=== PATIENT | male | born 1960 | race Caucasian/White ===

== ENCOUNTER 2022-08-24 09:07 | Outpatient (OUT) | payer OTHER, SELFPAY ==
[2022-08-24 11:18] LABS: Free T4 0.68 ng/dL (0.76-1.46)
[2022-08-24 11:20] LABS: Free T3 3.36 pg/mL (2.18-3.98); Thyroid Stimulating Hormone 1.451 uIU/mL (0.358-3.740)
[2022-08-25 08:11] LABS: Triiodothyronine (T3) 158 ng/dL (71-180)
[2022-08-29 19:07] LABS: Reverse T3, Serum 10.2 ng/dL (9.2-24.1)
== END 2022-08-24 09:08 ==
LOC: LAB 09:17
PROVIDERS: PCP Family Medicine; Visit Provider Family Medicine
DX: E07.81 Sick-euthyroid syndrome (principal); R53.82 Chronic fatigue, unspecified; E03.9 Hypothyroidism, unspecified
CPT/HCPCS: 36415; 84439; 84443; 84480; 84481; 84482

== ENCOUNTER 2023-01-25 10:07 | Outpatient (OUT) | payer OTHER, SELFPAY ==
--- NOTE | 2023-01-25 10:22 | CA_ITS ---
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[id number] Requested By: VICKIE SHINE Order Number: [id number] Reading MD: DAMION AGRAWAL Interpretive Statements Predominant rhythm is sinus with average rate of 76 bpm Tachycardia - max rate of 131 bpm Bradycardia (45% total) - min rate of 45 bpm Ventricular ectopy - 10 PVC Patient triggered events: 10 - associated with symptoms of lightheadedness - associated with rates of 118, 102 and the remainder NSR Impression: Predominant rhythm is sinus with average rate of 76 bpm Fastest rate of 131 bpm and slowest rate of 45 bpm No atrial fibrillation No blocks or pauses Electronically Signed On 02-17-2023 11:59:27 EST by DAMION AGRAWAL
[2023-01-25 10:53] LABS: Eosinophils Absolute Auto 0.1 10^3/uL (0.0-0.7); Eosinophils Percent Auto 1.7 % (0.9-7.0); Hematocrit 40.9 % (42.0-54.0); Hemoglobin 13.7 g/dL (14.0-18.0); Immature Granulocytes Abs Auto 0.01 10^3/uL (0.00-0.03); Immature Granulocytes Pct Auto 0.2 % (0.0-0.5); Lymphocytes Absolute Auto 1.4 10^3/uL (1.2-3.8); Lymphocytes Percent Auto 34.2 % (20.5-60.0); Mean Corpuscular HGB Conc 33.5 g/dL (29.9-35.2); Mean Corpuscular Hemoglobin 31.6 pg (25.9-34.0); Mean Corpuscular Volume 94.5 fL (80.0-94.0); Mean Platelet Volume 9.8 fL (9.5-13.5); Monocytes Absolute Auto 0.5 10^3/uL (0.3-0.8); Monocytes Percent Auto 13.5 % (1.7-12.0); Neutrophils Percent Auto 49.4 % (43.0-75.0); Platelet Count 248 10^3/uL (150-450); Red Blood Count 4.33 10^6/uL (4.70-6.10); Red Cell Distribution Width 12.9 % (11.0-15.0)
[2023-01-25 11:54] LABS: Alanine Aminotransferase 22 U/L (16-63); Albumin Globulin Ratio 0.7; Albumin Level 3.4 g/dL (3.4-5.0); Alkaline Phosphatase 34 U/L (46-116); Anion Gap 11.7; Aspartate Amino Transferase 13 U/L (15-37); BUN Creatinine Ratio 21.2; Bilirubin Total 0.6 mg/dL (0.2-1.0); Calcium 8.6 mg/dL (8.5-10.1); Carbon Dioxide 25.7 mmol/L (21.0-32.0); Chloride 104 mmol/L (98-107); Estimated GFR (African America >60 (>=60); Estimated GFR (Non-African Ame >60 (>=60); Free T3 2.97 pg/mL (2.18-3.98); Globulin 5.1 g/dL; Glucose 93 mg/dL (74-106); Potassium 4.4 mmol/L (3.5-5.1); Sodium 137 mmol/L (136-145); Thyroid Stimulating Hormone 0.159 uIU/mL (0.358-3.740); Total Protein 8.5 g/dL (6.4-8.2)
== END 2023-01-25 10:08 | disposition home or self-care (01) ==
LOC: LAB 10:15
PROVIDERS: PCP Family Medicine; Visit Provider Family Medicine
DX: R55 Syncope and collapse (principal); E03.9 Hypothyroidism, unspecified
CPT/HCPCS: 36415; 80053; 84436; 84443; 84481; 85025; 93246

== ENCOUNTER 2023-02-08 11:18 | Outpatient (OUT) | payer OTHER, SELFPAY ==
[2023-02-08 13:03] LABS: Free T4 0.88 ng/dL (0.76-1.46)
[2023-02-08 13:06] LABS: Free T3 2.66 pg/mL (2.18-3.98); Thyroid Stimulating Hormone 0.077 uIU/mL (0.358-3.740)
[2023-02-09 04:07] LABS: Triiodothyronine (T3) 121 ng/dL (71-180)
[2023-02-14 21:07] LABS: Reverse T3, Serum 15.3 ng/dL (9.2-24.1)
== END 2023-02-08 11:19 | disposition home or self-care (01) ==
LOC: LAB 11:19
PROVIDERS: PCP Family Medicine; Visit Provider Family Medicine
DX: E07.81 Sick-euthyroid syndrome (principal); R53.82 Chronic fatigue, unspecified; E03.9 Hypothyroidism, unspecified
CPT/HCPCS: 36415; 84439; 84443; 84480; 84481; 84482

== ENCOUNTER 2023-04-29 10:56 | Outpatient (OUT) | payer OTHER, SELFPAY ==
--- OUTSIDE RECORDS SUMMARY | 2023-04-29 11:04 | XMS_ITS | CCD ---
Author Name Unknown Address [address] [facility] [address] [place] [address] Organization [facility] Care Team Providers Care Plastic Surgery Technician Name Role Phone PHYSICIAN, DEFAULT Unavailable Unavailable PHYSICIAN, DEFAULT Unavailable Unavailable Vickie Eason Primary Care Physician [phone] Dr. Kathy Johns Attending Unavailabl e Yumi, Dr. Vickie Easton Primary Care Unavail able HOY ., DR JOHNSTON Consulting Unavailable HOY ., DR JOHNSTON Primary Care Unavailable HOY ., DR JOHNSTON Attending Unavailable HOY ., DR JOHNSTON Admitting Unavailable HEMEYER ., DR BROOKS Consulting Unavailable HOY ., DR JOHNSTON Primary Care Unavailable HEMEYER ., DR BROOKS Attending Unavailable HEMEYER ., DR BROOKS Admitting Unavailable HOY ., DR JOHNSTON Consulting Unavailable HOY ., DR JOHNSTON Primary Care Unavailable HOY ., DR JOHNSTON Attending Unavailable HOY ., DR JOHNSTON Admitting Unavailable MARLENE SANDHU Consulting Unavailable HOY ., DR JOHNSTON Consulting Unavailable HOY ., DR JOHNSTON Primary Care Unavailable HOY ., DR JOHNSTON Attending Unavailable HOY ., DR JOHNSTON Admitting Unavailable CARMEN, DR BRANDIN Ames Consulting Unavailable HEMEYER ., DR BROOKS Consulting Unavailable HOY ., DR JOHNSTON Primary Care Unavailable HEMEYER ., DR BROOKS Attending Unavailable HEMEYER ., DR BROOKS Admmason Unavailable HOY ., DR JOHNSTON Primary Care Unavailable HEMEYER ., DR BROOKS Attending Unavailable HEMEYER ., DR BROOKS Admmason Unavailable CARMEN, DR BRANDIN Ames Consulting Unavailable HOY ., DR JOHNSTON Primary Care Unavailable TIGRE RAE Attending Unavailable TIGRE RAE Admitting Unavailable TIGRE RAE Consulting Unavailable YULIAY ., DR JOHNSTON Consulting Unavailable HOY ., DR JOHNSTON Primary Care Unavailable HOY ., DR JOHNSTON Attending Unavailable HOY ., DR JOHNSTON Admitting Unavailable YUMI Field, DR JOHNSTON Primary Care Unavailable TIGRE RAE Attending Unavailable TIGRE RAE Admitting Unavailable KELLEY ., DR BROOKS Consulting Unavailable YUMI ., DR JOHNSTON Primary Care Unavailable KELLEY ., DR BROOKS Attending Unavailable KELLEY ., DR BROOKS Admitting Unavailable Tigre Rae Attending Unavailable Tigre Rae Admitting Unavailable CECILIA BENSON Attending Unavailable Allergies Allergy Classification Reported Allergen(s) Allergy Type Date of Onset Reaction(s) Facility (2 sources) Ciprofloxacin; Translations: [ciprofloxacin] Drug Allergy Intolerance, function (observable entity) [facility] (2 sources) Ciprofloxacin Drug Allergy 7 [facility] Medications Current Medications Medication Drug Class(es) Dates Sig (Normalized) Sig (Original) Aspirin (1 source) Platelet Aggregation Inhibitor, Nonsteroidal Anti-inflammatory Drug Start: 04-26-2021 aspirin 81 mg, Daily, Refills(s) 0 Start Date: 04/26/21 Status: Ordered atorvastatin 20 mg oral tablet (1 source) HMG-CoA Reductase Inhibitor Start: 04-26-2020 take 1 tablet by mouth once daily Lipitor 20 mg Tab 20 mg = 1 tab(s), Oral, Daily, # 30 tab(s), Refills(s) 0 Start Date: 04/26/20 Status: Ordered Celebrate Multivitamin (1 source) Start: 04-26-2021 Celebrate Multivitamin Daily, Refill(s) 0 Start Date: 04/26/21 Status: Ordered DHEA 25 mg oral capsule (1 source) Start: 04-26-2020 DHEA 25 mg oral capsule 37.5 mg = 1.5 cap(s), Oral, Daily, # 30 cap(s), Refills(s) 0 Start Date: 04/26/20 Status: Ordered levothyroxine sodium 0.05 mg oral tablet (1 source) l-Thyroxine Start: 04-26-2020 take 1 tablet by mouth twice daily levothyroxine 50 mcg (0.05 mg) Tab 50 mcg = 1 tab(s), Oral, BID, # 30 tab(s), Refills(s) 0 Start Date: 04/26/20 Status: Ordered liothyronine sodium 0.005 mg oral tablet (1 source) l-Triiodothyronine Start: 04-26-2020 take 2 tablets by mouth twice daily liothyronine 5 mcg Tab 10 mcg = 2 tab(s), Oral, BID, # 30 tab(s), Refills(s) 0 Start Date: 04/26/20 Status: Ordered Problems Active Problems Problem Classification Problem Date Documented Date Episodic/Chronic Disorders of lipid metabolism (1 source) Hyperlipidemia 04-26-2020 Chronic Malaise and fatigue (5 sources) Chronic fatigue, unspecified; Translations: [CHRONIC FATIGUE UNSPECIFIED] Onset: 09-11-2021 Chronic Neoplasms of unspecified nature or uncertain behavior (4 sources) Monoclonal gammopathy; Translations: [MONOCLONAL GAMMOPATHY] Onset: 04-09-2022 Chronic Thyroid disorders (2 sources) Hypothyroidism; Translations: [Hypothyroidism, unspecified] Onset: 03-01-2022 04-26-2020 Chronic Unclassified (2 sources) Contact with and (suspected) exposure to COVID-19; Translations: [Contact with and (suspected) exposure to COVID-19] Onset: 10-26-2021 Viral infection (4 sources) COVID-19; Translations: [COVID-19] Onset: 11-02-2021 Past or Other Problems Problem Classification Problem Date Documented Da te Episodic/Chronic Nonspecific chest pain (1 source) Chest pain, unspecified; Translations: [CHEST PAIN UNSPECIFIED] Onset: 11-07-2021 Episodic Other bone disease and musculoskeletal deformities (1 source) Disorder of bone, unspecified; Translations: [DISORDER OF BONE UNSPECIFIED] Onset: 04-14-2022 Episodic Other lower respiratory disease (4 sources) Shortness of breath; Translations: [SHORTNESS OF BREATH] Onset: 11-03-2021 Episodic Other screening for suspected conditions (not mental disorders or infectious disease) (1 source) Encounter for screening for malignant neoplasm of prostate; Translations: [ENC SCREEN MALIG NEOPLASM PROSTATE] Onset: 08-18-2021 Episodic Thyroid disorders (5 sources) Sick-euthyroid syndrome; Translations: [SICK-EUTHYROID SYNDROME] Onset: 09-13-2021 Episodic Results Test Name Value Interpretation Reference Range Facility Physician Orderon 10-26-2022 Physician Order [id number]:127 Normal [facility] INSULINon 07-17-2022 Insulin 9.6 uIU/mL Normal 2.6-24.9 [facility] Comment on above: Performed By: #### L IPID, T7, URIC, TSH, CMP #### [facility] [address] [place] [address] Dr. Jaymie Gilbert CBC AUTO DIFFon 07-16-2022 BASO # 0.0 103/ul Normal 0.0-0.1 [facility] Comment on above: Performed By: #### L IPID, T7, URIC, TSH, CMP #### [facility] [address] [place] [address] Dr. Jaymie Gilbert Basophils/100 WBC (Bld) 1.0 % Normal 0.2-2.0 [facility] Comment on above: Performed By: #### L IPID, T7, URIC, TSH, CMP #### [facility] [address] [place] [address] Dr. Jaymie Gilbert EO # 0.0 103/ul Normal 0.0-0.7 [facility] Comment on above: Performed By: #### L IPID, T7, URIC, TSH, CMP #### [facility] [address] [place] [address] Dr. Jaymie Gilbert Eosinophils/100 WBC (Bld) 1.0 % Normal 0.9-7.0 [facility] Comment on above: Performed By: #### L IPID, T7, URIC, TSH, CMP #### [facility] [address] [place] [address] Dr. Jaymie Gilbert Erythrocyte distribution width (RBC) [Ratio] 13.3 % Normal 11.0-15.0 [facility] Comment on above: Performed By: #### L IPID, T7, URIC, TSH, CMP #### [facility] [address] [place] [address] Dr. Jaymie Gilbert Hematocrit (Bld) [Volume fraction] 44.6 % Normal 42.0-54.0 [facility] Comment on above: Performed By: #### L IPID, T7, URIC, TSH, CMP #### [facility] [address] [place] [address] Dr. Jaymie Gilbert Hemoglobin (Bld) [Mass/Vol] 15.2 g/dL Normal 14.0-18.0 [facility] Comment on above: Performed By: #### L IPID, T7, URIC, TSH, CMP #### [facility] [address] [place] [address] Dr. Jaymie Gilbert IG # 0.01 10e3/ul Normal 0.00-0.03 [facility] Comment on above: Performed By: #### L IPID, T7, URIC, TSH, CMP #### [facility] [address] [place] [address] Dr. Jaymie Gilbert IG % 0.3 % Normal 0.0-0.5 [facility] Comment on above: Performed By: #### L IPID, T7, URIC, TSH, CMP #### [facility] [address] [place] [address] Dr. Jaymie Gilbert LYMPH # 1.5 103/ul Normal 1.2-3.8 [facility] Comment on above: Performed By: #### L IPID, T7, URIC, TSH, CMP #### [facility] [address] [place] [address] Dr. Jaymie Gilbert Lymphocytes/100 WBC (Bld) 38.0 % Normal 20.5-60.0 [facility] Comment on above: Performed By: #### L IPID, T7, URIC, TSH, CMP #### [facility] [address] [place] [address] Dr. Jaymie Gilbert MANUAL DIFF REQ NO Normal [facility] Comment on above: Performed By: #### L IPID, T7, URIC, TSH, CMP #### [facility] [address] [place] [address] Dr. Jaymie Gilbert MCH (RBC) [Entitic mass] 31.5 pg Normal 25.9-34.0 [facility] Comment on above: Performed By: #### L IPID, T7, URIC, TSH, CMP #### [facility] [address] [place] [address] Dr. Jaymie Gilbert MCHC (RBC) [Mass/Vol] 34.1 g/dL Normal 29.9-35.2 [facility] Comment on above: Performed By: #### L IPID, T7, URIC, TSH, CMP #### [facility] [address] [place] [address] Dr. Jaymie Gilbert MCV (RBC) [Entitic vol] 92.5 fL Normal 80.0-94.0 [facility] Comment on above: Performed By: #### L IPID, T7, URIC, TSH, CMP #### [facility] [address] [place] [address] Dr. Jaymie Gilbert MONO # 0.4 103/ul Normal 0.3-0.8 [facility] Comment on above: Performed By: #### L IPID, T7, URIC, TSH, CMP #### [facility] [address] [place] [address] Dr. Jaymie Gilbert Monocytes/100 WBC (Bld) 11.0 % Normal 1.7-12.0 [facility] Comment on above: Performed By: #### L IPID, T7, URIC, TSH, CMP #### [facility] [address] [place] [address] Dr. Jaymie Gilbert NEUT # 2.0 103/ul Normal 1.4-6.5 [facility] Comment on above: Performed By: #### L IPID, T7, URIC, TSH, CMP #### [facility] [address] [place] [address] Dr. Jaymie Gilbert Neutrophils/100 WBC (Bld) 48.7 % Normal 43.0-75.0 [facility] Comment on above: Performed By: #### L IPID, T7, URIC, TSH, CMP #### [facility] [address] [place] [address] Dr. Jaymie Gilbert Platelet mean volume (Bld) [Entitic vol] 9.8 fL Normal 9.5-13.5 [facility] Comment on above: Performed By: #### L IPID, T7, URIC, TSH, CMP #### [facility] [address] [place] [address] Dr. Jaymie Gilbert PLT 261 103/ul Normal 150-450 [facility] Comment on above: Performed By: #### L IPID, T7, URIC, TSH, CMP #### [facility] [address] [address] [address] Jaymie Gilbert RBC 4.82 106/ul Normal 4.70-6.10 [facility] Comment on above: Performed By: #### L IPID, T7, URIC, TSH, CMP #### [facility] [address] [address] [address] Jaymie Gilbert WBC 4.0 103/ul Normal 4.0-11.0 [facility] Comment on above: Performed By: #### L IPID, T7, URIC, TSH, CMP #### [facility] [address] [place] [address] Dr. Jaymie Gilbert FREE THYROXINE INDEX T7on 0 07-16-2022 FTI 1.57 Normal 1.30-4.50 [facility] Comment on above: Performed By: #### L IPID, T7, URIC, TSH, CMP #### [facility] [address] [place] [address] Dr. Jaymie Gilbert T3U 32.0 % Critically low 33.0-40.0 [facility] Comment on above: Performed By: #### L IPID, T7, URIC, TSH, CMP #### [facility] [address] [place] [address] Dr. Jaymie Gilbert T4 [Mass/Vol] 4.90 ug/dL Normal 4.50-12.10 [facility] Comment on above: Performed By: #### L IPID, T7, URIC, TSH, CMP #### [facility] [address] [place] [address] Dr. Jaymie Gilbert GLYCOHEMOGLOBIN A1Con 2022 ADA RECOMMENDATION SEE BELOW Normal [facility] Comment on above: Result Comment: ADA RECOMMENDED LIMIT 4.0 - 6.0 ADA THERAPEUTIC TARGET < 7.0 ACTION SUGGESTED > 7.0 Performed By: #### L IPID, T7, URIC, TSH, CMP #### [facility] [address] [address] [address] Jaymie Gilbert Glucose [Mass/Vol] 114 mg/dL Normal [facility] Comment on above: Performed By: #### L IPID, T7, URIC, TSH, CMP #### [facility] [address] [place] [address] Dr. Jaymie Gilbert HbA1c (Bld) [Mass fraction] 5.6 % Normal 4.5-6.2 [facility] Comment on above: Performed By: #### L IPID, T7, URIC, TSH, CMP #### [facility] [address] [place] [address] Dr. Jaymie Gilbert LIPID PROFILEon 07-16-2022 CHOL-HDL RATIO NORM SEE BELOW Normal [facility] Comment on above: Result Comment: 3.3 - 4.4 LOW RISK 4.4 - 7.1 AVERAGE RISK 7.1 - 11.0 MODERATE RISK >11.0 HIGH RISK Performed By: #### L IPID, T7, URIC, TSH, CMP #### [facility] [address] [place] [address] Dr. Jaymie Gilbert Cholesterol [Mass/Vol] 212 mg/dL Critically high <=200 [facility] Comment on above: Performed By: #### L IPID, T7, URIC, TSH, CMP #### [facility] [address] [place] [address] Dr. Jaymie Gilbert Cholesterol in HDL [Mass/Vol] 67 mg/dL Critically high 40-60 [facility] Comment on above: Performed By: #### L IPID, T7, URIC, TSH, CMP #### [facility] [address] [place] [address] Dr. Jaymie Gilbert Cholesterol in LDL [Mass/Vol] 132.4 mg/dL Normal [facility] Comment on above: Performed By: #### L IPID, T7, URIC, TSH, CMP #### [facility] [address] [place] [address] Dr. Jaymie Gilbert Cholesterol.total/ Cholesterol in HDL [Mass ratio] 3.2 {ratio} Normal [facility] Comment on above: Performed By: #### L IPID, T7, URIC, TSH, CMP #### [facility] [address] [address] [address] Jaymie Gilbert HDL NORMAL > or = 60 mg/dl - LO W CARDIOVASCULAR RISK <40 mg/dl - HIGH CARDIOVASCULAR RISK Normal [facility] Comment on above: Performed By: #### L IPID, T7, URIC, TSH, CMP #### [facility] [address] [address] [address] Jaymie Gilbert LDL CALC NORMAL SEE BELOW Normal [facility] Comment on above: Result Comment: <100 mg/dl OPTIMAL 100 - 129 mg/dl NEAR OR ABOVE OPTIMAL 130 - 159 mg/dl BORDERLINE HIGH 160 - 189 mg/dl HIGH >190 mg/dl VERY HIGH Performed By: #### L IPID, T7, URIC, TSH, CMP #### [facility] [address] [address] [address] Jaymie Gilbert Triglyceride [Mass/Vol] 63 mg/dL Normal <=150 [facility] Comment on above: Performed By: #### L IPID, T7, URIC, TSH, CMP #### [facility] [address] [address] [address] Jaymie Gilbert VLDL CALC 12.6 mg/dL Normal [facility] Comment on above: Performed By: #### L IPID, T7, URIC, TSH, CMP #### [facility] [address] [address] [address] Jaymie Gilbert PROF 14(COMP METB)on 023 Albumin [Mass/Vol] 3.7 g/dL Normal 3.4-5.0 [facility] Comment on above: Performed By: #### L IPID, T7, URIC, TSH, CMP #### [facility] [address] [address] [address] Jaymie Gilbert Albumin/Globulin [Mass ratio] 0.7 {ratio} Normal [facility] Comment on above: Performed By: #### L IPID, T7, URIC, TSH, CMP #### [facility] [address] [address] [address] Jaymie Gilbert ALP [Catalytic activity/Vol] 42 U/L Critically low 46-116 [facility] Comment on above: Performed By: #### L IPID, T7, URIC, TSH, CMP #### [facility] [address] [place] [address] Dr. Jaymie Gilbert ALT [Catalytic activity/Vol] 28 U/L Normal 16-63 [facility] Comment on above: Performed By: #### L IPID, T7, URIC, TSH, CMP #### [facility] [address] [place] [address] Dr. Jaymie Gilbert Anion gap [Moles/Vol] 12.0 mmol/L Normal [facility] Comment on above: Performed By: #### L IPID, T7, URIC, TSH, CMP #### [facility] [address] [place] [address] Dr. Jaymie Gilbert AST [Catalytic activity/Vol] 16 U/L Normal 15-37 [facility] Comment on above: Performed By: #### L IPID, T7, URIC, TSH, CMP #### [facility] [address] [place] [address] Dr. Jaymie Gilbert Bilirubin [Mass/Vol] 0.6 mg/dL Normal 0.2-1.0 [facility] Comment on above: Performed By: #### L IPID, T7, URIC, TSH, CMP #### [facility] [address] [place] [address] Dr. Jaymie Gilbert Calcium [Mass/Vol] 9.1 mg/dL Normal 8.5-10.1 [facility] Comment on above: Performed By: #### L IPID, T7, URIC, TSH, CMP #### [facility] [address] [place] [address] Dr. Jaymie Gilbert Chloride [Moles/Vol] 104 mmol/L Normal 98-107 [facility] Comment on above: Performed By: #### L IPID, T7, URIC, TSH, CMP #### [facility] [address] [place] [address] Dr. Jaymie Gilbert CO2 [Moles/Vol] 27.3 mmol/L Normal 21.0-32.0 [facility] Comment on above: Performed By: #### L IPID, T7, URIC, TSH, CMP #### [facility] [address] [place] [address] Dr. Jaymie Gilbert Creatinine [Mass/Vol] 1.17 mg/dL Normal 0.70-1.30 [facility] Comment on above: Performed By: #### L IPID, T7, URIC, TSH, CMP #### [facility] [address] [place] [address] Dr. Jaymie Gilbert EGFR-AF BURMESE >60 Normal >=60 [facility] Comment on above: Performed By: #### L IPID, T7, URIC, TSH, CMP #### [facility] [address] [place] [address] Dr. Jaymie Gilbert EGFR-NON AF BURMESE >60 Normal >=60 [facility] Comment on above: Performed By: #### L IPID, T7, URIC, TSH, CMP #### [facility] [address] [place] [address] Dr. Jaymie Gilbert Globulin (S) [Mass/Vol] 5.3 g/dL Normal [facility] Comment on above: Performed By: #### L IPID, T7, URIC, TSH, CMP #### [facility] [address] [place] [address] Dr. Jaymie Gilbert Glucose [Mass/Vol] 101 mg/dL Normal 74-106 [facility] Comment on above: Performed By: #### L IPID, T7, URIC, TSH, CMP #### [facility] [address] [place] [address] Dr. Jaymie Gilbert Potassium [Moles/Vol] 4.3 mmol/L Normal 3.5-5.1 [facility] Comment on above: Performed By: #### L IPID, T7, URIC, TSH, CMP #### [facility] [address] [place] [address] Dr. Jaymie Gilbert Protein [Mass/Vol] 9.0 g/dL Critically high 6.4-8.2 T [facility] Comment on above: Performed By: #### L IPID, T7, URIC, TSH, CMP #### [facility] [address] [address] [address] Jaymie Gilbert Sodium [Moles/Vol] 139 mmol/L Normal 136-145 [facility] Comment on above: Performed By: #### L IPID, T7, URIC, TSH, CMP #### [facility] [address] [address] [address] Jaymie Gilbert Urea nitrogen [Mass/Vol] 18.0 mg/dL Normal 7.0-18.0 [facility] Comment on above: Performed By: #### L IPID, T7, URIC, TSH, CMP #### [facility] [address] [address] [address] Jaymie Gilbert Urea nitrogen/Creatinin e [Mass ratio] 15.4 mg/mg Normal [facility] Comment on above: Performed By: #### L IPID, T7, URIC, TSH, CMP #### [facility] [address] [place] [address] Dr. Jaymie Gilbert TSHon 07-16-2022 TSH 2.332 uIU/mL Normal 0.358-3.740 [facility] Comment on above: Performed By: #### L IPID, T7, URIC, TSH, CMP #### [facility] [address] [address] [address] Jaymie Gilbert URIC ACID SERUMon 07-16-2022 Urate [Mass/Vol] 4.6 mg/dL Normal 3.5-7.2 [facility] Comment on above: Performed By: #### L IPID, T7, URIC, TSH, CMP #### [facility] [address] [place] [address] Dr. Jaymie Gilbert Oncology Progress Noteon Oncology Progress Note Patient: [facility]: [id number] Age: 61 years Sex: Male : 1960 Associated Diagnoses: None Author: Tigre Rae DO History of Present Illness 59-year-old male whom I previously followed at [facility] for monoclonal gammopathy of undetermined significance. He has a persistent M spike in the 2-3 range with quantitative igg in the 3198-8079 range.. Previously he had followed with Dr. Bhat and had a bone marrow biopsy in 2013. At the time he had less than 5% plasma cells by flow cytometry. Poor quality sample but overall did not show involvement by multiple myeloma. 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 Skeletal surveys have been done intermittently over the years and have not shown lytic disease. He also has not had evidence of anemia or renal disease or hypercalcemia. 04/26/2020 he maintains on levothyronine levothyroxine and testosterone from Dr. Parra. His PCP is Justino Eason. He feels well, no hospitalizations or major med changes. no sweats. weight stable. 04/26/21 no hospitalizations or med changes. Follows with Dr. Eason. No back pain, weight is stable. labs pending, drawn at [place]. he had skeletal survey with no concerning findings last week at [place]. 04/25/22 no new complaints. recent cbc was normal wbc, hb plts outside labs. IgG 3145, Mspike 2.3. unchanged essentially. Review of Systems Constitutional: Negative. Eye: Negative. Ear/Nose/Mouth/Throat: Negative. Respiratory: Negative. Cardiovascular: Negative. Gastrointestinal: Negative. Genitourinary: Negative. Hematology/Lymphatics: Negative. Endocrine: Negative. Immunologic: Negative. Musculoskeletal: Negative. Integumentary: Negative. Neurologic: Negative. Psychiatric: Negative. All other systems are negative Health Status Allergies: Allergic Reactions (Selected) Severity Not Documented Ciprofloxacin- Intolerance. Current medications: Home Medications (6) Active aspirin 81 mg, Daily Celebrate Multivitamin , Daily DHEA 25 mg oral capsule 37.5 mg = 1.5 cap(s), Oral, Daily levothyroxine 50 mcg (0.05 mg) Tab 50 mcg = 1 tab(s), Oral, BID liothyronine 5 mcg Tab 10 mcg = 2 tab(s), Oral, BID Lipitor 20 mg Tab 20 mg = 1 tab(s), Oral, Daily , No qualifying data available Problem list: All Problems Resolved: Hyperlipidemia / SNOMED CT 54796838 Resolved: Hypothyroidism / SNOMED CT 10453124 Histories Past Medical History: Resolved Hypothyroidism (53065831): Resolved. Hyperlipidemia (69113726): Resolved. Family History: Primary malignant neoplasm of bladder Mother Hypothyroidism Father Sister Autoimmune disease Brother Hypoglycemia Sister Procedure history: Tonsillectomy and adenoidectomy (198946711). Vasectomy (43871869). Arthroscopic repair of meniscus ([id number]). Pneumatic retinopexy (264113670). Social History Social & Psychosocial Habits Tobacco 04/26/2020 Tobacco Use: Never (less than 100 in l Smokeless tobacco use: Never . Physical Examination Vital Signs 04/25/2022 9:08 EST Heart Rate Monitored 70 bpm SpO2 97 % 04/25/2022 9:08 EST Respiratory Rate 16 br/min 04/25/2022 9:08 EST Temperature Axillary In Error DegC (In Error) 04/25/2022 9:07 EST Systolic Blood Pressure 154 mmHg HI Diastolic Blood Pressure 85 mmHg Mean Arterial Pressure, Monitered 108 mmHg 04/25/2022 9:00 EST Temperature Oral 36.4 DegC General: Alert and oriented. Eye: Pupils are equal, round and reactive to light, Extraocular movements are intact, Normal conjunctiva. HENT: Normocephalic, Oral mucosa is moist, No pharyngeal erythema. Neck: Supple, Non-tender. Respiratory: Lungs are clear to auscultation. Cardiovascular: Normal rate, Regular rhythm, No murmur. Gastrointestinal: Soft, Non-tender. Lymphatics: No cervical, supraclavicular, axilla, inguinal adenopathy.. Musculoskeletal Normal range of motion. Integumentary: Warm, Dry, Surfside. Neurologic: Alert, Oriented, Normal sensory. Psychiatric: Cooperative, Appropriate mood & affect. Review / Management Results review: No qualifying data available . Impression and Plan Education and Follow-up: Counseled: Patient, Regarding diagnosis, Regarding treatment. Discharge Planning: Tigre Rae f/u in 18 months. prior to f/u at [place] check cbc, cmp, spep sflc simmunofixation. no imaging. . 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 He is doing well and has no signs of multiple myeloma clinically. His calcium is normal. He does not have any anemia or renal failure. He has not had any significant back pain and does not have any lytic disease on serial skeletal surveys. On previous bm biopsy, he did have a few plasma cells and a 13 q. deletion which tends to be a negative prognostic marker, despite this he has had no clinical signs of disease over 9 years since his initial bone marrow biopsy. His M spike's (more content not included)... Normal [facility] Coding Summary.on 04-26-2022 Coding Summary. [id number] Gh0bWw +PGhlYWQ+MY6NAGBkB16dtWYkt U5TH0iFUL7FHNPIQYETSD9NAG1 qlII0NBrwM0IzicMa VgaypNGyOT25PGl9FUC1xUjcGT suhZ9vlJXnG4h0PxDmLZ52dM11 FElyOIVnJdF6OrTafbqxcSMw V3ccNmKjmKIjQpo+PHRhYmxlIH ebSHOgMTyyTPPpBpScjMneTW6r Uq7yHSLlVYEnlGmzxPTyMeRb y2roOKYyKUjjDM8hzTeeW9UgoI C5IOGdw2u6Pk67bXQ+PHRkIHN0 wMxnXHzmq330QfDhc3jlVKT2 nNLiTOohNTB4S29vb6C8SDYxLV MrYLG3sFU9yI7nuUdghcekP3Sf mSQgTrU0QOA4nPTrkU9hlXwt jyvrpH7zPpl+S21JCJ9PIFAZVM 4CCui0R6GhSromtPU+IW26GLOj CD26uQVvxZUer6tufGz1NeTk UPLfBWV0qFfzPZavk4MeNWDrL5 8uiBOmn7K5LCLkiMehoFBkXvFr uTV8uM3gCYpcgpwlx8lkunws Bxmpr8ljbn45oD61Z18fPNdxXZ MvKRE5EKVxEAYswXxgli6vmH3r Ii8+UTvfw4njy9icqAl8FfKc FLDvkjHoqGlsRKF5f3VwOn71O7 MyaPoip2SnBdt8cs72qLBxi1M1 qFI1QCgcIEAfnF0jJFkwEgS3 CVOsTuTcvF68jDXdNSfvBu6afV cxaRwoSV6uWXUpumosTDTaiI7i ZRKbrILmvQzgGF5yMTGsvfot a499JoBwMHY6DSRnmBJmL1VwfJ 3gCsYqSQCgLJPuX9UnyETeDHfd H300MCwpKyC9PERdamTpM7Lb XQPduKzoFpQ2j3A8Bm0Pt2Ncsu zzITA2GSicLHFwGpKoDzVoMlK0 M9OyRhk0SPTowFqcDJ5cN0Fe VCZymecmlwktkKC4PUXkRWDbqC 08qZQdXFbsUc0wm7Q9k740OIQn WWNcsT77Rm5ppHtpVHHbjIUY yM1ctkcdz7kelkzaRwFlJIDeDT j7XFp3YLDuzFjpVuTxTWH9ZaD1 IIE3oFAriM8znYdzrlxrkB4s Oyc+B30aqN0pXUF7OLW5ceavSF QkxyMtQG87LQ11Y2SyUndvySXh bGU+EBAtnpVbnWepYG8oAtYu s5lko9JaDSybE6AfDQKsWKflLt b7XKTyPNB7xNU1eK8vSZPbTGqs h9B4yNQ1L9YggwBxhu3rv4qb URKlIUgdH66uwCJyc8D0DEJgrK T4LWOtyXtjWsBjxQ83Nkb+PGNv oLrqq0JrIlxrs2ccy1bqoHc9 DbPaBNKntzZxqObzFXK7d6JuKf 45R39xYWxfAPTaJMDgTZKeUHYa tHexht1jkH2pGr3+PGNvbCB3 lSF2fV4cRWIpWdH8LLtbM375Sv MmlQAuDjhnl0mjd2lotEv4JiYo KXCnvdDyyHlvUAB0p4LpNj32 D26zXGevCFEeHNOoUIAnGZAqgU xfbo9ceK0zXy1+SY7pu3efer14 nH65yLN+KDYlFIG2lVucAGda QTEhvX6gHSkkTjA3RDSfGcZhdT 08jFOcEYnqPw9kaXfxzAfvKR5p BOQpsykdz276CbSyk4eyLCVc mYGpHTxqOXL3L34it3A0YGBkME UqWJS1zXD5hK3fyYaxbupbjDDm jBsaepRxqEwzMXygYHyjD878 IHRvcDsnPlBhdGllbnQgTmFtZT a5Q3BiWvi6PNExrOzkKJ2raNJs DCjnIg4jvVgjoGjlYV5tADDv bukzi954VmMrz8wcPZObkBTtFY hkXZL7Q12bk0J6OGTgCWTzCKN4 tQF0tQ3eaVwqgrcnnMNzqMne njHbvLieNCyeFKyhU803RHGddD wvFqWejxLoEYToyZN1KT43SV38 zEQyz5A0sWN6D8PmUDDmjlho ysngjJK9RIFgWFFeuZ40Qn2zgC muNq3sPAZwQFE7KZCxtDPuG8Iw qQ0nDtJqWFEsYMSaG8QayDYm XGjiW791EZhgCsC2TAVagwHiS0 HfCUDvpAzbGcW1g5Y4Nt1PJ3U6 UB21XM60eSTrx6J8sAO5E1Na WAHjqsvzlsjgkVV7WXDuPOZoeX 11El3jyBusCk6vFZSaUTW9FAJo uTMuK0EzfS1rLeXeICJvZYYi Q6UfpYJtCQcpG099WDfgGkR8LI YoboSzF6PgTDNbcKdfXlG2r6T0 Qk5PQZz4RW96UW27vLUsn6R4 xUD7Q7MqNIGfadlixbqgzZO0AQ YpHDNnhR72Sc1owOszIx3mRUWz DTC7SSHimDGvI3KoiW9tPeRy EMEgGKIlR4EtxUDpMXkhX300XB beSdI3YUSzejPvA5InCNZvgWgx KaG6w4B2Sx7PHVOdOK72DMZ8 hHK0QY09DC96D6UgVqstjEEsfU U+PHRhYmxlIHdpZHRoPScxMDAl ZvZiaYdvVA1zFd8hLSEvZCYn wBpghDPmJzTyb9llWSFpJNotRN 9zaIeuY8TecBV9LNXlq6y1Cq22 Q11aU5LdcCT+MJRjqLY6jSZ2 gI0uYtCrSqW7EZxeR095GoXevX XyVcphr4ttq6nieAh6HsI2MPXt xaOzaLegIID3z0IcYp21R29l IHdpZHRoPSIxNSUiIHZhbGlnbj 9oiK9hHa5+QQSblQX3rBG6lW7r PmQmPiG7AGmmW022VlXbwVCz Uupce8rlj8rtuMt4GxCgISOgxd QrjYhwQDG6p3VhXz19R9VjtXdl h2LwBxj8ry84sSYnp8X3oCF9 S4MiSHYqwuxrvCTnhRkcMZ4bTC ZuidkxBNZvyF5jJZNpW7t3GrKc NwE1XQzuN8AlruG3UWDdrFWh AFjjCJX8U36np9I3KKElUAIsJG O2oNB0bH5vgFdoqvalwIQsrRzn lxTewCjlODkiFUckE872BKRa zPjbMJBvcI5lPRPioSZloCynQX 5aMWWejzltUx7IEKMESANYOFYI NJCBGP94OM63lZHko0D4wAA1 A4AyMBJfjkwugfhvwSD2CJVkXV UliL41fTSjEZawUi1ns2U2r215 VRRhKGVckY70Cy1lwCnmSGGy jTECgC1fyuflc7xapxcrTzYeTQ KuRDf7ORm8IZQveXpwBnDxMRP0 DoO8NAS5rGVmxD4jzOvejjpv lA9cRfl+UAJhLOYfSMt5RSxktX Q+ADOlJWZ0eBkkWQkjWXAyzL8z COEkC7h1CyIiNeF3OAxeA6Kc VKKxtzxtWw02vX0dLjYrQbQ2YF oyH4JlhuP8ZMPozPXoUVjhWUK8 X90pl6I1RSBsCODqDTG3dZV2 xI3njHtvitssbDCslTdmgtDwiB dlNArmUSelI279UOJvvFneWeIj PNlvPBKkNL06AA51vPSzc9N6 kTJ9I1VyFGRxmdrnbvaciGF6WN UhAQEogH68mFKfGEntXm4ly6O1 m264WFKoIEZayP64Nl2kzXyj OAVkkTTYjR8natjfw6ideltnAz XdCTCjMBw0OWt0GGTitYkfSsQq GPP5ZmT7ILM0sUWkwT6nlLmh hzpnjV1bTug+TWFsZTwvdGQ+PH EnAAT5gUwdYIudBSQyfT2bBCYf L8p9AtUpFnB8QLcvN4JtWUCj njybVt46zT9gJcWyLwE4BRtcQ0 OqteI6ZSLjzDVpTNjaOIU2F18v z3N2YHUdETXsDQR3fOU6zR1q bGlnbjogbGVmdDsgdmVydGljYW roDRgdY932MYCqqJlqMr14hYYj gFkbizK5W2ZjYxlxnOX+PC90 WVAoZP56gXXgrWGti9cmbXx8Zq LvZXBmNXB2fTemSEtyr3ZaETVj J97pcOLcn4A1CACspMgxgYAd QhYnpWT3uU0eCKkylbbnp0fbtt baJzvag3psux87rL05Q56dHTti MHBvEQHsRASoYMTeySiwqi5d eU4cFy1+REBnsJH1yAY3wZ5oNt ElBhO2HFjzO036OrEndLFaHndk g2gff2gfwRu8PsUoTIZyedIb tJltKYA5z5AuMs79D58lXXxqZJ XiLLOjTCObLLFyeJmlek2qiY4r Ii8+NL8qm8vbdb88eC25sSG+ WZKpJNQ9mLaaEBexMVPdxJ5nOM xqGlG9CTWtNsXwcO62zULmZNoz En3dsLomoVfeAI9tPBCyprmj z072VpAga2hwSUNlrLNbZSaaIN Y5I48gr7V5MGZbKCWvQOW4pJA6 iY8eiCjrbmmxpZAblMukzjNu fZltCTvdHUpjZ909UTQakQcnOm OjpFEjH5dzrvWFVB5iNqjivWY+ IOThZIE3iSllGHtrDIZwcF1m YQQkZ3l8NjNlEdJ2UIzaM7Ytmn P3KCOykDLpFEZyqDCSsR6pkbnd a3sgjdniMcRxVZFrCPe1MKc9 NWYxnOrjUxFjIHV2FtH0EIY0xQ AtpX0nfVhdrjhvzU3cKfz+RklO OjwvdGQ+KAMkITR5gWwpSPod VHTutZ0wLQQsM9v6ZyWiPcM0JT hsU2EffkD7IRPwpIKeGEFvbPCG dH9pxtcvl6uswgiuCnEqFSPp GBr9MEd6HXWlsFfeKiNyVGU1We M7YUQ7aJTysC6igZkznvujvQ6m Oyc+TVJOOjwvdGQ+PHRkIHN0 cYxbBXqdTEKueL3eXCSqC4b7Ex LdFwI5JArrY5FekjK0VPCwzPTr XZCihBWZpO8rvgqhf0yhrifd HjPxUJYhAOb0TMs8BIKudCdhHl PpCGZ4JeA1QMD7rAWjdP9jxMtb zxasqT2nFyl+XEA2OVO5CE92 RJ39W4IsIqnazHDkvOV+PHRhYm xlIHdpZHRoPScxMDAlJyBzdHls GK3iGk1bRDZlHREyqFmjbPSc OiBj (more content not included)... [place] Consent for Treatmenton Consent for Treatment [id number]:127 [place] Oncology Noteon 04-25-2022 Oncology Note Oncology Care Coordi nator Office Visit/Treatment Note Current Patient Status/Reason: Pt in for scheduled clinic visit. Dr Rae and med student Andres saw pt. Treatment Plan: Labs before f/u appt. Wants labs at [facility]. Follow-Up Appointment Info/Referrals: F/U at 18 months. Resources Offered: I instructed pt in labs before visit. Pt wants them at [facility], he will call us when going to get them so we can fax to [facility] since not due for 18 months, and orders only good for 12 months. Pt given my contact information and will call when going to get labs so they can be faxed to [facility]. [place] Comment on above: Result Comment: Elec tronically Signed By: Jayden ACOSTA, Carla\.br\Date and Time Signed: 04/25/22 10:55 EST Outside Radiologyon 04-20-19 Outside Radiology [id number]#[id number]:127 [place] Oncology Noteon 04-18-[address] Rae viewed labs from [facility] done 04/09/2022. No new orders. [place] Comment on above: Result Comment: Elec tronically Signed By: Jayden ACOSTA, Carla\.br\Date and Time Signed: 04/18/22 07:38 EST BETA-2 MICROGLOBINon 023 Beta-2 Microglobulin, Serum 2.4 mg/L Normal 0.6-2.4 [facility] Comment on above: Result Comment: Siem Immulite 2000 Immunochemiluminometric assay (ICMA) . Values obtained with different assay methods or kits cannot be used interchangeably. Results cannot be interpreted as absolute evidence of the presence or absence of malignant disease. Performed By: #### L IPID, T7, URIC, TSH, CMP #### [facility] [address] [place] [address] Dr. Jaymie Gilbert IMMUNOFIXATION(JOLLY),PROTEIN ELEC(PE),CRITICAL ACCESS HOSPITALsydnie 04-11-2022 Albumin [Mass/Vol] 3.5 g/dL Normal 2.9-4.4 [facility] Comment on above: Performed By: #### L IPID, T7, URIC, TSH, CMP #### [facility] [address] [place] [address] Dr. Jaymie Gilbert Albumin/Globulin [Mass ratio] 0.9 {ratio} Normal 0.7-1.7 [facility] Comment on above: Performed By: #### L IPID, T7, URIC, TSH, CMP #### [facility] [address] [place] [address] Dr. Jaymie Gilbert Vrkal-9-Mccxqsrv 0.2 g/dL Normal 0.0-0.4 [facility] Comment on above: Performed By: #### L IPID, T7, URIC, TSH, CMP #### [facility] [address] [place] [address] Dr. Jaymie Gilbert Zwgxs-8-Jhbakfpr 0.7 g/dL Normal 0.4-1.0 [facility] Comment on above: Performed By: #### L IPID, T7, URIC, TSH, CMP #### [facility] [address] [place] [address] Dr. Jaymie Gilbert Beta Globulin 0.9 g/dL Normal 0.7-1.3 [facility] Comment on above: Performed By: #### L IPID, T7, URIC, TSH, CMP #### [facility] [address] [address] [address] Jaymie Gilbert Free [place] Lt Chains,S 8.9 mg/L Normal 3.3-19.4 [facility] Comment on above: Performed By: #### L IPID, T7, URIC, TSH, CMP #### [facility] [address] [address] [address] Jaymie Gilbert Free Lambda Lt Chains,S 18.7 mg/L Normal 5.7-26.3 [facility] Comment on above: Performed By: #### L IPID, T7, URIC, TSH, CMP #### [facility] [address] [place] [address] Dr. Jaymie Gilbert Gamma Globulin 2.5 g/dL Critically high 0.4-1.8 [facility] Comment on above: Performed By: #### L IPID, T7, URIC, TSH, CMP #### [facility] [address] [address] [address] Jaymie Gilbert Globulin (S) [Mass/Vol] 4.2 g/dL Critically high 2.2-3.9 [facility] Comment on above: Performed By: #### L IPID, T7, URIC, TSH, CMP #### [facility] [address] [address] [address] Jaymie Gilbert Immunofixation Result, Serum Comment Abnormal [facility] Comment on above: Result Comment: Immu nofixation shows IgG monoclonal protein with lambda light chain specificity. Performed By: #### L IPID, T7, URIC, TSH, CMP #### [facility] [address] [place] [address] Dr. Jaymie Gilbert Immunoglobulin A, Qn, Serum 20 mg/dL Critically low 61-437 [facility] Comment on above: Result Comment: Resu lt confirmed on concentration. Performed By: #### L IPID, T7, URIC, TSH, CMP #### [facility] [address] [address] [address] Jaymie Gilbert Immunoglobulin G, Qn, Serum 3145 mg/dL Critically high 603-1613 [facility] Comment on above: Performed By: #### L IPID, T7, URIC, TSH, CMP #### [facility] [address] [place] [address] Dr. Jaymie Gilbert Immunoglobulin M, Qn, Serum 40 mg/dL Normal 20-172 [facility] Comment on above: Performed By: #### L IPID, T7, URIC, TSH, CMP #### [facility] [address] [place] [address] Dr. Jaymie Gilbert [place]/Lambda Ratio, S 0.48 Normal 0.26-1.65 [facility] Comment on above: Performed By: #### L IPID, T7, URIC, TSH, CMP #### [facility] [address] [place] [address] Dr. Jaymie Gilbert M-Markus 2.3 g/dL Critically high Not Observed [facility] Comment on above: Performed By: #### L IPID, T7, URIC, TSH, CMP #### [facility] [address] [place] [address] Dr. Jaymie Gilbert PDF . Normal [facility] Comment on above: Performed By: #### L IPID, T7, URIC, TSH, CMP #### [facility] [address] [place] [address] Dr. Jaymie Gilbert Please note: Comment Normal [facility] Comment on above: Result Comment: Prot ein electrophoresis scan will follow via computer, mail, or production machine shop supervisor delivery. Performed By: #### L IPID, T7, URIC, TSH, CMP #### [facility] [address] [place] [address] Dr. Jaymie Gilbert Protein [Mass/Vol] 7.7 g/dL Normal 6.0-8.5 [facility] Comment on above: Performed By: #### L IPID, T7, URIC, TSH, CMP #### [facility] [address] [place] [address] Dr. Jaymie Gilbert Outside [facility] 04-11-2022 Outside Labs [id number]:127 Normal [facility] XR BONE SURVEYon 04-10-2022 XR BONE SURVEY EXAMINATION: XR BONE SURVEY HISTORY: Disorder of bone COMPARISON: 04/17/2021 TECHNIQUE: Two lateral projections of the skull. A lateral projection of the C-spine, T-spine and L-spine. Single view of the chest and pelvis. Single view of each humerus, forearm, femur, and tibia-fibula. FINDINGS: SKULL: No lytic lesion, periosteal reaction/thickening, fracture, or dislocation. C-SPINE: No lytic lesion, periosteal reaction/thickening, fracture, or dislocation. Mild degenerative spondylosis T-SPINE: No lytic lesion, periosteal reaction/thickening, fracture, or dislocation. Mild degenerative change L-SPINE: No lytic lesion, periosteal reaction/thickening, fracture, or dislocation. Mild degenerative change CHEST: No expansile lesion, lytic lesion, or fracture. PELVIS: No lytic lesion, periosteal reaction/thickening, fracture, or dislocation. R HUMERUS: No lytic lesion, periosteal reaction/thickening, fracture, or dislocation. R FOREARM: No lytic lesion, periosteal reaction/thickening, fracture, or dislocation. L HUMERUS: No lytic lesion, periosteal reaction/thickening, fracture, or dislocation. L FOREARM: No lytic lesion, periosteal reaction/thickening, fracture, or dislocation. R FEMUR: No lytic lesion, periosteal reaction/thickening, fracture, or dislocation. R TIB/FIB: No lytic lesion, periosteal reaction/thickening, fracture, or dislocation. L FEMUR: No lytic lesion, periosteal reaction/thickening, fracture, or dislocation. L TIB/FIB: No lytic lesion, periosteal reaction/thickening, fracture, or dislocation. SOFT TISSUES: No swelling, nodules, visible mass, or radiopaque foreign body. IMPRESSION: No focal lytic lesions to suggest monoclonal gammopathy Electronically authenticated by: BRANDIN MORALES Date: 2022-04-10 07:33 Normal [facility] CBC AUTO DIFFon 04-09-2022 BASO # 0.1 103/ul Normal 0.0-0.1 [facility] Comment on above: Performed By: #### L IPID, T7, URIC, TSH, CMP #### [facility] [address] [address] [address] Jaymie Gilbert Basophils/100 WBC (Bld) 1.1 % Normal 0.2-2.0 [facility] Comment on above: Performed By: #### L IPID, T7, URIC, TSH, CMP #### [facility] [address] [place] [address] Dr. Jaymie Gilbert EO # 0.1 103/ul Normal 0.0-0.7 [facility] Comment on above: Performed By: #### L IPID, T7, URIC, TSH, CMP #### [facility] [address] [place] [address] Dr. Jaymie Gilbert Eosinophils/100 WBC (Bld) 2.2 % Normal 0.9-7.0 [facility] Comment on above: Performed By: #### L IPID, T7, URIC, TSH, CMP #### [facility] [address] [place] [address] Dr. Jaymie Gilbert Erythrocyte distribution width (RBC) [Ratio] 13.0 % Normal 11.0-15.0 [facility] Comment on above: Performed By: #### L IPID, T7, URIC, TSH, CMP #### [facility] [address] [place] [address] Dr. Jaymie Gilbert Hematocrit (Bld) [Volume fraction] 43.2 % Normal 42.0-54.0 [facility] Comment on above: Performed By: #### L IPID, T7, URIC, TSH, CMP #### [facility] [address] [place] [address] Dr. Jaymie Gilbert Hemoglobin (Bld) [Mass/Vol] 14.8 g/dL Normal 14.0-18.0 [facility] Comment on above: Performed By: #### L IPID, T7, URIC, TSH, CMP #### [facility] [address] [place] [address] Dr. Jaymie Gilbert IG # 0.01 10e3/ul Normal 0.00-0.03 [facility] Comment on above: Performed By: #### L IPID, T7, URIC, TSH, CMP #### [facility] [address] [place] [address] Dr. Jaymie Gilbert IG % 0.2 % Normal 0.0-0.5 [facility] Comment on above: Performed By: #### L IPID, T7, URIC, TSH, CMP #### [facility] [address] [place] [address] Dr. Jaymie Gilbert LYMPH # 1.5 103/ul Normal 1.2-3.8 [facility] Comment on above: Performed By: #### L IPID, T7, URIC, TSH, CMP #### [facility] [address] [place] [address] Dr. Jaymie Gilbert Lymphocytes/100 WBC (Bld) 33.6 % Normal 20.5-60.0 [facility] Comment on above: Performed By: #### L IPID, T7, URIC, TSH, CMP #### [facility] [address] [place] [address] Dr. Jaymie Gilbert MANUAL DIFF REQ NO Normal [facility] Comment on above: Performed By: #### L IPID, T7, URIC, TSH, CMP #### [facility] [address] [place] [address] Dr. Jaymie Gilbert MCH (RBC) [Entitic mass] 30.7 pg Normal 25.9-34.0 [facility] Comment on above: Performed By: #### L IPID, T7, URIC, TSH, CMP #### [facility] [address] [place] [address] Dr. Jaymie Gilbert MCHC (RBC) [Mass/Vol] 34.3 g/dL Normal 29.9-35.2 [facility] Comment on above: Performed By: #### L IPID, T7, URIC, TSH, CMP #### [facility] [address] [place] [address] Dr. Jaymie Gilbert MCV (RBC) [Entitic vol] 89.6 fL Normal 80.0-94.0 [facility] Comment on above: Performed By: #### L IPID, T7, URIC, TSH, CMP #### [facility] [address] [place] [address] Dr. Jaymie Gilbert MONO # 0.5 103/ul Normal 0.3-0.8 [facility] Comment on above: Performed By: #### L IPID, T7, URIC, TSH, CMP #### [facility] [address] [address] [address] Jaymie Gilbert Monocytes/100 WBC (Bld) 11.9 % Normal 1.7-12.0 [facility] Comment on above: Performed By: #### L IPID, T7, URIC, TSH, CMP #### [facility] [address] [place] [address] Dr. Jaymie Gilbert NEUT # 2.3 103/ul Normal 1.4-6.5 [facility] Comment on above: Performed By: #### L IPID, T7, URIC, TSH, CMP #### [facility] [address] [place] [address] Dr. Jaymie Gilbert Neutrophils/100 WBC (Bld) 51.0 % Normal 43.0-75.0 [facility] Comment on above: Performed By: #### L IPID, T7, URIC, TSH, CMP #### [facility] [address] [place] [address] Dr. Jaymie Gilbert Platelet mean volume (Bld) [Entitic vol] 9.4 fL Critically low 9.5-13.5 [facility] Comment on above: Performed By: #### L IPID, T7, URIC, TSH, CMP #### [facility] [address] [place] [address] Dr. Jaymie Gilbert PLT 287 103/ul Normal 150-450 [facility] Comment on above: Performed By: #### L IPID, T7, URIC, TSH, CMP #### [facility] [address] [place] [address] Dr. Jaymie Gilbert RBC 4.82 106/ul Normal 4.70-6.10 [facility] Comment on above: Performed By: #### L IPID, T7, URIC, TSH, CMP #### [facility] [address] [place] [address] Dr. Jaymie Gilbert WBC 4.5 103/ul Normal 4.0-11.0 [facility] Comment on above: Performed By: #### L IPID, T7, URIC, TSH, CMP #### [facility] [address] [place] [address] Dr. Jaymie Gilbert Outside [facility] 04-09-2022 Outside Labs [id number]:127 Normal [facility] PROF 14(COMP METB)on 023 Albumin [Mass/Vol] 3.3 g/dL Critically low 3.4-5.0 [facility] Comment on above: Performed By: #### L IPID, T7, URIC, TSH, CMP #### [facility] [address] [place] [address] Dr. Jaymie Gilbert Albumin/Globulin [Mass ratio] 0.7 {ratio} Normal [facility] Comment on above: Performed By: #### L IPID, T7, URIC, TSH, CMP #### [facility] [address] [place] [address] Dr. Jaymie Gilbert ALP [Catalytic activity/Vol] 50 U/L Normal 46-116 [facility] Comment on above: Performed By: #### L IPID, T7, URIC, TSH, CMP #### [facility] [address] [place] [address] Dr. Jaymie Gilbert ALT [Catalytic activity/Vol] 20 U/L Normal 16-63 [facility] Comment on above: Performed By: #### L IPID, T7, URIC, TSH, CMP #### [facility] [address] [place] [address] Dr. Jaymie Gilbert Anion gap [Moles/Vol] 11.2 mmol/L Normal [facility] Comment on above: Performed By: #### L IPID, T7, URIC, TSH, CMP #### [facility] [address] [place] [address] Dr. Jaymie Gilbert AST [Catalytic activity/Vol] 14 U/L Critically low 15-37 [facility] Comment on above: Performed By: #### L IPID, T7, URIC, TSH, CMP #### [facility] [address] [place] [address] Dr. Jaymie Gilbert Bilirubin [Mass/Vol] 0.5 mg/dL Normal 0.2-1.0 [facility] Comment on above: Performed By: #### L IPID, T7, URIC, TSH, CMP #### [facility] [address] [place] [address] Dr. Jaymie Gilbert Calcium [Mass/Vol] 9.3 mg/dL Normal 8.5-10.1 [facility] Comment on above: Performed By: #### L IPID, T7, URIC, TSH, CMP #### [facility] [address] [place] [address] Dr. Jaymie Gilbert Chloride [Moles/Vol] 103 mmol/L Normal 98-107 [facility] Comment on above: Performed By: #### L IPID, T7, URIC, TSH, CMP #### [facility] [address] [place] [address] Dr. Jaymie Gilbert CO2 [Moles/Vol] 27.1 mmol/L Normal 21.0-32.0 [facility] Comment on above: Performed By: #### L IPID, T7, URIC, TSH, CMP #### [facility] [address] [place] [address] Dr. Jaymie Gilbert Creatinine [Mass/Vol] 0.97 mg/dL Normal 0.70-1.30 [facility] Comment on above: Performed By: #### L IPID, T7, URIC, TSH, CMP #### [facility] [address] [place] [address] Dr. Jaymie Gilbert EGFR-AF BURMESE >60 Normal >=60 [facility] Comment on above: Performed By: #### L IPID, T7, URIC, TSH, CMP #### [facility] [address] [place] [address] Dr. Jaymie Gilbert EGFR-NON AF BURMESE >60 Normal >=60 [facility] Comment on above: Performed By: #### L IPID, T7, URIC, TSH, CMP #### [facility] [address] [place] [address] Dr. Jaymie Gilbert Globulin (S) [Mass/Vol] 5.0 g/dL Normal [facility] Comment on above: Performed By: #### L IPID, T7, URIC, TSH, CMP #### [facility] [address] [address] [address] Jaymie Gilbert Glucose [Mass/Vol] 106 mg/dL Normal 74-106 [facility] Comment on above: Performed By: #### L IPID, T7, URIC, TSH, CMP #### [facility] [address] [address] [address] Jaymie Gilbert Potassium [Moles/Vol] 4.3 mmol/L Normal 3.5-5.1 [facility] Comment on above: Performed By: #### L IPID, T7, URIC, TSH, CMP #### [facility] [address] [place] [address] Dr. Jaymie Gilbert Protein [Mass/Vol] 8.3 g/dL Critically high 6.4-8.2 [facility] Comment on above: Performed By: #### L IPID, T7, URIC, TSH, CMP #### [facility] [address] [place] [address] Dr. Jaymie Gilbert Sodium [Moles/Vol] 137 mmol/L Normal 136-145 [facility] Comment on above: Performed By: #### L IPID, T7, URIC, TSH, CMP #### [facility] [address] [place] [address] Dr. Jaymie Gilbert Urea nitrogen [Mass/Vol] 18.0 mg/dL Normal 7.0-18.0 [facility] Comment on above: Performed By: #### L IPID, T7, URIC, TSH, CMP #### [facility] [address] [place] [address] Dr. Jaymie Gilbert Urea nitrogen/Creatinin e [Mass ratio] 18.6 mg/mg Normal [facility] Comment on above: Performed By: #### L IPID, T7, URIC, TSH, CMP #### [facility] [address] [place] [address] Dr. Jaymie Gilbert REVERSE T3on 02-27-2022 Reverse T3, Serum 14.0 ng/dL Normal 9.2-24.1 [facility] Comment on above: Result Comment: This test was developed and its performance characteristics determined by [facility]. It has not been cleared or approved by the Food and Drug Administration. Performed By: #### R [id number] #### [facility] [address] [place] [address] Dr. Jaymie Gilbert T3, TOTAL (TRIIODOTHYRONINE) on 02-24-2022 T3, TOTAL 164 ng/dL Normal 71-180 [facility] Comment on above: Performed By: #### L IPID, T7, URIC, TSH, CMP #### [facility] [address] [place] [address] Dr. Jaymie Gilbert FREE T3on 02-23-2022 FREE T3 3.66 pg/mlL Normal 2.18-3.98 [facility] Comment on above: Performed By: #### L IPID, T7, URIC, TSH, CMP #### [facility] [address] [place] [address] Dr. Jaymie Gilbert FREE T4on 02-23-2022 Free T4 [Mass/Vol] 1.00 ng/dL Normal 0.76-1.46 [facility] Comment on above: Performed By: #### L IPID, T7, URIC, TSH, CMP #### [facility] [address] [place] [address] Dr. Jaymie Gilbert TSHon 02-23-2022 TSH 0.017 uIU/mL Critically low 0.358-3.740 [facility] Comment on above: Performed By: #### L IPID, T7, URIC, TSH, CMP #### [facility] [address] [place] [address] Dr. Jaymie Gilbert REVERSE T3on 12-01-2021 Reverse T3, Serum 17.2 ng/dL Normal 9.2-24.1 [facility] Comment on above: Result Comment: This test was developed and its performance characteristics determined by [facility]. It has not been cleared or approved by the Food and Drug Administration. Performed By: #### R EVRT3 #### [facility] [address] [place] [address] Dr. Jaymie Gilbert T3, TOTAL (TRIIODOTHYRONINE) on 11-29-2021 T3, TOTAL 170 ng/dL Normal 71-180 [facility] Comment on above: Performed By: #### T 3TOTAL #### [facility] [address] [place] [address] Dr. Jaymie Gilbert FREE T3on 11-28-2021 FREE T3 4.30 pg/mlL Critically high 2.18-3.98 [facility] Comment on above: Performed By: #### L IPID, T7, URIC, TSH, CMP #### [facility] [address] [place] [address] Dr. Jaymie Gilbert FREE T4on 11-28-2021 Free T4 [Mass/Vol] 1.20 ng/dL Normal 0.76-1.46 [facility] Comment on above: Performed By: #### L IPID, T7, URIC, TSH, CMP #### [facility] [address] [place] [address] Dr. Jaymie Gilbert TSHon 11-28-2021 TSH Qn m[IU]/L Critically low 0.358-3.740 [facility] Comment on above: Performed By: #### L IPID, T7, URIC, TSH, CMP #### [facility] [address] [place] [address] Dr. Jaymie Gilbert CREATININEon 11-03-2021 Creatinine [Mass/Vol] 1.02 mg/dL Normal 0.70-1.30 [facility] Comment on above: Performed By: #### L IPID, T7, URIC, TSH, CMP #### [facility] [address] [place] [address] Dr. Jaymie Gilbert EGFR-AF BURMESE >60 Normal >=60 [facility] Comment on above: Performed By: #### L IPID, T7, URIC, TSH, CMP #### [facility] [address] [place] [address] Dr. Jaymie Gilbert EGFR-NON AF BURMESE >60 Normal >=60 [facility] Comment on above: Performed By: #### L IPID, T7, URIC, TSH, CMP #### [facility] [address] [place], [place] [address] Dr. Jaymie Gilbert CTA CHEST WO W CONon 022 CTA CHEST WO W CON EXAMINATION: CTA SUZIE ST WO W CON HISTORY: Dyspnea COMPARISON: No relevant comparison available. TECHNIQUE: Axial, Coronal, and Sagittal images were created without and with IV contrast. Dose reduction techniques were achieved by using automated exposure control and/or adjustment of mA and/or kV according to patient size and/or use of iterative reconstruction technique. FINDINGS: LUNGS: No significant pulmonary nodule or mass. Few scattered punctate nonspecific nodules the largest measuring 3 mm left lower lobe axial image 76 PLEURA: No mass, effusion, or pneumothorax. VASCULATURE: No filling defect in the central pulmonary arterial tree. SALMA: No pathologic lymphadenopathy. MEDIASTINUM: No mass or adenopathy. CARDIAC: No enlargement, pericardial thickening, or significant calcification. AORTA: No aneurysm or dissection. CHEST WALL: No mass or axillary adenopathy. BONES: No bone lesion or fracture. LIMITED ABDOMEN: No suspicious findings. Limited images of the upper abdomen. OTHER: Negative. IMPRESSION: No central pulmonary thromboembolic disease Clear lungs Electronically authenticated by: BRANDIN MORALES Date: 2021-11-03 13:08 Normal [facility] XR CHEST 2 Von 11-02-2021 SARS-CoV-2 (COVID-19) RNA RAMO+probe Ql (Unsp spec) EXAM: CHEST 2 VIEWS HISTORY: COVID-19 TECHNIQUE: PA and lateral views chest. COMPARISON: None. FINDINGS: The lungs are clear. There is no focal lung consolidation, pleural effusion or pneumothorax. Pulmonary vasculature is within normal limits. The cardiomediastinal silhouette is normal. IMPRESSION: 1. Clear lungs without acute cardiopulmonary disease. Electronically authenticated by: MARLENE SANDHU Date: 2021-11-02 10:55 Normal [facility] CORONAVIRUS 2019 BY PCRon SARS-CoV-2 (COVID-19) RNA ARMO+probe Ql (Unsp spec) Detected Abnormal Not Detected [facility] Comment on above: Result Comment: . This assay is designed to detect SARS-CoV-2 based on replication of specific regions of the RNA from the SARS-CoV-2 virus. A Not Detected result does not preclude 2019-nCoV infection since the adequacy of sample collection and/or low viral burden may result in presence of viral nucleic acids below the clinical sensitivity of this test method. Fact sheet for providers: https://www.fda.gov/media/046833/download Fact sheet for patients: https://www.fda.gov/media/479075/download This test has received FDA Emergency Use Authorization [EUA] and has been verified by [facility] ([facility]). This test is only authorized for the duration of time that circumstances exist to justify the authorization of the emergency use of in vitro diagnostic tests for the detection of SARS-CoV-2 virus and/or diagnosis of COVID-19 infection under section 564(b)(1) of the Act, 21 U.S.C. 360bbb-3(b)(1), unless the authorization is terminated or revoked sooner. [facility] is certified under CLIA-88 as qualified to perform high complexity testing. Testing is performed in the [facility] laboratories located at [address] [place] [address]. Performed By: #### C OV19 #### [address] [place] [address] Covid 19 Resultson 2 SARS-CoV-2 (COVID-19) RNA RAMO+probe Ql (Unsp spec) POSITIVE COVID-19 Test Coronaviruses are common world-wide and are the cause of many common colds. SARS-COV2 is a new coronavirus that began circulating worldwide in 2019 so we are calling it COVID-19. It has been estimated that four out of five patients with COVID-19 will recover at home without the need for medical attention. Symptoms of COVID-19 may include cough, fever, shortness of breath, loss of taste or smell and other flu-like symptoms including chills, sore muscles, sore throat, and headache. Severe illness is more common in older people and people with other health problems such as high blood pressure, obesity, and immune system problems. If the test is positive, you have COVID-19. You will be contacted by the ordering physicians office and instructed to remain on home isolation, in accordance with CDC guidelines. You may also be contacted by the [facility] to see if any of your close contacts may have been exposed to the virus and need to quarantine. If the test is negative, you likely do not have COVID-19 at this time, but you still may have a different illness that can spread to other people (like Influenza, or the Flu) and could still be at risk for getting COVID-19. We recommend that you stay away from other people to limit the spread of illness until your symptoms are improving and you are fever-free for 24 hours without the use of fever lowering medications such as acetaminophen or ibuprofen. No test is 100% accurate so if you are still concerned you may have COVID-19, talk to your doctor about the need to continue to stay away from others. Medicines Unless your provider told you not to use the following: Acetaminophen (Tylenol and others) is generally safe. Anti-inflammatory medications, such as Ibuprofen (Advil or Motrin) or Naproxen (Aleve) can also be used. Xcii-yvb-rucmssr cough and cold medicines can be used according to the instructions on the package. Some xnkb-bvm-dxabusr medicines also contain acetaminophen. Make sure you are not taking more than your recommended dose. For those not hospitalized, there is no specific treatment available for this illness. Antibiotics do not treat Coronaviruses. Follow-Up Follow up with your doctor by scheduling a virtual visit or consider follow-up at one of our urgent care fever clinics. If you are having difficulty breathing, or are very weak and having difficulty standing, this is a medical emergency. Call 911 or have someone take you to the nearest emergency room immediately. If possible, wear a facemask. Additional guidance from the CDC for patients who tested POSITIVE for COVID-19 How to isolate: Isolate yourself in a specific room at home and limit your contact with others. Use a separate bathroom from other members of the household, when possible. Leave home only to get essential medical care. Do not go to work, school or public areas. Avoid using public transportation, ride-sharing, or taxis. Restrict contact with pets and other animals. If you must care for your pet or be around animals while you are sick, wash your hands before and after your interaction and wear a facemask. Make sure that shared spaces in the home have good airflow, such as by an air conditioner or an opened window, weather permitting. Personal Hygiene Procedures: Wear a face mask when in the same room as other people or pets. If a face mask interferes with your breathing, others should wear a mask when sharing space with you. Frequent hand-washing: wash your hands with soap and water for at least 20 seconds. If soap and water are not available, use alcohol-based hand electric transfer operator. Avoid touching your eyes, nose, and mouth with unwashed hands. Household Hygiene Procedures: Avoid sharing personal household items such as dishes, glassware, cups, eating utensils, towels or bedding with other people or pets in your home. After use, these items should be washed with soap and hot water. Disinfect all high-touch surfaces every day with antibacterial cleaning solutions such as Lysol wipes, bleach, cleansers, etc. High-touch surfaces include tabletops, doorknobs, bathroom fixtures, toilets, phones, keyboards, tablets and bedside tables. Immediately clean any surfaces that may have blood, poop or body fluids on them, using antibacterial cleaning solutions such as Lysol wipes, bleach, cleansers, etc. If clothing or bedding come into contact with blood, poop or body fluids, they should be washed immediately. Follow the directions on the laundry detergent and clothing labels but hot water is recommended when possible. Stopping home isolation precautions: If possible, consult your doctor before stopping home isolation precautions. According to the CDC, you can discontinue home isolation precautions when you have met both of these criteria: Your fever and respiratory symptoms have been gone for 24 carolyn (more content not included)... Normal [facility] CORONAVIRUS 2019 BY PCRon Lab Specimen Source Nasal, Nasopharyngeal Normal [facility] [place] Comment on above: Performed By: #### C OV19 #### [facility] [id number] [place] [address] Office Visit (Urgent Care)on 10-26-2021 Follow-up visit Diagnoses/Problems Assessed Suspected COVID-19 virus infection (V01.79) (Z20.822) Orders Suspected COVID-19 virus infection Coronavirus 2019 RNA by PCR, Symptomatic; Status:In Progress - Specimen/Data Collected; Done: 26Oct2021 Perform:Lab Services - Lab To Draw (Non-Blood Test); Due:24Jan2022;Ordered; For:Suspected COVID-19 virus infection; Ordered By:Kathy Johns; Patient Discussion/Summary COVID testing in progress. Expected results in 24-72 hours; practice social distancing, self quarantine and wear a mask. We will contact you with any positive results. Chief Complaint URI Adult Risk Screening There are no spiritual/cultural practices/values/needs that are important to know Initial Fall Risk Screening: GILLIAN has not fallen in the last 6 months. Pain Scale: On a scale of 0 to 10, the patient rates the pain at 0. Tobacco Screening: GILLIAN does not use tobacco. Domestic Violence Screen: Does not feel threatened or abused physically, emotionally or sexually. Do you feel UNSAFE? The patient feels safe in the home. Depression/Suicide Screening: During the past 2 weeks, the patient has not felt down, depressed or hopeless. During the past 2 weeks, the patient has not felt little interest or pleasure in doing things. He does not have a risk of suicide. He has not had thoughts of harming others. Patient Education: The patient denies that they or the person with them has problems with hearing, speaking, seeing, moving around or learning The patient is comfortable filling out medical forms. History of Present Illness Is a 61-year-old male who presents for COVID-19 testing. He works for [employer]. He presents with a 4-day history of fevers, chills, headache and sore throat. He is currently taking a Z-Yehuda that was prescribed by his doctor. He denies cough and shortness of breath. Constitutional: chills and fevers. Eyes: no purulent discharge from the eyes and no eye pain. ENT: no nasal congestion, + sore throat and no earache. Neck: no mass(es) and no swelling. Cardiovascular: no chest pain and no palpitations. Respiratory: no cough, no shortness of breath, no orthopnea and no wheezing. Gastrointestinal: no abdominal pain, no vomiting, no diarrhea, no decrease in appetite and no nausea. Musculoskeletal: arthralgias and myalgias. Neurological: + headache. Review of Systems Constitutional: as noted in HPI. Allergies Medication Cipro Recorded By: Lora Pedersen; 10/26/2021 2:51:31 PM Vitals Vital Signs Recorded: [id number] 02:51PM Sedaygyiiyq96.2 F, Temporal Heart Rate97 Flsiwvucicw24 Respiration QualityNormal Ylyhhxam332, Sitting Ioybjkngg17, Sitting Blood Pressure Cuff SizeAdult Height5 ft 10 in Nmvdbg022 lb BMI Fcuqygvwjy72.11 kg/m2 BSA Calculated1.97 Tobacco Useb) No PHQ-2 #1. Over the last 2 weeks have you felt down, depressed or hopeless? (If yes, answer PHQ-9 below)No PHQ-2 #2. Over the last 2 weeks have you felt little interest or pleasure in doing things? (If yes, answer PHQ-9 below)No Falls Screening (Age 18+)a) No falls within the last year O2 Xnmlvgfwux21, RA Pain Scale0 PHQ-9 #1. Little interest or pleasure in doing things0-Not at all PHQ-9 #2. Feeling down, depressed, or hopelesS0-Not at all Physical Exam Constitutional: Well developed, well nourished. vital signs reviewed. patient alert patient without distress Head and Face: Head and face: Normal. Palpation of the face and sinuses: Normal. Eyes: Normal external exam - pupils were equal in size, round, reactive to light (PERRL) with normal accommodation and extraocular movements intact (EOMI). Pupils and irises: Normal. Ophthalmoscopic examination: Normal. Ears, Nose, Mouth, and Throat: External inspection of ears: Normal. Hearing: Normal. External inspection of nose: Normal. Nasal mucosa, septum, and turbinates: Normal. Lips, teeth, and gums: Normal. Oropharynx: Normal. Otoscopic examination: Normal. Neck: No neck mass was observed. Supple. normal range of motion. normal muscle tone. Cardiovascular: Heart rate normal, normal S1 and S2, no gallops, no murmurs and no pericardial rub. Rhythm: Normal. Pulmonary: No respiratory distress. Clear bilateral breath sounds. Lymphatic: No cervical lymphadenopathy. Signatures Electronically signed by : Kathy Johns MD; Oct 26 2021 3:30PM EST (Author) Normal [facility] REVERSE T3on 09-15-2021 Reverse T3, Serum 9.1 ng/dL Critically low 9.2-24.1 [facility] Comment on above: Result Comment: This test was developed and its performance characteristics determined by [facility]. It has not been cleared or approved by the Food and Drug Administration. Performed By: #### L IPID, T7, URIC, TSH, CMP #### [facility] [address] [place] [address] Dr. Jaymie Gilbert T3, TOTAL (TRIIODOTHYRONINE) on 09-12-2021 T3, TOTAL 120 ng/dL Normal 71-180 [facility] Comment on above: Performed By: #### L IPID, T7, URIC, TSH, CMP #### [facility] [address] [place] [address] Dr. Jaymie Gilbert FREE T3on 09-11-2021 FREE T3 2.90 pg/mlL Normal 2.18-3.98 [facility] Comment on above: Performed By: #### F T3 #### [facility] [address] [place] [address] Dr. Jaymie Gilbert T4 LABCORPon 08-18-2021 T4 [Mass/Vol] 5.3 ug/dL Normal 4.5-12.0 [facility] Comment on above: Performed By: #### T 4LC #### [facility] [address] [place] [address] Dr. Jaymie Gilbert INSULINon 08-17-2021 Insulin 6.9 uIU/mL Normal 2.6-24.9 [facility] Comment on above: Performed By: #### L IPID, T7, URIC, TSH, CMP #### [facility] [address] [place] [address] Dr. Jaymie Gilbert CBC AUTO DIFFon 08-16-2021 BASO # 0.0 103/ul Normal 0.0-0.1 [facility] Comment on above: Performed By: #### L IPID, T7, URIC, TSH, CMP #### [facility] [address] [place] [address] Dr. Jaymie Gilbert Basophils/100 WBC (Bld) 1.1 % Normal 0.2-2.0 [facility] Comment on above: Performed By: #### L IPID, T7, URIC, TSH, CMP #### [facility] [address] [place] [address] Dr. Jaymie Gilbert EO # 0.1 103/ul Normal 0.0-0.7 [facility] Comment on above: Performed By: #### L IPID, T7, URIC, TSH, CMP #### [facility] [address] [place] [address] Dr. Jaymie Gilbert Eosinophils/100 WBC (Bld) 2.4 % Normal 0.9-7.0 [facility] Comment on above: Performed By: #### L IPID, T7, URIC, TSH, CMP #### [facility] [address] [place] [address] Dr. Jaymie Gilbert Erythrocyte distribution width (RBC) [Ratio] 12.4 % Normal 11.0-15.0 [facility] Comment on above: Performed By: #### L IPID, T7, URIC, TSH, CMP #### [facility] [address] [place] [address] Dr. Jaymie Gilbert Hematocrit (Bld) [Volume fraction] 43.0 % Normal 42.0-54.0 [facility] Comment on above: Performed By: #### L IPID, T7, URIC, TSH, CMP #### [facility] [address] [place] [address] Dr. Jaymie Gilbert Hemoglobin (Bld) [Mass/Vol] 14.2 g/dL Normal 14.0-18.0 [facility] Comment on above: Performed By: #### L IPID, T7, URIC, TSH, CMP #### [facility] [address] [place] [address] Dr. Jaymie Gilbert IG # 0.01 10e3/ul Normal 0.00-0.03 [facility] Comment on above: Performed By: #### L IPID, T7, URIC, TSH, CMP #### [facility] [address] [place] [address] Dr. Jaymie Gilbert IG % 0.3 % Normal 0.0-0.5 [facility] Comment on above: Performed By: #### L IPID, T7, URIC, TSH, CMP #### [facility] [address] [place] [address] Dr. Jaymie Gilbert LYMPH # 1.2 103/ul Normal 1.2-3.8 [facility] Comment on above: Performed By: #### L IPID, T7, URIC, TSH, CMP #### [facility] [address] [place] [address] Dr. Jaymie Gilbert Lymphocytes/100 WBC (Bld) 32.1 % Normal 20.5-60.0 [facility] Comment on above: Performed By: #### L IPID, T7, URIC, TSH, CMP #### [facility] [address] [place] [address] Dr. Jaymie Gilbert MANUAL DIFF REQ NO Normal [facility] Comment on above: Performed By: #### L IPID, T7, URIC, TSH, CMP #### [facility] [address] [place] [address] Dr. Jaymie Gilbert MCH (RBC) [Entitic mass] 30.8 pg Normal 25.9-34.0 [facility] Comment on above: Performed By: #### L IPID, T7, URIC, TSH, CMP #### [facility] [address] [place] [address] Dr. Jaymie Gilbert MCHC (RBC) [Mass/Vol] 33.0 g/dL Normal 29.9-35.2 [facility] Comment on above: Performed By: #### L IPID, T7, URIC, TSH, CMP #### [facility] [address] [place] [address] Dr. Jaymie Gilbert MCV (RBC) [Entitic vol] 93.3 fL Normal 80.0-94.0 [facility] Comment on above: Performed By: #### L IPID, T7, URIC, TSH, CMP #### [facility] [address] [place] [address] Dr. Jaymie Gilbert MONO # 0.5 103/ul Normal 0.3-0.8 [facility] Comment on above: Performed By: #### L IPID, T7, URIC, TSH, CMP #### [facility] [address] [place] [address] Dr. Jaymie Gilbert Monocytes/100 WBC (Bld) 12.8 % Critically high 1.7-12.0 [facility] Comment on above: Performed By: #### L IPID, T7, URIC, TSH, CMP #### [facility] [address] [address] [address] Jaymie Gilbert NEUT # 1.9 103/ul Normal 1.4-6.5 [facility] Comment on above: Performed By: #### L IPID, T7, URIC, TSH, CMP #### [facility] [address] [place] [address] Dr. Jaymie Gilbert Neutrophils/100 WBC (Bld) 51.3 % Normal 43.0-75.0 [facility] Comment on above: Performed By: #### L IPID, T7, URIC, TSH, CMP #### [facility] [address] [place] [address] Dr. Jaymie Gilbert Platelet mean volume (Bld) [Entitic vol] 10.2 fL Normal 9.5-13.5 [facility] Comment on above: Performed By: #### L IPID, T7, URIC, TSH, CMP #### [facility] [address] [place] [address] Dr. Jaymie Gilbert PLT 236 103/ul Normal 150-450 [facility] Comment on above: Performed By: #### L IPID, T7, URIC, TSH, CMP #### [facility] [address] [place] [address] Dr. Jaymie Gilbert RBC 4.61 106/ul Critically low 4.70-6.10 [facility] Comment on above: Performed By: #### L IPID, T7, URIC, TSH, CMP #### [facility] [address] [place] [address] Dr. Jaymie Gilbert WBC 3.7 103/ul Critically low 4.0-11.0 [facility] Comment on above: Performed By: #### L IPID, T7, URIC, TSH, CMP #### [facility] [address] [place] [address] Dr. Jaymie Gilbert FREE T3on 08-16-2021 FREE T3 4.74 pg/mlL Critically high 2.18-3.98 [facility] Comment on above: Performed By: #### L IPID, T7, URIC, TSH, CMP #### [facility] [address] [place] [address] Dr. Jaymie Gilbert FREE T4on 08-16-2021 Free T4 [Mass/Vol] 0.78 ng/dL Normal 0.76-1.46 [facility] Comment on above: Performed By: #### L IPID, T7, URIC, TSH, CMP #### [facility] [address] [address] [address] Jaymie Gilbert FREE THYROXINE INDEX T7on FTI 1.80 Normal 1.30-4.50 [facility] Comment on above: Performed By: #### L IPID, T7, URIC, TSH, CMP #### [facility] [address] [address] [address] Jaymie Gilbert T3U 34.0 % Normal 33.0-40.0 [facility] Comment on above: Performed By: #### L IPID, T7, URIC, TSH, CMP #### [facility] [address] [address] [address] Jaymie Gilbert T4 [Mass/Vol] 5.30 ug/dL Normal 4.50-12.10 [facility] Comment on above: Performed By: #### L IPID, T7, URIC, TSH, CMP #### [facility] [address] [address] [address] Jaymie Gilbert GLYCOHEMOGLOBIN A1Con 2021 ADA RECOMMENDATION SEE BELOW Normal [facility] Comment on above: Result Comment: ADA RECOMMENDED LIMIT 4.0 - 6.0 ADA THERAPEUTIC TARGET < 7.0 ACTION SUGGESTED > 7.0 Performed By: #### L IPID, T7, URIC, TSH, CMP #### [facility] [address] [address] [address] Jaymie Gilbert Glucose [Mass/Vol] 111 mg/dL Normal [facility] Comment on above: Performed By: #### L IPID, T7, URIC, TSH, CMP #### [facility] [address] [address] [address] Jaymie Gilbert HbA1c (Bld) [Mass fraction] 5.5 % Normal 4.5-6.2 [facility] Comment on above: Performed By: #### L IPID, T7, URIC, TSH, CMP #### [facility] [address] [address] [address] Jaymie Gilbert LIPID PROFILEon 08-16-2021 CHOL-HDL RATIO NORM SEE BELOW Normal [facility] Comment on above: Result Comment: 3.3 - 4.4 LOW RISK 4.4 - 7.1 AVERAGE RISK 7.1 - 11.0 MODERATE RISK >11.0 HIGH RISK Performed By: #### L IPID, T7, URIC, TSH, CMP #### [facility] [address] [address] [address] Jaymie Gilbert Cholesterol [Mass/Vol] 151 mg/dL Normal <=200 [facility] Comment on above: Performed By: #### L IPID, T7, URIC, TSH, CMP #### [facility] [address] [address] [address] Jaymie Gilbert Cholesterol in HDL [Mass/Vol] 57 mg/dL Normal 40-60 [facility] Comment on above: Performed By: #### L IPID, T7, URIC, TSH, CMP #### [facility] [address] [address] [address] Jaymie Gilbert Cholesterol in LDL [Mass/Vol] 81.6 mg/dL Normal [facility] Comment on above: Performed By: #### L IPID, T7, URIC, TSH, CMP #### [facility] [address] [address] [address] Jaymie Gilbert Cholesterol.total/ Cholesterol in HDL [Mass ratio] 2.6 {ratio} Normal [facility] Comment on above: Performed By: #### L IPID, T7, URIC, TSH, CMP #### [facility] [address] [address] [address] Jaymie Gilbert HDL NORMAL > or = 60 mg/dl - LO W CARDIOVASCULAR RISK <40 mg/dl - HIGH CARDIOVASCULAR RISK Normal [facility] Comment on above: Performed By: #### L IPID, T7, URIC, TSH, CMP #### [facility] [address] [address] [address] Jaymie Gilbert LDL CALC NORMAL SEE BELOW Normal [facility] Comment on above: Result Comment: <100 mg/dl OPTIMAL 100 - 129 mg/dl NEAR OR ABOVE OPTIMAL 130 - 159 mg/dl BORDERLINE HIGH 160 - 189 mg/dl HIGH >190 mg/dl VERY HIGH Performed By: #### L IPID, T7, URIC, TSH, CMP #### [facility] [address] [place] [address] Dr. Jaymie Gilbert Triglyceride [Mass/Vol] 62 mg/dL Normal <=150 [facility] Comment on above: Performed By: #### L IPID, T7, URIC, TSH, CMP #### [facility] [address] [address] [address] Jaymie Gilbert VLDL CALC 12.4 mg/dL Normal [facility] Comment on above: Performed By: #### L IPID, T7, URIC, TSH, CMP #### [facility] [address] [place] [address] Dr. Jaymie Gilbert PROF 14(COMP METB)on 022 Albumin [Mass/Vol] 3.4 g/dL Normal 3.4-5.0 [facility] Comment on above: Performed By: #### L IPID, T7, URIC, TSH, CMP #### [facility] [address] [place] [address] Dr. Jaymie Gilbert Albumin/Globulin [Mass ratio] 0.7 {ratio} Normal [facility] Comment on above: Performed By: #### L IPID, T7, URIC, TSH, CMP #### [facility] [address] [place] [address] Dr. Jaymie Gilbert ALP [Catalytic activity/Vol] 40 U/L Critically low 46-116 [facility] Comment on above: Performed By: #### L IPID, T7, URIC, TSH, CMP #### [facility] [address] [place] [address] Dr. Jaymie Gilbert ALT [Catalytic activity/Vol] 29 U/L Normal 16-63 [facility] Comment on above: Performed By: #### L IPID, T7, URIC, TSH, CMP #### [facility] [address] [place] [address] Dr. Jaymie Gilbert Anion gap [Moles/Vol] 11.0 mmol/L Normal [facility] Comment on above: Performed By: #### L IPID, T7, URIC, TSH, CMP #### [facility] [address] [address] [address] Jaymie Gilbert AST [Catalytic activity/Vol] 17 U/L Normal 15-37 [facility] Comment on above: Performed By: #### L IPID, T7, URIC, TSH, CMP #### [facility] [address] [address] [address] Jaymie Gilbert Bilirubin [Mass/Vol] 0.9 mg/dL Normal 0.2-1.0 [facility] Comment on above: Performed By: #### L IPID, T7, URIC, TSH, CMP #### [facility] [address] [place] [address] Dr. Jaymie Gilbert Calcium [Mass/Vol] 8.7 mg/dL Normal 8.5-10.1 [facility] Comment on above: Performed By: #### L IPID, T7, URIC, TSH, CMP #### [facility] [address] [address] [address] Jaymie Gilbert Chloride [Moles/Vol] 104 mmol/L Normal 98-107 [facility] Comment on above: Performed By: #### L IPID, T7, URIC, TSH, CMP #### [facility] [address] [address] [address] Jamyie Gilbert CO2 [Moles/Vol] 26.4 mmol/L Normal 21.0-32.0 [facility] Comment on above: Performed By: #### L IPID, T7, URIC, TSH, CMP #### [facility] [address] [address] [address] Jaymie Gilbert Creatinine [Mass/Vol] 0.99 mg/dL Normal 0.70-1.30 [facility] Comment on above: Performed By: #### L IPID, T7, URIC, TSH, CMP #### [facility] [address] [address] [address] Jaymie Gilbert EGFR-AF BURMESE >60 Normal >=60 [facility] Comment on above: Performed By: #### L IPID, T7, URIC, TSH, CMP #### [facility] [address] [place] [address] Dr. Jaymie Gilbert EGFR-NON AF BURMESE >60 Normal >=60 [facility] Comment on above: Performed By: #### L IPID, T7, URIC, TSH, CMP #### [facility] [address] [place] [address] Dr. Jaymie Gilbert Globulin (S) [Mass/Vol] 4.9 g/dL Normal [facility] Comment on above: Performed By: #### L IPID, T7, URIC, TSH, CMP #### [facility] [address] [place] [address] Dr. Jaymie Gilbert Glucose [Mass/Vol] 98 mg/dL Normal 74-106 [facility] Comment on above: Performed By: #### L IPID, T7, URIC, TSH, CMP #### [facility] [address] [place] [address] Dr. Jaymie Gilbert Potassium [Moles/Vol] 4.4 mmol/L Normal 3.5-5.1 [facility] Comment on above: Performed By: #### L IPID, T7, URIC, TSH, CMP #### [facility] [address] [place] [address] Dr. Jaymie Gilbert Protein [Mass/Vol] 8.3 g/dL Critically high 6.4-8.2 [facility] Comment on above: Performed By: #### L IPID, T7, URIC, TSH, CMP #### [facility] [address] [place] [address] Dr. Jaymie Gilbert Sodium [Moles/Vol] 137 mmol/L Normal 136-145 [facility] Comment on above: Performed By: #### L IPID, T7, URIC, TSH, CMP #### [facility] [address] [place] [address] Dr. Jaymie Gilbert Urea nitrogen [Mass/Vol] 19.0 mg/dL Critically high 7.0-18.0 [facility] Comment on above: Performed By: #### L IPID, T7, URIC, TSH, CMP #### [facility] [address] [address] [address] Jaymie Gilbert Urea nitrogen/Creatinin e [Mass ratio] 19.2 mg/mg Normal [facility] Comment on above: Performed By: #### L IPID, T7, URIC, TSH, CMP #### [facility] [address] [place] [address] Dr. Jaymie Gilbert TSHon 08-16-2021 TSH 0.157 uIU/mL Critically low 0.358-3.740 [facility] Comment on above: Performed By: #### L IPID, T7, URIC, TSH, CMP #### [facility] [address] [place] [address] Dr. Jaymie Gilbert TSH RANGE SEE BELOW Normal [facility] Comment on above: Result Comment: <0.3 4 UIU/ml HYPERTHYROID 0.34-5.60 UIU/ml EUTHYROID >5.60 UIU/ml HYPOTHYROID Performed By: #### L IPID, T7, URIC, TSH, CMP #### [facility] [address] [place] [address] Dr. Jaymie Gilbert URIC ACID SERUMon 08-16-2021 Urate [Mass/Vol] 5.2 mg/dL Normal 3.5-7.2 [facility] Comment on above: Performed By: #### L IPID, T7, URIC, TSH, CMP #### [facility] [address] [place] [address] Dr. Jaymie Gilbert VITAMIN D 25 OHon 08-16-2021 VIT D 25-OH 26.3 ng/mL Normal [facility] Comment on above: Performed By: #### L IPID, T7, URIC, TSH, CMP #### [facility] [address] [place] [address] Dr. Jaymie Gilbert VIT D RANGES SEE BELOW Normal [facility] Comment on above: Result Comment: <20 ng/mL Vit D deficient 20 - <30 ng/mL Vit D insufficient 30 - 100 ng/mL Vit D sufficient >100 ng/mL Potential Toxicity Performed By: #### L IPID, T7, URIC, TSH, CMP #### [facility] [address] [address] [address] Jaymie Gilbert CNOVSPon 06-03-2019 CNOVSP Visit (SP) Office ([facility]) -- BRANDIN FARR ([id number]) 1960 M Date Time Provider Department 06/03/19 3:30 PM KEVIN MCKEON During your visit today, we recorded the following information about you: Temperature Pulse Respiration Blood pressure 97.7 degrees 76/minute 16/minute 115/65 Weight Height 83.5 kg 1.706 m Kevin Mckeon MD 06/13/2019 9:47 AM Signed Some elements in this clinic note that are critical to medical decision making have been carefully reviewed and included from a prior clinic note dated: May 14, 2018. Additional Clinicians involved in Brandin Farr's care: Vickie Eason MD, Dr. Parra, Dr. Morales CC: MGUS follow up for surveillance testing on 05/28/2019 ASSESSMENT: MGUS IgG lambda No crab symptoms : no anemia, no renal failure, no lytic lesions in bones, no hypercalcemia. 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 PLAN: 1. Labs in 23 weeks 2. Return in 24 weeks to review. Treatment to Date: 1. Serial surveillance HPI: Updated Visit, June 03, 2019: Date is 50 years old and returns today to review laboratories completed on May 28, 2019. CBC remains stable as does his M spike (IgG lambda) at 2.04 which is less than it was a year ago 2.23. He has no appreciable symptoms on full review of systems by organ system. We again reviewed the risk of conversion to a more aggressive disease but currently there is no sign of this. Laboratories detailed below. Updated visit, May 14, 2018: He continues on asa alone. His xarelto continued through apr 2017. Medically uneventful year. Sinus complaints mostly. He is finishing up round of abx for this. No back or leg or arm pain. Left lower extremity DVT and pulmonary embolus in August 2016 Provoked, Continued anticoagulation with oral anticoagulant through April 2017. Patient was on clomid for increasing testosterone, which is a selective estrogen receptor modulator. This raises risk for thrombosis likely. He is now placed on DHEA which does not raise thrombosis risk appreciably. No hypercoag workup performed. Continue asa 81 Prior historical reference reviewed June 03, 2019: This is a 54 year old male presented initially in late 2013 was primary care provider with dizziness and sinus complaints. Lab work revealed an IgG level above 3000 with an M spike of 2.3 and elevated lambda light chains. Also found to be hypothyroid. He was referred to Dr. Mena and a bone marrow aspirate and biopsy in December 2013 showed less than 5% plasma cells. Skeletal survey was negative. Endocrine workup revealed low testosterone and thyroid, replacement may patient feel much better. He continued to have persistently elevated M spike In 2015 he was being treated with clomiphene to increase tesosterone. in August 2016 had RLE swelling followed by cough, chest pain, SOB. Diagnosed with RLE DVT and PE. Placed on xarelto. This was a few months after a L inguinal hernia repair by Dr. Whatley. No bleeding on xarelto. No bruising. No neck or back pain. Radiographic Data: Reviewed on n/a 1. n/a Pathologic Profile/ Molecular Data: Reviewed on June 03, 2019 1. 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 ECOG PERFORMANCE STATUS: 0 REVIEW OF SYSTEMS Per HPI and otherwise as noted below. CONSTITUTIONAL: No fevers, chills, nightsweats, unintended weight loss HEENT: Denies frequent or severe heaches, nasal congestion/sinus symptoms, problematic allergy problems. EYES: No diplopia or blurry vision. CARDIOVASCULAR: No chest pain, dyspnea, palpitations, orthopnea, PND, ankle edema. PULM: No dyspnea, unexplained cough. GI: No dysphagia/odynophagia, problematic reflux, constipation, diarrhea, changes in stool habits, hematochezia, melena. : No new urinary complaints, including dysuria, gross hematuria or pyuria. NEURO: No new balance problems, peripheral weakness/paresthesias or numbness of concern. MUSC-SKEL: No new joint pain, swelling, or erythema. PSY: No concerns regarding depression, anxiety or panic. INTEGUMENTARY: No new skin changes (rash, new or changing mole, new growth) MEDICATIONS: Prasterone, DHEA, (DHEA) 25 mg tab Take 25 mg by mouth once daily. Levocetirizine 5 mg tablet Take 5 mg by mouth. levothyroxine (SYNTHROID) 75 mcg tablet TAKE 1 AND 1/2 TABLET ON SAT., AND SAT, THEN 1 TAB ON OTHER 5 DAYS rivaroxaban (XARELTO) 20 mg tablet Take 20 mg by mouth daily with dinner. liothyronine (CYTOMEL) 5 mcg tablet Take 5 mcg by mouth once daily. atorvastatin (LIPITOR) 40 mg tablet Take 40 mg by mouth once daily. aspirin, enteric coated (ASPIRIN, ENTERIC COATED) 81 mg EC tablet Take 81 mg by mouth once daily. FOLIC ACID/MULTIVITS-MIN/LUT (CENTRUM SILVER ORAL) Take by mouth once daily. ALLERGIES: ALLERGIES Allergen Reactions - Ciprofloxacin Intolerance PHYSICAL EXAMINATION: Vitals: BP 115/65 Pulse 76 Temp (Src) 97.7 (Oral) Resp 16 Ht 5' 7.165 (1.71m) Wt 184 lb (83.5kg) SpO2 99% BMI 28.68 kg/(m2). Body surface area is 1.99 meters squared. General Appearance: Well appearing, alert, in no acute distress, well-hydrated, well nourished.. Skin: Skin color, texture, turgor normal, no suspicious rashes or lesions. Head: Normocephalic, no masses, lesions, tenderness or abnormalities. Eyes: Anicteric sclera. Pupils are equally round and reactive to light. Extraocular movements are intact. . Neck: Supple, no adenopathy; thyroid symmetric, normal size, no bruits. Lungs: lungs clear to auscultation. No wheezing, rhonchi, rales. Heart: RRR without murmur, gallop, or rubs. No ectopy. Abdomen: Normal abdominal exam, Abdomen soft, non-tender. Bowel sounds normal. No masses, organomegaly. Extremities: No deformities, edema, skin discoloration, clubbing or cyanosis. Good capillary refill. . Musculoskeletal: No joint swelling, deformity, or tenderness. Peripheral Pulses: Normal. Neurologic: Gait normal. Reflexes normal and symmetric. Sensation grossly intact.. Lymph Nodes: No cervical lymphadenopathy, No supraclavicular lymphadenopathy and No axillary lymphadenopathy. LABORATORY VALUES: DIAGNOSIS: (D47.2) Monoclonal gammopathy (primary encounter diagnosis) Plan: B2 MICROGLOBULIN B, CBC + DIFF, COMP METABOLIC PANEL, LD LACTATE DEHYDRO, PHOSPHORUS INORGANIC, PROTEIN ELECTROPHORESIS W/INTERP, MONOCLONAL PROTEIN, SERUM (BLOOD), URIC ACID BLOOD, CALCIUM IONIZED B Kevin Mckeon MD, CPE [place], [place] CC: Vickie Eason MD [address] [facility] [address] Kevin Mckeon MD 06/03/2019 3:28 PM Addendum Reading list 1. Grain Brain 2. Keto Fast 3. The Plant Paradox* Referring Provider: DAYANA BHAT [[id number]] Allergies As of Date: 06/03/2019 Noted Allergy Reaction CIPROFLOXACIN 03/30/2014 5 - Intolerance Date Reviewed: 06/03/2019 Reviewed by: Kevin Mckeon - Fully Assessed Reason for Visit: Monoclonal gammopathy [Other] Cmt: follow up Primary Visit Diagnosis:Monoclonal gammopathy [D47.2] Order(s):B2 MICROGLOBULIN B [SQB2M] Order #: [id number] FUTURE CBC + DIFF [SQCBCDIF] Order #: [id number] FUTURE COMP METABOLIC PANEL [SQCMP] Order #: [id number] FUTURE LD LACTATE DEHYDRO [SQLD6] Order #: [id number] FUTURE PHOSPHORUS INORGANIC [SQPHOS] Order #: [id number] FUTURE PROTEIN ELECTROPHORESIS W/INTERP [SQSEPG] Order #: [id number] FUTURE MONOCLONAL PROTEIN, SERUM (BLOOD) [SQSERMPA] Order #: [id number] FUTURE URIC ACID BLOOD [SQURIC] Order #: [id number] FUTURE CALCIUM IONIZED B [SQICA] Order #: [id number] FUTURE Disposition: Return in about 24 weeks (around 11/18/2019). Follow-up and Disposition History Recorded Prescriptions as of 06/03/2019 Sig: PRASTERONE (DHEA) 25 MG TABLET Take 25 mg by mouth once estevan* LEVOCETIRIZINE 5 MG TABLET Take 5 mg by mouth. LEVOTHYROXINE 75 MCG TABLET TAKE 1 AND 1/2 TABLET ON MON.* Patient taking differently: once daily. Take 1 and 1/2 ta* RIVAROXABAN 20 MG TABLET Take 20 mg by mouth daily wit* LIOTHYRONINE 5 MCG TABLET Take 5 mcg by mouth once estevan* ATORVASTATIN 40 MG TABLET Take 40 mg by mouth once estevan* ASPIRIN 81 MG TABLET,DELAYED * Take 81 mg by mouth once estevan* CENTRUM SILVER ORAL Take by mouth once daily. 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 Grain Brain 2. Keto Fast 3. The Plant Paradox* Encounter Status:Closed by KEVIN MCKEON MD on 06/13/19 Normal [facility] PROGRESSon 06-03-2019 PROGRESS HNO ID: [id number] Author: Kevin Mckeon Service: ? Author Type: Physician Type: Progress Notes Filed: 06/13/2019 9:47 AM Note Text: Some elements in this clinic note that are critical to medical decision making have been carefully reviewed and included from a prior clinic note dated: May 14, 2018. Additional Clinicians involved in Brandin Farr's care: Vickie Eason MD, Dr. Parra, Dr. Morales CC: MGUS follow up for surveillance testing on 05/28/2019 ASSESSMENT: MGUS IgG lambda No crab symptoms : no anemia, no renal failure, no lytic lesions in bones, no hypercalcemia. 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 PLAN: 1. Labs in 23 weeks 2. Return in 24 weeks to review. Treatment to Date: 1. Serial surveillance HPI: Updated Visit, June 03, 2019: Date is 50 years old and returns today to review laboratories completed on May 28, 2019. CBC remains stable as does his M spike (IgG lambda) at 2.04 which is less than it was a year ago 2.23. He has no appreciable symptoms on full review of systems by organ system. We again reviewed the risk of conversion to a more aggressive disease but currently there is no sign of this. Laboratories detailed below. Updated visit, May 14, 2018: He continues on asa alone. His xarelto continued through apr 2017. Medically uneventful year. Sinus complaints mostly. He is finishing up round of abx for this. No back or leg or arm pain. Left lower extremity DVT and pulmonary embolus in August 2016 Provoked, Continued anticoagulation with oral anticoagulant through April 2017. Patient was on clomid for increasing testosterone, which is a selective estrogen receptor modulator. This raises risk for thrombosis likely. He is now placed on DHEA which does not raise thrombosis risk appreciably. No hypercoag workup performed. Continue asa 81 Prior historical reference reviewed June 03, 2019: This is a 54 year old male presented initially in late 2013 was primary care provider with dizziness and sinus complaints. Lab work revealed an IgG level above 3000 with an M spike of 2.3 and elevated lambda light chains. Also found to be hypothyroid. He was referred to Dr. Mena and a bone marrow aspirate and biopsy in December 2013 showed less than 5% plasma cells. Skeletal survey was negative. Endocrine workup revealed low testosterone and thyroid, replacement may patient feel much better. He continued to have persistently elevated M spike In 2016 he was being treated with clomiphene to increase tesosterone. in August 2016 had RLE swelling followed by cough, chest pain, SOB. Diagnosed with RLE DVT and PE. Placed on xarelto. This was a few months after a L inguinal hernia repair by Dr. Whatley. No bleeding on xarelto. No bruising. No neck or back pain. Radiographic Data: Reviewed on n/a 1. n/a Pathologic Profile/ Molecular Data: Reviewed on June 03, 2019 1. 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 ECOG PERFORMANCE STATUS: 0 REVIEW OF SYSTEMS Per HPI and otherwise as noted below. CONSTITUTIONAL: No fevers, chills, nightsweats, unintended weight loss HEENT: Denies frequent or severe heaches, nasal congestion/sinus symptoms, problematic allergy problems. EYES: No diplopia or blurry vision. CARDIOVASCULAR: No chest pain, dyspnea, palpitations, orthopnea, PND, ankle edema. PULM: No dyspnea, unexplained cough. GI: No dysphagia/odynophagia, problematic reflux, constipation, diarrhea, changes in stool habits, hematochezia, melena. : No new urinary complaints, including dysuria, gross hematuria or pyuria. NEURO: No new balance problems, peripheral weakness/paresthesias or numbness of concern. MUSC-SKEL: No new joint pain, swelling, or erythema. PSY: No concerns regarding depression, anxiety or panic. INTEGUMENTARY: No new skin changes (rash, new or changing mole, new growth) MEDICATIONS: Prasterone, DHEA, (DHEA) 25 mg tab Take 25 mg by mouth once daily. Levocetirizine 5 mg tablet Take 5 mg by mouth. levothyroxine (SYNTHROID) 75 mcg tablet TAKE 1 AND 1/2 TABLET ON MON., AND SAT, THEN 1 TAB ON OTHER 5 DAYS rivaroxaban (XARELTO) 20 mg tablet Take 20 mg by mouth daily with dinner. liothyronine (CYTOMEL) 5 mcg tablet Take 5 mcg by mouth once daily. atorvastatin (LIPITOR) 40 mg tablet Take 40 mg by mouth once daily. aspirin, enteric coated (ASPIRIN, ENTERIC COATED) 81 mg EC tablet Take 81 mg by mouth once daily. FOLIC ACID/MULTIVITS-MIN/LUT (CENTRUM SILVER ORAL) Take by mouth once daily. ALLERGIES: ALLERGIES Allergen Reactions - Ciprofloxacin Intolerance PHYSICAL EXAMINATION: Vitals: BP 115/65 Pulse 76 Temp (Src) 97.7 (Oral) Resp 16 Ht 5' 7.165 (1.71m) Wt 184 lb (83.5kg) SpO2 99% BMI 28.68 kg/(m2). Body surface area is 1.99 meters squared. General Appearance: Well appearing, alert, in no acute distress, well-hydrated, well nourished.. Skin: Skin color, texture, turgor normal, no suspicious rashes or lesions. Head: Normocephalic, no masses, lesions, tenderness or abnormalities. Eyes: Anicteric sclera. Pupils are equally round and reactive to light. Extraocular movements are intact. . Neck: Supple, no adenopathy; thyroid symmetric, normal size, no bruits. Lungs: lungs clear to auscultation. No wheezing, rhonchi, rales. Heart: RRR without murmur, gallop, or rubs. No ectopy. Abdomen: Normal abdominal exam, Abdomen soft, non-tender. Bowel sounds normal. No masses, organomegaly. Extremities: No deformities, edema, skin discoloration, clubbing or cyanosis. Good capillary refill. . Musculoskeletal: No joint swelling, deformity, or tenderness. Peripheral Pulses: Normal. Neurologic: Gait normal. Reflexes normal and symmetric. Sensation grossly intact.. Lymph Nodes: No cervical lymphadenopathy, No supraclavicular lymphadenopathy and No axillary lymphadenopathy. LABORATORY VALUES: DIAGNOSIS: (D47.2) Monoclonal gammopathy (primary encounter diagnosis) Plan: B2 MICROGLOBULIN B, CBC + DIFF, COMP METABOLIC PANEL, LD LACTATE DEHYDRO, PHOSPHORUS INORGANIC, PROTEIN ELECTROPHORESIS W/INTERP, MONOCLONAL PROTEIN, SERUM (BLOOD), URIC ACID BLOOD, CALCIUM IONIZED B Kevin Mckeon MD, CPE [place], [place] CC: Vickie Eason MD [address] [facility] [address] Normal [facility] 06-01-2019 CNPN Telephone ([facility]) -- BRANDIN FARR ([id number]) 1960 M Date Time Provider Department 06/01/19 KEVIN MCKEON During your visit today, we recorded the following information about you: Melvina Sena, RN, RN 06/01/2019 9:29 AM Signed ----- Message from Kevinwaqas Cartagenademetrice sent at 05/31/2019 6:37 PM EDT ----- Labs are stable including M-spike. Melvina Sena RN, RN 06/01/2019 9:30 AM Signed Informed pt's of Dr Garibay's message. Cindy verbalized understanding and denies further needs at this time. Melvina Sena RN Allergies As of Date: 06/01/2019 Noted Allergy Reaction CIPROFLOXACIN 03/30/2014 5 - Intolerance Date Reviewed: 05/14/2018 Reviewed by: Reena Najera - Fully Assessed Reason for Visit: Results [95] Prescriptions as of 06/01/2019 Sig: PRASTERONE (DHEA) 25 MG TABLET Take 25 mg by mouth once estevan* LEVOCETIRIZINE 5 MG TABLET Take 5 mg by mouth. LEVOTHYROXINE 75 MCG TABLET TAKE 1 AND 1/2 TABLET ON MON.* RIVAROXABAN 20 MG TABLET Take 20 mg by mouth daily wit* LIOTHYRONINE 5 MCG TABLET Take 5 mcg by mouth once estevan* ATORVASTATIN 40 MG TABLET Take 40 mg by mouth once estevan* ASPIRIN 81 MG TABLET,DELAYED * Take 81 mg by mouth once estevan* CENTRUM SILVER ORAL Take by mouth once daily. 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 [*06/30/2015 Encounter Status:Closed by MELVINA SENA RN on 06/01/19 Normal [facility] B2 Microglobulinon 0 Globulin (S) [Mass/Vol] 2.1 mg/L Normal 0.8-2.4 [facility] Comment on above: Performed By: #### B 2M, CMP, URIC, KLFRS, SERIMM, SEPG, IFESC #### [facility] [address] [place] [address] CBC and Differentialon 05-27 Abs Baso 0.04 k/uL Normal <0.11 [facility] Comment on above: Performed By: #### C BCDIF #### [place] [address] [place] [phone] Abs Vermilion 0.50 k/uL Normal <0.87 [facility] Comment on above: Performed By: #### C BCDIF #### [place] [phone] Abs Neut 1.85 k/uL Normal 1.45-7.50 [facility] Comment on above: Performed By: #### C BCDIF #### [place] [address] Absolute nRBC <0.01 Normal <0.01 [facility] Comment on above: Performed By: #### C BCDIF #### [place] [phone] Basophils/100 WBC (Bld) 1.1 % Normal [facility] Comment on above: Performed By: #### C BCDIF #### [place] [phone] DTYPE Auto Diff Normal [facility] Comment on above: Performed By: #### C BCDIF #### [place] [address] [place] [phone] Eosinophils (Bld) [#/Vol] 0.04 10*3/uL Normal <0.46 [facility] Comment on above: Performed By: #### C BCDIF #### [place] [phone] Eosinophils/100 WBC (Bld) 1.1 % Normal [facility] Comment on above: Performed By: #### C BCDIF #### [place] [address] [place], [place] [address] Erythrocyte distribution width (RBC) [Ratio] 13.3 % Normal 11.5-15.0 [facility] Comment on above: Performed By: #### C BCDIF #### [address] [address] Hematocrit (Bld) [Volume fraction] 46.4 % Normal 39.0-51.0 [facility] Comment on above: Performed By: #### C BCDIF #### [address] [address] Hemoglobin (Bld) [Mass/Vol] 14.4 g/dL Normal 13.0-17.0 [facility] Comment on above: Performed By: #### C BCDIF #### [place] [address] Lymphocytes (Bld) [#/Vol] 1.21 10*3/uL Normal 1.00-4.00 [facility] Comment on above: Performed By: #### C BCDIF #### [address] [address] Lymphocytes/100 WBC (Bld) 33.2 % Normal [facility] Comment on above: Performed By: #### C BCDIF #### [address] [address] MCH (RBC) [Entitic mass] 30.6 pG Normal 26.0-34.0 [facility] Comment on above: Performed By: #### C BCDIF #### [place] [address] [place], [place] [address] MCHC (RBC) [Mass/Vol] 31.0 g/dL Normal 30.5-36.0 [facility] Comment on above: Performed By: #### C BCDIF #### [facility] [address] [place], [place] [address] MCV (RBC) [Entitic vol] 98.7 fL Normal 80.0-100.0 [facility] Comment on above: Performed By: #### C BCDIF #### [facility] [address] [place], [place] [address] Monocytes/100 WBC (Bld) 13.7 % Normal [facility] Comment on above: Performed By: #### C BCDIF #### [facility] [address] [place], [place] [address] Neutrophils/100 WBC (Bld) 50.9 % Normal [facility] Comment on above: Performed By: #### C BCDIF #### [facility] [address] [place], [place] [address] NRBCs 0.0 /100 WBC Normal 0 [facility] Comment on above: Performed By: #### C BCDIF #### [facility] [address] [place], [place] [address] Platelet mean volume (Bld) [Entitic vol] 10.7 fL Normal 9.0-12.7 [facility] Comment on above: Performed By: #### C BCDIF #### [facility] [address] [place], [place] [address] Platelets (Bld) [#/Vol] 263 10*3/uL Normal 150-400 [facility] Comment on above: Performed By: #### C BCDIF #### [facility] [address] [place], [place] [address] RBC (Bld) [#/Vol] 4.70 10*6/uL Normal 4.20-6.00 [facility] Comment on above: Performed By: #### C BCDIF #### [facility] [address] [place], [place] [address] WBC (Bld) [#/Vol] 3.65 10*3/uL Low 3.70-11.00 [facility] Comment on above: Performed By: #### C BCDIF #### [place] [address] [place], [place] [address] Comp Metabolic Panelon 05-27 Albumin [Mass/Vol] 4.0 g/dL Normal 3.9-4.9 [facility] Comment on above: Performed By: #### B 2M, CMP, URIC, KLFRS, SERIMM, SEPG, IFESC #### [place] [address] [place], [place] [address] ALP [Catalytic activity/Vol] 33 U/L Low 38-113 [facility] Comment on above: Performed By: #### B 2M, CMP, URIC, KLFRS, SERIMM, SEPG, IFESC #### [place] [address] ALT [Catalytic activity/Vol] 18 U/L Normal 10-54 [facility] Comment on above: Performed By: #### B 2M, CMP, URIC, KLFRS, SERIMM, SEPG, IFESC #### [place] [address] [place], [place] [address] Anion gap [Moles/Vol] 10 mmol/L Normal 9-18 [facility] Comment on above: Performed By: #### B 2M, CMP, URIC, KLFRS, SERIMM, SEPG, IFESC #### [place] [address] [place], [place] [address] AST [Catalytic activity/Vol] 21 U/L Normal 14-40 [facility] Comment on above: Performed By: #### B 2M, CMP, URIC, KLFRS, SERIMM, SEPG, IFESC #### [place] [address] [place], [place] [address] Bilirubin [Mass/Vol] 0.7 mg/dL Normal 0.2-1.3 [facility] Comment on above: Performed By: #### B 2M, CMP, URIC, KLFRS, SERIMM, SEPG, IFESC #### [place] [address] [place] [address] Calcium [Mass/Vol] 9.4 mg/dL Normal 8.5-10.2 [facility] Comment on above: Performed By: #### B 2M, CMP, URIC, KLFRS, SERIMM, SEPG, IFESC #### [place] [address] [place] [address] Chloride [Moles/Vol] 103 mmol/L Normal 97-105 [facility] Comment on above: Performed By: #### B 2M, CMP, URIC, KLFRS, SERIMM, SEPG, IFESC #### [place] [address] CO2 [Moles/Vol] 24 mmol/L Normal 22-30 [facility] Comment on above: Performed By: #### B 2M, CMP, URIC, KLFRS, SERIMM, SEPG, IFESC #### [place] [address] Creatinine [Mass/Vol] 0.85 mg/dL Normal 0.73-1.22 [facility] Comment on above: Performed By: #### B 2M, CMP, URIC, KLFRS, SERIMM, SEPG, IFESC #### [place] [address] [place] [address] eGFR- Amer. >60 Normal [facility] Comment on above: Performed By: #### B 2M, CMP, URIC, KLFRS, SERIMM, SEPG, IFESC #### [place] [address] [place] [phone] GFR/1.73 sq M predicted among non-blacks MDRD (S/P/Bld) [Vol rate/Area] mL/min/{1.73_m2} Normal [facility] Comment on above: Result Comment: eGFR (Estimated GFR) Units of measure: mL/min/1.73 meters squared eGFR is derived from the reexpressed MDRD Study equation using the following parameters: serum creatinine, age, gender and race. The creatinine assay has been calibrated to be traceable to IDMS. An eGFR <60 mL/min/1.73m2 for >3 months is consistent with chronic kidney disease. Refer to KDOQI guidelines for clinical interpretation. In patients with unstable renal function, e.g. those with acute kidney injury, the eGFR may not accurately reflect actual GFR. Performed By: #### B 2M, CMP, URIC, KLFRS, SERIMM, SEPG, IFESC #### [facility] [address] [place], [place] [address] Glucose [Mass/Vol] 104 mg/dL High 74-99 [facility] Comment on above: Result Comment: The [place] Diabetes Association (ADA) provides guidance for cutoff values for fasting glucose and random glucose. The ADA defines fasting as no caloric intake for at least 8 hours. Fasting plasma glucose results between 100 to 125 mg/dL indicate increased risk for diabetes (prediabetes). Fasting plasma glucose results greater than or equal to 126 mg/dL meet the criteria for diagnosis of diabetes. In the absence of unequivocal hyperglycemia, results should be confirmed by repeat testing. In a patient with classic symptoms of hyperglycemia or hyperglycemic crisis, random plasma glucose results greater than or equal to 200 mg/dL meet the criteria for diagnosis of diabetes. Reference: Standards of Medical Care in Diabetes 2016, [place] [employer]. Diabetes Care. 2016.39(Suppl 1). Performed By: #### B 2M, CMP, URIC, KLFRS, SERIMM, SEPG, IFESC #### [facility] [address] [place], [place] [address] Potassium [Moles/Vol] 4.4 mmol/L Normal 3.7-5.1 [facility] Comment on above: Performed By: #### B 2M, CMP, URIC, KLFRS, SERIMM, SEPG, IFESC #### [facility] [address] [place] [phone] Protein [Mass/Vol] 8.0 g/dL Normal 6.3-8.0 [facility] Comment on above: Performed By: #### B 2M, CMP, URIC, KLFRS, SERIMM, SEPG, IFESC #### [place] [address] [place], [place] [address] Sodium [Moles/Vol] 137 mmol/L Normal 136-144 [facility] Comment on above: Performed By: #### B 2M, CMP, URIC, KLFRS, SERIMM, SEPG, IFESC #### [place] [address] [place] [address] Urea nitrogen [Mass/Vol] 16 mg/dL Normal 9-24 [facility] Comment on above: Performed By: #### B 2M, CMP, URIC, KLFRS, SERIMM, SEPG, IFESC #### [place] [address] [place] [address] JOLLY Screen, Serumon 05-28-19 20 MPA Interpretation SEE COMMENT Normal [facility] Comment on above: Result Comment: Atyp ical restricted bands are present in the IgG and lambda regions. Consistent with IgG lambda monoclonal gammopathy. Performed By: #### B 2M, CMP, URIC, KLFRS, SERIMM, SEPG, IFESC #### [place] [address] [place], [place] [address] Protein [Mass/Vol] M protein is present. Critica lly abnormal No M protein is identified. [facility] Comment on above: Performed By: #### B 2M, CMP, URIC, KLFRS, SERIMM, SEPG, IFESC #### [facility] [address] [place], [place] [address] Staff Review Reviewed by Adria Salomon M.D., PhD ([id number]) Normal [facility] Comment on above: Performed By: #### B 2M, CMP, URIC, KLFRS, SERIMM, SEPG, IFESC #### [place] [address] [place] [address] Immunoglobulins GAMon 2019 IgA [Mass/Vol] 18 mg/dL Low 78-391 [facility] Comment on above: Performed By: #### B 2M, CMP, URIC, KLFRS, SERIMM, SEPG, IFESC #### [place] [address] [place] [address] IgG [Mass/Vol] 2980 mg/dL High 717-1411 [facility] Comment on above: Performed By: #### B 2M, CMP, URIC, KLFRS, SERIMM, SEPG, IFESC #### [place] [address] [place] [address] IgM [Mass/Vol] 26 mg/dL Low 53-334 [facility] Comment on above: Performed By: #### B 2M, CMP, URIC, KLFRS, SERIMM, SEPG, IFESC #### [place] [address] [place] [address] [place]/Sims,Free,Seron 2019 K/L Ratio, Serum 0.29 Normal 0.26-1.65 [facility] Comment on above: Performed By: #### B 2M, CMP, URIC, KLFRS, SERIMM, SEPG, IFESC #### [place] [address] [place] [address] [place], Free, Serum 7.4 mg/L Normal 3.30-19.40 [facility] Comment on above: Result Comment: Test performed by an immunoturbidimetric assay on [employer] instrument from [facility]. Immunoglobulin free light chain assay results should be interpreted in conjunction with other tests and in correlation with clinical picture. Performed By: #### B 2M, CMP, URIC, KLFRS, SERIMM, SEPG, IFESC #### [place] [address] [place] [address] Lambda, Free, Serum 25.1 mg/L Normal 5.7-26.3 [facility] Comment on above: Result Comment: Test performed by an immunoturbidimetric assay on [employer] instrument from [facility]. Immunoglobulin free light chain assay results should be interpreted in conjunction with other tests and in correlation with clinical picture. Performed By: #### B 2M, CMP, URIC, KLFRS, SERIMM, SEPG, IFESC #### [place] [address] [address] [place] [phone] Protein Electrophor.on 05-27 Albumin [Mass/Vol] 3.80 g/dL Normal 3.37-4.23 [facility] Comment on above: Performed By: #### B 2M, CMP, URIC, KLFRS, SERIMM, SEPG, IFESC #### [place] [phone] Alpha 1 Globulin 0.17 gm/dL Low 0.18-0.31 [facility] Comment on above: Performed By: #### B 2M, CMP, URIC, KLFRS, SERIMM, SEPG, IFESC #### [place] [phone] Alpha 2 Globulin 0.51 gm/dL Low 0.52-0.97 [facility] Comment on above: Performed By: #### B 2M, CMP, URIC, KLFRS, SERIMM, SEPG, IFESC #### [place] [address] [place] [address] Beta Globulin 0.81 gm/dL Low 0.84-1.36 [facility] Comment on above: Performed By: #### B 2M, CMP, URIC, KLFRS, SERIMM, SEPG, IFESC #### [place] [address] [place] [phone] Gamma Globulin 2.61 gm/dL High 0.70-1.44 [facility] Comment on above: Performed By: #### B 2M, CMP, URIC, KLFRS, SERIMM, SEPG, IFESC #### [facility] [address] [address] Interpretation SEE COMMENT Normal [facility] Comment on above: Result Comment: An M protein is identified on protein electrophoresis. See separate immunofixation report for characterization of the M protein. Performed By: #### B 2M, CMP, URIC, KLFRS, SERIMM, SEPG, IFESC #### [facility] [address] [address] M Markus Concentratn 2.04 gm/dL High 0.00 [facility] Comment on above: Performed By: #### B 2M, CMP, URIC, KLFRS, SERIMM, SEPG, IFESC #### [place] [address] [place] [address] Protein [Mass/Vol] Gamma fraction Normal Cl [facility] Comment on above: Performed By: #### B 2M, CMP, URIC, KLFRS, SERIMM, SEPG, IFESC #### [place] [address] [place] [address] Protein [Mass/Vol] 7.9 g/dL Normal 6.0-8.4 [facility] Comment on above: Performed By: #### B 2M, CMP, URIC, KLFRS, SERIMM, SEPG, IFESC #### [place] [address] [place] [address] SPE Staff Review Reviewed by Adria Salomon M.D., PhD ([id number]) Normal [facility] Comment on above: Performed By: #### B 2M, CMP, URIC, KLFRS, SERIMM, SEPG, IFESC #### [facility] [address] [place], [place] [address] Remote CBCDIF (for [facility] use o nly)on 05-28-2019 Abs Baso Test reordered by [facility]. Normal <0.11 [facility] Comment on above: Result Comment: MAYANK 0 [id number] Account Credited Performed By: #### R CBCDF #### [facility] [address] [place] [address] Abs Vermilion Test reordered by [facility]. Normal <0.87 [facility] Comment on above: Result Comment: MAYANK 0 [id number] Account Credited Performed By: #### R CBCDF #### [facility] [address] [place] [address] Abs Neut Test reordered by [facility]. Normal 1.45-7.50 [facility] Comment on above: Result Comment: MAYANK 0 [id number] Account Credited Performed By: #### R CBCDF #### [facility] [address] [place] [address] Basophils/100 WBC (Bld) Test reordered by [facility]. Normal [facility] Comment on above: Result Comment: MAYANK 0 [id number] Account Credited Performed By: #### R CBCDF #### [facility] [address] [place] [address] Comment Test reordered by [facility]. Normal [facility] Comment on above: Result Comment: MAYANK 0 [id number] Account Credited Performed By: #### R CBCDF #### [facility] [phone] Eosinophils (Bld) [#/Vol] Test reordered by [facility]. Normal <0.46 [facility] Comment on above: Result Comment: MAYANK 0 [id number] Account Credited Performed By: #### R CBCDF #### [facility] [address] [place] [address] Eosinophils/100 WBC (Bld) Test reordered by [facility]. Normal [facility] Comment on above: Result Comment: MAYANK 0 [id number] Account Credited Performed By: #### R CBCDF #### [facility] [address] [place], [place] [address] Erythrocyte distribution width (RBC) [Ratio] Test reordered by [facility]. Normal 11.5-15.0 [facility] Comment on above: Result Comment: MAYANK 0 [id number] Account Credited Performed By: #### R CBCDF #### [facility] [address] [place], [place] [address] Hematocrit (Bld) [Volume fraction] Test reordered by [facility]. Normal 39.0-51.0 [facility] Comment on above: Result Comment: MAYANK 0 [id number] Account Credited Performed By: #### R CBCDF #### [facility] [address] [place], [place] [address] Hemoglobin (Bld) [Mass/Vol] Test reordered by [facility]. Normal 13.0-17.0 [facility] Comment on above: Result Comment: MAYANK 0 [id number] Account Credited Performed By: #### R CBCDF #### [facility] [address] [place], [place] [address] Lymphocytes (Bld) [#/Vol] Test reordered by [facility]. Normal 1.00-4.00 [facility] Comment on above: Result Comment: MAYANK 0 [id number] Account Credited Performed By: #### R CBCDF #### [facility] [address] [place], [place] [address] Lymphocytes/100 WBC (Bld) Test reordered by [facility]. Normal [facility] Comment on above: Result Comment: MAYANK 0 [id number] Account Credited Performed By: #### R CBCDF #### [facility] [address] [place], [place] [address] MCH (RBC) [Entitic mass] Test reordered by [facility]. Normal 26.0-34.0 [facility] Comment on above: Result Comment: MAYANK 0 [id number] Account Credited Performed By: #### R CBCDF #### [facility] [address] [place], [place] [address] MCHC (RBC) [Mass/Vol] Test reordered by [facility]. Normal 30.5-36.0 [facility] Comment on above: Result Comment: MAYANK 0 [id number] Account Credited Performed By: #### R CBCDF #### [facility] [address] [place], [place] [address] MCV (RBC) [Entitic vol] Test reordered by [facility]. Normal 80.0-100.0 [facility] Comment on above: Result Comment: MAYANK 0 [id number] Account Credited Performed By: #### R CBCDF #### [facility] [address] [place], [place] [address] Monocytes/100 WBC (Bld) Test reordered by [facility]. Normal [facility] Comment on above: Result Comment: MAYANK 0 [id number] Account Credited Performed By: #### R CBCDF #### [facility] [address] [place], [place] [address] Neutrophils/100 WBC (Bld) Test reordered by [facility]. Normal [facility] Comment on above: Result Comment: MAYANK 0 [id number] Account Credited Performed By: #### R CBCDF #### [facility] [address] [place], [place] [address] Platelet mean volume (Bld) [Entitic vol] Test reordered by [facility]. Normal 9.0-12.7 [facility] Comment on above: Result Comment: MAYANK 0 [id number] Account Credited Performed By: #### R CBCDF #### [facility] [address] [place], [place] [address] Platelets (Bld) [#/Vol] Test reordered by [facility]. Normal 150-400 [facility] Comment on above: Result Comment: MAYANK 0 [id number] Account Credited Performed By: #### R CBCDF #### [facility] [address] [place], [place] [address] RBC (Bld) [#/Vol] Test reordered by [facility]. Normal 4.20-6.00 [facility] Comment on above: Result Comment: MAYANK 0 [id number] Account Credited Performed By: #### R CBCDF #### [facility] [address] [place] [address] Recheck Test reordered by [facility]. Normal [facility] Comment on above: Result Comment: MAYANK 0 [id number] Account Credited Performed By: #### R CBCDF #### [facility] [address] [place] [address] Review Test reordered by [facility]. Normal [facility] Comment on above: Result Comment: MAYANK 0 [id number] Account Credited Performed By: #### R CBCDF #### [place] [address] [place] [address] WBC (Bld) [#/Vol] Test reordered by [facility]. Normal 3.70-11.00 [facility] Comment on above: Result Comment: MAYANK 0 [id number] Account Credited Performed By: #### R CBCDF #### [place] [address] [place] [address] Uric Acidon 05-28-2019 Urate [Mass/Vol] 4.0 mg/dL Normal 4.0-8.1 [facility] Comment on above: Performed By: #### B 2M, CMP, URIC, KLFRS, SERIMM, SEPG, IFESC #### [facility] [address] [place] [id number] Vital Signs Date Time Vital Sign Value Performing Clinician Faci litleigha 04-25-2022 09:08-0500 Heart rate 70 /min Tigre Rae [facility] [place] [facility] 04-25-2022 09:08-0500 SaO2% (BldA) [Mass fraction] 97 % Tigre Rae [facility] [place] [facility] 04-25-2022 09:08-0500 Respiratory rate 16 /min Tigre Rae [facility] 04-25-2022 09:07-0500 Diastolic blood pressure 85 mm[Hg] [facility] 04-25-2022 09:07-0500 Mean blood pressure 108 mm[Hg] Tigre Rae [facility] 04-25-2022 09:07-0500 Systolic blood pressure 154 mm[Hg] [facility] 04-25-2022 09:00-0500 Body temperature 97.52 [degF] [facility] Encounters Encounter Date Encounter Type Care Provider Facility Start: 03-04-2023 End: 03-04-2023 ambulatory CECILIA BENSON Not Available Start: 07-16-2022 End: 07-17-[address] VICKIE EASON . Facility: Start: 04-25-2022 End: 04-26-2022 ambulatory Tigre Clivecolinrachel Facility:[facility] Start: 04-25-2022 End: 04-25-2022 Patient encounter procedure [facility] Start: 04-09-2022 End: 04-10-[address] BRANDIN MORALES Facility:[facility] Start: 02-23-2022 End: 02-24-[address] CECILIA BENSON . Facility:[facility] Start: 11-28-2021 End: 11-29-[address] CECILIA BENSON . Facility:[facility] Start: 11-03-2021 End: 11-04-[address] VICKIE EASON . Facility:[facility] Start: 11-02-2021 End: 11-03-[address] VICKIE EASON . Facility:[facility] Start: 10-26-[address] Kathy Johns Fa cility:[id number] Start: 09-11-2021 End: 09-12-[address] CECILIA BENSON . Facility:[facility] Start: 08-18-2021 Encounter for genera l adult medical examination without abnormal findings DR VICKIE EASON . [facility] Start: 08-17-2021 End: 08-18-[address] VICKIE EASON . Facility:[facility] Start: 08-16-2021 End: 08-17-[address] VICKIE EASON . Facility:[facility] Start: 08-16-2021 End: 08-17-2021 Encounter for general adult medical examination without abnormal findings DR VICKIE EASON . Facility: Start: 10-10-2016 End: 10-11-2016 Ambulatory DEFAULT PHYSICIAN Facility:[facility] Procedures Date Procedure Procedure Detail Performing Clinician Start: 07-16-[address] GENNA EASON . Comment on above: Performed By: #### L IPID, T7, URIC, TSH, CMP #### [facility] [address] [place], [place] [address] Dr. Jaymie Gilbert Start: 08-16-[address] GENNA EASON . Comment on above: Performed By: #### L IPID, T7, URIC, TSH, CMP #### [facility] [address] [place], [place] [address] Dr. Jaymie Gilbert Arthroscopy of knee with meniscus repair Tigre Rae Pneumatic retinopexy Tigre Rae Tonsillectomy and adenoidectomy Tigre Rae Vasectomy Tigre Matias cz Payers Date Payer Category Payer Unknown [id number] 2.16.8 [id number] 1960 Unknown [id number] 2.16.84 [id number] 1960 Unknown [id number] 2.16.84 [id number] 1960 Unknown [id number] 2.16.84 [id number] 1960 Unknown [id number] 2.16.84 [id number] 1960 Unknown [id number] 2.16.84 [id number] 1960 Unknown [id number] 2.16.84 0.1.252081.3.579.2.593 1960 Unknown [id number] 2.16.84 [id number] 1960 Unknown [id number] 2.16.84 0.1.565294.3.579.2.593 1960 Unknown [id number] 2.16.84 0.1.470750.3.579.2.593 1960 Unknown [id number] 2.16.84 [id number] 1960 Unknown [id number] 2.16.8 [id number] 1960 Unknown [id number] 2.16.840 .[id number] 1959 Unknown [id number] Unknown Social History Date Type Detail Facility Start: 04-26-2020 Tobacco smoking status Never s moked tobacco (finding) [facility] [place] [facility] Sex Assigned At Male [facility] Discharge instructions 04-26-2021 Note Date & Type Note Facility 04-26-2021 Hospital Discharg e instructions Follow Up Care 04/26/2021 09:33:13 With:Tigre Rae Address: [facility] [address] [place] [phone] Fax Business (1) When: Unknown Comments:f/u in 18 months. prior to f/u at [place] check cbc, cmp, spep sflc simmunofixation. no imaging. [facility] Evaluation + Plan note LaboratoryRadiology Note Date & Type Note Facility Evaluation + Plan note Future Appointments Appointment Date:10/23/2023 01:00:00 PM Scheduled Provider:Tigre Rae DO Location:[facility].ONCOLOGY Appointment Type:ONC Office Visit 15 (FT) Future Scheduled TestsBeta 2 Microglobulin 04/17/22Beta 2 Microglobulin 04/27/21IFE and PE, Serum 04/17/22Immunofixation Serum 04/27/21Free K+L Lt Chains,Qn,S 04/17/22Free K+L Lt Chains,Qn,S 04/27/21CBC w/ Auto Diff 04/17/22CBC w/ Auto Diff 04/27/21Comprehensive Metabolic Panel 04/17/22Comprehensive Metabolic Panel 04/27/21Protein Electrophoresis 04/27/21XR Bone Survey Complete 04/17/22 [facility] Hospital course Narrative Note Date & Type Note Facility Hospital course Narrative No data available for this section [facility] Progress note Note Date & Type Note Facility Progress note No data available for this section [facility] Summary Purpose Family History No Family History Records FoundNo Family History Records FoundNo Family History Records FoundNo Family History Records FoundNo Family History Records FoundNo Family History Records FoundNo Family History Records FoundNo Family History Records Found Advance Directives No Advanced Directives Records FoundNo Advanced Directives Records FoundNo Advanced Directives Records FoundNo Advanced Directives Records FoundNo Advanced Directives Records FoundNo Advanced Directives Records FoundNo Advanced Directives Records FoundNo Advanced Directives Records Found Additional Source Comments (unrecognized sect ion and content) No Status Records FoundNo Status Records FoundNo Status Records FoundNo Status Records FoundNo Status Records FoundNo Status Records FoundNo Status Records FoundNo Status Records Found INFORMATION SOURCE (unrecogn ized section and content) DATE CREATED AUTHOR 09/18/2017 [facility] DATE CREATED AUTHOR AUTHOR'S ORGANIZ ATION 06/13/2019 [facility] DATE CREATED AUTHOR AUTHOR'S ORGANIZ ATION 10/27/2021 [employer] DATE CREATED AUTHOR AUTHOR'S ORGANIZ ATION 10/28/2021 [facility] DATE CREATED AUTHOR AUTHOR'S ORGANIZ ATION 05/25/2022 [facility] DATE CREATED AUTHOR AUTHOR'S ORGANIZ ATION 07/18/2022 [facility] DATE CREATED AUTHOR AUTHOR'S ORGANIZ ATION 10/27/[address] [facility] DATE CREATED AUTHOR AUTHOR'S ORGANIZ ATION 03/05/2023 [facility] EPIC Patient Care team informatio n (unrecognized section and content) Personnel Name: Vickie Eason MD Address: Address: [address] [place] [address] FOR RECORDS PERTAINING TO PATIENTS WHO ARE OR HAVE BEEN ENROLLED IN A CHEMICAL DEPENDENCY/SUBSTANCEABUSE PROGRAM, SOME INFORMATION MAY BE OMITTED. This clinical summary was aggregated from multiple sources. Caution should be exercised in using it in the provision of clinical care. This summary normalizes information from multiple sources, and as a consequence, information in this document may materially change the coding, format and clinical context of patient data. In addition, data may be omitted in some cases. CLINICAL DECISIONS SHOULD BE BASED ON THE PRIMARY CLINICAL RECORDS. [facility] provides no warranty or guarantee of the accuracy or completeness of information in this document.
[2023-04-29 12:04] LABS: Free T4 0.82 ng/dL (0.76-1.46)
[2023-04-29 12:09] LABS: Free T3 3.99 pg/mL (2.18-3.98)
[2023-04-30 04:09] LABS: Triiodothyronine (T3) 165 ng/dL (71-180)
[2023-05-02 22:07] LABS: Reverse T3, Serum 13.3 ng/dL (9.2-24.1)
== END 2023-04-29 10:57 | disposition home or self-care (01) ==
LOC: LAB 10:59
PROVIDERS: PCP Family Medicine; Visit Provider Family Medicine
DX: E03.9 Hypothyroidism, unspecified (principal); R53.82 Chronic fatigue, unspecified; E07.81 Sick-euthyroid syndrome
CPT/HCPCS: 36415; 84439; 84443; 84480; 84481; 84482

== ENCOUNTER 2023-09-03 09:05 | Outpatient (OUT) | payer OTHER, SELFPAY ==
[2023-09-03 09:27] LABS: Basophils Percent Auto 1.1 % (0.2-2.0); Eosinophils Absolute Auto 0.1 10^3/uL (0.0-0.7); Eosinophils Percent Auto 2.8 % (0.9-7.0); Hematocrit 40.1 % (42.0-54.0); Hemoglobin 13.3 g/dL (14.0-18.0); Lymphocytes Absolute Auto 1.4 10^3/uL (1.2-3.8); Lymphocytes Percent Auto 39.1 % (20.5-60.0); Mean Corpuscular HGB Conc 33.2 g/dL (29.9-35.2); Mean Corpuscular Volume 93.5 fL (80.0-94.0); Mean Platelet Volume 9.7 fL (9.5-13.5); Monocytes Absolute Auto 0.5 10^3/uL (0.3-0.8); Monocytes Percent Auto 13.3 % (1.7-12.0); Neutrophils Absolute Auto 1.6 10^3/uL (1.4-6.5); Neutrophils Percent Auto 43.7 % (43.0-75.0); Platelet Count 260 10^3/uL (150-450); Red Blood Count 4.29 10^6/uL (4.70-6.10); Red Cell Distribution Width 12.7 % (11.0-15.0); White Blood Count 3.6 10^3/uL (4.0-11.0)
--- OUTSIDE RECORDS SUMMARY | 2023-09-03 09:28 | XMS_ITS | CCD ---
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 Kathy Johns Attending Unavailabl e Neriy, Dr. Vickie Easton Primary Care Unavail able [...] JOHNSTON Attending Unavailable HOY ., DR JOHNSTON Admmason Unavailable CARMEN, DR BRANDIN Ames Consulting Unavailable HEMEYER ., DR BROOKS Consulting Unavailable HOY ., DR JOHNSTON Primary Care Unavailable HEMEYER ., DR BROOKS Attending Unavailable HEMEYER ., DR BROOKS Admitting Unavailable HOY ., DR JOHNSTON Primary Care Unavailable HEMEYER ., DR BROOKS Attending Unavailable HEMEYER ., DR BROOKS Admmason Unavailable CARMEN, DR BRANDIN Ames Consulting Unavailable HOY ., DR JOHNSTON Primary Care Unavailable TIGRE RAE Attending Unavailable TIGRE RAE Admitting Unavailable TIGRE RAE Consulting Unavailable HOY ., DR JOHNSTON Consulting Unavailable HOY ., DR JOHNSTON Primary Care Unavailable HOY ., DR JOHNSTON Attending Unavailable HOY ., DR JOHNSTON Admitting Unavailable HOY ., DR JOHNSTON Primary Care Unavailable TIGRE RAE Attending Unavailable TIGRE RAE Admitting Unavailable KELLEY ., DR BROOKS Consulting Unavailable RL ., DR JOHNSTON Primary Care Unavailable KELLEY ., DR BROOKS Attending Unavailable KELLEY ., DR BROOKS Admitting Unavailable Tigre Rae Attending Unavailable Tigre Rae Admitting Unavailable CECILIA BENSON Attending Unavailable Allergies Allergy Classification Reported Allergen(s) Allergy Type Date of Onset Reaction(s) Facility (2 sources) Ciprofloxacin; Translations: [ciprofloxacin] Drug Allergy Intolerance, function (observable entity) [facility] (2 sources) Ciprofloxacin Drug Allergy 7 [facility] Repository Medications Current Medications Medication Drug Class(es) [...] Range Facility Physician Orderon 10-26-2022 Physician Order [id number] Normal [facility] INSULINon 04-25-2023 Insulin 9.6 uIU/mL Normal 2.6-24.9 [facility] Comment on above: Performed By: #### L IPID, T7, URIC, TSH, CMP #### [facility] [address] [place] [address] Dr. Jaymie Gilbert CBC AUTO DIFFon 07-16-2022 BASO # 0.0 103/ul Normal 0.0-0.1 [facility] Comment on above: Performed By: #### L IPID, T7, URIC, TSH, CMP #### [facility] [address] [place] [address] Dr. Jaymie Gilbert Basophils/100 WBC (Bld) 1.0 % Normal 0.2-2.0 [facility] Comment on above: Performed By: #### L IPID, T7, URIC, TSH, CMP #### [facility] [address] [place] [address] Dr. Jaymie Gilbert EO # 0.0 103/ul Normal 0.0-0.7 [facility] Comment on above: Performed By: #### L IPID, T7, URIC, TSH, CMP #### [facility] [address] [place] [address] Dr. Jaymie Gilbert Eosinophils/100 WBC (Bld) 1.0 % Normal 0.9-7.0 [facility] Comment on above: Performed By: #### L IPID, T7, URIC, TSH, CMP #### [facility] [address] [place] [address] Dr. Jaymei Gilbert Erythrocyte distribution width (RBC) [Ratio] 13.3 % Normal 11.0-15.0 [facility] Comment on above: Performed By: #### L IPID, T7, URIC, TSH, CMP #### [facility] [address] [place] [address] Dr. Jaymie Gilbert Hematocrit (Bld) [Volume fraction] 44.6 % Normal 42.0-54.0 [facility] Comment on above: Performed By: #### L IPID, T7, URIC, TSH, CMP #### [facility] [address] [place] [address] Dr. Jaymie Gilbert Hemoglobin (Bld) [Mass/Vol] 15.2 g/dL Normal 14.0-18.0 [facility] Comment on above: Performed By: #### L IPID, T7, URIC, TSH, CMP #### [facility] [address] [place] [address] Dr. Jaymie Gilbert IG # 0.01 10e3/ul Normal 0.00-0.03 [facility] Comment on above: Performed By: #### L IPID, T7, URIC, TSH, CMP #### [facility] [address] [place] [address] Dr. Jaymie Gilbert IG % 0.3 % Normal 0.0-0.5 [facility] Comment on above: Performed By: #### L IPID, T7, URIC, TSH, CMP #### [facility] [address] [place] [address] Dr. Jaymie Gilbert LYMPH # 1.5 103/ul Normal 1.2-3.8 [facility] Comment on above: Performed By: #### L IPID, T7, URIC, TSH, CMP #### [facility] [address] [place] [address] Dr. Jaymie Gilbert Lymphocytes/100 WBC (Bld) 38.0 % Normal 20.5-60.0 [facility] Comment on above: Performed By: #### L IPID, T7, URIC, TSH, CMP #### [facility] [address] [place] [address] Dr. Jaymie Gilbert MANUAL DIFF REQ NO Normal [facility] Comment on above: Performed By: #### L IPID, T7, URIC, TSH, CMP #### [facility] [address] [place] [address] Dr. Jaymie Gilbert MCH (RBC) [Entitic mass] 31.5 pg Normal 25.9-34.0 [facility] Comment on above: Performed By: #### L IPID, T7, URIC, TSH, CMP #### [facility] [address] [place] [address] Dr. Jaymie Gilbert MCHC (RBC) [Mass/Vol] 34.1 g/dL Normal 29.9-35.2 [facility] Comment on above: Performed By: #### L IPID, T7, URIC, TSH, CMP #### [facility] [address] [place] [address] Dr. Jaymie Gilbert MCV (RBC) [Entitic vol] 92.5 fL Normal 80.0-94.0 [facility] Comment on above: Performed By: #### L IPID, T7, URIC, TSH, CMP #### [facility] [address] [place] [address] Dr. Jaymie Gilbert MONO # 0.4 103/ul Normal 0.3-0.8 [facility] Comment on above: Performed By: #### L IPID, T7, URIC, TSH, CMP #### [facility] [address] [place] [address] Dr. Jaymie Gilbert Monocytes/100 WBC (Bld) 11.0 % Normal 1.7-12.0 [facility] Comment on above: Performed By: #### L IPID, T7, URIC, TSH, CMP #### [facility] [address] [place] [address] Dr. Jaymie Gilbert NEUT # 2.0 103/ul Normal 1.4-6.5 [facility] Comment on above: Performed By: #### L IPID, T7, URIC, TSH, CMP #### [facility] [address] [place] [address] Dr. Jaymie Gilbert Neutrophils/100 WBC (Bld) 48.7 % Normal 43.0-75.0 [facility] Comment on above: Performed By: #### L IPID, T7, URIC, TSH, CMP #### [facility] [address] [place] [address] Dr. Jaymie Gilbert Platelet mean volume (Bld) [Entitic vol] 9.8 fL Normal 9.5-13.5 [facility] Comment on above: Performed By: #### L IPID, T7, URIC, TSH, CMP #### [facility] [address] [place] [address] Dr. Jaymie Gilbert PLT 261 103/ul Normal 150-450 [facility] Comment on above: Performed By: #### L IPID, T7, URIC, TSH, CMP #### [facility] [address] [address] [address] Jaymie Gilbert RBC 4.82 106/ul Normal 4.70-6.10 [facility] Comment on above: Performed By: #### L IPID, T7, URIC, TSH, CMP #### [facility] [address] [place] [address] Dr. Jaymie Gilbert WBC 4.0 103/ul Normal 4.0-11.0 [facility] Comment on above: Performed By: #### L IPID, T7, URIC, TSH, CMP #### [facility] [address] [place] [address] Dr. Jaymie Gilbert FREE THYROXINE INDEX T7on FTI 1.57 Normal 1.30-4.50 [facility] Comment on above: Performed By: #### L IPID, T7, URIC, TSH, CMP #### [facility] [address] [place] [address] Dr. Jaymie Gilbert T3U 32.0 % Critically low 33.0-40.0 [facility] Comment on above: Performed By: #### L IPID, T7, URIC, TSH, CMP #### [facility] [address] [place] [address] Dr. Jaymie Gilbert T4 [Mass/Vol] 4.90 ug/dL Normal 4.50-12.10 [facility] Comment on above: Performed By: #### L IPID, T7, URIC, TSH, CMP #### [facility] [address] [place] [address] Dr. Jaymie Gilbert GLYCOHEMOGLOBIN A1Con 2022 ADA RECOMMENDATION SEE BELOW Normal [facility] Comment on above: Result Comment: ADA RECOMMENDED LIMIT 4.0 - 6.0 ADA THERAPEUTIC TARGET < 7.0 ACTION SUGGESTED > 7.0 Performed By: #### L IPID, T7, URIC, TSH, CMP #### [facility] [address] [place] [address] Dr. Jaymie Gilbert Glucose [Mass/Vol] 114 mg/dL Normal [facility] Comment on above: Performed By: #### L IPID, T7, URIC, TSH, CMP #### [facility] [address] [place] [address] Dr. Jaymie Gilbert HbA1c (Bld) [Mass fraction] 5.6 % Normal 4.5-6.2 [facility] Comment on above: Performed By: #### L IPID, T7, URIC, TSH, CMP #### [facility] [address] [place] [address] Dr. Jaymie Gilbert LIPID PROFILEon 07-16-2022 CHOL-HDL RATIO NORM SEE BELOW Normal [facility] Comment on above: Result Comment: 3.3 - 4.4 LOW RISK 4.4 - 7.1 AVERAGE RISK 7.1 - 11.0 MODERATE RISK >11.0 HIGH RISK Performed By: #### L IPID, T7, URIC, TSH, CMP #### [facility] [address] [place] [address] Dr. Jaymie Gilbert Cholesterol [Mass/Vol] 212 mg/dL Critically high <=200 [facility] Comment on above: Performed By: #### L IPID, T7, URIC, TSH, CMP #### [facility] [address] [place] [address] Dr. Jaymie Gilbert Cholesterol in HDL [Mass/Vol] 67 mg/dL Critically high 40-60 [facility] Comment on above: Performed By: #### L IPID, T7, URIC, TSH, CMP #### [facility] [address] [address] [address] Jaymie Gilbert Cholesterol in LDL [Mass/Vol] 132.4 mg/dL Normal [facility] Comment on above: Performed By: #### L IPID, T7, URIC, TSH, CMP #### [facility] [address] [place] [address] Dr. Jaymie Gilbert Cholesterol.total/ Cholesterol in HDL [Mass ratio] 3.2 {ratio} Normal [facility] Comment on above: Performed By: #### L IPID, T7, URIC, TSH, CMP #### [facility] [address] [address] [address] Jaymie Gilbert HDL NORMAL > or = 60 mg/dl - LO W CARDIOVASCULAR RISK <40 mg/dl - HIGH CARDIOVASCULAR RISK Normal [facility] Comment on above: Performed By: #### L IPID, T7, URIC, TSH, CMP #### [facility] [address] [address] [address] Jaymie Gilbert LDL CALC NORMAL SEE BELOW Normal [facility] Comment on above: Result Comment: <100 mg/dl OPTIMAL 100 - 129 mg/dl NEAR OR ABOVE OPTIMAL 130 - 159 mg/dl BORDERLINE HIGH 160 - 189 mg/dl HIGH >190 mg/dl VERY HIGH Performed By: #### L IPID, T7, URIC, TSH, CMP #### [facility] [address] [address] [address] Jaymie Gilbert Triglyceride [Mass/Vol] 63 mg/dL Normal <=150 [facility] Comment on above: Performed By: #### L IPID, T7, URIC, TSH, CMP #### [facility] [address] [address] [address] Jaymie Gilbert VLDL CALC 12.6 mg/dL Normal [facility] Comment on above: Performed By: #### L IPID, T7, URIC, TSH, CMP #### [facility] [address] [address] [address] Jaymie Gilbert PROF 14(COMP METB)on 023 Albumin [Mass/Vol] 3.7 g/dL Normal 3.4-5.[address] [facility] Comment on above: Performed By: #### L IPID, T7, URIC, TSH, CMP #### [facility] [address] [address] [address] Jaymie Gilbert Albumin/Globulin [Mass ratio] 0.7 {ratio} Normal [facility] Comment on above: Performed By: #### L IPID, T7, URIC, TSH, CMP #### [facility] [address] [address] [address] Jaymie Gilbert ALP [Catalytic activity/Vol] 42 U/L Critically low 46-116 [facility] Comment on above: Performed By: #### L IPID, T7, URIC, TSH, CMP #### [facility] [address] [place] [address] Dr. Jaymie Gilbert ALT [Catalytic activity/Vol] 28 U/L Normal 16-63 [facility] Comment on above: Performed By: #### L IPID, T7, URIC, TSH, CMP #### [facility] [address] [place] [address] Dr. Jaymie Gilbert Anion gap [Moles/Vol] 12.0 mmol/L Normal [facility] Comment on above: Performed By: #### L IPID, T7, URIC, TSH, CMP #### [facility] [address] [place] [address] Dr. Jaymie Gilbert AST [Catalytic activity/Vol] 16 U/L Normal 15-37 [facility] Comment on above: Performed By: #### L IPID, T7, URIC, TSH, CMP #### [facility] [address] [place] [address] Dr. Jaymie Gilbert Bilirubin [Mass/Vol] 0.6 mg/dL Normal 0.2-1.0 [facility] Comment on above: Performed By: #### L IPID, T7, URIC, TSH, CMP #### [facility] [address] [place] [address] Dr. Jaymie Gilbert Calcium [Mass/Vol] 9.1 mg/dL Normal 8.5-10.[address] [facility] Comment on above: Performed By: #### L IPID, T7, URIC, TSH, CMP #### [facility] [address] [place] [address] Dr. Jaymie Gilbert Chloride [Moles/Vol] 104 mmol/L Normal 98-107 [facility] Comment on above: Performed By: #### L IPID, T7, URIC, TSH, CMP #### [facility] [address] [place] [address] Dr. Jaymie Gilbert CO2 [Moles/Vol] 27.3 mmol/L Normal 21.0-32.0 [facility] Comment on above: Performed By: #### L IPID, T7, URIC, TSH, CMP #### [facility] [address] [place] [address] Dr. Jaymie Gilbert Creatinine [Mass/Vol] 1.17 mg/dL Normal 0.70-1.30 [facility] Comment on above: Performed By: #### L IPID, T7, URIC, TSH, CMP #### [facility] [address] [address] [address] Jaymie Gilbert EGFR-AF GEORGIAN >60 Normal >=60 [facility] Comment on above: Performed By: #### L IPID, T7, URIC, TSH, CMP #### [facility] [address] [place] [address] Dr. Jaymie Gilbert EGFR-NON AF GEORGIAN >60 Normal >=60 [facility] Comment on above: Performed By: #### L IPID, T7, URIC, TSH, CMP #### [facility] [address] [place] [address] Dr. Jaymie Gilbert Globulin (S) [Mass/Vol] 5.3 g/dL Normal [facility] Comment on above: Performed By: #### L IPID, T7, URIC, TSH, CMP #### [facility] [address] [place] [address] Dr. Jaymie Gilbert Glucose [Mass/Vol] 101 mg/dL Normal 74-[address] [facility] Comment on above: Performed By: #### L IPID, T7, URIC, TSH, CMP #### [facility] [address] [place] [address] Dr. Jaymie Gilbert Potassium [Moles/Vol] 4.3 mmol/L Normal 3.5-5.1 [facility] Comment on above: Performed By: #### L IPID, T7, URIC, TSH, CMP #### [facility] [address] [place] [address] Dr. Jaymie Gilbert Protein [Mass/Vol] 9.0 g/dL Critically high 6.4-8.2 [facility] Comment on above: Performed By: #### L IPID, T7, URIC, TSH, CMP #### [facility] [address] [place] [address] Dr. Jaymie Gilbert Sodium [Moles/Vol] 139 mmol/L Normal 136-[address] [facility] Comment on above: Performed By: #### L IPID, T7, URIC, TSH, CMP #### [facility] [address] [address] [address] Jaymie Gilbert Urea nitrogen [Mass/Vol] 18.0 mg/dL Normal 7.0-18.0 [facility] Comment on above: Performed By: #### L IPID, T7, URIC, TSH, CMP #### [facility] [address] [place] [address] Dr. Jaymie Gilbert Urea nitrogen/Creatinin e [Mass ratio] 15.4 mg/mg Normal [facility] Comment on above: Performed By: #### L IPID, T7, URIC, TSH, CMP #### [facility] [address] [place] [address] Dr. Jaymie Gilbert TSHon 07-16-2022 TSH 2.332 uIU/mL Normal 0.358-3.740 [facility] Comment on above: Performed By: #### L IPID, T7, URIC, TSH, CMP #### [facility] [address] [place] [address] Dr. Jaymie Gilbert URIC ACID SERUMon 07-16-2022 Urate [Mass/Vol] 4.6 mg/dL Normal 3.5-7.2 [facility] Comment on above: Performed By: #### L IPID, T7, URIC, TSH, CMP #### [facility] [address] [place] [address] Dr. Jaymie Gilbert Oncology Progress Noteon Oncology Progress Note Patient: BRANDIN FARR Age: 61 years Sex: Male : 1960 Associated Diagnoses: None Author: Tigre Rae DO History of Present Illness 59-year-old male whom I previously followed at [facility] [place] for monoclonal gammopathy of undetermined significance. He has a persistent M spike in the 2-3 range with quantitative igg in the 0738-6175 range.. Previously he had followed with Dr. [...] weight is stable. labs pending, drawn at [facility]. he had skeletal survey with no concerning findings last week at [facility]. 04/25/22 no new complaints. recent cbc was [...] All Problems Resolved: Hyperlipidemia / SNOMED CT 23988084 Resolved: Hypothyroidism / SNOMED CT 53300961 Histories Past Medical History: Resolved Hypothyroidism (77458358): Resolved. Hyperlipidemia (87816381): Resolved. Family History: Primary malignant neoplasm of bladder Mother Hypothyroidism Father Sister Autoimmune disease Brother Hypoglycemia Sister Procedure history: Tonsillectomy and adenoidectomy (432554078). Vasectomy (20610841). Arthroscopic repair of meniscus (8087415776). Pneumatic retinopexy (512045996). Social History Social & Psychosocial Habits Tobacco [...] Normal range of motion. Integumentary: Warm, Dry, [place]. Neurologic: Alert, Oriented, Normal sensory. Psychiatric: Cooperative, Appropriate mood & affect. Review / Management Results review: No qualifying data available . Impression and Plan Education and Follow-up: Counseled: Patient, Regarding diagnosis, Regarding treatment. Discharge Planning: Tigre Rae f/u in 18 months. prior to f/u at [facility] check cbc, cmp, spep sflc simmunofixation. no [...] M spike's (more content not included)... Normal [facility] Coding Summary.on 04-26-2022 Coding Summary. CD:[id number]:[id number] Gh0bWw +PGhlYWQ+RN2QWVZnF09aiIXqw B4XU0mDIA9YWBNISUKUMS4FRP0 tuWK6SIwcG2CvuxTe GnskdQIgDI25CRu8ACH2lQfnIH piiL1tcIRcO0f0HwXeIY93cC22 KUftJUJmVoQ8SeNpitavlXRb B9fhSsHlgYRrBda+PHRhYmxlIH bsOZGiHZksNEHyHdIorJltQE7u Gh0yVYLbAKRaqDrusDRpSdXb m0xvVFYzVBquJZ2bdNdoS7CjvS L1ALAuv1e0Xb49mIG+PHRkIHN0 dEscBOfij455OmVfx9xaOBB6 fRGbKQwhEBB3B07av3H7GIXzZD MtTEA6zHN7dT4pxDkiayygE7Qt uWLgGdH3WJT6yZJspE8wsMtj nslsmR7zNlh+N92JZL4WAFNHSG 4MAsb0E3YlYoimnNF+JS26KVSm SJ69zOXksONiu4atkDf0SzHy QSXlYKA7xAezLDezg6EoVNWhZ1 2xmQMtq0Z5BSIkiLrrgLUsJrHc rKF2dB2iQCxqivwux5bxepmg Vedpy5fmcg61tS62F91jELppKM AmSZY0EPUuNWDxtJrwlh4qcL9o Ii8+SIxcp9qms6fgkGw4MrTa HKEoxfOtcDfeLTY5y5SwIq69P2 WekGuhi9WxHsh1ck67dBYes0P9 fRR0QCgdUUWkmL6tREclUyD1 PZNvAlVdqU36mHLyJNtvTn3qvG wunMznAL1hXTUtbsvqZRPmaQ4b CPCxdDLjdJfyDC9hDDXmdahb w471GpJpYEU1GBQyfSSuB4MyeV 3eBjKoEKDpZNLxU5DjdZTcKJtr Y267IRaiJgD4ZZYawvGxO2Xm GMMulEbcAzV6o9D4Pm5Tf2Wsjb hlVNK3BCufRCKvIaVwCiTaLwL5 L1PmTbk9IDIisSbcFY9wP6Be OECfxvxkuclewXC6GNYfPXRanU 57oTYqZZweUc7gd0L2i962LXSy XHXxwW84Nr9iwJjxTRPupOXU kU8cdpkpi2dgpsqmQcUeVUYvNQ r1FWu9LCDicZyxOiCsXXJ4SfK1 SXI8mCMqjW7vlMdntvqkhS6r Oyc+G59jfI1tDEV2LRK1lfuwJX LgpeVsDG73HK99L1RlWjgexOYb bGU+QBLjcjRjgKkoGA8qOlRq v7srn2RbOKkyF8QiFYDkVVrfDo u5PNDkPJO9uAQ3uZ3cREAjSDcl k4G3zUO7Q0GtpyIrwv0tb7qz DLTaZMtaO48hzUKbi4P8MGBclG U6MULknUncXlBhwW67Iyf+PGNv kSuvm0TwEznat1jjv8kcmQe7 SeKnYLQrneZrwNjdAQN4r6IdVr 02P96dZEsjEDTdXIHrYABkATCn tCcgqe4uaO8dVi8+PGNvbCB3 xKS9zY5zCOLdMxK3SGzxN651Zk TpfCSdGcngx2hej7qmxMv8JwKc BCCbutTygAydTNY2j6TwYn40 T27rMBvyENBoBHJmEJZvPOPooW rhdg5soO0fVr9+EW6xf3qgkt24 sH44nQM+RJEiEXV9qVjfDIav RPYhoD8rRAvqDbZ0XIAuYgBauH 84uCBcFXewWv5gvMfogWxiXQ5e TUNnsskex956YaFsw9kgCFYi qUSyOCeuPEP8U98bg0H0RLMlZM SnGZN8tSE6fQ3vpRdeafjugBUx dMmcvcWygXcnOIucOWqvZ346 IHRvcDsnPlBhdGllbnQgTmFtZT p7K6LmYer3RMKnxQdcCY2juNQf YIaxDv3afDoijErnIC6xWYLj nxjew868JlZus8rgPAVesKIbHN jdJCS1V20hr4Y1BPTvHUReOAU5 vNL5xM4diYwpypdrdRDdtNdr jqPkySbeCPvmULkgQ616PTAmgO bcMuXbwcOpSJImuYV3ZO23RZ59 gSQzg6V2aGC6J2SbKQMgovwp jibniLM7VIZxNPWejN66Ue1huA lnWo7dKLHjPTP0FZVlhUMlF7Ki kL9mFnFlCFPtYFAcN8RcaEXf DCtyB134NGwkDyX2FHAaivBrY4 JfUNTkpCllGvN0u0T8Nx3UR7H8 ZK17WU28gELni3W5eHD3H6Ko IVHvpxvnijlmbHB4QCGoJURkxM 07Gr3zkBxeAf4tDWQyKQV2YKNf kBGtQ5RkmP6dPdPoRAVvMKKq F2ZwtKKbJJslQ268PSscQdM1MM IojzUkR5LxCFPezXehJxV4u4N9 Rx6KMHk1RT30UA27xRYhj1X2 wSP4Y4NsGTJsrjvcwtvmhGG2MV HtKUNtvR42Ye4faWddDs9jFHKm WBF0VIEegGByF2IabJ9lEdXx SEUvZZMuY9IciZAwAXzbU886LA cjMvK2UFLbatOmY4TfICTdqYgk TdH8a1V2Bz3SVTYxNH71JPC1 aAJ4QJ49TE44E5NhKrtgyJZvyZ U+PHRhYmxlIHdpZHRoPScxMDAl OiOyxGmkTZ6oPh3wXBMcIZDh zUiviWUvOuLqb3khRRGoAQswQX 9dmBhhG4GofRY2XMVvm6c7Dx44 D14wF5GkfRF+DHTveHQ9rGI0 jN3tXcEtUwU8NHpyD591UeMpnT AsVieoo2pll6xeiQm8WmY2FCNa vrYnoEmgHBB8k2LsIn60N96k IHdpZHRoPSIxNSUiIHZhbGlnbj 3rjP0uJn0+FXJctGE4vLE1sS3o CxEiXjA0QIqsZ839LeFvfEQa Hiiri3nih0kmgZa0ErKcJDWsov JknKkgQRN4m3AlNa11T5VtnHmd i7AxQuq3cf17bOLyr3Y2mVE1 T4QcLABadfyvcSXqcKahOL1nJS NjepxlBTHzmW2iRKHuE4o8VvCy AyV1TVzqP3QkgwZ6LWEkhSJy GLtaVYD2Z13zh6H3ZYKbSRMqEA M4sNM5fV2cdGtfdpqejITflDuk alIvqDzhVIkeQHukG249FJLn gOcrICIrpY0eUXBdrCKnbMjzCS 7fSJJlwqlyXw4TIJEWQUGCTXJU MUWZWT60AK17qRIbd4X2fOD2 F3VkPJLyrwjwkyqadEW1QCOlVJ TevE04oIAfAJumSd1hp7D2i663 GVYvRBLsuT75Re3gkOxmAJVc wTXBhV3snjjvf9gtbadhShXyKV HkTSc4KJs0AIBmxDxvFiPeBFX1 IdO7WFO2sMLkgL0mlCnterkj tJ5cSqa+MADtECYzINe5GZelxQ Q+BIKjYMH0vJfeCRlbFWWhcG1b UGOmY5a3ZcXaMqU2XHdfH8Ce ZPZdpsvxKa39zJ3lMtXfChE8QR qmK9XabwG9UFFujVUvNMblWSY9 H89vc1G9MCXfMILkNGQ8jQD2 uF3uqWmtfiknkMKcsJqaubAtzO nfBOcyRNasQ841XJLtdAfjHnAg FKyuBDImXW32VZ15pIXzp0B2 jLA7L5KhCKAmswtrktuiaVF5KD CxCCPzkL59eFRoZWkdIx5sn1O1 k521ADGaCIYouM19Yq2wjSkc SICfhIXDbI6mwkuzw9dyqcwnVj LhDCJoHJe9EBq8VDWbfTcaLdNz AFT6CcI9EKB7wQApaX8feLxf hzktpH6hTiu+TWFsZTwvdGQ+PH ZkGKG6mKnwOEdhTUVzyM7kKCEi F5s9YeTiMmW0KPsyC2PqRKUs joswSd91dJ8xQlBuDrX3DXahX3 TsntL0HHZtiARjLCakYFV3F02a z2P1BMTbSQLsXVT8zWQ9aN2o bGlnbjogbGVmdDsgdmVydGljYW pgFYaaZ413VJBowZbsLf36cERc cYdmnfB0W2NeNslccKQ+PC90 UNTmJT50tJGnjOHmu7txyAw9Mk BvDPEnGGH0kWxzUHthc2ZiDEPw P90ymZVnw6G1TMAvgGbrmGZe EmTdrPM2tW3qMEvxgwahu4ltlb lhFhcja9ofzt84nR88T50tSPtw GHIoMTNmTGTbKAUvdKrute2q pM3lZj9+PYDafXS3jLS5fU3wNw UwOrI9AEzzJ295PxGoxNMnJfyn y9ted2mbqVt8TcDyGDQtyyFi tLcmLHF9k1XtFv05Q25oKQejCB DhRXTfFUHkURDqzSardr9vxU4o Ii8+WT3hj9hfji66lL89fHE+ FVJbWTV0cUnjFQoaXUSctM9mNG wwMiR9PTNpIzSzhY49iXYhYNkn Dr5vsOxqaGqsUE4vGYYuyjts h615QeMva1jhYGDxuNPsZVksFM D7Q72oo9W4UJXsSEQdODU5lZY9 gO4scNsiucbuuLIhqJjkexLt cGkyZYghCHjiR462ZHTnlMiuQe IwdXZaP2yxirBUSU5hVeeibYA+ SXMkFPH2mAfkGVtdSEJzhD6u XYQkV3w5JdNpTzK0VOleL9Ycbd Z0AIYsbSLxDGYasMNRwP2txzkg g3bkhnicEpDiZBPpIBz9PNy5 KNMqjQweZjVlQJA7ZiB9GGN4qP MqxV6oxBnzpipqbA3yPku+RklO OjwvdGQ+ZREsERC9iBixMLch NYXkwQ7dGZAcV6f1BwQrOcS1IM juI2RcrjP9FYTqcVJuLRHfsSAQ kI6eymqxf3ecyebsQrLgIZOc KBb2OOb2USImcQcyFpJwJEW6Rj A3MQP5pXGxjE4ttNkqwzslrG1a Oyc+TVJOOjwvdGQ+PHRkIHN0 gBvwKKxtWIJouH7bEMUwY8w7Lr KzMkW2MOieQ6UxerR1DHFwdMOd QMVwtPJRsA1tcmflj0eceiul MfNgPGPmVFa6RVj3VBXmoWodTd BcJXO7QbQ3KWK7pZVfzC4mlGvl gxkexJ4rIsr+EEK0ELL2RT98 PC45V6GtPcbduWZmmRG+PHRhYm xlIHdpZHRoPScxMDAlJyBzdHls CC1jLa2nVGCqTQVetFjquDAp OiBj (more content not included)... [facility] Consent for Treatmenton Consent for Treatment [id number] [facility] Oncology Noteon 04-25-2022 Oncology Note Oncology Care Coordi nator Office Visit/Treatment Note Current Patient Status/Reason: Pt in for scheduled clinic visit. Dr Rae and med student Andres saw pt. Treatment Plan: Labs before f/u appt. Wants labs at [place]. Follow-Up Appointment Info/Referrals: F/U at 18 months. Resources Offered: I instructed pt in labs before visit. Pt wants them at [place], he will call us when going to get them so we can fax to [place] since not due for 18 months, and orders only good for 12 months. Pt given my contact information and will call when going to get labs so they can be faxed to [place]. [facility] Comment on above: Result Comment: Elec tronically Signed By: Carla Carpenter RN\.br\Date and Time Signed: 04/25/22 10:55 EST Outside Radiologyon 04-20-19 23 Outside Radiology [id number]:127 [facility] Oncology Noteon 04-18-[address] Rae viewed labs from [facility] done 04/09/2022. No new orders. [facility] Comment on above: Result Comment: Elec tronically Signed By: Carla Carpenter RN\.br\Date and Time Signed: 04/18/22 07:38 EST BETA-2 MICROGLOBINon 023 Beta-2 Microglobulin, Serum 2.4 mg/L Normal 0.6-2.4 [facility] Comment on above: Result Comment: Mookie prince Immulite 2000 Immunochemiluminometric assay (ICMA) . Values obtained with different assay methods or kits cannot be used interchangeably. Results cannot be interpreted as absolute evidence of the presence or absence of malignant disease. Performed By: #### L IPID, T7, URIC, TSH, CMP #### [facility] [address] [place] [address] Dr. Jaymie Gilbert IMMUNOFIXATION(JOLLY),PROTEIN ELEC(PE),[facility] Albumin [Mass/Vol] 3.5 g/dL Normal 2.9-4.4 [facility] Comment on above: Performed By: #### L IPID, T7, URIC, TSH, CMP #### [facility] [address] [place] [address] Dr. Jaymie Gilbert Albumin/Globulin [Mass ratio] 0.9 {ratio} Normal 0.7-1.7 [facility] Comment on above: Performed By: #### L IPID, T7, URIC, TSH, CMP #### [facility] [address] [place] [address] Dr. Jaymie Gilbert Cjinc-9-Huqtchfx 0.2 g/dL Normal 0.0-0.4 The [facility] Comment on above: Performed By: #### L IPID, T7, URIC, TSH, CMP #### [facility] [address] [place] [address] Dr. Jaymie Gilbert Quahg-8-Greungpl 0.7 g/dL Normal 0.4-1.0 [facility] Comment on above: Performed By: #### L IPID, T7, URIC, TSH, CMP #### [facility] [address] [place] [address] Dr. Jaymie Gilbert Beta Globulin 0.9 g/dL Normal 0.7-1.3 The [facility] Comment on above: Performed By: #### L IPID, T7, URIC, TSH, CMP #### [facility] [address] [address] [address] Jaymie Gilbert Free [place] Lt Chains,S 8.9 mg/L Normal 3.3-19.4 [facility] Comment on above: Performed By: #### L IPID, T7, URIC, TSH, CMP #### [facility] [address] [address] [address] Jaymie Gilbert Free Lambda Lt Chains,S 18.7 mg/L Normal 5.7-26.3 [facility] Comment on above: Performed By: #### L IPID, T7, URIC, TSH, CMP #### [facility] [address] [address] [address] Jaymie Gilbert Gamma Globulin 2.5 g/dL Critically high 0.4-1.8 [facility] Comment on above: Performed By: #### L IPID, T7, URIC, TSH, CMP #### [facility] [address] [place] [address] Dr. Jaymie Gilbert Globulin (S) [Mass/Vol] 4.2 g/dL Critically high 2.2-3.9 [facility] Comment on above: Performed By: #### L IPID, T7, URIC, TSH, CMP #### [facility] [address] [address] [address] Jaymie Gilbert Immunofixation Result, Serum Comment Abnormal [facility] Comment on above: Result Comment: Immu nofixation shows IgG monoclonal protein with lambda light chain specificity. Performed By: #### L IPID, T7, URIC, TSH, CMP #### [facility] [address] [place] [address] Dr. Jaymie Gilbert Immunoglobulin A, Qn, Serum 20 mg/dL Critically low 61-437 [facility] Comment on above: Result Comment: Resu lt confirmed on concentration. Performed By: #### L IPID, T7, URIC, TSH, CMP #### [facility] [address] [address] [address] Jaymie Gilbert Immunoglobulin G, Qn, Serum 3145 mg/dL Critically high 603-1613 [facility] Comment on above: Performed By: #### L IPID, T7, URIC, TSH, CMP #### [facility] [address] [address] [address] Jaymie Gilbert Immunoglobulin M, Qn, Serum 40 mg/dL Normal 20-172 [facility] Comment on above: Performed By: #### L IPID, T7, URIC, TSH, CMP #### [facility] [address] [place] [address] Dr. Jaymie Gilbert [place]/Lambda Ratio, S 0.48 Normal 0.26-1.65 [facility] Comment on above: Performed By: #### L IPID, T7, URIC, TSH, CMP #### [facility] [address] [place] [address] Dr. Jaymie Gilbert M-Markus 2.3 g/dL Critically high Not Observed [facility] Comment on above: Performed By: #### L IPID, T7, URIC, TSH, CMP #### [facility] [address] [place] [address] Dr. Jaymie Gilbert PDF . Normal [facility] Comment on above: Performed By: #### L IPID, T7, URIC, TSH, CMP #### [facility] [address] [place] [address] Dr. Jaymie Gilbert Please note: Comment [facility] Comment on above: Result Comment: Prot ein electrophoresis scan will follow via computer, mail, or trailer technician delivery. Performed By: #### L IPID, T7, URIC, TSH, CMP #### [facility] [address] [place] [address] Dr. Jaymie Gilbert Protein [Mass/Vol] 7.7 g/dL Normal 6.0-8.5 [facility] Comment on above: Performed By: #### L IPID, T7, URIC, TSH, CMP #### [facility] [address] [place] [address] Dr. Jaymie Gilbert Outside Labson 04-11-2022 Outside Labs [id number]:127 Normal [facility] XR BONE SURVEYon 04-10-2022 XR BONE SURVEY [...] BRANDIN MORALES Date: 2022-04-10 07:33 Normal [facility] CBC AUTO DIFFon 04-09-2022 BASO # 0.1 103/ul Normal 0.0-0.1 [facility] Comment on above: Performed By: #### L IPID, T7, URIC, TSH, CMP #### [facility] [address] [address] [address] Jaymie Gilbert Basophils/100 WBC (Bld) 1.1 % Normal 0.2-2.0 [facility] Comment on above: Performed By: #### L IPID, T7, URIC, TSH, CMP #### [facility] [address] [place] [address] Dr. Jaymie Gilbert EO # 0.1 103/ul Normal 0.0-0.7 [facility] Comment on above: Performed By: #### L IPID, T7, URIC, TSH, CMP #### [facility] [address] [place] [address] Dr. Jaymie Gilbert Eosinophils/100 WBC (Bld) 2.2 % Normal 0.9-7.0 [facility] Comment on above: Performed By: #### L IPID, T7, URIC, TSH, CMP #### [facility] [address] [place] [address] Dr. Jaymie Gilbert Erythrocyte distribution width (RBC) [Ratio] 13.0 % Normal 11.0-15.0 [facility] Comment on above: Performed By: #### L IPID, T7, URIC, TSH, CMP #### [facility] [address] [place] [address] Dr. Jaymie Gilbert Hematocrit (Bld) [Volume fraction] 43.2 % Normal 42.0-54.0 [facility] Comment on above: Performed By: #### L IPID, T7, URIC, TSH, CMP #### [facility] [address] [place] [address] Dr. Jaymie Gilbert Hemoglobin (Bld) [Mass/Vol] 14.8 g/dL Normal 14.0-18.0 [facility] Comment on above: Performed By: #### L IPID, T7, URIC, TSH, CMP #### [facility] [address] [place] [address] Dr. Jaymie Gilbert IG # 0.01 10e3/ul Normal 0.00-0.03 [facility] Comment on above: Performed By: #### L IPID, T7, URIC, TSH, CMP #### [facility] [address] [place] [address] Dr. Jaymie Gilbert IG % 0.2 % Normal 0.0-0.5 [facility] Comment on above: Performed By: #### L IPID, T7, URIC, TSH, CMP #### [facility] [address] [place] [address] Dr. Jaymie Gilbert LYMPH # 1.5 103/ul Normal 1.2-3.8 [facility] Comment on above: Performed By: #### L IPID, T7, URIC, TSH, CMP #### [facility] [address] [place] [address] Dr. Jaymie Gilbert Lymphocytes/100 WBC (Bld) 33.6 % Normal 20.5-60.0 [facility] Comment on above: Performed By: #### L IPID, T7, URIC, TSH, CMP #### [facility] [address] [place] [address] Dr. Jaymie Gilbert MANUAL DIFF REQ NO Normal [facility] Comment on above: Performed By: #### L IPID, T7, URIC, TSH, CMP #### [facility] [address] [place] [address] Dr. Jaymie Gilbert MCH (RBC) [Entitic mass] 30.7 pg Normal 25.9-34.0 [facility] Comment on above: Performed By: #### L IPID, T7, URIC, TSH, CMP #### [facility] [address] [place] [address] Dr. Jaymie Gilbert MCHC (RBC) [Mass/Vol] 34.3 g/dL Normal 29.9-35.2 [facility] Comment on above: Performed By: #### L IPID, T7, URIC, TSH, CMP #### [facility] [address] [place] [address] Dr. Jaymie Gilbert MCV (RBC) [Entitic vol] 89.6 fL Normal 80.0-94.0 [facility] Comment on above: Performed By: #### L IPID, T7, URIC, TSH, CMP #### [facility] [address] [place] [address] Dr. Jaymie Gilbert MONO # 0.5 103/ul Normal 0.3-0.8 [facility] Comment on above: Performed By: #### L IPID, T7, URIC, TSH, CMP #### [facility] [address] [place] [address] Dr. Jaymie Gilbert Monocytes/100 WBC (Bld) 11.9 % Normal 1.7-12.0 [facility] Comment on above: Performed By: #### L IPID, T7, URIC, TSH, CMP #### [facility] [address] [place] [address] Dr. Jaymie Gilbert NEUT # 2.3 103/ul Normal 1.4-6.5 [facility] Comment on above: Performed By: #### L IPID, T7, URIC, TSH, CMP #### [facility] [address] [place] [address] Dr. Jaymie Gilbert Neutrophils/100 WBC (Bld) 51.0 % Normal 43.0-75.0 [facility] Comment on above: Performed By: #### L IPID, T7, URIC, TSH, CMP #### [facility] [address] [place] [address] Dr. Jaymie Gilbert Platelet mean volume (Bld) [Entitic vol] 9.4 fL Critically low 9.5-13.5 [facility] Comment on above: Performed By: #### L IPID, T7, URIC, TSH, CMP #### [facility] [address] [place] [address] Dr. Jaymie Gilbert PLT 287 103/ul Normal 150-450 [facility] Comment on above: Performed By: #### L IPID, T7, URIC, TSH, CMP #### [facility] [address] [place] [address] Dr. Jaymie Gilbert RBC 4.82 106/ul Normal 4.70-6.10 [facility] Comment on above: Performed By: #### L IPID, T7, URIC, TSH, CMP #### [facility] [address] [place] [address] Dr. Jaymie Gilbert WBC 4.5 103/ul Normal 4.0-11.0 [facility] Comment on above: Performed By: #### L IPID, T7, URIC, TSH, CMP #### [facility] [address] [place] [address] Dr. Jaymie Gilbert Outside Labson 04-09-2022 Outside Labs [id number]:127 Normal [facility] PROF 14(COMP METB)on 023 Albumin [Mass/Vol] 3.3 g/dL Critically low 3.4-5.0 Th e [facility] Comment on above: Performed By: #### L IPID, T7, URIC, TSH, CMP #### [facility] [address] [place] [address] Dr. Jaymie Gilbert Albumin/Globulin [Mass ratio] 0.7 {ratio} Normal [facility] Comment on above: Performed By: #### L IPID, T7, URIC, TSH, CMP #### [facility] [address] [place] [address] Dr. Jaymie Gilbert ALP [Catalytic activity/Vol] 50 U/L Normal 46-116 [facility] Comment on above: Performed By: #### L IPID, T7, URIC, TSH, CMP #### [facility] [address] [place] [address] Dr. Jaymie Gilbert ALT [Catalytic activity/Vol] 20 U/L Normal 16-63 [facility] Comment on above: Performed By: #### L IPID, T7, URIC, TSH, CMP #### [facility] [address] [place] [address] Dr. Jaymie Gilbert Anion gap [Moles/Vol] 11.2 mmol/L Normal [facility] Comment on above: Performed By: #### L IPID, T7, URIC, TSH, CMP #### [facility] [address] [place] [address] Dr. Jaymie Gilbert AST [Catalytic activity/Vol] 14 U/L Critically low 15-37 [facility] Comment on above: Performed By: #### L IPID, T7, URIC, TSH, CMP #### [facility] [address] [place] [address] Dr. Jaymie Gilbert Bilirubin [Mass/Vol] 0.5 mg/dL Normal 0.2-1.0 [facility] Comment on above: Performed By: #### L IPID, T7, URIC, TSH, CMP #### [facility] [address] [place] [address] Dr. Jaymie Gilbert Calcium [Mass/Vol] 9.3 mg/dL Normal 8.5-10.[address] [facility] Comment on above: Performed By: #### L IPID, T7, URIC, TSH, CMP #### [facility] [address] [place] [address] Dr. Jaymie Gilbert Chloride [Moles/Vol] 103 mmol/L Normal 98-107 [facility] Comment on above: Performed By: #### L IPID, T7, URIC, TSH, CMP #### [facility] [address] [place] [address] Dr. Jaymie Gilbert CO2 [Moles/Vol] 27.1 mmol/L Normal 21.0-32.0 [facility] Comment on above: Performed By: #### L IPID, T7, URIC, TSH, CMP #### [facility] [address] [place] [address] Dr. Jaymie Gilbert Creatinine [Mass/Vol] 0.97 mg/dL Normal 0.70-1.30 [facility] Comment on above: Performed By: #### L IPID, T7, URIC, TSH, CMP #### [facility] [address] [place] [address] Dr. Jaymie Gilbert EGFR-AF GEORGIAN >60 Normal >=60 [facility] Comment on above: Performed By: #### L IPID, T7, URIC, TSH, CMP #### [facility] [address] [place] [address] Dr. Jaymie Gilbert EGFR-NON AF GEORGIAN >60 Normal >=60 [facility] Comment on above: Performed By: #### L IPID, T7, URIC, TSH, CMP #### [facility] [address] [place] [address] Dr. Jaymie Gilbert Globulin (S) [Mass/Vol] 5.0 g/dL Normal [facility] Comment on above: Performed By: #### L IPID, T7, URIC, TSH, CMP #### [facility] [address] [address] [address] Jaymie Gilbret Glucose [Mass/Vol] 106 mg/dL Normal 74-[address] [facility] Comment on above: Performed By: #### L IPID, T7, URIC, TSH, CMP #### [facility] [address] [place] [address] Dr. Jaymie Gilbert Potassium [Moles/Vol] 4.3 mmol/L Normal 3.5-5.1 [facility] Comment on above: Performed By: #### L IPID, T7, URIC, TSH, CMP #### [facility] [address] [address] [address] Jaymie Gilbert Protein [Mass/Vol] 8.3 g/dL Critically high 6.4-8.2 [facility] Comment on above: Performed By: #### L IPID, T7, URIC, TSH, CMP #### [facility] [address] [place] [address] Dr. Jaymie Gilbert Sodium [Moles/Vol] 137 mmol/L Normal 136-[address] [facility] Comment on above: Performed By: #### L IPID, T7, URIC, TSH, CMP #### [facility] [address] [place] [address] Dr. Jaymie Gilbert Urea nitrogen [Mass/Vol] 18.0 mg/dL Normal 7.0-18.0 [facility] Comment on above: Performed By: #### L IPID, T7, URIC, TSH, CMP #### [facility] [address] [place] [address] Dr. Jaymie Gilbert Urea nitrogen/Creatinin e [Mass ratio] 18.6 mg/mg Normal [facility] Comment on above: Performed By: #### L IPID, T7, URIC, TSH, CMP #### [facility] [address] [place] [address] Dr. Jaymie Gilbert REVERSE T3on 02-27-2022 Reverse T3, Serum 14.0 ng/dL Normal 9.2-24.1 [facility] Comment on above: Result Comment: This test was developed and its performance characteristics determined by [facility]. It has not been cleared or approved by the Food and Drug Administration. Performed By: #### R EVRT3 #### [facility] [address] [place] [address] Dr. Jaymie Gilbert T3, TOTAL (TRIIODOTHYRONINE) on 02-24-2022 T3, TOTAL 164 ng/dL Normal 71-180 [facility] Comment on above: Performed By: #### L IPID, T7, URIC, TSH, CMP #### [facility] [address] [place] [address] Dr. Jaymie Gilbert FREE T3on 02-23-2022 FREE T3 3.66 pg/mlL Normal 2.18-3.98 [facility] Comment on above: Performed By: #### L IPID, T7, URIC, TSH, CMP #### [facility] [address] [place] [address] Dr. Jaymie Gilbert FREE T4on 02-23-2022 Free T4 [Mass/Vol] 1.00 ng/dL Normal 0.76-1.[address] [facility] Comment on above: Performed By: #### L IPID, T7, URIC, TSH, CMP #### [facility] [address] [place] [address] Dr. Jaymie Gilbert TSHon 02-23-2022 TSH 0.017 uIU/mL Critically low 0.358-3.740 [facility] Comment on above: Performed By: #### L IPID, T7, URIC, TSH, CMP #### [facility] [address] [place] [address] Dr. Jaymie Gilbert REVERSE T3on 12-01-2021 Reverse T3, Serum 17.2 ng/dL Normal 9.2-24.1 [facility] Comment on above: Result Comment: This test was developed and its performance characteristics determined by [facility]. It has not been cleared or approved by the Food and Drug Administration. Performed By: #### R EVRT3 #### [facility] [address] [place] [address] Dr. Jaymie Gilbert T3, TOTAL (TRIIODOTHYRONINE) on 11-29-2021 T3, TOTAL 170 ng/dL Normal 71-180 [facility] Comment on above: Performed By: #### T 3TOTAL #### [facility] [address] [place] [address] Dr. Jaymie Gilbert FREE T3on 11-28-2021 FREE T3 4.30 pg/mlL Critically high 2.18-3.98 [facility] Comment on above: Performed By: #### L IPID, T7, URIC, TSH, CMP #### [facility] [address] [place] [address] Dr. Jaymie Gilbert FREE T4on 11-28-2021 Free T4 [Mass/Vol] 1.20 ng/dL Normal 0.76-1.[address] [facility] Comment on above: Performed By: #### L IPID, T7, URIC, TSH, CMP #### [facility] [address] [place] [address] Dr. Jaymie Gilbert TSHon 11-28-2021 TSH Qn m[IU]/L Critically low 0.358-3.740 [facility] Comment on above: Performed By: #### L IPID, T7, URIC, TSH, CMP #### [facility] [address] [place] [address] Dr. Jaymie Gilbert CREATININEon 11-03-2021 Creatinine [Mass/Vol] 1.02 mg/dL Normal 0.70-1.30 [facility] Comment on above: Performed By: #### L IPID, T7, URIC, TSH, CMP #### [facility] [address] [place] [address] Dr. Jaymie Gilbert EGFR-AF GEORGIAN >60 Normal >=60 [facility] Comment on above: Performed By: #### L IPID, T7, URIC, TSH, CMP #### [facility] [address] [place] [address] Dr. Jaymie Gilbert EGFR-NON AF GEORGIAN >60 Normal >=60 [facility] Comment on above: Performed By: #### L IPID, T7, URIC, TSH, CMP #### [facility] [address] [place] [address] Dr. Jaymie Gilbert CTA CHEST WO W [...] by: BRANDIN MORALES Date: 2021-11-03 13:08 Normal [facility] XR CHEST 2 Von 11-02-2021 SARS-CoV-2 [...] by: MARLENE SANDHU Date: 2021-11-02 10:55 Normal [facility] CORONAVIRUS 2019 BY PCRon SARS-CoV-2 (COVID-19) RNA RAMO+probe Ql (Unsp spec) Detected Abnormal Not Detected [facility] Comment on above: Result Comment: . This [...] this test method. Fact sheet for providers: https://www.fda.gov/media/311342/download Fact sheet for patients: https://www.fda.gov/media/282611/download This test has received FDA Emergency Use Authorization [EUA] and has been verified by [facility] ([facility]). This test is only authorized for the duration of time that circumstances exist to justify the authorization of the emergency use of in vitro diagnostic tests for the detection of SARS-CoV-2 virus and/or diagnosis of COVID-19 infection under section 564(b)(1) of the Act, 21 U.S.C. 360bbb-3(b)(1), unless the authorization is terminated or revoked sooner. [facility] is certified under CLIA-88 as qualified to perform high complexity testing. Testing is performed in the [facility] laboratories located at [address] [place] [address]. Performed By: #### C OV19 #### [address] [place] [address] Covid 19 Resultson 2 SARS-CoV-2 (COVID-19) RNA [...] You may also be contacted by the [facility] to see if any of your [...] or Naproxen (Aleve) can also be used. Hiwg-kki-kzhzwnm cough and cold medicines can be used according to the instructions on the package. Some xytz-aza-nsnsiep medicines also contain acetaminophen. Make sure you [...] water are not available, use alcohol-based hand construction representative. Avoid touching your eyes, nose, and mouth [...] 24 carolyn (more content not included)... Normal [facility] CORONAVIRUS 2019 BY PCRon Lab Specimen Source Nasal, Nasopharyngeal Normal [facility] Comment on above: Performed By: #### C OV19 #### [facility] [id number] [place] [address] Office Visit (Urgent Care)on 10-26-2021 Follow-up visit [...] presents for COVID-19 testing. He works for [employer]. He presents with a 4-day history of [...] 10/26/2021 2:51:31 PM Vitals Vital Signs Recorded: [id number] 02:51PM Bpoaoxbndln30.2 F, Temporal Heart Rate97 Vzsqnlessqr72 Respiration QualityNormal Xenbspmq945, Sitting Wtkpfbjwg10, Sitting Blood Pressure Cuff SizeAdult Height5 ft 10 in Bajywa785 lb BMI Eupkwenbsp17.11 kg/m2 BSA Calculated1.97 Tobacco Useb) No PHQ-2 #1. Over the last 2 weeks have you felt down, depressed or hopeless? (If yes, answer PHQ-9 below)No PHQ-2 #2. Over the last 2 weeks have you felt little interest or pleasure in doing things? (If yes, answer PHQ-9 below)No Falls Screening (Age 18+)a) No falls within the last year O2 Rwvxaujqse37, RA Pain Scale0 PHQ-9 #1. Little interest [...] Serum 9.1 ng/dL Critically low 9.2-24.1 [facility] Comment on above: Result Comment: This test was developed and its performance characteristics determined by [facility]. It has not been cleared or approved by the Food and Drug Administration. Performed By: #### L IPID, T7, URIC, TSH, CMP #### [facility] [address] [address] [address] Jaymie Gilbert T3, TOTAL (TRIIODOTHYRONINE) on 09-12-2021 T3, TOTAL 120 ng/dL Normal 71-180 [facility] Comment on above: Performed By: #### L IPID, T7, URIC, TSH, CMP #### [facility] [address] [place] [address] Dr. Jaymie Gilbert FREE T3on 09-11-2021 FREE T3 2.90 pg/mlL Normal 2.18-3.98 [facility] Comment on above: Performed By: #### F T3 #### [facility] [address] [place] [address] Dr. Jaymie Gilbert T4 LABCORPon 08-18-2021 T4 [Mass/Vol] 5.3 ug/dL Normal 4.5-12.0 [facility] Comment on above: Performed By: #### T 4LC #### [facility] [address] [place] [address] Dr. Jaymie Gilbert INSULINon 08-17-2021 Insulin 6.9 uIU/mL Normal 2.6-24.9 [facility] Comment on above: Performed By: #### L IPID, T7, URIC, TSH, CMP #### [facility] [address] [place] [address] Dr. Jaymie Gilbert CBC AUTO DIFFon 08-16-2021 BASO # 0.0 103/ul Normal 0.0-0.1 [facility] Comment on above: Performed By: #### L IPID, T7, URIC, TSH, CMP #### [facility] [address] [place] [address] Dr. Jaymie Gilbert Basophils/100 WBC (Bld) 1.1 % Normal 0.2-2.0 [facility] Comment on above: Performed By: #### L IPID, T7, URIC, TSH, CMP #### [facility] [address] [place] [address] Dr. Jaymie Gilbert EO # 0.1 103/ul Normal 0.0-0.7 [facility] Comment on above: Performed By: #### L IPID, T7, URIC, TSH, CMP #### [facility] [address] [place] [address] Dr. Jaymie Gilbert Eosinophils/100 WBC (Bld) 2.4 % Normal 0.9-7.0 [facility] Comment on above: Performed By: #### L IPID, T7, URIC, TSH, CMP #### [facility] [address] [place] [address] Dr. Jaymie Gilbert Erythrocyte distribution width (RBC) [Ratio] 12.4 % Normal 11.0-15.0 [facility] Comment on above: Performed By: #### L IPID, T7, URIC, TSH, CMP #### [facility] [address] [place] [address] Dr. Jaymie Gilbert Hematocrit (Bld) [Volume fraction] 43.0 % Normal 42.0-54.0 [facility] Comment on above: Performed By: #### L IPID, T7, URIC, TSH, CMP #### [facility] [address] [place] [address] Dr. Jaymie Gilbert Hemoglobin (Bld) [Mass/Vol] 14.2 g/dL Normal 14.0-18.0 [facility] Comment on above: Performed By: #### L IPID, T7, URIC, TSH, CMP #### [facility] [address] [place] [address] Dr. Jaymie Gilbert IG # 0.01 10e3/ul Normal 0.00-0.03 [facility] Comment on above: Performed By: #### L IPID, T7, URIC, TSH, CMP #### [facility] [address] [place] [address] Dr. Jaymie Gilbert IG % 0.3 % Normal 0.0-0.5 [facility] Comment on above: Performed By: #### L IPID, T7, URIC, TSH, CMP #### [facility] [address] [place] [address] Dr. Jaymie Gilbert LYMPH # 1.2 103/ul Normal 1.2-3.8 [facility] Comment on above: Performed By: #### L IPID, T7, URIC, TSH, CMP #### [facility] [address] [place] [address] Dr. Jaymie Gilbert Lymphocytes/100 WBC (Bld) 32.1 % Normal 20.5-60.0 [facility] Comment on above: Performed By: #### L IPID, T7, URIC, TSH, CMP #### [facility] [address] [place] [address] Dr. Jaymie Gilbert MANUAL DIFF REQ NO Normal [facility] Comment on above: Performed By: #### L IPID, T7, URIC, TSH, CMP #### [facility] [address] [place] [address] Dr. Jaymie Gilbert MCH (RBC) [Entitic mass] 30.8 pg Normal 25.9-34.0 [facility] Comment on above: Performed By: #### L IPID, T7, URIC, TSH, CMP #### [facility] [address] [place] [address] Dr. Jaymie Gilbert MCHC (RBC) [Mass/Vol] 33.0 g/dL Normal 29.9-35.2 [facility] Comment on above: Performed By: #### L IPID, T7, URIC, TSH, CMP #### [facility] [address] [place] [address] Dr. Jaymie Gilbert MCV (RBC) [Entitic vol] 93.3 fL Normal 80.0-94.0 [facility] Comment on above: Performed By: #### L IPID, T7, URIC, TSH, CMP #### [facility] [address] [place] [address] Dr. Jaymie Gilbert MONO # 0.5 103/ul Normal 0.3-0.8 [facility] Comment on above: Performed By: #### L IPID, T7, URIC, TSH, CMP #### [facility] [address] [place] [address] Dr. Jaymie Gilbert Monocytes/100 WBC (Bld) 12.8 % Critically high 1.7-12.0 [facility] Comment on above: Performed By: #### L IPID, T7, URIC, TSH, CMP #### [facility] [address] [place] [address] Dr. Jaymie Gilbert NEUT # 1.9 103/ul Normal 1.4-6.5 [facility] Comment on above: Performed By: #### L IPID, T7, URIC, TSH, CMP #### [facility] [address] [address] [address] Jaymie Gilbert Neutrophils/100 WBC (Bld) 51.3 % Normal 43.0-75.0 [facility] Comment on above: Performed By: #### L IPID, T7, URIC, TSH, CMP #### [facility] [address] [place] [address] Dr. Jaymie Gilbert Platelet mean volume (Bld) [Entitic vol] 10.2 fL Normal 9.5-13.5 [facility] Comment on above: Performed By: #### L IPID, T7, URIC, TSH, CMP #### [facility] [address] [place] [address] Dr. Jaymie Gilbert PLT 236 103/ul Normal 150-450 [facility] Comment on above: Performed By: #### L IPID, T7, URIC, TSH, CMP #### [facility] [address] [place] [address] Dr. Jaymie Gilbert RBC 4.61 106/ul Critically low 4.70-6.10 [facility] Comment on above: Performed By: #### L IPID, T7, URIC, TSH, CMP #### [facility] [address] [place] [address] Dr. Jaymie Gilbert WBC 3.7 103/ul Critically low 4.0-11.0 [facility] Comment on above: Performed By: #### L IPID, T7, URIC, TSH, CMP #### [facility] [address] [place] [address] Dr. Jaymie Gilbert FREE T3on 08-16-2021 FREE T3 4.74 pg/mlL Critically high 2.18-3.98 [facility] Comment on above: Performed By: #### L IPID, T7, URIC, TSH, CMP #### [facility] [address] [place] [address] Dr. Jaymie Gilbert FREE T4on 08-16-2021 Free T4 [Mass/Vol] 0.78 ng/dL Normal 0.76-1.46 [facility] Comment on above: Performed By: #### L IPID, T7, URIC, TSH, CMP #### [facility] [address] [place] [address] Dr. Jaymie Gilbert FREE THYROXINE INDEX T7on FTI 1.80 Normal 1.30-4.50 [facility] Comment on above: Performed By: #### L IPID, T7, URIC, TSH, CMP #### [facility] [address] [address] [address] Jaymie Gilbert T3U 34.0 % Normal 33.0-40.0 [facility] Comment on above: Performed By: #### L IPID, T7, URIC, TSH, CMP #### [facility] [address] [place] [address] Dr. Jaymie Gilbert T4 [Mass/Vol] 5.30 ug/dL Normal 4.50-12.10 [facility] Comment on above: Performed By: #### L IPID, T7, URIC, TSH, CMP #### [facility] [address] [place] [address] Dr. Jaymie Gilbert GLYCOHEMOGLOBIN A1Con 2021 ADA RECOMMENDATION SEE BELOW Normal [facility] Comment on above: Result Comment: ADA RECOMMENDED LIMIT 4.0 - 6.0 ADA THERAPEUTIC TARGET < 7.0 ACTION SUGGESTED > 7.0 Performed By: #### L IPID, T7, URIC, TSH, CMP #### [facility] [address] [place] [address] Dr. Jaymie Gilbert Glucose [Mass/Vol] 111 mg/dL Normal [facility] Comment on above: Performed By: #### L IPID, T7, URIC, TSH, CMP #### [facility] [address] [place] [address] Dr. Jaymie Gilbert HbA1c (Bld) [Mass fraction] 5.5 % Normal 4.5-6.2 [facility] Comment on above: Performed By: #### L IPID, T7, URIC, TSH, CMP #### [facility] [address] [address] [address] Jaymie Gilbert LIPID PROFILEon 08-16-2021 CHOL-HDL RATIO NORM SEE BELOW Normal [facility] Comment on above: Result Comment: 3.3 - 4.4 LOW RISK 4.4 - 7.1 AVERAGE RISK 7.1 - 11.0 MODERATE RISK >11.0 HIGH RISK Performed By: #### L IPID, T7, URIC, TSH, CMP #### [facility] [address] [address] [address] Jaymie Gilbert Cholesterol [Mass/Vol] 151 mg/dL Normal <=200 [facility] Comment on above: Performed By: #### L IPID, T7, URIC, TSH, CMP #### [facility] [address] [address] [address] Jaymie Gilbert Cholesterol in HDL [Mass/Vol] 57 mg/dL Normal 40-60 [facility] Comment on above: Performed By: #### L IPID, T7, URIC, TSH, CMP #### [facility] [address] [address] [address] Jaymie Gilbert Cholesterol in LDL [Mass/Vol] 81.6 mg/dL Normal [facility] Comment on above: Performed By: #### L IPID, T7, URIC, TSH, CMP #### [facility] [address] [address] [address] Jaymie Gilbert Cholesterol.total/ Cholesterol in HDL [Mass ratio] 2.6 {ratio} Normal [facility] Comment on above: Performed By: #### L IPID, T7, URIC, TSH, CMP #### [facility] [address] [address] [address] Jaymie Gilbert HDL NORMAL > or = 60 mg/dl - LO W CARDIOVASCULAR RISK <40 mg/dl - HIGH CARDIOVASCULAR RISK Normal [facility] Comment on above: Performed By: #### L IPID, T7, URIC, TSH, CMP #### [facility] [address] [address] [address] Jaymie Gilbert LDL CALC NORMAL SEE BELOW Normal [facility] Comment on above: Result Comment: <100 mg/dl OPTIMAL 100 - 129 mg/dl NEAR OR ABOVE OPTIMAL 130 - 159 mg/dl BORDERLINE HIGH 160 - 189 mg/dl HIGH >190 mg/dl VERY HIGH Performed By: #### L IPID, T7, URIC, TSH, CMP #### [facility] [address] [address] [address] Jaymie Gilbert Triglyceride [Mass/Vol] 62 mg/dL Normal <=150 [facility] Comment on above: Performed By: #### L IPID, T7, URIC, TSH, CMP #### [facility] [address] [address] [address] Jaymie Gilbert VLDL CALC 12.4 mg/dL Normal [facility] Comment on above: Performed By: #### L IPID, T7, URIC, TSH, CMP #### [facility] [address] [place] [address] Dr. Jaymie Gilbert PROF 14(COMP METB)on 022 Albumin [Mass/Vol] 3.4 g/dL Normal 3.4-5.[address] [facility] Comment on above: Performed By: #### L IPID, T7, URIC, TSH, CMP #### [facility] [address] [address] [address] Jaymie Gilbert Albumin/Globulin [Mass ratio] 0.7 {ratio} Normal [facility] Comment on above: Performed By: #### L IPID, T7, URIC, TSH, CMP #### [facility] [address] [address] [address] Jaymie Gilbert ALP [Catalytic activity/Vol] 40 U/L Critically low 46-116 [facility] Comment on above: Performed By: #### L IPID, T7, URIC, TSH, CMP #### [facility] [address] [address] [address] Jaymie Gilbert ALT [Catalytic activity/Vol] 29 U/L Normal 16-63 [facility] Comment on above: Performed By: #### L IPID, T7, URIC, TSH, CMP #### [facility] [address] [address] [address] Jaymie Gilbert Anion gap [Moles/Vol] 11.0 mmol/L Normal [facility] Comment on above: Performed By: #### L IPID, T7, URIC, TSH, CMP #### [facility] [address] [place] [address] Dr. Jaymie Gilbert AST [Catalytic activity/Vol] 17 U/L Normal 15-37 [facility] Comment on above: Performed By: #### L IPID, T7, URIC, TSH, CMP #### [facility] [address] [place] [address] Dr. Jaymie Gilbert Bilirubin [Mass/Vol] 0.9 mg/dL Normal 0.2-1.0 [facility] Comment on above: Performed By: #### L IPID, T7, URIC, TSH, CMP #### [facility] [address] [place] [address] Dr. Jaymie Gilbert Calcium [Mass/Vol] 8.7 mg/dL Normal 8.5-10.[address] [facility] Comment on above: Performed By: #### L IPID, T7, URIC, TSH, CMP #### [facility] [address] [place] [address] Dr. Jaymie Gilbert Chloride [Moles/Vol] 104 mmol/L Normal 98-107 [facility] Comment on above: Performed By: #### L IPID, T7, URIC, TSH, CMP #### [facility] [address] [place] [address] Dr. Jaymie Gilbert CO2 [Moles/Vol] 26.4 mmol/L Normal 21.0-32.0 [facility] Comment on above: Performed By: #### L IPID, T7, URIC, TSH, CMP #### [facility] [address] [place] [address] Dr. Jaymie Gilbert Creatinine [Mass/Vol] 0.99 mg/dL Normal 0.70-1.30 [facility] Comment on above: Performed By: #### L IPID, T7, URIC, TSH, CMP #### [facility] [address] [place] [address] Dr. Jaymie Gilbert EGFR-AF GEORGIAN >60 Normal >=60 [facility] Comment on above: Performed By: #### L IPID, T7, URIC, TSH, CMP #### [facility] [address] [place] [address] Dr. Jaymie Gilbert EGFR-NON AF GEORGIAN >60 Normal >=60 [facility] Comment on above: Performed By: #### L IPID, T7, URIC, TSH, CMP #### [facility] [address] [place] [address] Dr. Jaymie Gilbert Globulin (S) [Mass/Vol] 4.9 g/dL Normal [facility] Comment on above: Performed By: #### L IPID, T7, URIC, TSH, CMP #### [facility] [address] [place] [address] Dr. Jaymie Gilbert Glucose [Mass/Vol] 98 mg/dL Normal 74-[address] [facility] Comment on above: Performed By: #### L IPID, T7, URIC, TSH, CMP #### [facility] [address] [place] [address] Dr. Jaymie Gilbert Potassium [Moles/Vol] 4.4 mmol/L Normal 3.5-5.1 [facility] Comment on above: Performed By: #### L IPID, T7, URIC, TSH, CMP #### [facility] [address] [place] [address] Dr. Jaymie Gilbert Protein [Mass/Vol] 8.3 g/dL Critically high 6.4-8.2 [facility] Comment on above: Performed By: #### L IPID, T7, URIC, TSH, CMP #### [facility] [address] [place] [address] Dr. Jaymie Gilbert Sodium [Moles/Vol] 137 mmol/L Normal 136-145 [facility] Comment on above: Performed By: #### L IPID, T7, URIC, TSH, CMP #### [facility] [address] [place] [address] Dr. Jaymie Gilbert Urea nitrogen [Mass/Vol] 19.0 mg/dL Critically high 7.0-18.0 [facility] Comment on above: Performed By: #### L IPID, T7, URIC, TSH, CMP #### [facility] [address] [place] [address] Dr. Jaymie Gilbert Urea nitrogen/Creatinin e [Mass ratio] 19.2 mg/mg Normal [facility] Comment on above: Performed By: #### L IPID, T7, URIC, TSH, CMP #### [facility] [address] [place] [address] Dr. Jaymie Gilbert TSHon 08-16-2021 TSH 0.157 uIU/mL Critically low 0.358-3.740 [facility] Comment on above: Performed By: #### L IPID, T7, URIC, TSH, CMP #### [facility] [address] [place] [address] Dr. Jaymie Gilbert TSH RANGE SEE BELOW Normal [facility] Comment on above: Result Comment: <0.3 4 UIU/ml HYPERTHYROID 0.34-5.60 UIU/ml EUTHYROID >5.60 UIU/ml HYPOTHYROID Performed By: #### L IPID, T7, URIC, TSH, CMP #### [facility] [address] [place] [address] Dr. Jaymie Gilbert URIC ACID SERUMon 08-16-2021 Urate [Mass/Vol] 5.2 mg/dL Normal 3.5-7.2 [facility] Comment on above: Performed By: #### L IPID, T7, URIC, TSH, CMP #### [facility] [address] [place] [address] Dr. Jaymie Gilbert VITAMIN D 25 OHon 08-16-2021 VIT D 25-OH 26.3 ng/mL Normal [facility] Comment on above: Performed By: #### L IPID, T7, URIC, TSH, CMP #### [facility] [address] [place] [address] Dr. Jaymie Gilbert VIT D RANGES SEE BELOW Normal [facility] Comment on above: Result Comment: <20 ng/mL Vit D deficient 20 - <30 ng/mL Vit D insufficient 30 - 100 ng/mL Vit D sufficient >100 ng/mL Potential Toxicity Performed By: #### L IPID, T7, URIC, TSH, CMP #### [facility] [address] [address] [address] Jaymie Gilbert CNOVSPon 06-03-2019 CNOVSP Visit (SP) Office ([facility]) -- BRANDIN FARR ([id number]) 1960 M Date Time Provider Department 06/03/19 [...] 14, 2018. Additional Clinicians involved in Brandin Raymond Yordan's care: Vickie Eason MD, Dr. Carmen Aviles CC: MGUS follow up for surveillance testing [...] CALCIUM IONIZED B Kevin Mckeon MD, CPE [address] [place], [place] CC: Vickie Eason MD [address] [facility] [address] Kevin Mckeon MD 06/03/2019 3:28 PM Addendum Reading list 1. Grain Brain 2. Keto Fast 3. The Plant Paradox* Referring Provider: DAYANA BHAT [[id number]] Allergies As of Date: 06/03/2019 Noted Allergy Reaction CIPROFLOXACIN 03/30/2014 5 - Intolerance Date Reviewed: 06/03/2019 Reviewed by: Kevin Mckeon - Fully Assessed Reason for Visit: Monoclonal gammopathy [Other] Cmt: follow up Primary Visit Diagnosis:Monoclonal gammopathy [D47.2] Order(s):B2 MICROGLOBULIN B [SQB2M] Order #: [id number] FUTURE CBC + DIFF [SQCBCDIF] Order #: [id number] FUTURE COMP METABOLIC PANEL [SQCMP] Order #: [id number] FUTURE LD LACTATE DEHYDRO [SQLD6] Order #: [id number] FUTURE PHOSPHORUS INORGANIC [SQPHOS] Order #: [id number] FUTURE PROTEIN ELECTROPHORESIS W/INTERP [SQSEPG] Order #: [id number] FUTURE MONOCLONAL PROTEIN, SERUM (BLOOD) [SQSERMPA] Order #: [id number] FUTURE URIC ACID BLOOD [SQURIC] Order #: [id number] FUTURE CALCIUM IONIZED B [SQICA] Order #: [id number] FUTURE Disposition: Return in about 24 weeks [...] by KEVIN MCKEON MD on 06/13/19 Normal [facility] [place] [facility] PROGRESSon 06-03-2019 PROGRESS HNO ID: [id number] Author: Kevin Mckeon Service: ? Author Type: [...] CALCIUM IONIZED B Kevin Mckeon MD, CPE [address] [place], [place] CC: Vickie Esaon MD [address] [facility] [address] Normal [facility] 06-01-2019 CNPN Telephone ([facility]ET[facility]) -- BRANDIN FARR ([id number]) 1960 M Date Time Provider Department 06/01/19 KEVIN MCKEON During your visit today, we recorded the following information about you: Melvina Sena RN, RN 06/01/2019 9:29 AM Signed ----- Message from Kevin Mckeon sent at 05/31/2019 6:37 PM EDT ----- [...] TABLET TAKE 1 AND 1/2 TABLET ON SAT.* RIVAROXABAN 20 MG TABLET Take 20 mg [...] by MELVINA SENA RN on 06/01/19 Normal [facility] [place] [facility] B2 Microglobulinon 0 Globulin (S) [Mass/Vol] 2.1 mg/L Normal 0.8-2.4 [facility] [place] [facility] Comment on above: Performed By: #### B 2M, CMP, URIC, KLFRS, SERIMM, SEPG, IFESC #### [facility] [address] [place], [place] [address] CBC and Differentialon 05-27 Abs Baso 0.04 k/uL Normal <0.11 [facility] [place] [facility] Comment on above: Performed By: #### C BCDIF #### [facility] [address] [place], [place] [address] Abs [place] 0.50 k/uL Normal <0.87 [facility] [place] [facility] Comment on above: Performed By: #### C BCDIF #### [address] [place], [place] [address] Abs Neut 1.85 k/uL Normal 1.45-7.50 [facility] [place] [facility] Comment on above: Performed By: #### C BCDIF #### [address] [place], [place] [address] Absolute nRBC <0.01 Normal <0.01 [facility] [place] [facility] Comment on above: Performed By: #### C BCDIF #### [address] [place] [address] Basophils/100 WBC (Bld) 1.1 % Normal [facility] [place] [facility] Comment on above: Performed By: #### C BCDIF #### [id number] [place] [id number] DTYPE Auto Diff Normal [facility] [place] [facility] Comment on above: Performed By: #### C BCDIF #### [facility] [address] [place], [place] [address] Eosinophils (Bld) [#/Vol] 0.04 10*3/uL Normal <0.46 [facility] [place] [facility] Comment on above: Performed By: #### C BCDIF #### [address] [place], [place] [address] Eosinophils/100 WBC (Bld) 1.1 % Normal [facility] [place] [facility] Comment on above: Performed By: #### C BCDIF #### [address] [place] [address] Erythrocyte distribution width (RBC) [Ratio] 13.3 % Normal 11.5-15.0 [facility] [place] [facility] Comment on above: Performed By: #### C BCDIF #### [address] [place] [address] Hematocrit (Bld) [Volume fraction] 46.4 % Normal 39.0-51.0 [facility] [place] [facility] Comment on above: Performed By: #### C BCDIF #### [address] [place] [address] Hemoglobin (Bld) [Mass/Vol] 14.4 g/dL Normal 13.0-17.0 [facility] [place] [facility] Comment on above: Performed By: #### C BCDIF #### [address] [place] [address] Lymphocytes (Bld) [#/Vol] 1.21 10*3/uL Normal 1.00-4.00 [facility] [place] [facility] Comment on above: Performed By: #### C BCDIF #### [place] [address] Lymphocytes/100 WBC (Bld) 33.2 % Normal [facility] [place] [facility] Comment on above: Performed By: #### C BCDIF #### [address] [place] [address] MCH (RBC) [Entitic mass] 30.6 pG Normal 26.0-34.0 [facility] [place] [facility] Comment on above: Performed By: #### C BCDIF #### [address] [place] [address] MCHC (RBC) [Mass/Vol] 31.0 g/dL Normal 30.5-36.0 [facility] [place] [facility] Comment on above: Performed By: #### C BCDIF #### [address] [place], [place] [address] MCV (RBC) [Entitic vol] 98.7 fL Normal 80.0-100.0 [facility] [place] [facility] Comment on above: Performed By: #### C BCDIF #### [facility] [address] [place], [place] [address] Monocytes/100 WBC (Bld) 13.7 % Normal [facility] [place] [facility] Comment on above: Performed By: #### C BCDIF #### [facility] [address] [place], [place] [address] Neutrophils/100 WBC (Bld) 50.9 % Normal [facility] [place] [facility] Comment on above: Performed By: #### C BCDIF #### [facility] [address] [place], [place] [address] NRBCs 0.0 /100 WBC Normal 0 [facility] [place] [facility] Comment on above: Performed By: #### C BCDIF #### [address] [place], [place] [address] Platelet mean volume (Bld) [Entitic vol] 10.7 fL Normal 9.0-12.7 [facility] [place] [facility] Comment on above: Performed By: #### C BCDIF #### [facility] [address] [place], [place] [address] Platelets (Bld) [#/Vol] 263 10*3/uL Normal 150-400 [facility] [place] [facility] Comment on above: Performed By: #### C BCDIF #### [facility] [address] [place], [place] [address] RBC (Bld) [#/Vol] 4.70 10*6/uL Normal 4.20-6.00 [facility] Comment on above: Performed By: #### C BCDIF #### [facility] [address] [place], [place] [address] WBC (Bld) [#/Vol] 3.65 10*3/uL Low 3.70-11.00 [facility] Comment on above: Performed By: #### C BCDIF #### [address] [address] Comp Metabolic Panelon 05-27 Albumin [Mass/Vol] 4.0 g/dL Normal 3.9-4.9 [facility] Comment on above: Performed By: #### B 2M, CMP, URIC, KLFRS, SERIMM, SEPG, IFESC #### [address] [address] ALP [Catalytic activity/Vol] 33 U/L Low 38-113 [facility] [place] [facility] Comment on above: Performed By: #### B 2M, CMP, URIC, KLFRS, SERIMM, SEPG, IFESC #### [address] [address] ALT [Catalytic activity/Vol] 18 U/L Normal 10-54 [facility] [place] [facility] Comment on above: Performed By: #### B 2M, CMP, URIC, KLFRS, SERIMM, SEPG, IFESC #### [address] [address] Anion gap [Moles/Vol] 10 mmol/L Normal 9-18 [facility] [place] [facility] Comment on above: Performed By: #### B 2M, CMP, URIC, KLFRS, SERIMM, SEPG, IFESC #### [address] [place], [place] [address] AST [Catalytic activity/Vol] 21 U/L Normal 14-40 [facility] [place] [facility] Comment on above: Performed By: #### B 2M, CMP, URIC, KLFRS, SERIMM, SEPG, IFESC #### [address] [place], [place] [address] Bilirubin [Mass/Vol] 0.7 mg/dL Normal 0.2-1.3 [facility] [place] [facility] Comment on above: Performed By: #### B 2M, CMP, URIC, KLFRS, SERIMM, SEPG, IFESC #### [address] [place] [address] Calcium [Mass/Vol] 9.4 mg/dL Normal 8.5-10.2 [facility] Comment on above: Performed By: #### B 2M, CMP, URIC, KLFRS, SERIMM, SEPG, IFESC #### [address] [place] [address] Chloride [Moles/Vol] 103 mmol/L Normal 97-105 [facility] [place] [facility] Comment on above: Performed By: #### B 2M, CMP, URIC, KLFRS, SERIMM, SEPG, IFESC #### [place] [address] CO2 [Moles/Vol] 24 mmol/L Normal 22-30 [facility] [place] [facility] Comment on above: Performed By: #### B 2M, CMP, URIC, KLFRS, SERIMM, SEPG, IFESC #### [place] [address] Creatinine [Mass/Vol] 0.85 mg/dL Normal 0.73-1.22 [facility] [place] [facility] Comment on above: Performed By: #### B 2M, CMP, URIC, KLFRS, SERIMM, SEPG, IFESC #### [place] [id number] [place] [address] eGFR- Amer. >60 Normal [facility] Comment on above: Performed By: #### B 2M, CMP, URIC, KLFRS, SERIMM, SEPG, IFESC #### [place] [id number] [place] [address] GFR/1.73 sq M predicted among non-blacks MDRD (S/P/Bld) [Vol rate/Area] mL/min/{1.73_m2} Normal [facility] [place] [facility] Comment on above: Result Comment: eGFR [...] CMP, URIC, KLFRS, SERIMM, SEPG, IFESC #### [facility] [address] [place], [place] [address] Glucose [Mass/Vol] 104 mg/dL High 74-99 [facility] Comment on above: Result Comment: The [place] Diabetes [employer] (ADA) provides guidance for cutoff [...] Standards of Medical Care in Diabetes 2016, [place] [employer]. Diabetes Care. 2016.39(Suppl 1). Performed By: #### B 2M, CMP, URIC, KLFRS, SERIMM, SEPG, IFESC #### [facility] [address] [place], [place] [address] Potassium [Moles/Vol] 4.4 mmol/L Normal 3.7-5.1 [facility] [place] [facility] Comment on above: Performed By: #### B 2M, CMP, URIC, KLFRS, SERIMM, SEPG, IFESC #### [facility] [address] [place], [place] [address] Protein [Mass/Vol] 8.0 g/dL Normal 6.3-8.0 [facility] Comment on above: Performed By: #### B 2M, CMP, URIC, KLFRS, SERIMM, SEPG, IFESC #### [facility] [address] [place], [place] [id number] Sodium [Moles/Vol] 137 mmol/L Normal 136-144 [facility] Comment on above: Performed By: #### B 2M, CMP, URIC, KLFRS, SERIMM, SEPG, IFESC #### [place] [id number] [place], [place] [address] Urea nitrogen [Mass/Vol] 16 mg/dL Normal 9-24 [facility] [place] [facility] Comment on above: Performed By: #### B 2M, CMP, URIC, KLFRS, SERIMM, SEPG, IFESC #### [place] [id number] [place] [address] JOLLY Screen, Serumon 05-28-19 20 MPA Interpretation SEE COMMENT Normal [facility] Comment on above: Result Comment: Atyp ical restricted bands are present in the IgG and lambda regions. Consistent with IgG lambda monoclonal gammopathy. Performed By: #### B 2M, CMP, URIC, KLFRS, SERIMM, SEPG, IFESC #### [place] [id number] [place], [place] [address] Protein [Mass/Vol] M protein is present. Critica lly abnormal No M protein is identified. [facility] [place] [facility] Comment on above: Performed By: #### B 2M, CMP, URIC, KLFRS, SERIMM, SEPG, IFESC #### [facility] [address] [place], [place] [address] Staff Review Reviewed by Adria Salomon M.D., PhD ([id number]) [facility] Comment on above: Performed By: #### B 2M, CMP, URIC, KLFRS, SERIMM, SEPG, IFESC #### [place] [id number] [place], [place] [address] Immunoglobulins GAMon 2019 IgA [Mass/Vol] 18 mg/dL Low 78-391 [facility] [place] [facility] Comment on above: Performed By: #### B 2M, CMP, URIC, KLFRS, SERIMM, SEPG, IFESC #### [place] [id number] [place] [address] IgG [Mass/Vol] 2980 mg/dL High 717-1411 [facility] [place] [facility] Comment on above: Performed By: #### B 2M, CMP, URIC, KLFRS, SERIMM, SEPG, IFESC #### [place] [id number] [place] [address] IgM [Mass/Vol] 26 mg/dL Low 53-334 [facility] [place] [facility] Comment on above: Performed By: #### B 2M, CMP, URIC, KLFRS, SERIMM, SEPG, IFESC #### [place] [id number] [place] [address] [place]/Sims,Free,Seron 2019 K/L Ratio, Serum 0.29 Normal 0.26-1.65 [facility] Comment on above: Performed By: #### B 2M, CMP, URIC, KLFRS, SERIMM, SEPG, IFESC #### [place] [id number] [place] [address] [place], Free, Serum 7.4 mg/L Normal 3.30-19.40 [facility] Comment on above: Result Comment: Test performed by an immunoturbidimetric assay on [email or web address] instrument from [facility]. Immunoglobulin free light chain assay results should be interpreted in conjunction with other tests and in correlation with clinical picture. Performed By: #### B 2M, CMP, URIC, KLFRS, SERIMM, SEPG, IFESC #### [place] [id number] [place] [phone] Lambda, Free, Serum 25.1 mg/L Normal 5.7-26.3 [facility] [place] [facility] Comment on above: Result Comment: Test performed by an immunoturbidimetric assay on [employer] instrument from [facility]. Immunoglobulin free light chain assay results should be interpreted in conjunction with other tests and in correlation with clinical picture. Performed By: #### B 2M, CMP, URIC, KLFRS, SERIMM, SEPG, IFESC #### [place] [id number] [place] [phone] Protein Electrophor.on 05-27 Albumin [Mass/Vol] 3.80 g/dL Normal 3.37-4.23 [facility] Comment on above: Performed By: #### B 2M, CMP, URIC, KLFRS, SERIMM, SEPG, IFESC #### [place] [phone] Alpha 1 Globulin 0.17 gm/dL Low 0.18-0.31 [facility] Comment on above: Performed By: #### B 2M, CMP, URIC, KLFRS, SERIMM, SEPG, IFESC #### [place] [address] Alpha 2 Globulin 0.51 gm/dL Low 0.52-0.97 [facility] Comment on above: Performed By: #### B 2M, CMP, URIC, KLFRS, SERIMM, SEPG, IFESC #### [place] [id number] [place] [phone] Beta Globulin 0.81 gm/dL Low 0.84-1.36 [facility] [place] [facility] Comment on above: Performed By: #### B 2M, CMP, URIC, KLFRS, SERIMM, SEPG, IFESC #### [place] [id number] [place] [phone] Gamma Globulin 2.61 gm/dL High 0.70-1.44 [facility] [place] [facility] Comment on above: Performed By: #### B 2M, CMP, URIC, KLFRS, SERIMM, SEPG, IFESC #### [place] [id number] [place] [address] Interpretation SEE COMMENT Normal [facility] [place] [facility] Comment on above: Result Comment: An M protein is identified on protein electrophoresis. See separate immunofixation report for characterization of the M protein. Performed By: #### B 2M, CMP, URIC, KLFRS, SERIMM, SEPG, IFESC #### [place] [id number] [place] [address] M Markus Concentratn 2.04 gm/dL High 0.00 [facility] [place] [facility] Comment on above: Performed By: #### B 2M, CMP, URIC, KLFRS, SERIMM, SEPG, IFESC #### [place] [id number] [place] [address] Protein [Mass/Vol] Gamma fraction Normal [facility] Comment on above: Performed By: #### B 2M, CMP, URIC, KLFRS, SERIMM, SEPG, IFESC #### [place] [address] [place], [place] [address] Protein [Mass/Vol] 7.9 g/dL Normal 6.0-8.4 [facility] Comment on above: Performed By: #### B 2M, CMP, URIC, KLFRS, SERIMM, SEPG, IFESC #### [place] [id number] [place] [address] SPE Staff Review Reviewed by Adria Salomon M.D., PhD ([id number]) Normal [facility] [place] [facility] Comment on above: Performed By: #### B 2M, CMP, URIC, KLFRS, SERIMM, SEPG, IFESC #### [place] [id number] [place] [phone] Remote CBCDIF (for [facility] use o nly)on 05-28-2019 Abs Baso Test reordered by [facility]. Normal <0.11 [facility] [place] [facility] Comment on above: Result Comment: MAYANK 0 [id number] Account Credited Performed By: #### R CBCDF #### [facility] [address] [place], [place] [address] Abs [place] Test reordered by [facility]. Normal <0.87 [facility] [place] [facility] Comment on above: Result Comment: MAYANK 0 [id number] Account Credited Performed By: #### R CBCDF #### [facility] [address] [place] [address] Abs Neut Test reordered by [facility]. Normal 1.45-7.50 [facility] [place] [facility] Comment on above: Result Comment: MAYANK 0 [id number] Account Credited Performed By: #### R CBCDF #### [facility] [address] [place] [address] Basophils/100 WBC (Bld) Test reordered by [facility]. Normal [facility] [place] [facility] Comment on above: Result Comment: MAYANK 0 [id number] Account Credited Performed By: #### R CBCDF #### [facility] [address] [place] [address] Comment Test reordered by [facility]. Normal [facility] [place] [facility] Comment on above: Result Comment: MAYANK 0 [id number] Account Credited Performed By: #### R CBCDF #### [facility] [address] [place] [address] Eosinophils (Bld) [#/Vol] Test reordered by [facility]. Normal <0.46 [facility] [place] [facility] Comment on above: Result Comment: MAYANK 0 [id number] Account Credited Performed By: #### R CBCDF #### [facility] [address] [place] [address] Eosinophils/100 WBC (Bld) Test reordered by [facility]. Normal [facility] [place] [facility] Comment on above: Result Comment: MAYANK 0 [id number] Account Credited Performed By: #### R CBCDF #### [facility] [address] [place] [address] Erythrocyte distribution width (RBC) [Ratio] Test reordered by [facility]. Normal 11.5-15.0 [facility] [place] [facility] Comment on above: Result Comment: MAYANK 0 [id number] Account Credited Performed By: #### R CBCDF #### [facility] [address] [place], [place] [address] Hematocrit (Bld) [Volume fraction] Test reordered by [facility]. Normal 39.0-51.0 [facility] [place] [facility] Comment on above: Result Comment: MAYANK 0 [id number] Account Credited Performed By: #### R CBCDF #### [facility] [address] [place], [place] [address] Hemoglobin (Bld) [Mass/Vol] Test reordered by [facility]. Normal 13.0-17.0 [facility] [place] [facility] Comment on above: Result Comment: MAYANK 0 [id number] Account Credited Performed By: #### R CBCDF #### [facility] [address] [place], [place] [address] Lymphocytes (Bld) [#/Vol] Test reordered by [facility]. Normal 1.00-4.00 [facility] [place] [facility] Comment on above: Result Comment: MAYANK 0 [id number] Account Credited Performed By: #### R CBCDF #### [facility] [address] [place], [place] [address] Lymphocytes/100 WBC (Bld) Test reordered by [facility]. Normal [facility] [place] [facility] Comment on above: Result Comment: MAYANK 0 [id number] Account Credited Performed By: #### R CBCDF #### [facility] [address] [place], [place] [address] MCH (RBC) [Entitic mass] Test reordered by [facility]. Normal 26.0-34.0 [facility] [place] [facility] Comment on above: Result Comment: MAYANK 0 [id number] Account Credited Performed By: #### R CBCDF #### [facility] [address] [place], [place] [address] MCHC (RBC) [Mass/Vol] Test reordered by [facility]. Normal 30.5-36.0 [facility] [place] [facility] Comment on above: Result Comment: MAYANK 0 [id number] Account Credited Performed By: #### R CBCDF #### [facility] [address] [place], [place] [address] MCV (RBC) [Entitic vol] Test reordered by [facility]. Normal 80.0-100.0 [facility] [place] [facility] Comment on above: Result Comment: MAYANK 0 [id number] Account Credited Performed By: #### R CBCDF #### [facility] [address] [place], [place] [address] Monocytes/100 WBC (Bld) Test reordered by [facility]. Normal [facility] [place] [facility] Comment on above: Result Comment: MAYANK 0 [id number] Account Credited Performed By: #### R CBCDF #### [facility] [address] [place], [place] [address] Neutrophils/100 WBC (Bld) Test reordered by [facility]. Normal [facility] [place] [facility] Comment on above: Result Comment: MAYANK 0 [id number] Account Credited Performed By: #### R CBCDF #### [facility] [address] [place], [place] [address] Platelet mean volume (Bld) [Entitic vol] Test reordered by [facility]. Normal 9.0-12.7 [facility] [place] [facility] Comment on above: Result Comment: MAYANK 0 [id number] Account Credited Performed By: #### R CBCDF #### [facility] [address] [place], [place] [address] Platelets (Bld) [#/Vol] Test reordered by [facility]. Normal 150-400 [facility] [place] [facility] Comment on above: Result Comment: MAYANK 0 [id number] Account Credited Performed By: #### R CBCDF #### [facility] [address] [place], [place] [address] RBC (Bld) [#/Vol] Test reordered by [facility]. Normal 4.20-6.00 [facility] [place] [facility] Comment on above: Result Comment: MAYANK 0 [id number] Account Credited Performed By: #### R CBCDF #### [facility] [address] [place] [address] Recheck Test reordered by [facility]. Normal [facility] [place] [facility] Comment on above: Result Comment: MAYANK 0 [id number] Account Credited Performed By: #### R CBCDF #### [facility] [address] [place] [address] Review Test reordered by [facility]. Normal [facility] [place] [facility] Comment on above: Result Comment: MAYANK 0 [id number] Account Credited Performed By: #### R CBCDF #### [place] [id number] [place] [phone] WBC (Bld) [#/Vol] Test reordered by [facility]. Normal 3.70-11.00 [facility] [place] [facility] Comment on above: Result Comment: MAYANK 0 [id number] Account Credited Performed By: #### R CBCDF #### [place] [id number] [place] [address] Uric Acidon 05-28-2019 Urate [Mass/Vol] 4.0 mg/dL Normal 4.0-8.1 [facility] Comment on above: Performed By: #### B 2M, CMP, URIC, KLFRS, SERIMM, SEPG, IFESC #### [place] [id number] [place] [phone] Vital Signs Date Time Vital Sign Value Performing Clinician Faci litleigha 04-25-2022 09:08-0500 Heart rate 70 /min Tigre Rae [facility] 04-25-2022 09:08-0500 SaO2% (BldA) [Mass fraction] 97 % [facility] 04-25-2022 09:08-0500 Respiratory rate 16 /min Tigre Rae [facility] 04-25-2022 09:07-0500 Diastolic blood pressure 85 mm[Hg] Tigre Rae [facility] 04-25-2022 09:07-0500 Mean blood pressure 108 mm[Hg] Tigre Rae [facility] 04-25-2022 09:07-0500 Systolic blood pressure 154 mm[Hg] Tigre Rae [facility] 04-25-2022 09:00-0500 Body temperature 97.52 [degF] Tigre Rae [facility] Encounters Encounter Date Encounter Type Care Provider Facility Start: 03-04-2023 End: 03-04-2023 ambulatory CECILIA BENSON Not Available Start: 07-16-2022 End: 07-17-[address] VICKIE EASON . Facility: Start: 04-25-2022 End: 04-26-2022 ambulatory Tigremichael Rae Facility:[facility] Start: 04-25-2022 End: 04-25-2022 Patient encounter procedure [facility] Start: 04-09-2022 End: 04-10-[address] [...] abnormal findings DR VICKIE EASON . [facility] Start: 08-17-2021 End: 08-18-[address] VICKIE EASON . Facility:[facility] Start: 08-16-2021 End: 08-17-[address] VICKIE EASON . Facility:[facility] Start: 08-16-2021 End: 08-17-2021 Encounter for general adult medical examination without abnormal findings DR VICKIE EASON . Facility: Start: 10-10-2016 End: 10-11-2016 Ambulatory DEFAULT PHYSICIAN Facility:[facility] Procedures Date Procedure Procedure Detail Performing Clinician Start: 07-16-[address] GENNA EASON . Comment on above: Performed By: #### L IPID, T7, URIC, TSH, CMP #### [facility] [address] [place], [place] [address] Dr. Jaymie Gilbert Start: 08-16-[address] GENNA EASON . Comment on above: Performed By: #### L IPID, T7, URIC, TSH, CMP #### [facility] [address] [place], [place] [address] Dr. Jaymie Gilbert Arthroscopy of knee with meniscus repair Tigre Rae Pneumatic retinopexy Tigre Rae Tonsillectomy and adenoidectomy Tigre Rae Vasectomy Tigre Matias cz Payers Date Payer Category Payer Unknown [id number] 2.16.8 [id number] 1960 Unknown [id number] 2.16.84 [id number] 1960 Unknown [id number] 2.16.84 [id number] 1960 Unknown [id number] 2.16.84 0.1.184381.3.579.2.593 1960 Unknown [id number] 2.16.84 0.1.416300.3.579.2.593 1960 Unknown [id number] 2.16.84 0.1.227989.3.579.2.593 1960 Unknown [id number] 2.16.84 0.1.995742.3.579.2.593 1960 Unknown [id number] 2.16.84 0.1.595133.3.579.2.593 1960 Unknown [id number] 2.16.84 0.1.400164.3.579.2.593 1960 Unknown [id number] 2.16.84 0.1.511326.3.579.2.593 1960 Unknown [id number] 2.16.84 0.1.518719.3.579.2.593 1960 Unknown [id number] 2.16.8 [id number] 1960 Unknown [id number] 2.16.840 .[id number] 1959 Unknown [id number] Unknown Social History Date Type Detail Facility Start: 04-26-2020 Tobacco smoking status Never s moked tobacco (finding) [facility] Tobacco smoking status Never [facility] Sex Assigned At Male [facility] Hospital Discharge instructions 04-26-2021 Note Date & Type Note Facility 04-26-2021 Hospital Discharg e instructions Follow Up Care 04/26/2021 09:33:13 With:Tigre Rae Address: [facility] [address] [place] [phone] Fax Business (1) When: Unknown Comments:f/u in 18 months. prior to f/u at [facility] check cbc, cmp, spep sflc simmunofixation. no imaging. [facility] Evaluation + Plan note LaboratoryRadiology Note Date [...] 04/27/21Protein Electrophoresis 04/27/21XR Bone Survey Complete 04/17/22 [facility] Hospital course Narrative Note Date & Type Note Facility Hospital course Narrative No data available for this section [facility] Progress note Note Date & Type Note Facility Progress note No data available for this section [facility] Summary Purpose Family History No Family History [...] section and content) DATE CREATED AUTHOR 09/18/[address] [facility] DATE CREATED AUTHOR AUTHOR'S ORGANIZ ATION 06/13/2019 [facility] [place] [facility] DATE CREATED AUTHOR AUTHOR'S ORGANIZ ATION 10/27/2021 [employer] DATE CREATED AUTHOR AUTHOR'S ORGANIZ ATION 10/28/2021 [facility] DATE CREATED AUTHOR AUTHOR'S ORGANIZ ATION 05/25/2022 [facility] DATE CREATED AUTHOR AUTHOR'S ORGANIZ ATION 07/18/2022 [facility] DATE CREATED AUTHOR AUTHOR'S ORGANIZ ATION 10/27/2022 [facility] DATE CREATED AUTHOR AUTHOR'S ORGANIZ ATION 03/05/2023 [facility] EPIC Patient Care team informatio n (unrecognized section and content) Personnel Name: Vickie Eason MD Address: Address: [address] [place] [address] FOR RECORDS PERTAINING TO PATIENTS WHO ARE [...] BE BASED ON THE PRIMARY CLINICAL RECORDS. [facility] [employer] [facility]. provides no warranty or guarantee of the accuracy or completeness of information in this document.
[2023-09-03 09:58] LABS: Alanine Aminotransferase 22 U/L (16-63); Albumin Globulin Ratio 0.6; Albumin Level 3.1 g/dL (3.4-5.0); Alkaline Phosphatase 37 U/L (46-116); Anion Gap 10.5; Aspartate Amino Transferase 18 U/L (15-37); BUN Creatinine Ratio 13.3; Bilirubin Total 0.7 mg/dL (0.2-1.0); Calcium 8.4 mg/dL (8.5-10.1); Carbon Dioxide 26.4 mmol/L (21.0-32.0); Chloride 104 mmol/L (98-107); Chol HDL Ratio 2.9; Cholesterol 177 mg/dL (<=200); Estimated GFR (African America >60 (>=60); Estimated GFR (Non-African Ame >60 (>=60); Free T3 3.46 pg/mL (2.18-3.98); Globulin 5.3 g/dL; Glucose 97 mg/dL (74-106); HDL Cholesterol 62 mg/dL (40-60); Potassium 3.9 mmol/L (3.5-5.1); Sodium 137 mmol/L (136-145); Thyroid Stimulating Hormone 0.454 uIU/mL (0.358-3.740); Total Protein 8.4 g/dL (6.4-8.2); Triglycerides 38 mg/dL (<=150); Uric Acid 5.6 mg/dL (3.5-7.2); VLDL CHOLESTEROL 7.6 mg/dL
[2023-09-03 10:18] LABS: Prostate Specific Antigen Dx 1.07 ng/mL (<=4.00)
[2023-09-03 11:38] LABS: Estimated Average Glucose 117 mg/dL; Glycohemoglobin A1C 5.7 % (4.5-6.2)
== END 2023-09-03 09:06 | disposition home or self-care (01) ==
LOC: LAB 09:07
PROVIDERS: PCP Family Medicine; Visit Provider Family Medicine
DX: Z00.00 Encounter for general adult medical examination without abnormal findings (principal)
CPT/HCPCS: 36415; 80053; 80061; 83036; 84153; 84436; 84443; 84481; 84550; 85025

== ENCOUNTER 2023-09-09 08:50 | Outpatient (OUT) | payer OTHER, SELFPAY ==
--- OUTSIDE RECORDS SUMMARY | 2023-09-09 08:55 | XMS_ITS | CCD ---
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 Kathy Johns Attending Unavailabl e Neriy, [...] [ciprofloxacin] Drug Allergy Intolerance, function (observable entity) [facility] (2 sources) Ciprofloxacin Drug Allergy 7 [facility] Medications Current Medications Medication Drug [...] Range Facility Physician Orderon 10-26-2022 Physician Order [id number] Normal [facility] INSULINon 04-25-2023 Insulin 9.6 uIU/mL Normal 2.6-24.9 [facility] Comment on above: Performed By: #### L IPID, T7, URIC, TSH, CMP #### [facility] [address] [place] [address] Dr. Jaymie Gilbert CBC AUTO DIFFon 07-16-2022 BASO # 0.0 103/ul Normal 0.0-0.1 [facility] Comment on above: Performed By: #### L IPID, T7, URIC, TSH, CMP #### [facility] [address] [place] [address] Dr. Jaymie Gilbert Basophils/100 WBC (Bld) 1.0 % Normal 0.2-2.0 [facility] Comment on above: Performed By: #### L IPID, T7, URIC, TSH, CMP #### [facility] [address] [place] [address] Dr. Jaymie Gilbert EO # 0.0 103/ul Normal 0.0-0.7 [facility] Comment on above: Performed By: #### L IPID, T7, URIC, TSH, CMP #### [facility] [address] [place] [address] Dr. Jaymie Gilbert Eosinophils/100 WBC (Bld) 1.0 % Normal 0.9-7.0 [facility] Comment on above: Performed By: #### L IPID, T7, URIC, TSH, CMP #### [facility] [address] [place] [address] Dr. Jaymie Gilbert Erythrocyte distribution width (RBC) [Ratio] 13.3 % Normal 11.0-15.0 [facility] Comment on above: Performed By: #### L IPID, T7, URIC, TSH, CMP #### [facility] [address] [place] [address] Dr. Jaymie Gilbert Hematocrit (Bld) [Volume fraction] 44.6 % Normal 42.0-54.0 [facility] Comment on above: Performed By: #### L IPID, T7, URIC, TSH, CMP #### [facility] [address] [place] [address] Dr. Jaymie Gilbert Hemoglobin (Bld) [Mass/Vol] 15.2 g/dL Normal 14.0-18.0 [facility] Comment on above: Performed By: #### L IPID, T7, URIC, TSH, CMP #### [facility] [address] [place] [address] Dr. Jaymie Gilbert IG # 0.01 10e3/ul Normal 0.00-0.03 [facility] Comment on above: Performed By: #### L IPID, T7, URIC, TSH, CMP #### [facility] [address] [place] [address] Dr. Jaymie Gilbert IG % 0.3 % Normal 0.0-0.5 [facility] Comment on above: Performed By: #### L IPID, T7, URIC, TSH, CMP #### [facility] [address] [place] [address] Dr. Jaymie Gilbert LYMPH # 1.5 103/ul Normal 1.2-3.8 [facility] Comment on above: Performed By: #### L IPID, T7, URIC, TSH, CMP #### [facility] [address] [place] [address] Dr. Jaymie Gilbert Lymphocytes/100 WBC (Bld) 38.0 % Normal 20.5-60.0 [facility] Comment on above: Performed By: #### L IPID, T7, URIC, TSH, CMP #### [facility] [address] [place] [address] Dr. Jaymie Gilbert MANUAL DIFF REQ NO Normal [facility] Comment on above: Performed By: #### L IPID, T7, URIC, TSH, CMP #### [facility] [address] [place] [address] Dr. Jaymie Gilbert MCH (RBC) [Entitic mass] 31.5 pg Normal 25.9-34.0 [facility] Comment on above: Performed By: #### L IPID, T7, URIC, TSH, CMP #### [facility] [address] [place] [address] Dr. Jaymie Gilbert MCHC (RBC) [Mass/Vol] 34.1 g/dL Normal 29.9-35.2 [facility] Comment on above: Performed By: #### L IPID, T7, URIC, TSH, CMP #### [facility] [address] [place] [address] Dr. Jaymie Gilbert MCV (RBC) [Entitic vol] 92.5 fL Normal 80.0-94.0 [facility] Comment on above: Performed By: #### L IPID, T7, URIC, TSH, CMP #### [facility] [address] [place] [address] Dr. Jaymie Gilbert MONO # 0.4 103/ul Normal 0.3-0.8 [facility] Comment on above: Performed By: #### L IPID, T7, URIC, TSH, CMP #### [facility] [address] [place] [address] Dr. Jaymie Gilbert Monocytes/100 WBC (Bld) 11.0 % Normal 1.7-12.0 [facility] Comment on above: Performed By: #### L IPID, T7, URIC, TSH, CMP #### [facility] [address] [place] [address] Dr. Jaymie Gilbert NEUT # 2.0 103/ul Normal 1.4-6.5 [facility] Comment on above: Performed By: #### L IPID, T7, URIC, TSH, CMP #### [facility] [address] [place] [address] Dr. Jaymie Gilbert Neutrophils/100 WBC (Bld) 48.7 % Normal 43.0-75.0 [facility] Comment on above: Performed By: #### L IPID, T7, URIC, TSH, CMP #### [facility] [address] [place] [address] Dr. Jaymie Gilbert Platelet mean volume (Bld) [Entitic vol] 9.8 fL Normal 9.5-13.5 [facility] Comment on above: Performed By: #### L IPID, T7, URIC, TSH, CMP #### [facility] [address] [place] [address] Dr. Jaymie Gilbert PLT 261 103/ul Normal 150-450 [facility] Comment on above: Performed By: #### L IPID, T7, URIC, TSH, CMP #### [facility] [address] [address] [address] Jaymie Gilbert RBC 4.82 106/ul Normal 4.70-6.10 [facility] Comment on above: Performed By: #### L IPID, T7, URIC, TSH, CMP #### [facility] [address] [place] [address] Dr. Jaymie Gilbert WBC 4.0 103/ul Normal 4.0-11.0 [facility] Comment on above: Performed By: #### L IPID, T7, URIC, TSH, CMP #### [facility] [address] [place] [address] Dr. Jaymie Gilbert FREE THYROXINE INDEX T7on FTI 1.57 Normal 1.30-4.50 [facility] Comment on above: Performed By: #### L IPID, T7, URIC, TSH, CMP #### [facility] [address] [place] [address] Dr. Jaymie Gilbert T3U 32.0 % Critically low 33.0-40.0 [facility] Comment on above: Performed By: #### L IPID, T7, URIC, TSH, CMP #### [facility] [address] [place] [address] Dr. Jaymie Gilbert T4 [Mass/Vol] 4.90 ug/dL Normal 4.50-12.10 [facility] Comment on above: Performed By: #### L IPID, T7, URIC, TSH, CMP #### [facility] [address] [place] [address] Dr. Jaymie Gilbert GLYCOHEMOGLOBIN A1Con 2022 ADA RECOMMENDATION SEE BELOW Normal [facility] Comment on above: Result Comment: ADA RECOMMENDED LIMIT 4.0 - 6.0 ADA THERAPEUTIC TARGET < 7.0 ACTION SUGGESTED > 7.0 Performed By: #### L IPID, T7, URIC, TSH, CMP #### [facility] [address] [place] [address] Dr. Jaymie Gilbert Glucose [Mass/Vol] 114 mg/dL Normal [facility] Comment on above: Performed By: #### L IPID, T7, URIC, TSH, CMP #### [facility] [address] [place] [address] Dr. Jaymie Gilbert HbA1c (Bld) [Mass fraction] 5.6 % Normal 4.5-6.2 [facility] Comment on above: Performed By: #### L IPID, T7, URIC, TSH, CMP #### [facility] [address] [place] [address] Dr. Jaymie Gilbert LIPID PROFILEon 07-16-2022 CHOL-HDL RATIO NORM SEE BELOW Normal [facility] Comment on above: Result Comment: 3.3 - 4.4 LOW RISK 4.4 - 7.1 AVERAGE RISK 7.1 - 11.0 MODERATE RISK >11.0 HIGH RISK Performed By: #### L IPID, T7, URIC, TSH, CMP #### [facility] [address] [place] [address] Dr. Jaymie Gilbert Cholesterol [Mass/Vol] 212 mg/dL Critically high <=200 [facility] Comment on above: Performed By: #### L IPID, T7, URIC, TSH, CMP #### [facility] [address] [place] [address] Dr. Jaymie Gilbert Cholesterol in HDL [Mass/Vol] 67 mg/dL Critically high 40-60 [facility] Comment on above: Performed By: #### L IPID, T7, URIC, TSH, CMP #### [facility] [address] [address] [address] Jaymie Gilbert Cholesterol in LDL [Mass/Vol] 132.4 mg/dL Normal [facility] Comment on above: Performed By: #### L IPID, T7, URIC, TSH, CMP #### [facility] [address] [place] [address] Dr. Jaymie Gilbert Cholesterol.total/ Cholesterol in HDL [Mass ratio] 3.2 {ratio} Normal [facility] Comment on above: Performed By: #### L IPID, T7, URIC, TSH, CMP #### [facility] [address] [address] [address] Jaymie Gilbert HDL NORMAL > or = 60 mg/dl - LO W CARDIOVASCULAR RISK <40 mg/dl - HIGH CARDIOVASCULAR RISK Normal [facility] Comment on above: Performed By: #### L IPID, T7, URIC, TSH, CMP #### [facility] [address] [address] [address] Jaymie Gilbert LDL CALC NORMAL SEE BELOW Normal [facility] Comment on above: Result Comment: <100 mg/dl OPTIMAL 100 - 129 mg/dl NEAR OR ABOVE OPTIMAL 130 - 159 mg/dl BORDERLINE HIGH 160 - 189 mg/dl HIGH >190 mg/dl VERY HIGH Performed By: #### L IPID, T7, URIC, TSH, CMP #### [facility] [address] [address] [address] Jaymie Gilbert Triglyceride [Mass/Vol] 63 mg/dL Normal <=150 [facility] Comment on above: Performed By: #### L IPID, T7, URIC, TSH, CMP #### [facility] [address] [address] [address] Jaymie Gilbert VLDL CALC 12.6 mg/dL Normal [facility] Comment on above: Performed By: #### L IPID, T7, URIC, TSH, CMP #### [facility] [address] [address] [address] Jaymie Gilbert PROF 14(COMP METB)on 023 Albumin [Mass/Vol] 3.7 g/dL Normal 3.4-5.[address] [facility] Comment on above: Performed By: #### L IPID, T7, URIC, TSH, CMP #### [facility] [address] [address] [address] Jaymie Gilbert Albumin/Globulin [Mass ratio] 0.7 {ratio} Normal [facility] Comment on above: Performed By: #### L IPID, T7, URIC, TSH, CMP #### [facility] [address] [address] [address] Jaymie Gilbert ALP [Catalytic activity/Vol] 42 U/L Critically low 46-116 [facility] Comment on above: Performed By: #### L IPID, T7, URIC, TSH, CMP #### [facility] [address] [place] [address] Dr. Jaymie Gilbert ALT [Catalytic activity/Vol] 28 U/L Normal 16-63 [facility] Comment on above: Performed By: #### L IPID, T7, URIC, TSH, CMP #### [facility] [address] [place] [address] Dr. Jaymie Gilbert Anion gap [Moles/Vol] 12.0 mmol/L Normal [facility] Comment on above: Performed By: #### L IPID, T7, URIC, TSH, CMP #### [facility] [address] [place] [address] Dr. Jaymie Gilbert AST [Catalytic activity/Vol] 16 U/L Normal 15-37 [facility] Comment on above: Performed By: #### L IPID, T7, URIC, TSH, CMP #### [facility] [address] [place] [address] Dr. Jaymie Gilbert Bilirubin [Mass/Vol] 0.6 mg/dL Normal 0.2-1.0 [facility] Comment on above: Performed By: #### L IPID, T7, URIC, TSH, CMP #### [facility] [address] [place] [address] Dr. Jaymie Gilbert Calcium [Mass/Vol] 9.1 mg/dL Normal 8.5-10.[address] [facility] Comment on above: Performed By: #### L IPID, T7, URIC, TSH, CMP #### [facility] [address] [place] [address] Dr. Jaymie Gilbert Chloride [Moles/Vol] 104 mmol/L Normal 98-107 [facility] Comment on above: Performed By: #### L IPID, T7, URIC, TSH, CMP #### [facility] [address] [place] [address] Dr. Jaymie Gilbert CO2 [Moles/Vol] 27.3 mmol/L Normal 21.0-32.0 [facility] Comment on above: Performed By: #### L IPID, T7, URIC, TSH, CMP #### [facility] [address] [place] [address] Dr. Jaymie Gilbert Creatinine [Mass/Vol] 1.17 mg/dL Normal 0.70-1.30 [facility] Comment on above: Performed By: #### L IPID, T7, URIC, TSH, CMP #### [facility] [address] [address] [address] Jaymie Gilbert EGFR-AF OMANI >60 Normal >=60 [facility] Comment on above: Performed By: #### L IPID, T7, URIC, TSH, CMP #### [facility] [address] [place] [address] Dr. Jaymie Gilbert EGFR-NON AF OMANI >60 Normal >=60 [facility] Comment on above: Performed By: #### L IPID, T7, URIC, TSH, CMP #### [facility] [address] [place] [address] Dr. Jaymie Gilbert Globulin (S) [Mass/Vol] 5.3 g/dL Normal [facility] Comment on above: Performed By: #### L IPID, T7, URIC, TSH, CMP #### [facility] [address] [place] [address] Dr. Jaymie Gilbert Glucose [Mass/Vol] 101 mg/dL Normal 74-[address] [facility] Comment on above: Performed By: #### L IPID, T7, URIC, TSH, CMP #### [facility] [address] [place] [address] Dr. Jaymie Gilbert Potassium [Moles/Vol] 4.3 mmol/L Normal 3.5-5.1 [facility] Comment on above: Performed By: #### L IPID, T7, URIC, TSH, CMP #### [facility] [address] [place] [address] Dr. Jaymie Gilbert Protein [Mass/Vol] 9.0 g/dL Critically high 6.4-8.2 [facility] Comment on above: Performed By: #### L IPID, T7, URIC, TSH, CMP #### [facility] [address] [place] [address] Dr. Jaymie Gilbert Sodium [Moles/Vol] 139 mmol/L Normal 136-[address] [facility] Comment on above: Performed By: #### L IPID, T7, URIC, TSH, CMP #### [facility] [address] [address] [address] Jaymie Gilbert Urea nitrogen [Mass/Vol] 18.0 mg/dL Normal 7.0-18.0 [facility] Comment on above: Performed By: #### L IPID, T7, URIC, TSH, CMP #### [facility] [address] [place] [address] Dr. Jaymie Gilbert Urea nitrogen/Creatinin e [Mass ratio] 15.4 mg/mg Normal [facility] Comment on above: Performed By: #### L IPID, T7, URIC, TSH, CMP #### [facility] [address] [place] [address] Dr. Jaymie Gilbert TSHon 07-16-2022 TSH 2.332 uIU/mL Normal 0.358-3.[address] [facility] Comment on above: Performed By: #### L IPID, T7, URIC, TSH, CMP #### [facility] [address] [place] [address] Dr. Jaymie iGlbert URIC ACID SERUMon 07-16-2022 Urate [Mass/Vol] 4.6 mg/dL Normal 3.5-7.2 [facility] Comment on above: Performed By: #### L IPID, T7, URIC, TSH, CMP #### [facility] [address] [place] [address] Dr. Jaymie Gilbert Oncology Progress Noteon Oncology Progress Note Patient: BRANDIN FARR Age: 61 years Sex: Male : 1960 Associated Diagnoses: None Author: Tigre Rae DO History of Present Illness 59-year-old male whom I previously followed at [facility] for monoclonal gammopathy of undetermined significance. He has a persistent M spike in the 2-3 range with quantitative igg in the 8141-5963 range.. Previously he had followed with Dr. [...] weight is stable. labs pending, drawn at [facility]. he had skeletal survey with no concerning findings last week at [facility]. 04/25/22 no new complaints. recent cbc was [...] All Problems Resolved: Hyperlipidemia / SNOMED CT 51470409 Resolved: Hypothyroidism / SNOMED CT 22390568 Histories Past Medical History: Resolved Hypothyroidism (17248293): Resolved. Hyperlipidemia (41364136): Resolved. Family History: Primary malignant neoplasm of bladder Mother Hypothyroidism Father Sister Autoimmune disease Brother Hypoglycemia Sister Procedure history: Tonsillectomy and adenoidectomy (656096329). Vasectomy (20641816). Arthroscopic repair of meniscus (2926074646). Pneumatic retinopexy (550116334). Social History Social & Psychosocial Habits Tobacco [...] Normal range of motion. Integumentary: Warm, Dry, [place]. Neurologic: Alert, Oriented, Normal sensory. Psychiatric: Cooperative, Appropriate mood & affect. Review / Management Results review: No qualifying data available . Impression and Plan Education and Follow-up: Counseled: Patient, Regarding diagnosis, Regarding treatment. Discharge Planning: Tigre Rae f/u in 18 months. prior to f/u at [facility] check cbc, cmp, spep sflc simmunofixation. no [...] M spike's (more content not included)... Normal [facility] Coding Summary.on 04-26-2022 Coding Summary. CD:[id number] Gh0bWw +PGhlYWQ+GR2PFRZlB98bhOTmt Q4ON8gVCN3SWRMBOOXSMM7BPZ9 ieZZ1DCseQ7PxuyYd QljhsFKgKT29EBt3PGU1lAroFW eywP4qbZKhK3j0KaQaGO65gM05 OEioYGCdAiL3YdVvonfmgHNs B9cgWnEpiRZnJul+PHRhYmxlIH imHZOrEUfsMOCcDtHpcTfyJB7n Kf5oCVSrITGohYuanVTaPkZf k6hrKCRsKYjaUT2cyQujY0YxbF L5KXDxu5k0Tj79sZO+PHRkIHN0 wIhbXOrhp542JfYpw1doCNV3 nOBuIKujHTE6D65yn0S5JHKjHM TeOBE6hXI9yE9wlQivsfwwL1Qj kEVqQhC6ACE7pGFgnW2wrWjt izdrcN0yCbs+R50JLD4MRWARGP 0DYbe9U2MaIfxuiME+YM99VWBb EQ55uLCkaUQer8jjnYj3BhAo JKZtOKH8yXclRRkex8ZyGDSqO1 5shJUuj7F1YYUduBebuPKzTrYy vTJ4mA7tJLhujprmd6iudbuh Lyzvi5osgo86fL08Q39bZRekTB ZeQVU3INJcMKRubDzauy0tuC3o Ii8+WElic8xks8skxYx5YwHc KXOvwcOcgEhrTIQ1e5UhIb30W9 MvjGbjx9OyDyp1wq80gPJbu2B9 rQP0UCxhJIMdwJ8gAJudEtT1 JADxGiFtrL92rOOkKTqbLp0imC glhTugMS3eLHXlzaynFEIzyB8a UESiqPIitQyfRL0iXMBlmspm s129AgXtBDY7TLMobJVlN8AleI 7eGmNaCGYqAAXwP5IgvLBoZGmt D021ZDdkLgP2EZJpecApZ2Jr NLWytGehPtF7r4Z1Pn4Os8Tifr lhJMD3SLmiPUQtPdEfBjNtGdY5 U5SvDwt0DEZmjJxqRV3xG8So ODUkyirxmxbusSY0PDCmJRGroE 45eQPuBEhiDo2mg0X1p506DJQb YESdaV50Ka7njOfzGSTlqBUF lN8jwcixm7zzpvhqXuJlPMMcOA f9DJo2LDKrxLjfCdJcFOD6IwB1 YZS8yEEzuD3jgCnkyfwmdI2s Oyc+R34neW8zBFO5MOM6cqgtYO UipyDtPA16CE51U0JuFliinZJl bGU+VFIqwdNxlZeeIH1oRyQj d2htp2TwCFwxL8ThKHLuADhyYg w8UQXdQOS5oHW5lY1kVLNaUTdn u1M8oNK3S4SpzwNrny6yl4lz WXOyWIkzX31zkMYlp1P3UEDnwK B9HHKikFqtRyNfcJ99Crx+PGNv sJtnv7KdAltzb8glz3ymjYv0 VgQiKGNrlhRihRjeREP8a8AwXb 49Q61nTVrhFXDhYJEkFSDlPMVt iEntng8hyA4bOh1+PGNvbCB3 lRG6iI9pQUCtZjL0IXixB942No VxdNCtMxjfv9crd5etdYr3MpPh IYUodxKxuGouVRX2w0QvDy71 Q81mUYpcEKXtVQGhJMBgEUDxuV jjkv2tkP1bYx4+OV7xt4dwcf03 yV99mDM+UQDzNBM3iSpfEJha QCXarJ0hXBpbKdY9YZGjIxJmyT 56dBNnYDsvIn7fbXswwQagAE6c IBHinkdeu724EzZxo5qiSRVh iTXuUFndEUW9C67zv4J2OPUpXZ JpAGV8fEA1sB1ttIrfajzojWZs lHofcfKblFvxLVbxYUscI539 IHRvcDsnPlBhdGllbnQgTmFtZT h0O9LkUsf6HSSpfIfqVV0sqWAl GKfuGd8fiMswcXpiAZ2eRJIw hnugy621JmKca4idFAEfmBRlVE xaYQZ5Q10om3U7MQXnXDQxWKT2 uNR8tS3zsHqhgyfziLZkqBqa byWflHexJQlhQTniF918RXVddO rxKtNvvnSqJQXbwPL4XA01DW70 iBUpl5G6jAM5Z6VwXCSwiofx zakwaMA6JIRgFOQkjZ95Kr0haC xxNa1eNKGeXGT6VWJjaNYbK6Ko sR9aWlUqASJmGQJwI8VbqYTh UMcjX959WOblUtL6WOAdnnPvE5 EvKEBquKkfUpD3v6S2Iv3PK4O6 LP19JQ55dQGqh5E7dVI6U0Qg FSBvpeidcrfjsTQ8UVKkNANrmF 95Vy8jmLrgKk8uWTOcHMQ6XWLv sOKvQ5SttW1eGvYhJAOvOFBe B5XehGUsCBdzS193JIdzFmX6CI KnerYjN4OpHSHgvPrlZgD4c4Y4 Je2QSGo6NM14KZ73pXCtn7R3 vSA4M9DoJFGlyhugdigzgSZ5VT NbZLIykP72Ub4erBsgUj0hSHNe GYN1IUVkeFAzV6TdyQ5fLkOp DJXdUFHvO2NlbBYzNNzyE561DM qnMuA3WJVuetEyK4AxHJYkxMwp UpT4b3Z9Eh9XEXEnGK23ZIX9 jVK5LM05VQ09H5CpAxukwCVvgR U+PHRhYmxlIHdpZHRoPScxMDAl XxSxcBtfMR0vQv3dIXHoZARx sOydpEWgAsAvz4iiPOEuONwtLT 3bnGqxD0AryDC3KIBhp0n7Pp18 F54zJ3RivUU+HHMzlFZ1gOI3 cD3gIiSbUpF4RTquA032JfWuzB PwTavoh4qie0ceaUk0XwA2OVEz ktFwvMxrOMX1v2MoPw44C79o IHdpZHRoPSIxNSUiIHZhbGlnbj 5nlP8bAc3+DYNyvMO3qTX9xH3v EhDlNuN6XIhnV742QsEsyRCi Jfugc4chf7iycVk6ZoMyVSQedp LduUadNWY2x4TbAi12Q1ZrfTqt g5XmVyn8ry94zXGvt6G1fDZ5 Y9QbRZOrhhopmBKvdUpiFV6gUV IvyecuVYLnwN1lUTVkG6w2MyPu SxI8MPxrP1KaqaH3ZAQtpSKd AWvoKDK5Z59qz0G3HAAuVBDzYZ Y6vPH3fF8iwBlyexgzeLWiwRce rgPhbWruCEtrETtdL528GVOc zNgjPNVhvO3wEUJclHXdcDchTA 1gJGRodyjtGf5SYCUBUGQKNDVY LXUMYV95DZ54fJLsf0N0mFD9 G3KiVKCpbsgnfgxrkMJ0TXElNZ UseA90nGBrBHumJb2yl1Y4w018 MSOfQMXocN20Lf2yzRvbHTCo dLOIrN8hoslva2rlqwpjHsGlFH ZrRGx3TYc0LXGxmWceSjMtEDD4 XbS7JUY4iMUcwP7hcAycfjre mS1rKka+VNUrIURkDEv7BCwdyP Q+PZAyGES7qCtpKHyqJPHdgL2n GROzQ3s9MyMsOuG5WDflY4Hf HIOeaooaXq15cL4fYsZpNaV2SW klQ7IylbZ0UBSkiTEoLTimVGI7 O95pq5Q1AENsYBRfKYI3uDM5 hV2wzDigexsofNLypMrvnmHhuY eeRBraRSxpP400NXYaqIiyWsHw DMajIWQdAK52VJ80uRIlc8G1 eGK2F3QcMKFriaeaatoheYO3YF RyTZNmlC47xMLyXXhoAd3fd7K7 i857ZAJvKDUyqL81Jd0nfIqd SIBjsTGZqO4qpiwyd6rpvmgfVs UkTHGpQGb1ZVv6BYPgwJdtQfXk HDT0VdA5YGR0fKIvfW8jtWcu ninwjO2uRvh+TWFsZTwvdGQ+PH CnLKH5rBbbOIedNVBsgX5mKTLz F7v6UnYxBlX0KTdpN6QsSOBc omcvCp35dR8jUdAoWlP2NCysS0 FnkyK3SIHnwLJbAOouEHV6N11r x7B6HLUwDAFdGDT7iRK8tQ9h bGlnbjogbGVmdDsgdmVydGljYW ixWVirB691DNDrdYidUd40xATh rYiicbE7Y3MrPwxszNG+PC90 IOBzGS64uUGtgSGes8kwgTf7Hj QiNCNnLKM5mJewABwka3ZgJYPs R30avLNtc6W6OUXneMqkiRXl XtTmvUS6rD0iIKasxyogo4ndtw yyZgefy0ravd00tT78Z50bOMdq VPGdYHInLQZpNXSkvIwxns1z kN0lVw0+GWHeeGC7nFQ5tS8jMn WaSvK2MEhuO120GcOvwMYxEzst s5qbr1bydIj3GxNkAAZckbCf sJetYWG1d0HwLw02O56xMSsgIC BeTTRyPFWfHHFttFkcer4lcN4z Ii8+CR8ub6upbh32kN82jND+ IJQtEDB2gYgtHWrzWEMjgH4rGB ffPoU6QODfLjPxfK18gZPpZNcu Ov5reNgrbIaoWG7yEJZhvrdg k697KlJnn8uuYIPnzQLhEZevWH L7M85wo9Y7ROFlXCYjVIJ9vSQ9 tR4klBcdikmiwOAkpGmszqKa hInlCDzaHAheO345JIKjkZicYg NtyBQgR5iorpXEQK9iDrqtpQB+ TNOyUTR1iAadRDozFVTxyJ8w IDIhG1z0XvShMwY1XYywJ6Vdpi H1ECHxzBAeKLWqvKCSxP5nuliq k4pulkkeDgHyBLWrPEv4GGl5 DRWrwXuoJvCiMRD3XzG8LXL7hR NdcH8htTytzuuxhG3aDwx+RklO OjwvdGQ+CRBwZFT2oWdzIYnf JQLekX8rTZJbC0a1TpVjKtW0AK fxK1LelzF2JEZcsUOhSFGuxZPR nH2mshogi0lifyybZxWyHIZs CIo3SXd3GCKnlOliWtTyJUI4Qt J3PWG4uQLvwQ5xlQtoulcdlG5i Oyc+TVJOOjwvdGQ+PHRkIHN0 mGriHHaiZEIdcN4iXRGvP2v8Rr GsMzN5VNxaY6AjefF4QWIppTGr ZFTawWVKvA4xjwdcn9zfsswm JfUvPCYmCOg3HPj3XYDkpXopTg PsYRS3KpC3BPR9vMCpkU0wbWpo wjxzeU8jRfn+SBE5GSS3MQ91 FT42B3QrRliyvKDhcFL+PHRhYm xlIHdpZHRoPScxMDAlJyBzdHls EL5wFw2dCUSuDXKzdMszyKNr OiBj (more content not included)... [facility] Consent for Treatmenton Consent for Treatment [id number]:127 [facility] Oncology Noteon 04-25-2022 Oncology Note Oncology Care Coordi nator Office Visit/Treatment Note Current Patient Status/Reason: Pt in for scheduled clinic visit. Dr Rae and med student Andres saw pt. Treatment Plan: Labs before f/u appt. Wants labs at [place]. Follow-Up Appointment Info/Referrals: F/U at 18 months. Resources Offered: I instructed pt in labs before visit. Pt wants them at [facility], he will call us when going to get them so we can fax to [facility] since not due for 18 months, and orders only good for 12 months. Pt given my contact information and will call when going to get labs so they can be faxed to [facility]. [facility] Comment on above: Result Comment: Elec tronically Signed By: Carla Carpenter RN\.br\Date and Time Signed: 04/25/22 10:55 EST Outside Radiologyon 04-20-19 23 Outside Radiology [id number]:127 [facility] Oncology Noteon 04-18-[address] Rae viewed labs from [facility] done 04/09/2022. No new orders. [facility] Comment on above: Result Comment: Elec tronically Signed By: Carla Carpenter RN\.br\Date and Time Signed: 04/18/22 07:38 EST BETA-2 MICROGLOBINon 023 Beta-2 Microglobulin, Serum 2.4 mg/L Normal 0.6-2.4 [facility] Comment on above: Result Comment: Mookie prince Immulite 2000 Immunochemiluminometric assay (ICMA) . Values obtained with different assay methods or kits cannot be used interchangeably. Results cannot be interpreted as absolute evidence of the presence or absence of malignant disease. Performed By: #### L IPID, T7, URIC, TSH, CMP #### [facility] [address] [place] [address] Dr. Jaymie Gilbert IMMUNOFIXATION(JOLLY),PROTEIN ELEC(PE),[facility] Albumin [Mass/Vol] 3.5 g/dL Normal 2.9-4.4 [facility] Comment on above: Performed By: #### L IPID, T7, URIC, TSH, CMP #### [facility] [address] [place] [address] Dr. Jaymie Gilbert Albumin/Globulin [Mass ratio] 0.9 {ratio} Normal 0.7-1.7 [facility] Comment on above: Performed By: #### L IPID, T7, URIC, TSH, CMP #### [facility] [address] [place] [address] Dr. Jaymie Gilbert Mlbds-9-Jxxkkcbp 0.2 g/dL Normal 0.0-0.4 [facility] Comment on above: Performed By: #### L IPID, T7, URIC, TSH, CMP #### [facility] [address] [place] [address] Dr. Jaymie Gilbert Ruidi-2-Skyvthqf 0.7 g/dL Normal 0.4-1.0 [facility] Comment on above: Performed By: #### L IPID, T7, URIC, TSH, CMP #### [facility] [address] [place] [address] Dr. Jaymie Gilbert Beta Globulin 0.9 g/dL Normal 0.7-1.3 [facility] Comment on above: Performed By: #### L IPID, T7, URIC, TSH, CMP #### [facility] [address] [address] [address] Jaymie Gilbert Free [place] Lt Chains,S 8.9 mg/L Normal 3.3-19.4 [facility] Comment on above: Performed By: #### L IPID, T7, URIC, TSH, CMP #### [facility] [address] [address] [address] Jaymie Gilbert Free Lambda Lt Chains,S 18.7 mg/L Normal 5.7-26.3 [facility] Comment on above: Performed By: #### L IPID, T7, URIC, TSH, CMP #### [facility] [address] [address] [address] Jaymie Gilbert Gamma Globulin 2.5 g/dL Critically high 0.4-1.8 [facility] Comment on above: Performed By: #### L IPID, T7, URIC, TSH, CMP #### [facility] [address] [place] [address] Dr. Jaymie Gilbert Globulin (S) [Mass/Vol] 4.2 g/dL Critically high 2.2-3.9 [facility] Comment on above: Performed By: #### L IPID, T7, URIC, TSH, CMP #### [facility] [address] [address] [address] Jaymie Gilbert Immunofixation Result, Serum Comment Abnormal [facility] Comment on above: Result Comment: Immu nofixation shows IgG monoclonal protein with lambda light chain specificity. Performed By: #### L IPID, T7, URIC, TSH, CMP #### [facility] [address] [place] [address] Dr. Jaymie Gilbert Immunoglobulin A, Qn, Serum 20 mg/dL Critically low 61-437 [facility] Comment on above: Result Comment: Resu lt confirmed on concentration. Performed By: #### L IPID, T7, URIC, TSH, CMP #### [facility] [address] [address] [address] Jaymie Gilbert Immunoglobulin G, Qn, Serum 3145 mg/dL Critically high 603-1613 [facility] Comment on above: Performed By: #### L IPID, T7, URIC, TSH, CMP #### [facility] [address] [address] [address] Jaymie Gilbert Immunoglobulin M, Qn, Serum 40 mg/dL Normal 20-172 [facility] Comment on above: Performed By: #### L IPID, T7, URIC, TSH, CMP #### [facility] [address] [place] [address] Dr. Jaymie Gilbert [place]/Lambda Ratio, S 0.48 Normal 0.26-1.65 [facility] Comment on above: Performed By: #### L IPID, T7, URIC, TSH, CMP #### [facility] [address] [place] [address] Dr. Jaymie Gilbert M-Markus 2.3 g/dL Critically high Not Observed [facility] Comment on above: Performed By: #### L IPID, T7, URIC, TSH, CMP #### [facility] [address] [place] [address] Dr. Jaymie Gilbert PDF . Normal [facility] Comment on above: Performed By: #### L IPID, T7, URIC, TSH, CMP #### [facility] [address] [place] [address] Dr. Jaymie Gilbert Please note: Comment [facility] Comment on above: Result Comment: Prot ein electrophoresis scan will follow via computer, mail, or yarn dry room worker delivery. Performed By: #### L IPID, T7, URIC, TSH, CMP #### [facility] [address] [place] [address] Dr. Jaymie Gilbert Protein [Mass/Vol] 7.7 g/dL Normal 6.0-8.5 [facility] Comment on above: Performed By: #### L IPID, T7, URIC, TSH, CMP #### [facility] [address] [place] [address] Dr. Jaymie Gilbert Outside Labson 04-11-2022 Outside Labs [id number]:127 Normal [facility] XR BONE SURVEYon 04-10-2022 XR BONE [...] BRANDIN MORALES Date: 2022-04-10 07:33 Normal [facility] CBC AUTO DIFFon 04-09-2022 BASO # 0.1 103/ul Normal 0.0-0.1 [facility] Comment on above: Performed By: #### L IPID, T7, URIC, TSH, CMP #### [facility] [address] [address] [address] Jaymie Gilbert Basophils/100 WBC (Bld) 1.1 % Normal 0.2-2.0 [facility] Comment on above: Performed By: #### L IPID, T7, URIC, TSH, CMP #### [facility] [address] [place] [address] Dr. Jaymie Gilbert EO # 0.1 103/ul Normal 0.0-0.7 [facility] Comment on above: Performed By: #### L IPID, T7, URIC, TSH, CMP #### [facility] [address] [place] [address] Dr. Jaymie Gilbert Eosinophils/100 WBC (Bld) 2.2 % Normal 0.9-7.0 [facility] Comment on above: Performed By: #### L IPID, T7, URIC, TSH, CMP #### [facility] [address] [place] [address] Dr. Jaymie Gilbert Erythrocyte distribution width (RBC) [Ratio] 13.0 % Normal 11.0-15.0 [facility] Comment on above: Performed By: #### L IPID, T7, URIC, TSH, CMP #### [facility] [address] [place] [address] Dr. Jaymie Gilbert Hematocrit (Bld) [Volume fraction] 43.2 % Normal 42.0-54.0 [facility] Comment on above: Performed By: #### L IPID, T7, URIC, TSH, CMP #### [facility] [address] [place] [address] Dr. Jaymie Gilbert Hemoglobin (Bld) [Mass/Vol] 14.8 g/dL Normal 14.0-18.0 [facility] Comment on above: Performed By: #### L IPID, T7, URIC, TSH, CMP #### [facility] [address] [place] [address] Dr. Jaymie Gilbert IG # 0.01 10e3/ul Normal 0.00-0.03 [facility] Comment on above: Performed By: #### L IPID, T7, URIC, TSH, CMP #### [facility] [address] [place] [address] Dr. Jaymie Gilbert IG % 0.2 % Normal 0.0-0.5 [facility] Comment on above: Performed By: #### L IPID, T7, URIC, TSH, CMP #### [facility] [address] [place] [address] Dr. Jaymie Gilbert LYMPH # 1.5 103/ul Normal 1.2-3.8 [facility] Comment on above: Performed By: #### L IPID, T7, URIC, TSH, CMP #### [facility] [address] [place] [address] Dr. Jaymie Gilbert Lymphocytes/100 WBC (Bld) 33.6 % Normal 20.5-60.0 [facility] Comment on above: Performed By: #### L IPID, T7, URIC, TSH, CMP #### [facility] [address] [place] [address] Dr. Jaymie Gilbert MANUAL DIFF REQ NO Normal [facility] Comment on above: Performed By: #### L IPID, T7, URIC, TSH, CMP #### [facility] [address] [place] [address] Dr. Jaymie Gilbert MCH (RBC) [Entitic mass] 30.7 pg Normal 25.9-34.0 [facility] Comment on above: Performed By: #### L IPID, T7, URIC, TSH, CMP #### [facility] [address] [place] [address] Dr. Jaymie Gilbert MCHC (RBC) [Mass/Vol] 34.3 g/dL Normal 29.9-35.2 [facility] Comment on above: Performed By: #### L IPID, T7, URIC, TSH, CMP #### [facility] [address] [place] [address] Dr. Jaymie Gilbert MCV (RBC) [Entitic vol] 89.6 fL Normal 80.0-94.0 [facility] Comment on above: Performed By: #### L IPID, T7, URIC, TSH, CMP #### [facility] [address] [place] [address] Dr. Jaymie Gilbert MONO # 0.5 103/ul Normal 0.3-0.8 [facility] Comment on above: Performed By: #### L IPID, T7, URIC, TSH, CMP #### [facility] [address] [place] [address] Dr. Jaymie Gilbert Monocytes/100 WBC (Bld) 11.9 % Normal 1.7-12.0 [facility] Comment on above: Performed By: #### L IPID, T7, URIC, TSH, CMP #### [facility] [address] [place] [address] Dr. Jaymie Gilbert NEUT # 2.3 103/ul Normal 1.4-6.5 [facility] Comment on above: Performed By: #### L IPID, T7, URIC, TSH, CMP #### [facility] [address] [place] [address] Dr. Jaymie Gilbert Neutrophils/100 WBC (Bld) 51.0 % Normal 43.0-75.0 [facility] Comment on above: Performed By: #### L IPID, T7, URIC, TSH, CMP #### [facility] [address] [place] [address] Dr. Jaymie Gilbert Platelet mean volume (Bld) [Entitic vol] 9.4 fL Critically low 9.5-13.5 [facility] Comment on above: Performed By: #### L IPID, T7, URIC, TSH, CMP #### [facility] [address] [place] [address] Dr. Jaymie Gilbert PLT 287 103/ul Normal 150-450 [facility] Comment on above: Performed By: #### L IPID, T7, URIC, TSH, CMP #### [facility] [address] [place] [address] Dr. Jaymie Gilbert RBC 4.82 106/ul Normal 4.70-6.10 [facility] Comment on above: Performed By: #### L IPID, T7, URIC, TSH, CMP #### [facility] [address] [place] [address] Dr. Jaymie Gilbert WBC 4.5 103/ul Normal 4.0-11.0 [facility] Comment on above: Performed By: #### L IPID, T7, URIC, TSH, CMP #### [facility] [address] [place] [address] Dr. Jaymie Gilbert Outside Labson 04-09-2022 Outside Labs [id number]:127 Normal [facility] PROF 14(COMP METB)on 023 Albumin [Mass/Vol] 3.3 g/dL Critically low 3.4-5.0 [facility] Comment on above: Performed By: #### L IPID, T7, URIC, TSH, CMP #### [facility] [address] [place] [address] Dr. Jaymie Gilbert Albumin/Globulin [Mass ratio] 0.7 {ratio} Normal [facility] Comment on above: Performed By: #### L IPID, T7, URIC, TSH, CMP #### [facility] [address] [place] [address] Dr. Jaymie Gilbert ALP [Catalytic activity/Vol] 50 U/L Normal 46-116 [facility] Comment on above: Performed By: #### L IPID, T7, URIC, TSH, CMP #### [facility] [address] [place] [address] Dr. Jaymie Gilbert ALT [Catalytic activity/Vol] 20 U/L Normal 16-63 [facility] Comment on above: Performed By: #### L IPID, T7, URIC, TSH, CMP #### [facility] [address] [place] [address] Dr. Jaymie Gilbert Anion gap [Moles/Vol] 11.2 mmol/L Normal [facility] Comment on above: Performed By: #### L IPID, T7, URIC, TSH, CMP #### [facility] [address] [place] [address] Dr. Jaymie Gilbert AST [Catalytic activity/Vol] 14 U/L Critically low 15-37 [facility] Comment on above: Performed By: #### L IPID, T7, URIC, TSH, CMP #### [facility] [address] [place] [address] Dr. Jaymie Gilbert Bilirubin [Mass/Vol] 0.5 mg/dL Normal 0.2-1.0 [facility] Comment on above: Performed By: #### L IPID, T7, URIC, TSH, CMP #### [facility] [address] [place] [address] Dr. Jaymie Gilbert Calcium [Mass/Vol] 9.3 mg/dL Normal 8.5-10.[address] [facility] Comment on above: Performed By: #### L IPID, T7, URIC, TSH, CMP #### [facility] [address] [place] [address] Dr. Jaymie Gilbert Chloride [Moles/Vol] 103 mmol/L Normal 98-107 [facility] Comment on above: Performed By: #### L IPID, T7, URIC, TSH, CMP #### [facility] [address] [place] [address] Dr. Jaymie Gilbert CO2 [Moles/Vol] 27.1 mmol/L Normal 21.0-32.0 [facility] Comment on above: Performed By: #### L IPID, T7, URIC, TSH, CMP #### [facility] [address] [place] [address] Dr. Jaymie Gilbert Creatinine [Mass/Vol] 0.97 mg/dL Normal 0.70-1.30 [facility] Comment on above: Performed By: #### L IPID, T7, URIC, TSH, CMP #### [facility] [address] [place] [address] Dr. Jaymie Gilbert EGFR-AF OMANI >60 Normal >=60 [facility] Comment on above: Performed By: #### L IPID, T7, URIC, TSH, CMP #### [facility] [address] [place] [address] Dr. Jaymie Gilbert EGFR-NON AF OMANI >60 Normal >=60 [facility] Comment on above: Performed By: #### L IPID, T7, URIC, TSH, CMP #### [facility] [address] [place] [address] Dr. Jaymie Gilbert Globulin (S) [Mass/Vol] 5.0 g/dL Normal [facility] Comment on above: Performed By: #### L IPID, T7, URIC, TSH, CMP #### [facility] [address] [address] [address] Jaymie Gilbert Glucose [Mass/Vol] 106 mg/dL Normal 74-[address] [facility] Comment on above: Performed By: #### L IPID, T7, URIC, TSH, CMP #### [facility] [address] [place] [address] Dr. Jaymie Gilbert Potassium [Moles/Vol] 4.3 mmol/L Normal 3.5-5.1 [facility] Comment on above: Performed By: #### L IPID, T7, URIC, TSH, CMP #### [facility] [address] [address] [address] Jaymie Gilbert Protein [Mass/Vol] 8.3 g/dL Critically high 6.4-8.2 [facility] Comment on above: Performed By: #### L IPID, T7, URIC, TSH, CMP #### [facility] [address] [place] [address] Dr. Jaymie Gilbert Sodium [Moles/Vol] 137 mmol/L Normal 136-[address] [facility] Comment on above: Performed By: #### L IPID, T7, URIC, TSH, CMP #### [facility] [address] [place] [address] Dr. Jaymie Gilbert Urea nitrogen [Mass/Vol] 18.0 mg/dL Normal 7.0-18.0 [facility] Comment on above: Performed By: #### L IPID, T7, URIC, TSH, CMP #### [facility] [address] [place] [address] Dr. Jaymie Gilbert Urea nitrogen/Creatinin e [Mass ratio] 18.6 mg/mg Normal [facility] Comment on above: Performed By: #### L IPID, T7, URIC, TSH, CMP #### [facility] [address] [place] [address] Dr. Jaymie Gilbert REVERSE T3on 02-27-2022 Reverse T3, Serum 14.0 ng/dL Normal 9.2-24.1 [facility] Comment on above: Result Comment: This test was developed and its performance characteristics determined by [facility]. It has not been cleared or approved by the Food and Drug Administration. Performed By: #### R EVRT3 #### [facility] [address] [place] [address] Dr. Jaymie Gilbert T3, TOTAL (TRIIODOTHYRONINE) on 02-24-2022 T3, TOTAL 164 ng/dL Normal 71-180 [facility] Comment on above: Performed By: #### L IPID, T7, URIC, TSH, CMP #### [facility] [address] [place] [address] Dr. Jaymie Gilbert FREE T3on 02-23-2022 FREE T3 3.66 pg/mlL Normal 2.18-3.98 [facility] Comment on above: Performed By: #### L IPID, T7, URIC, TSH, CMP #### [facility] [address] [place] [address] Dr. Jaymie Gilbert FREE T4on 02-23-2022 Free T4 [Mass/Vol] 1.00 ng/dL Normal 0.76-1.[address] [facility] Comment on above: Performed By: #### L IPID, T7, URIC, TSH, CMP #### [facility] [address] [place] [address] Dr. Jaymie Gilbert TSHon 02-23-2022 TSH 0.017 uIU/mL Critically low 0.358-3.740 [facility] Comment on above: Performed By: #### L IPID, T7, URIC, TSH, CMP #### [facility] [address] [place] [address] Dr. Jaymie Gilbert REVERSE T3on 12-01-2021 Reverse T3, Serum 17.2 ng/dL Normal 9.2-24.1 [facility] Comment on above: Result Comment: This test was developed and its performance characteristics determined by [facility]. It has not been cleared or approved by the Food and Drug Administration. Performed By: #### R EVRT3 #### [facility] [address] [place] [address] Dr. Jaymie Gilbert T3, TOTAL (TRIIODOTHYRONINE) on 11-29-2021 T3, TOTAL 170 ng/dL Normal 71-180 [facility] Comment on above: Performed By: #### T 3TOTAL #### [facility] [address] [place] [address] Dr. Jaymie Gilbert FREE T3on 11-28-2021 FREE T3 4.30 pg/mlL Critically high 2.18-3.98 [facility] Comment on above: Performed By: #### L IPID, T7, URIC, TSH, CMP #### [facility] [address] [place] [address] Dr. Jaymie Gilbert FREE T4on 11-28-2021 Free T4 [Mass/Vol] 1.20 ng/dL Normal 0.76-1.[address] [facility] Comment on above: Performed By: #### L IPID, T7, URIC, TSH, CMP #### [facility] [address] [place] [address] Dr. Jaymie Gilbert TSHon 11-28-2021 TSH Qn m[IU]/L Critically low 0.358-3.740 [facility] Comment on above: Performed By: #### L IPID, T7, URIC, TSH, CMP #### [facility] [address] [place] [address] Dr. Jaymie Gilbert CREATININEon 11-03-2021 Creatinine [Mass/Vol] 1.02 mg/dL Normal 0.70-1.30 [facility] Comment on above: Performed By: #### L IPID, T7, URIC, TSH, CMP #### [facility] [address] [place] [address] Dr. Jaymie Gilbert EGFR-AF OMANI >60 Normal >=60 [facility] Comment on above: Performed By: #### L IPID, T7, URIC, TSH, CMP #### [facility] [address] [place] [address] Dr. Jaymie Gilbert EGFR-NON AF OMANI >60 Normal >=60 [facility] Comment on above: Performed By: #### L IPID, T7, URIC, TSH, CMP #### [facility] [address] [place] [address] Dr. Jaymie Gilbert CTA CHEST WO W [...] by: BRANDIN MORALES Date: 2021-11-03 13:08 Normal [facility] XR CHEST 2 Von 11-02-2021 SARS-CoV-2 (COVID-19) [...] by: MARLENE SANDHU Date: 2021-11-02 10:55 Normal [facility] CORONAVIRUS 2019 BY PCRon SARS-CoV-2 (COVID-19) RNA RAMO+probe Ql (Unsp spec) Detected Abnormal Not Detected [facility] Comment on above: Result Comment: . [...] this test method. Fact sheet for providers: https://www.fda.gov/media/430174/download Fact sheet for patients: https://www.fda.gov/media/708597/download This test has received FDA Emergency Use Authorization [EUA] and has been verified by [facility] ([facility]). This test is only authorized for the duration of time that circumstances exist to justify the authorization of the emergency use of in vitro diagnostic tests for the detection of SARS-CoV-2 virus and/or diagnosis of COVID-19 infection under section 564(b)(1) of the Act, 21 U.S.C. 360bbb-3(b)(1), unless the authorization is terminated or revoked sooner. [facility] is certified under CLIA-88 as qualified to perform high complexity testing. Testing is performed in the [facility] laboratories located at [address] [place] [address]. Performed By: #### C OV19 #### [address] [place] [address] Covid 19 Resultson 2 SARS-CoV-2 (COVID-19) RNA [...] You may also be contacted by the [facility] to see if any of your close [...] or Naproxen (Aleve) can also be used. Izdx-elc-cvvjrdt cough and cold medicines can be used according to the instructions on the package. Some azon-rib-fackold medicines also contain acetaminophen. Make sure you [...] water are not available, use alcohol-based hand animation producer. Avoid touching your eyes, nose, and mouth [...] 24 carolyn (more content not included)... Normal [facility] CORONAVIRUS 2019 BY PCRon Lab Specimen Source Nasal, Nasopharyngeal Normal [facility] Comment on above: Performed By: #### C OV19 #### [facility] [id number] [place] [address] Office Visit (Urgent Care)on 10-26-2021 Follow-up visit [...] presents for COVID-19 testing. He works for [employer]. He presents with a 4-day history of [...] 10/26/2021 2:51:31 PM Vitals Vital Signs Recorded: [id number] 02:51PM Ezuhuthlqri20.2 F, Temporal Heart Rate97 Nfseqospozs85 Respiration QualityNormal Ppqwvkxg118, Sitting Yvdklkfnd32, Sitting Blood Pressure Cuff SizeAdult Height5 ft 10 in Nbkaiw248 lb BMI Taetjfctrw69.11 kg/m2 BSA Calculated1.97 Tobacco Useb) No PHQ-2 #1. Over the last 2 weeks have you felt down, depressed or hopeless? (If yes, answer PHQ-9 below)No PHQ-2 #2. Over the last 2 weeks have you felt little interest or pleasure in doing things? (If yes, answer PHQ-9 below)No Falls Screening (Age 18+)a) No falls within the last year O2 Kzxczfzecf76, RA Pain Scale0 PHQ-9 #1. Little interest [...] Serum 9.1 ng/dL Critically low 9.2-24.1 [facility] Comment on above: Result Comment: This test was developed and its performance characteristics determined by [facility]. It has not been cleared or approved by the Food and Drug Administration. Performed By: #### L IPID, T7, URIC, TSH, CMP #### [facility] [address] [address] [address] Jaymie Gilbert T3, TOTAL (TRIIODOTHYRONINE) on 09-12-2021 T3, TOTAL 120 ng/dL Normal 71-180 [facility] Comment on above: Performed By: #### L IPID, T7, URIC, TSH, CMP #### [facility] [address] [place] [address] Dr. Jaymie Gilbert FREE T3on 09-11-2021 FREE T3 2.90 pg/mlL Normal 2.18-3.98 [facility] Comment on above: Performed By: #### F T3 #### [facility] [address] [place] [address] Dr. Jaymie Gilbert T4 LABCORPon 08-18-2021 T4 [Mass/Vol] 5.3 ug/dL Normal 4.5-12.[address] [facility] Comment on above: Performed By: #### T 4LC #### [facility] [address] [place] [address] Dr. Jaymie Gilbert INSULINon 08-17-2021 Insulin 6.9 uIU/mL Normal 2.6-24.9 [facility] Comment on above: Performed By: #### L IPID, T7, URIC, TSH, CMP #### [facility] [address] [place] [address] Dr. Jaymie Gilbert CBC AUTO DIFFon 08-16-2021 BASO # 0.0 103/ul Normal 0.0-0.1 [facility] Comment on above: Performed By: #### L IPID, T7, URIC, TSH, CMP #### [facility] [address] [place] [address] Dr. Jaymie Gilbert Basophils/100 WBC (Bld) 1.1 % Normal 0.2-2.0 [facility] Comment on above: Performed By: #### L IPID, T7, URIC, TSH, CMP #### [facility] [address] [place] [address] Dr. Jaymie Gilbert EO # 0.1 103/ul Normal 0.0-0.7 [facility] Comment on above: Performed By: #### L IPID, T7, URIC, TSH, CMP #### [facility] [address] [place] [address] Dr. Jaymie Gilbert Eosinophils/100 WBC (Bld) 2.4 % Normal 0.9-7.0 [facility] Comment on above: Performed By: #### L IPID, T7, URIC, TSH, CMP #### [facility] [address] [place] [address] Dr. Jaymie Gilbert Erythrocyte distribution width (RBC) [Ratio] 12.4 % Normal 11.0-15.0 [facility] Comment on above: Performed By: #### L IPID, T7, URIC, TSH, CMP #### [facility] [address] [place] [address] Dr. Jyamie Gilbert Hematocrit (Bld) [Volume fraction] 43.0 % Normal 42.0-54.0 [facility] Comment on above: Performed By: #### L IPID, T7, URIC, TSH, CMP #### [facility] [address] [place] [address] Dr. Jaymie Gilbert Hemoglobin (Bld) [Mass/Vol] 14.2 g/dL Normal 14.0-18.0 [facility] Comment on above: Performed By: #### L IPID, T7, URIC, TSH, CMP #### [facility] [address] [place] [address] Dr. Jaymie Gilbert IG # 0.01 10e3/ul Normal 0.00-0.03 [facility] Comment on above: Performed By: #### L IPID, T7, URIC, TSH, CMP #### [facility] [address] [place] [address] Dr. Jaymie Gilbert IG % 0.3 % Normal 0.0-0.5 [facility] Comment on above: Performed By: #### L IPID, T7, URIC, TSH, CMP #### [facility] [address] [place] [address] Dr. Jaymie Gilbert LYMPH # 1.2 103/ul Normal 1.2-3.8 [facility] Comment on above: Performed By: #### L IPID, T7, URIC, TSH, CMP #### [facility] [address] [place] [address] Dr. Jaymie Gilbert Lymphocytes/100 WBC (Bld) 32.1 % Normal 20.5-60.0 [facility] Comment on above: Performed By: #### L IPID, T7, URIC, TSH, CMP #### [facility] [address] [place] [address] Dr. Jaymie Gilbert MANUAL DIFF REQ NO Normal [facility] Comment on above: Performed By: #### L IPID, T7, URIC, TSH, CMP #### [facility] [address] [place] [address] Dr. Jaymie Gilbert MCH (RBC) [Entitic mass] 30.8 pg Normal 25.9-34.0 [facility] Comment on above: Performed By: #### L IPID, T7, URIC, TSH, CMP #### [facility] [address] [place] [address] Dr. Jaymie Gilbert MCHC (RBC) [Mass/Vol] 33.0 g/dL Normal 29.9-35.2 [facility] Comment on above: Performed By: #### L IPID, T7, URIC, TSH, CMP #### [facility] [address] [place] [address] Dr. Jaymie Gilbert MCV (RBC) [Entitic vol] 93.3 fL Normal 80.0-94.0 [facility] Comment on above: Performed By: #### L IPID, T7, URIC, TSH, CMP #### [facility] [address] [place] [address] Dr. Jaymie Gilbert MONO # 0.5 103/ul Normal 0.3-0.8 [facility] Comment on above: Performed By: #### L IPID, T7, URIC, TSH, CMP #### [facility] [address] [place] [address] Dr. Jaymie Gilbert Monocytes/100 WBC (Bld) 12.8 % Critically high 1.7-12.0 [facility] Comment on above: Performed By: #### L IPID, T7, URIC, TSH, CMP #### [facility] [address] [place] [address] Dr. Jaymie Gilbert NEUT # 1.9 103/ul Normal 1.4-6.5 [facility] Comment on above: Performed By: #### L IPID, T7, URIC, TSH, CMP #### [facility] [address] [address] [address] Jaymie Gilbert Neutrophils/100 WBC (Bld) 51.3 % Normal 43.0-75.0 [facility] Comment on above: Performed By: #### L IPID, T7, URIC, TSH, CMP #### [facility] [address] [place] [address] Dr. Jaymie Gilbert Platelet mean volume (Bld) [Entitic vol] 10.2 fL Normal 9.5-13.5 [facility] Comment on above: Performed By: #### L IPID, T7, URIC, TSH, CMP #### [facility] [address] [place] [address] Dr. Jaymie Gilbert PLT 236 103/ul Normal 150-450 [facility] Comment on above: Performed By: #### L IPID, T7, URIC, TSH, CMP #### [facility] [address] [place] [address] Dr. Jaymie Gilbert RBC 4.61 106/ul Critically low 4.70-6.[address] [facility] Comment on above: Performed By: #### L IPID, T7, URIC, TSH, CMP #### [facility] [address] [place] [address] Dr. Jaymie Gilbert WBC 3.7 103/ul Critically low 4.0-11.0 [facility] Comment on above: Performed By: #### L IPID, T7, URIC, TSH, CMP #### [facility] [address] [place] [address] Dr. Jaymie Gilbert FREE T3on 08-16-2021 FREE T3 4.74 pg/mlL Critically high 2.18-3.98 [facility] Comment on above: Performed By: #### L IPID, T7, URIC, TSH, CMP #### [facility] [address] [place] [address] Dr. Jaymie Gilbert FREE T4on 08-16-2021 Free T4 [Mass/Vol] 0.78 ng/dL Normal 0.76-1.46 [facility] Comment on above: Performed By: #### L IPID, T7, URIC, TSH, CMP #### [facility] [address] [place] [address] Dr. Jaymie Gilbert FREE THYROXINE INDEX T7on FTI 1.80 Normal 1.30-4.50 [facility] Comment on above: Performed By: #### L IPID, T7, URIC, TSH, CMP #### [facility] [address] [address] [address] Jaymie Gilbert T3U 34.0 % Normal 33.0-40.0 [facility] Comment on above: Performed By: #### L IPID, T7, URIC, TSH, CMP #### [facility] [address] [place] [address] Dr. Jaymie Gilbert T4 [Mass/Vol] 5.30 ug/dL Normal 4.50-12.10 [facility] Comment on above: Performed By: #### L IPID, T7, URIC, TSH, CMP #### [facility] [address] [place] [address] Dr. Jaymie Gilbert GLYCOHEMOGLOBIN A1Con 2021 ADA RECOMMENDATION SEE BELOW Normal [facility] Comment on above: Result Comment: ADA RECOMMENDED LIMIT 4.0 - 6.0 ADA THERAPEUTIC TARGET < 7.0 ACTION SUGGESTED > 7.0 Performed By: #### L IPID, T7, URIC, TSH, CMP #### [facility] [address] [place] [address] Dr. Jaymie Gilbert Glucose [Mass/Vol] 111 mg/dL Normal [facility] Comment on above: Performed By: #### L IPID, T7, URIC, TSH, CMP #### [facility] [address] [place] [address] Dr. Jaymie Gilbert HbA1c (Bld) [Mass fraction] 5.5 % Normal 4.5-6.2 [facility] Comment on above: Performed By: #### L IPID, T7, URIC, TSH, CMP #### [facility] [address] [address] [address] Jaymie Gilbert LIPID PROFILEon 08-16-2021 CHOL-HDL RATIO NORM SEE BELOW Normal [facility] Comment on above: Result Comment: 3.3 - 4.4 LOW RISK 4.4 - 7.1 AVERAGE RISK 7.1 - 11.0 MODERATE RISK >11.0 HIGH RISK Performed By: #### L IPID, T7, URIC, TSH, CMP #### [facility] [address] [address] [address] Jaymie Gilbert Cholesterol [Mass/Vol] 151 mg/dL Normal <=200 [facility] Comment on above: Performed By: #### L IPID, T7, URIC, TSH, CMP #### [facility] [address] [address] [address] Jaymie Gilbert Cholesterol in HDL [Mass/Vol] 57 mg/dL Normal 40-60 [facility] Comment on above: Performed By: #### L IPID, T7, URIC, TSH, CMP #### [facility] [address] [address] [address] Jaymie Gilbert Cholesterol in LDL [Mass/Vol] 81.6 mg/dL Normal [facility] Comment on above: Performed By: #### L IPID, T7, URIC, TSH, CMP #### [facility] [address] [address] [address] Jaymie Gilbert Cholesterol.total/ Cholesterol in HDL [Mass ratio] 2.6 {ratio} Normal [facility] Comment on above: Performed By: #### L IPID, T7, URIC, TSH, CMP #### [facility] [address] [address] [address] Jaymie Gilbert HDL NORMAL > or = 60 mg/dl - LO W CARDIOVASCULAR RISK <40 mg/dl - HIGH CARDIOVASCULAR RISK Normal [facility] Comment on above: Performed By: #### L IPID, T7, URIC, TSH, CMP #### [facility] [address] [address] [address] Jaymie Gilbert LDL CALC NORMAL SEE BELOW Normal [facility] Comment on above: Result Comment: <100 mg/dl OPTIMAL 100 - 129 mg/dl NEAR OR ABOVE OPTIMAL 130 - 159 mg/dl BORDERLINE HIGH 160 - 189 mg/dl HIGH >190 mg/dl VERY HIGH Performed By: #### L IPID, T7, URIC, TSH, CMP #### [facility] [address] [address] [address] Jaymie Gilbert Triglyceride [Mass/Vol] 62 mg/dL Normal <=150 [facility] Comment on above: Performed By: #### L IPID, T7, URIC, TSH, CMP #### [facility] [address] [address] [address] Jaymie Gilbert VLDL CALC 12.4 mg/dL Normal [facility] Comment on above: Performed By: #### L IPID, T7, URIC, TSH, CMP #### [facility] [address] [place] [address] Dr. Jaymie Gilbert PROF 14(COMP METB)on 022 Albumin [Mass/Vol] 3.4 g/dL Normal 3.4-5.[address] [facility] Comment on above: Performed By: #### L IPID, T7, URIC, TSH, CMP #### [facility] [address] [address] [address] Jaymie Gilbert Albumin/Globulin [Mass ratio] 0.7 {ratio} Normal [facility] Comment on above: Performed By: #### L IPID, T7, URIC, TSH, CMP #### [facility] [address] [address] [address] Jaymie Gilbert ALP [Catalytic activity/Vol] 40 U/L Critically low 46-116 [facility] Comment on above: Performed By: #### L IPID, T7, URIC, TSH, CMP #### [facility] [address] [address] [address] Jaymie Gilbert ALT [Catalytic activity/Vol] 29 U/L Normal 16-63 [facility] Comment on above: Performed By: #### L IPID, T7, URIC, TSH, CMP #### [facility] [address] [address] [address] Jaymie Gilbert Anion gap [Moles/Vol] 11.0 mmol/L Normal [facility] Comment on above: Performed By: #### L IPID, T7, URIC, TSH, CMP #### [facility] [address] [place] [address] Dr. Jaymie Gilbert AST [Catalytic activity/Vol] 17 U/L Normal 15-37 [facility] Comment on above: Performed By: #### L IPID, T7, URIC, TSH, CMP #### [facility] [address] [place] [address] Dr. Jaymie Gilbert Bilirubin [Mass/Vol] 0.9 mg/dL Normal 0.2-1.0 [facility] Comment on above: Performed By: #### L IPID, T7, URIC, TSH, CMP #### [facility] [address] [place] [address] Dr. Jaymie Gilbert Calcium [Mass/Vol] 8.7 mg/dL Normal 8.5-10.[address] [facility] Comment on above: Performed By: #### L IPID, T7, URIC, TSH, CMP #### [facility] [address] [place] [address] Dr. Jaymie Gilbert Chloride [Moles/Vol] 104 mmol/L Normal 98-107 [facility] Comment on above: Performed By: #### L IPID, T7, URIC, TSH, CMP #### [facility] [address] [place] [address] Dr. Jaymie Gilbert CO2 [Moles/Vol] 26.4 mmol/L Normal 21.0-32.0 [facility] Comment on above: Performed By: #### L IPID, T7, URIC, TSH, CMP #### [facility] [address] [place] [address] Dr. Jaymie Gilbert Creatinine [Mass/Vol] 0.99 mg/dL Normal 0.70-1.30 [facility] Comment on above: Performed By: #### L IPID, T7, URIC, TSH, CMP #### [facility] [address] [place] [address] Dr. Jaymie Gilbert EGFR-AF OMANI >60 Normal >=60 [facility] Comment on above: Performed By: #### L IPID, T7, URIC, TSH, CMP #### [facility] [address] [place] [address] Dr. Jaymie Gilbert EGFR-NON AF OMANI >60 Normal >=60 [facility] Comment on above: Performed By: #### L IPID, T7, URIC, TSH, CMP #### [facility] [address] [place] [address] Dr. Jaymie Gilbert Globulin (S) [Mass/Vol] 4.9 g/dL Normal [facility] Comment on above: Performed By: #### L IPID, T7, URIC, TSH, CMP #### [facility] [address] [place] [address] Dr. Jaymie Gilbert Glucose [Mass/Vol] 98 mg/dL Normal 74-[address] [facility] Comment on above: Performed By: #### L IPID, T7, URIC, TSH, CMP #### [facility] [address] [place] [address] Dr. Jaymie Gilbert Potassium [Moles/Vol] 4.4 mmol/L Normal 3.5-5.1 [facility] Comment on above: Performed By: #### L IPID, T7, URIC, TSH, CMP #### [facility] [address] [place] [address] Dr. Jaymie Gilbert Protein [Mass/Vol] 8.3 g/dL Critically high 6.4-8.2 [facility] Comment on above: Performed By: #### L IPID, T7, URIC, TSH, CMP #### [facility] [address] [place] [address] Dr. Jaymie Gilbert Sodium [Moles/Vol] 137 mmol/L Normal 136-145 [facility] Comment on above: Performed By: #### L IPID, T7, URIC, TSH, CMP #### [facility] [address] [place] [address] Dr. Jaymie Gilbert Urea nitrogen [Mass/Vol] 19.0 mg/dL Critically high 7.0-18.0 [facility] Comment on above: Performed By: #### L IPID, T7, URIC, TSH, CMP #### [facility] [address] [place] [address] Dr. Jaymie Gilbert Urea nitrogen/Creatinin e [Mass ratio] 19.2 mg/mg Normal [facility] Comment on above: Performed By: #### L IPID, T7, URIC, TSH, CMP #### [facility] [address] [place] [address] Dr. Jaymie Gilbert TSHon 08-16-2021 TSH 0.157 uIU/mL Critically low 0.358-3.740 [facility] Comment on above: Performed By: #### L IPID, T7, URIC, TSH, CMP #### [facility] [address] [place] [address] Dr. Jaymie Gilbert TSH RANGE SEE BELOW Normal [facility] Comment on above: Result Comment: <0.3 4 UIU/ml HYPERTHYROID 0.34-5.60 UIU/ml EUTHYROID >5.60 UIU/ml HYPOTHYROID Performed By: #### L IPID, T7, URIC, TSH, CMP #### [facility] [address] [place] [address] Dr. Jaymie Gilbert URIC ACID SERUMon 08-16-2021 Urate [Mass/Vol] 5.2 mg/dL Normal 3.5-7.2 [facility] Comment on above: Performed By: #### L IPID, T7, URIC, TSH, CMP #### [facility] [address] [place] [address] Dr. Jaymie Gilbert VITAMIN D 25 OHon 08-16-2021 VIT D 25-OH 26.3 ng/mL Normal [facility] Comment on above: Performed By: #### L IPID, T7, URIC, TSH, CMP #### [facility] [address] [place] [address] Dr. Jaymie Gilbert VIT D RANGES SEE BELOW Normal [facility] Comment on above: Result Comment: <20 ng/mL Vit D deficient 20 - <30 ng/mL Vit D insufficient 30 - 100 ng/mL Vit D sufficient >100 ng/mL Potential Toxicity Performed By: #### L IPID, T7, URIC, TSH, CMP #### [facility] [address] [address] [address] Jaymie Gilbert CNOVSPon 06-03-2019 CNOVSP Visit (SP) Office ([facility]) -- BRANDIN FARR ([id number]) 1960 M Date Time Provider Department 06/03/19 [...] CALCIUM IONIZED B Kevin Mckeon MD, CPE [place], [place] CC: Vickie Eason MD [address] [facility] [address] Kevin Mckeon MD 06/03/2019 3:28 PM Addendum Reading list 1. Grain Brain 2. Keto Fast 3. The Plant Paradox* Referring Provider: DAYANA BHAT [[id number]] Allergies As of Date: 06/03/2019 Noted Allergy Reaction CIPROFLOXACIN 03/30/2014 5 - Intolerance Date Reviewed: 06/03/2019 Reviewed by: Kevin Mckeon - Fully Assessed Reason for Visit: Monoclonal gammopathy [Other] Cmt: follow up Primary Visit Diagnosis:Monoclonal gammopathy [D47.2] Order(s):B2 MICROGLOBULIN B [SQB2M] Order #: [id number] FUTURE CBC + DIFF [SQCBCDIF] Order #: [id number] FUTURE COMP METABOLIC PANEL [SQCMP] Order #: [id number] FUTURE LD LACTATE DEHYDRO [SQLD6] Order #: [id number] FUTURE PHOSPHORUS INORGANIC [SQPHOS] Order #: [id number] FUTURE PROTEIN ELECTROPHORESIS W/INTERP [SQSEPG] Order #: [id number] FUTURE MONOCLONAL PROTEIN, SERUM (BLOOD) [SQSERMPA] Order #: [id number] FUTURE URIC ACID BLOOD [SQURIC] Order #: [id number] FUTURE CALCIUM IONIZED B [SQICA] Order #: [id number] FUTURE Disposition: Return in about 24 weeks [...] by KEVIN MCKEON MD on 06/13/19 Normal [facility] PROGRESSon 06-03-2019 PROGRESS HNO ID: [id number] Author: Kevin Mckeon Service: ? Author Type: [...] CALCIUM IONIZED B Kevin Mckeon MD, CPE [place], [place] CC: Vickie Eason MD [address] [facility] [address] Normal [facility] 06-01-2019 CNPN Telephone ([facility]) -- BRANDIN FARR ([id number]) 1960 M Date Time Provider Department 06/01/19 [...] by MELVINA SENA RN on 06/01/19 Normal [facility] B2 Microglobulinon 0 Globulin (S) [Mass/Vol] 2.1 mg/L Normal 0.8-2.4 [facility] Comment on above: Performed By: #### B 2M, CMP, URIC, KLFRS, SERIMM, SEPG, IFESC #### [facility] [address] [place], [place] [address] CBC and Differentialon 05-27 Abs Baso 0.04 k/uL Normal <0.11 [facility] Comment on above: Performed By: #### C BCDIF #### [facility] [address] [place], [place] [address] Abs [place] 0.50 k/uL Normal <0.87 [facility] Comment on above: Performed By: #### C BCDIF #### [address] [place], [place] [address] Abs Neut 1.85 k/uL Normal 1.45-7.50 [facility] Comment on above: Performed By: #### C BCDIF #### [address] [place], [place] [address] Absolute nRBC <0.01 Normal <0.01 [facility] Comment on above: Performed By: #### C BCDIF #### [address] [place] [address] Basophils/100 WBC (Bld) 1.1 % Normal [facility] Comment on above: Performed By: #### C BCDIF #### [address] [place] [id number] DTYPE Auto Diff Normal [facility] Comment on above: Performed By: #### C BCDIF #### [facility] [address] [place], [place] [address] Eosinophils (Bld) [#/Vol] 0.04 10*3/uL Normal <0.46 [facility] Comment on above: Performed By: #### C BCDIF #### [address] [place], [place] [address] Eosinophils/100 WBC (Bld) 1.1 % Normal [facility] Comment on above: Performed By: #### C BCDIF #### [address] [place] [address] Erythrocyte distribution width (RBC) [Ratio] 13.3 % Normal 11.5-15.0 [facility] Comment on above: Performed By: #### C BCDIF #### [address] [place] [address] Hematocrit (Bld) [Volume fraction] 46.4 % Normal 39.0-51.0 [facility] Comment on above: Performed By: #### C BCDIF #### [place] [address] Hemoglobin (Bld) [Mass/Vol] 14.4 g/dL Normal 13.0-17.0 [facility] Comment on above: Performed By: #### C BCDIF #### [place] [address] Lymphocytes (Bld) [#/Vol] 1.21 10*3/uL Normal 1.00-4.00 [facility] Comment on above: Performed By: #### C BCDIF #### [place] [address] Lymphocytes/100 WBC (Bld) 33.2 % Normal [facility] Comment on above: Performed By: #### C BCDIF #### [place] [address] MCH (RBC) [Entitic mass] 30.6 pG Normal 26.0-34.0 [facility] Comment on above: Performed By: #### C BCDIF #### [place] [address] MCHC (RBC) [Mass/Vol] 31.0 g/dL Normal 30.5-36.0 [facility] Comment on above: Performed By: #### C BCDIF #### [address] [place], [place] [address] MCV (RBC) [Entitic vol] 98.7 fL Normal 80.0-100.0 [facility] Comment on above: Performed By: #### C BCDIF #### [facility] [address] [place], [place] [address] Monocytes/100 WBC (Bld) 13.7 % Normal [facility] Comment on above: Performed By: #### C BCDIF #### [facility] [address] [place], [place] [address] Neutrophils/100 WBC (Bld) 50.9 % Normal [facility] Comment on above: Performed By: #### C BCDIF #### [facility] [address] [place], [place] [address] NRBCs 0.0 /100 WBC Normal 0 [facility] Comment on above: Performed By: #### C BCDIF #### [address] [place], [place] [address] Platelet mean volume (Bld) [Entitic vol] 10.7 fL Normal 9.0-12.7 [facility] Comment on above: Performed By: #### C BCDIF #### [facility] [address] [place], [place] [address] Platelets (Bld) [#/Vol] 263 10*3/uL Normal 150-400 [facility] Comment on above: Performed By: #### C BCDIF #### [facility] [address] [place], [place] [address] RBC (Bld) [#/Vol] 4.70 10*6/uL Normal 4.20-6.00 [facility] Comment on above: Performed By: #### C BCDIF #### [facility] [address] [place], [place] [address] WBC (Bld) [#/Vol] 3.65 10*3/uL Low 3.70-11.00 [facility] Comment on above: Performed By: #### C BCDIF #### [address] [address] Comp Metabolic Panelon 05-27 Albumin [Mass/Vol] 4.0 g/dL Normal 3.9-4.9 [facility] Comment on above: Performed By: #### B 2M, CMP, URIC, KLFRS, SERIMM, SEPG, IFESC #### [address] [address] ALP [Catalytic activity/Vol] 33 U/L Low 38-113 [facility] Comment on above: Performed By: #### B 2M, CMP, URIC, KLFRS, SERIMM, SEPG, IFESC #### [address] [address] ALT [Catalytic activity/Vol] 18 U/L Normal 10-54 [facility] Comment on above: Performed By: #### B 2M, CMP, URIC, KLFRS, SERIMM, SEPG, IFESC #### [address] [address] Anion gap [Moles/Vol] 10 mmol/L Normal 9-18 [facility] Comment on above: Performed By: #### B 2M, CMP, URIC, KLFRS, SERIMM, SEPG, IFESC #### [address] [place], [place] [address] AST [Catalytic activity/Vol] 21 U/L Normal 14-40 [facility] Comment on above: Performed By: #### B 2M, CMP, URIC, KLFRS, SERIMM, SEPG, IFESC #### [address] [place], [place] [address] Bilirubin [Mass/Vol] 0.7 mg/dL Normal 0.2-1.3 [facility] Comment on above: Performed By: #### B 2M, CMP, URIC, KLFRS, SERIMM, SEPG, IFESC #### [address] [place] [address] Calcium [Mass/Vol] 9.4 mg/dL Normal 8.5-10.2 [facility] Comment on above: Performed By: #### B 2M, CMP, URIC, KLFRS, SERIMM, SEPG, IFESC #### [address] [place] [address] Chloride [Moles/Vol] 103 mmol/L Normal 97-105 [facility] Comment on above: Performed By: #### B 2M, CMP, URIC, KLFRS, SERIMM, SEPG, IFESC #### [place] [address] CO2 [Moles/Vol] 24 mmol/L Normal 22-30 [facility] Comment on above: Performed By: #### B 2M, CMP, URIC, KLFRS, SERIMM, SEPG, IFESC #### [place] [address] Creatinine [Mass/Vol] 0.85 mg/dL Normal 0.73-1.22 [facility] Comment on above: Performed By: #### B 2M, CMP, URIC, KLFRS, SERIMM, SEPG, IFESC #### [address] [place] [address] eGFR- Amer. >60 Normal [facility] Comment on above: Performed By: #### B 2M, CMP, URIC, KLFRS, SERIMM, SEPG, IFESC #### [address] [place] [address] GFR/1.73 sq M predicted among non-blacks MDRD (S/P/Bld) [Vol rate/Area] mL/min/{1.73_m2} Normal [facility] Comment on above: Result Comment: eGFR (Estimated [...] SERIMM, SEPG, IFESC #### [facility] [place] [address] [place], [place] [address] Glucose [Mass/Vol] 104 mg/dL High 74-99 [facility] Comment on above: Result Comment: The [place] [employer] (ADA) provides guidance for cutoff [...] Standards of Medical Care in Diabetes 2016, [place] [employer]. Diabetes Care. 2016.39(Suppl 1). Performed By: #### B 2M, CMP, URIC, KLFRS, SERIMM, SEPG, IFESC #### [facility] [place] [address] [place], [place] [address] Potassium [Moles/Vol] 4.4 mmol/L Normal 3.7-5.1 [facility] Comment on above: Performed By: #### B 2M, CMP, URIC, KLFRS, SERIMM, SEPG, IFESC #### [facility] [place] [address] [place], [place] [address] Protein [Mass/Vol] 8.0 g/dL Normal 6.3-8.0 [facility] Comment on above: Performed By: #### B 2M, CMP, URIC, KLFRS, SERIMM, SEPG, IFESC #### [facility] [address] [place], [place] [id number] Sodium [Moles/Vol] 137 mmol/L Normal 136-144 [facility] Comment on above: Performed By: #### B 2M, CMP, URIC, KLFRS, SERIMM, SEPG, IFESC #### [address] [place], [place] [address] Urea nitrogen [Mass/Vol] 16 mg/dL Normal 9-24 [facility] Comment on above: Performed By: #### B 2M, CMP, URIC, KLFRS, SERIMM, SEPG, IFESC #### [address] [place] [address] JOLLY Screen, Serumon 05-28-19 20 MPA Interpretation SEE COMMENT Normal [facility] Comment on above: Result Comment: Atyp ical restricted bands are present in the IgG and lambda regions. Consistent with IgG lambda monoclonal gammopathy. Performed By: #### B 2M, CMP, URIC, KLFRS, SERIMM, SEPG, IFESC #### [address] [place], [place] [address] Protein [Mass/Vol] M protein is present. Critica lly abnormal No M protein is identified. [facility] Comment on above: Performed By: #### B 2M, CMP, URIC, KLFRS, SERIMM, SEPG, IFESC #### [facility] [address] [place], [place] [address] Staff Review Reviewed by Adria Salomon M.D., PhD ([id number]) [facility] Comment on above: Performed By: #### B 2M, CMP, URIC, KLFRS, SERIMM, SEPG, IFESC #### [place] [address] [place], [place] [address] Immunoglobulins GAMon 2019 IgA [Mass/Vol] 18 mg/dL Low 78-391 [facility] Comment on above: Performed By: #### B 2M, CMP, URIC, KLFRS, SERIMM, SEPG, IFESC #### [place] [address] [place] [address] IgG [Mass/Vol] 2980 mg/dL High 717-1411 [facility] Comment on above: Performed By: #### B 2M, CMP, URIC, KLFRS, SERIMM, SEPG, IFESC #### [place] [address] [place] [address] IgM [Mass/Vol] 26 mg/dL Low 53-334 [facility] Comment on above: Performed By: #### B 2M, CMP, URIC, KLFRS, SERIMM, SEPG, IFESC #### [place] [address] [place] [address] [place]s,Free,Seron 2019 K/L Ratio, Serum 0.29 Normal 0.26-1.65 [facility] Comment on above: Performed By: #### B 2M, CMP, URIC, KLFRS, SERIMM, SEPG, IFESC #### [place] [address] [place] [address] [place], Free, Serum 7.4 mg/L Normal 3.30-19.40 [facility] Comment on above: Result Comment: Test performed by an immunoturbidimetric assay on [employer] instrument from [facility]. Immunoglobulin free light chain assay results should be interpreted in conjunction with other tests and in correlation with clinical picture. Performed By: #### B 2M, CMP, URIC, KLFRS, SERIMM, SEPG, IFESC #### [place] [address] [place] [phone] Lambda, Free, Serum 25.1 mg/L Normal 5.7-26.3 [facility] Comment on above: Result Comment: Test performed by an immunoturbidimetric assay on [employer] instrument from [facility]. Immunoglobulin free light chain assay results should be interpreted in conjunction with other tests and in correlation with clinical picture. Performed By: #### B 2M, CMP, URIC, KLFRS, SERIMM, SEPG, IFESC #### [place] [address] [place] [phone] Protein Electrophor.on 05-27 Albumin [Mass/Vol] 3.80 g/dL Normal 3.37-4.23 [facility] Comment on above: Performed By: #### B 2M, CMP, URIC, KLFRS, SERIMM, SEPG, IFESC #### [place] [phone] Alpha 1 Globulin 0.17 gm/dL Low 0.18-0.31 [facility] Comment on above: Performed By: #### B 2M, CMP, URIC, KLFRS, SERIMM, SEPG, IFESC #### [place] [address] Alpha 2 Globulin 0.51 gm/dL Low 0.52-0.97 [facility] Comment on above: Performed By: #### B 2M, CMP, URIC, KLFRS, SERIMM, SEPG, IFESC #### [place] [address] [place] [phone] Beta Globulin 0.81 gm/dL Low 0.84-1.36 [facility] Comment on above: Performed By: #### B 2M, CMP, URIC, KLFRS, SERIMM, SEPG, IFESC #### [place] [address] [place] [phone] Gamma Globulin 2.61 gm/dL High 0.70-1.44 [facility] Comment on above: Performed By: #### B 2M, CMP, URIC, KLFRS, SERIMM, SEPG, IFESC #### [place] [address] [place] [address] Interpretation SEE COMMENT Normal [facility] Comment on above: Result Comment: An M protein is identified on protein electrophoresis. See separate immunofixation report for characterization of the M protein. Performed By: #### B 2M, CMP, URIC, KLFRS, SERIMM, SEPG, IFESC #### [place] [address] [place] [address] M Markus Concentratn 2.04 gm/dL High 0.00 [facility] Comment on above: Performed By: #### B 2M, CMP, URIC, KLFRS, SERIMM, SEPG, IFESC #### [place] [address] [place] [address] Protein [Mass/Vol] Gamma fraction Normal Cl [facility] Comment on above: Performed By: #### B 2M, CMP, URIC, KLFRS, SERIMM, SEPG, IFESC #### [place] [address] [place], [place] [address] Protein [Mass/Vol] 7.9 g/dL Normal 6.0-8.4 [facility] Comment on above: Performed By: #### B 2M, CMP, URIC, KLFRS, SERIMM, SEPG, IFESC #### [place] [address] [place] [address] SPE Staff Review Reviewed by Adria Salomon M.D., PhD ([id number]) Normal [facility] Comment on above: Performed By: #### B 2M, CMP, URIC, KLFRS, SERIMM, SEPG, IFESC #### [place] [address] [place] [phone] Remote CBCDIF (for [facility] use o nly)on 05-28-2019 Abs Baso Test reordered by [facility]. Normal <0.11 [facility] Comment on above: Result Comment: MAYANK 0 [id number] Account Credited Performed By: #### R CBCDF #### [facility] [address] [place], [place] [address] Abs [place] Test reordered by [facility]. Normal <0.87 [facility] Comment on above: Result Comment: MAYANK 0 [id number] Account Credited Performed By: #### R CBCDF #### [facility] [address] [place] [address] Abs Neut Test reordered by [facility]. Normal 1.45-7.50 [facility] Comment on above: Result Comment: MAYANK 0 [id number] Account Credited Performed By: #### R CBCDF #### [facility] [address] [place] [address] Basophils/100 WBC (Bld) Test reordered by [facility]. Normal [facility] Comment on above: Result Comment: MAYANK 0 [id number] Account Credited Performed By: #### R CBCDF #### [facility] [address] [place] [address] Comment Test reordered by [facility]. Normal [facility] Comment on above: Result Comment: MAYANK 0 [id number] Account Credited Performed By: #### R CBCDF #### [facility] [address] [place] [address] Eosinophils (Bld) [#/Vol] Test reordered by [facility]. Normal <0.46 [facility] Comment on above: Result Comment: MAYANK 0 [id number] Account Credited Performed By: #### R CBCDF #### [facility] [address] [place] [address] Eosinophils/100 WBC (Bld) Test reordered by [facility]. Normal [facility] Comment on above: Result Comment: MAYANK 0 [id number] Account Credited Performed By: #### R CBCDF #### [facility] [address] [place] [address] Erythrocyte distribution width (RBC) [Ratio] Test reordered by [facility]. Normal 11.5-15.0 [facility] Comment on above: Result Comment: MAYANK 0 [id number] Account Credited Performed By: #### R CBCDF #### [facility] [address] [place], [place] [address] Hematocrit (Bld) [Volume fraction] Test reordered by [facility]. Normal 39.0-51.0 [facility] Comment on above: Result Comment: MAYANK 0 [id number] Account Credited Performed By: #### R CBCDF #### [facility] [address] [place], [place] [address] Hemoglobin (Bld) [Mass/Vol] Test reordered by [facility]. Normal 13.0-17.0 [facility] Comment on above: Result Comment: MAYANK 0 [id number] Account Credited Performed By: #### R CBCDF #### [facility] [address] [place], [place] [address] Lymphocytes (Bld) [#/Vol] Test reordered by [facility]. Normal 1.00-4.00 [facility] Comment on above: Result Comment: MAYANK 0 [id number] Account Credited Performed By: #### R CBCDF #### [facility] [address] [place], [place] [address] Lymphocytes/100 WBC (Bld) Test reordered by [facility]. Normal [facility] Comment on above: Result Comment: MAYANK 0 [id number] Account Credited Performed By: #### R CBCDF #### [facility] [address] [place], [place] [address] MCH (RBC) [Entitic mass] Test reordered by [facility]. Normal 26.0-34.0 [facility] Comment on above: Result Comment: MAYANK 0 [id number] Account Credited Performed By: #### R CBCDF #### [facility] [address] [place], [place] [address] MCHC (RBC) [Mass/Vol] Test reordered by [facility]. Normal 30.5-36.0 [facility] Comment on above: Result Comment: MAYANK 0 [id number] Account Credited Performed By: #### R CBCDF #### [facility] [address] [place], [place] [address] MCV (RBC) [Entitic vol] Test reordered by [facility]. Normal 80.0-100.0 [facility] Comment on above: Result Comment: MAYANK 0 [id number] Account Credited Performed By: #### R CBCDF #### [facility] [address] [place], [place] [address] Monocytes/100 WBC (Bld) Test reordered by [facility]. Normal [facility] Comment on above: Result Comment: MAYANK 0 [id number] Account Credited Performed By: #### R CBCDF #### [facility] [address] [place], [place] [address] Neutrophils/100 WBC (Bld) Test reordered by [facility]. Normal [facility] Comment on above: Result Comment: MAYANK 0 [id number] Account Credited Performed By: #### R CBCDF #### [facility] [address] [place], [place] [address] Platelet mean volume (Bld) [Entitic vol] Test reordered by [facility]. Normal 9.0-12.7 [facility] Comment on above: Result Comment: MAYANK 0 [id number] Account Credited Performed By: #### R CBCDF #### [facility] [address] [place], [place] [address] Platelets (Bld) [#/Vol] Test reordered by [facility]. Normal 150-400 [facility] Comment on above: Result Comment: MAYANK 0 [id number] Account Credited Performed By: #### R CBCDF #### [facility] [address] [place], [place] [address] RBC (Bld) [#/Vol] Test reordered by [facility]. Normal 4.20-6.00 [facility] Comment on above: Result Comment: MAYANK 0 [id number] Account Credited Performed By: #### R CBCDF #### [facility] [address] [place] [address] Recheck Test reordered by [facility]. Normal [facility] Comment on above: Result Comment: MAYANK 0 [id number] Account Credited Performed By: #### R CBCDF #### [facility] [address] [place] [address] Review Test reordered by [facility]. Normal [facility] Comment on above: Result Comment: MAYANK 0 [id number] Account Credited Performed By: #### R CBCDF #### [place] [address] [place] [phone] WBC (Bld) [#/Vol] Test reordered by [facility]. Normal 3.70-11.00 [facility] Comment on above: Result Comment: MAYANK 0 [id number] Account Credited Performed By: #### R CBCDF #### [place] [address] [place] [address] Uric Acidon 05-28-2019 Urate [Mass/Vol] 4.0 mg/dL Normal 4.0-8.1 [facility] Comment on above: Performed By: #### B 2M, CMP, URIC, KLFRS, SERIMM, SEPG, IFESC #### [place] [address] [place] [phone] Vital Signs Date Time Vital Sign Value Performing Clinician Faci litleigha 04-25-2022 09:08-0500 Heart rate 70 /min Tigre Rae [facility] 04-25-2022 09:08-0500 SaO2% (BldA) [Mass fraction] 97 % [facility] 04-25-2022 09:08-0500 Respiratory rate 16 /min Tigre Rae [facility] 04-25-2022 09:07-0500 Diastolic blood pressure 85 mm[Hg] Tigre Rae [facility] 04-25-2022 09:07-0500 Mean blood pressure 108 mm[Hg] Tigre Rae [facility] 04-25-2022 09:07-0500 Systolic blood pressure 154 mm[Hg] Tigre Rae [facility] 04-25-2022 09:00-0500 Body temperature 97.52 [degF] Tigre Rae [facility] Encounters Encounter Date Encounter Type Care Provider Facility Start: 03-04-2023 End: 03-04-2023 ambulatory CECILIA BENSON Not Available Start: 07-16-2022 End: 07-17-[address] VICKIE EASON . Facility: Start: 04-25-2022 End: 04-26-2022 ambulatory Tigremichael Rae Facility[facility] Start: 04-25-2022 End: 04-25-2022 Patient encounter procedure [facility] Start: 04-09-2022 End: 04-10-[address] [...] cility:[id number] Start: 09-11-2021 End: 09-12-[address] CEICLIA BENSON . Facility:[facility] Start: 08-18-2021 Encounter for genera l adult medical examination without abnormal findings DR VICKIE EASON . [facility] Start: 08-17-2021 End: 08-18-[address] VICKIE EASON . Facility:[facility] Start: 08-16-2021 End: 08-17-[address] VICKIE EASON . Facility:[facility] Start: 08-16-2021 End: 08-17-2021 Encounter for general adult medical examination without abnormal findings DR VICKIE EASON . Facility: Start: 10-10-2016 End: 10-11-2016 Ambulatory DEFAULT PHYSICIAN Facility:[facility] Procedures Date Procedure Procedure Detail Performing Clinician Start: 07-16-[address] GENNA EASON . Comment on above: Performed By: #### L IPID, T7, URIC, TSH, CMP #### [facility] [address] [place], [place] [address] Dr. Jaymie Gilbert Start: 08-16-[address] GENNA EASON . Comment on above: Performed By: #### L IPID, T7, URIC, TSH, CMP #### [facility] [address] [place], [place] [address] Dr. Jaymie Gilbert Arthroscopy of knee with meniscus repair Tigre Rae Pneumatic retinopexy Tigre Rae Tonsillectomy and adenoidectomy Tigre Rae Vasectomy Tigre Matias cz Payers Date Payer Category Payer Unknown [id number] 2.16.8 [id number] 1960 Unknown [id number] 2.16.84 [id number] 1960 Unknown [id number] 2.16.84 [id number] 1960 Unknown [id number] 2.16.84 0.1.197693.3.579.2.593 1960 Unknown [id number] 2.16.84 0.1.471853.3.579.2.593 1960 Unknown [id number] 2.16.84 0.1.682706.3.579.2.593 1960 Unknown [id number] 2.16.84 0.1.191566.3.579.2.593 1960 Unknown [id number] 2.16.84 0.1.269476.3.579.2.593 1960 Unknown [id number] 2.16.84 0.1.057154.3.579.2.593 1960 Unknown [id number] 2.16.84 0.1.909447.3.579.2.593 1960 Unknown [id number] 2.16.84 0.1.136516.3.579.2.593 1960 Unknown [id number] 2.16.8 [id number] 1960 Unknown [id number] 2.16.840 .[id number] 1959 Unknown [id number] Unknown Social History Date Type Detail Facility Start: 04-26-2020 Tobacco smoking status Never s moked tobacco (finding) [facility] Tobacco smoking status Never [facility] Sex Assigned At Male [facility] Hospital Discharge instructions 04-26-2021 Note Date & Type Note Facility 04-26-2021 Hospital Discharg e instructions Follow Up Care 04/26/2021 09:33:13 With:Tigre Rae Address: [facility] [address] [place] [phone] Fax Business (1) When: Unknown Comments:f/u in 18 months. prior to f[facility] check cbc, cmp, spep sflc simmunofixation. no imaging. [facility] Evaluation + Plan note LaboratoryRadiology Note Date [...] 04/27/21Protein Electrophoresis 04/27/21XR Bone Survey Complete 04/17/22 [facility] Hospital course Narrative Note Date & Type Note Facility Hospital course Narrative No data available for this section [facility] Progress note Note Date & Type Note Facility Progress note No data available for this section [facility] Summary Purpose Family History No Family History [...] section and content) DATE CREATED AUTHOR 09/18/2017 [facility] DATE CREATED AUTHOR AUTHOR'S ORGANIZ ATION 06/13/2019 [facility] DATE CREATED AUTHOR AUTHOR'S ORGANIZ ATION 10/27/2021 [employer] DATE CREATED AUTHOR AUTHOR'S ORGANIZ ATION 10/28/2021 [facility] DATE CREATED AUTHOR AUTHOR'S ORGANIZ ATION 05/25/2022 [facility] DATE CREATED AUTHOR AUTHOR'S ORGANIZ ATION 07/18/2022 [facility] DATE CREATED AUTHOR AUTHOR'S ORGANIZ ATION 10/27/2022 [facility] DATE CREATED AUTHOR AUTHOR'S ORGANIZ ATION 03/05/2023 [facility] EPIC Patient Care team informatio n (unrecognized section and content) Personnel Name: Vickie Eason MD Address: Address: [address] [place] [address] FOR RECORDS PERTAINING TO PATIENTS WHO ARE [...] BE BASED ON THE PRIMARY CLINICAL RECORDS. [facility] [employer] [facility]. provides no warranty or guarantee of the accuracy or completeness of information in this document.
[2023-09-09 09:12] LABS: Basophils Percent Auto 0.8 % (0.2-2.0); Eosinophils Absolute Auto 0.1 10^3/uL (0.0-0.7); Eosinophils Percent Auto 1.3 % (0.9-7.0); Hematocrit 42.8 % (42.0-54.0); Hemoglobin 14.4 g/dL (14.0-18.0); Immature Granulocytes Abs Auto 0.01 10^3/uL (0.00-0.03); Immature Granulocytes Pct Auto 0.3 % (0.0-0.5); Lymphocytes Absolute Auto 1.1 10^3/uL (1.2-3.8); Lymphocytes Percent Auto 28.9 % (20.5-60.0); Mean Corpuscular HGB Conc 33.6 g/dL (29.9-35.2); Mean Corpuscular Hemoglobin 31.2 pg (25.9-34.0); Mean Corpuscular Volume 92.8 fL (80.0-94.0); Monocytes Absolute Auto 0.4 10^3/uL (0.3-0.8); Neutrophils Absolute Auto 2.3 10^3/uL (1.4-6.5); Neutrophils Percent Auto 57.7 % (43.0-75.0); Platelet Count 244 10^3/uL (150-450); Red Blood Count 4.61 10^6/uL (4.70-6.10); Red Cell Distribution Width 12.9 % (11.0-15.0); White Blood Count 3.9 10^3/uL (4.0-11.0)
[2023-09-09 10:44] LABS: Internal Control Within Normal Limits; Occult Blood Negative
[2023-09-10 13:08] LABS: Albumin 3.8 g/dL (2.9-4.4); Alpha-1-Globulin 0.1 g/dL (0.0-0.4); Alpha-2-Globulin 0.6 g/dL (0.4-1.0); Protein, Total 8.3 g/dL (6.0-8.5)
== END 2023-09-09 08:51 | disposition home or self-care (01) ==
LOC: LAB 08:52
PROVIDERS: PCP Family Medicine; Visit Provider Family Medicine
DX: Z00.00 Encounter for general adult medical examination without abnormal findings (principal); D64.9 Anemia, unspecified
CPT/HCPCS: 36415; 84155; 84165; 85025; G0328

== ENCOUNTER 2023-11-04 08:55 | Outpatient (OUT) | payer OTHER, SELFPAY ==
--- OUTSIDE RECORDS SUMMARY | 2023-11-04 09:15 | XMS_ITS | CCD ---
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 Kathy Johns Attending Unavailabl e Yumi, Dr. Vickie Easton Primary Care Unavail able HOY ., DR JOHNSTON Consulting Unavailable HOY ., DR JOHNSTON Primary Care Unavailable HOY ., DR JOHNSTON Attending Unavailable HOY ., DR JOHNSTON Admmason Unavailable HEMEYER ., DR BROOKS Consulting Unavailable HOY ., DR JOHNSTON Primary Care Unavailable HEMEYER ., DR BROOKS Attending Unavailable HEMEYER ., DR BROOKS Admmason Unavailable HOY ., DR JOHNSTON Consulting Unavailable HOY ., DR JOHNSTON Primary Care Unavailable HOY ., DR JOHNSTON Attending Unavailable HOY ., DR JOHNSTON Admmason Unavailable MARLENE SANDHU Consulting Unavailable HOY ., DR JOHNSTON Consulting Unavailable HOY ., DR JOHNSTON Primary Care Unavailable HOY ., DR JOHNSTON Attending Unavailable HOY ., DR JOHNSTON Admmason Unavailable WEST, DR BRANDIN Ames Consulting Unavailable HEMEYER ., DR BROOKS Consulting Unavailable HOY ., DR JOHNSTON Primary Care Unavailable HEMEYER ., DR BROOKS Attending Unavailable HEMEYER ., DR BROOKS Admmason Unavailable HOY ., DR JOHNSTON Primary Care Unavailable HEMEYER ., DR BROOKS Attending Unavailable HEMEYER ., DR BROOKS Admmason Unavailable WEST, DR BRANDIN Ames Consulting Unavailable HOY ., DR JOHNSTON Primary Care Unavailable TIGRE RAE Attending Unavailable TIGRE RAE Admitting Unavailable TIGRE RAE Consulting Unavailable HOY ., DR JOHNSTON Consulting Unavailable HOY ., DR JOHNSTON Primary Care Unavailable HOY ., DR JOHNSTON Attending Unavailable HOY ., DR JOHNSTON Admmason Unavailable HOY ., DR JOHNSTON Primary Care Unavailable TIGRE RAE Attending Unavailable TIGRE RAE J Admitting Unavailable HEMEYER ., DR BROOKS Consulting Unavailable YUMI ., DR JOHNSTON Primary Care Unavailable KELLEY ., DR BROOKS Attending Unavailable KELLEY ., DR BROOKS Admitting Unavailable CECILIA BENSON Attending Unavailable Tigre Rae Referring Unavailable Tigre Rae Attending Unavailable Allergies Allergy Classification Reported Allergen(s) Allergy Type Date of Onset Reaction(s) Facility (3 sources) Ciprofloxacin; Translations: [ciprofloxacin] Drug Allergy Intolerance, function (observable entity) [facility] (2 sources) Ciprofloxacin Drug Allergy 7 [facility] Repository Medications Current Medications Medication Drug Class(es) Dates Sig (Normalized) Sig (Original) Aspirin (2 sources) Platelet Aggregation Inhibitor, Nonsteroidal Anti-inflammatory Drug Start: 04-26-2021 aspirin 81 mg, Daily, Refills(s) 0 Start Date: 04/26/21 Status: Ordered atorvastatin 20 mg oral tablet (2 sources) HMG-CoA Reductase Inhibitor Start: 04-26-2020 take 1 tablet by mouth once daily Lipitor 20 mg Tab 20 mg = 1 tab(s), Oral, Daily, # 30 tab(s), Refills(s) 0 Start Date: 04/26/20 Status: Ordered Celebrate Multivitamin (2 sources) Start: 04-26-2021 Celebrate Multivitamin Daily, Refill(s) 0 Start Date: 04/26/21 Status: Ordered DHEA 25 mg oral capsule (2 sources) Start: 04-26-2020 DHEA 25 mg oral capsule 37.5 mg = 1.5 cap(s), Oral, Daily, # 30 cap(s), Refills(s) 0 Start Date: 04/26/20 Status: Ordered levothyroxine sodium 0.05 mg oral tablet (2 sources) l-Thyroxine Start: 04-26-2020 take 1 tablet by mouth twice daily levothyroxine 50 mcg (0.05 mg) Tab 50 mcg = 1 tab(s), Oral, BID, # 30 tab(s), Refills(s) 0 Start Date: 04/26/20 Status: Ordered liothyronine sodium 0.005 mg oral tablet (2 sources) l-Triiodothyronine Start: 04-26-2020 take 2 tablets by mouth twice daily liothyronine 5 mcg Tab 10 mcg = 2 tab(s), Oral, BID, # 30 tab(s), Refills(s) 0 Start Date: 04/26/20 Status: Ordered Problems Active Problems Problem Classification Problem Date Documented Date Episodic/Chronic Disorders of lipid metabolism (2 sources) Hyperlipidemia 04-26-2020 Chronic Malaise and fatigue (5 sources) Chronic fatigue, unspecified; Translations: [CHRONIC FATIGUE UNSPECIFIED] Onset: 09-11-2021 Chronic Neoplasms of unspecified nature or uncertain behavior (4 sources) Monoclonal gammopathy; Translations: [MONOCLONAL GAMMOPATHY] Onset: 04-09-2022 Chronic Thyroid disorders (3 sources) Hypothyroidism; Translations: [Hypothyroidism, unspecified] Onset: 03-01-2022 [...] Test Name Value Interpretation Reference Range Facility Laboratory Outside Office [place] 09-12-2023 Laboratory Outside Office Copy [id number] Normal [facility] Laboratory Outside Office Copy [id number] Normal [facility] Physician Orderon 10-26-2022 Physician Order [id number]#[id number]:127 Normal [facility] INSULINon 07-17-2022 Insulin 9.6 uIU/mL Normal 2.6-24.9 [facility] Comment on above: Performed By: #### L IPID, T7, URIC, TSH, CMP #### [facility] [address] [address] [address] Jaymie Gilbert CBC AUTO DIFFon 07-16-2022 BASO # 0.0 103/ul Normal 0.0-0.1 [facility] Comment on above: Performed By: #### L IPID, T7, URIC, TSH, CMP #### [facility] Laboratory [address] [place] [address] Dr. Jaymie Gilbert Basophils/100 WBC (Bld) 1.0 % Normal 0.2-2.0 [facility] Comment on above: Performed By: #### L IPID, T7, URIC, TSH, CMP #### [facility] [address] [place] [address] Dr. Jaymie Gilbert EO # 0.0 103/ul Normal 0.0-0.7 [facility] Comment on above: Performed By: #### L IPID, T7, URIC, TSH, CMP #### [facility] [address] [place] [address] Dr. Jaymie Gilbert Eosinophils/100 WBC (Bld) 1.0 % Normal 0.9-7.0 [facility] Comment on above: Performed By: #### L IPID, T7, URIC, TSH, CMP #### [facility] [address] [place] [address] Dr. Jaymie Gilbert Erythrocyte distribution width (RBC) [Ratio] 13.3 % Normal 11.0-15.0 [facility] Comment on above: Performed By: #### L IPID, T7, URIC, TSH, CMP #### [facility] [address] [place] [address] Dr. Jaymie Gilbert Hematocrit (Bld) [Volume fraction] 44.6 % Normal 42.0-54.0 [facility] Comment on above: Performed By: #### L IPID, T7, URIC, TSH, CMP #### [facility] [address] [place] [address] Dr. Jaymie Gilbert Hemoglobin (Bld) [Mass/Vol] 15.2 g/dL Normal 14.0-18.0 [facility] Comment on above: Performed By: #### L IPID, T7, URIC, TSH, CMP #### [facility] [address] [place] [address] Dr. Jaymie Gilbert IG # 0.01 10e3/ul Normal 0.00-0.03 [facility] Comment on above: Performed By: #### L IPID, T7, URIC, TSH, CMP #### [facility] [address] [place] [address] Dr. Jaymie Gilbert IG % 0.3 % Normal 0.0-0.5 [facility] Comment on above: Performed By: #### L IPID, T7, URIC, TSH, CMP #### [facility] [address] [place] [address] Dr. Jaymie Gilbert LYMPH # 1.5 103/ul Normal 1.2-3.8 [facility] Comment on above: Performed By: #### L IPID, T7, URIC, TSH, CMP #### [facility] [address] [place] [address] Dr. Jaymie Gilbert Lymphocytes/100 WBC (Bld) 38.0 % Normal 20.5-60.0 [facility] Comment on above: Performed By: #### L IPID, T7, URIC, TSH, CMP #### [facility] [address] [place] [address] Dr. Jaymie Gilbert MANUAL DIFF REQ NO Normal [facility] Comment on above: Performed By: #### L IPID, T7, URIC, TSH, CMP #### [facility] [address] [place] [address] Dr. Jaymie Gilbert MCH (RBC) [Entitic mass] 31.5 pg Normal 25.9-34.0 [facility] Comment on above: Performed By: #### L IPID, T7, URIC, TSH, CMP #### [facility] [address] [place] [address] Dr. Jaymie Gilbert [facility] [Mass/Vol] 34.1 g/dL Normal 29.9-35.2 [facility] Comment on above: Performed By: #### L IPID, T7, URIC, TSH, CMP #### [facility] [address] [place] [address] Dr. Jaymie Gilbert MCV (RBC) [Entitic vol] 92.5 fL Normal 80.0-94.0 [facility] Comment on above: Performed By: #### L IPID, T7, URIC, TSH, CMP #### [facility] [address] [place] [address] Dr. Jaymie Gilbert MONO # 0.4 103/ul Normal 0.3-0.8 [facility] Comment on above: Performed By: #### L IPID, T7, URIC, TSH, CMP #### [facility] [address] [place] [address] Dr. Jaymie Gilbert Monocytes/100 WBC (Bld) 11.0 % Normal 1.7-12.0 [facility] Comment on above: Performed By: #### L IPID, T7, URIC, TSH, CMP #### [facility] [address] [place] [address] Dr. Jaymie Gilbert NEUT # 2.0 103/ul Normal 1.4-6.5 [facility] Comment on above: Performed By: #### L IPID, T7, URIC, TSH, CMP #### [facility] [address] [place] [address] Dr. Jaymie Gilbert Neutrophils/100 WBC (Bld) 48.7 % Normal 43.0-75.0 [facility] Comment on above: Performed By: #### L IPID, T7, URIC, TSH, CMP #### [facility] [address] [place] [address] Dr. Jaymie Gilbert Platelet mean volume (Bld) [Entitic vol] 9.8 fL Normal 9.5-13.5 [facility] Comment on above: Performed By: #### L IPID, T7, URIC, TSH, CMP #### [facility] [address] [place] [address] Dr. Jaymie Gilbert PLT 261 103/ul Normal 150-450 [facility] Comment on above: Performed By: #### L IPID, T7, URIC, TSH, CMP #### [facility] [address] [place] [address] Dr. Jaymie Gilbert RBC 4.82 106/ul Normal 4.70-6.10 [facility] Comment on above: Performed By: #### L IPID, T7, URIC, TSH, CMP #### [facility] [address] [place] [address] Dr. Jaymie Gilbert WBC 4.0 103/ul Normal 4.0-11.0 [facility] Comment on above: Performed By: #### L IPID, T7, URIC, TSH, CMP #### [facility] [address] [place] [address] Dr. Jaymie Gilbert FREE THYROXINE INDEX T7on FTI 1.57 Normal 1.30-4.50 [facility] Comment on above: Performed By: #### L IPID, T7, URIC, TSH, CMP #### [facility] [address] [place] [address] Dr. Jaymie Gilbert T3U 32.0 % Critically low 33.0-40.0 [facility] Comment on above: Performed By: #### L IPID, T7, URIC, TSH, CMP #### [facility] [address] [place] [address] Dr. Jaymie Gilbert T4 [Mass/Vol] 4.90 ug/dL Normal 4.50-12.10 [facility] Comment on above: Performed By: #### L IPID, T7, URIC, TSH, CMP #### [facility] [address] [place] [address] Dr. Jaymie Gilbert GLYCOHEMOGLOBIN A1Con 2022 ADA RECOMMENDATION SEE BELOW Normal [facility] Comment on above: Result Comment: ADA RECOMMENDED LIMIT 4.0 - 6.0 ADA THERAPEUTIC TARGET < 7.0 ACTION SUGGESTED > 7.0 Performed By: #### L IPID, T7, URIC, TSH, CMP #### [facility] [address] [place] [address] Dr. Jaymie Gilbert Glucose [Mass/Vol] 114 mg/dL Normal [facility] Comment on above: Performed By: #### L IPID, T7, URIC, TSH, CMP #### [facility] [address] [address] [address] Jaymie Gilbert HbA1c (Bld) [Mass fraction] 5.6 % Normal 4.5-6.2 [facility] Comment on above: Performed By: #### L IPID, T7, URIC, TSH, CMP #### [facility] [address] [place] [address] Dr. Jaymie Gilbert LIPID PROFILEon 07-16-2022 CHOL-HDL RATIO NORM SEE BELOW Normal [facility] Comment on above: Result Comment: 3.3 - 4.4 LOW RISK 4.4 - 7.1 AVERAGE RISK 7.1 - 11.0 MODERATE RISK >11.0 HIGH RISK Performed By: #### L IPID, T7, URIC, TSH, CMP #### [facility] [address] [place] [address] Dr. Jaymie Gilbert Cholesterol [Mass/Vol] 212 mg/dL Critically high <=200 [facility] Comment on above: Performed By: #### L IPID, T7, URIC, TSH, CMP #### [facility] [address] [address] [address] Jaymie Gilbert Cholesterol in HDL [Mass/Vol] 67 mg/dL Critically high 40-60 [facility] Comment on above: Performed By: #### L IPID, T7, URIC, TSH, CMP #### [facility] [address] [place] [address] Dr. Jaymie Gilbert Cholesterol in LDL [Mass/Vol] 132.4 mg/dL Normal [facility] Comment on above: Performed By: #### L IPID, T7, URIC, TSH, CMP #### [facility] [address] [place] [address] Dr. Jaymie Gilbert Cholesterol.total/ Cholesterol in HDL [Mass ratio] 3.2 {ratio} Normal [facility] Comment on above: Performed By: #### L IPID, T7, URIC, TSH, CMP #### [facility] [address] [address] [address] Jaymie Gilbert HDL NORMAL > or = 60 mg/dl - LO W CARDIOVASCULAR RISK <40 mg/dl - HIGH CARDIOVASCULAR RISK Normal [facility] Comment on above: Performed By: #### L IPID, T7, URIC, TSH, CMP #### [facility] [address] [address] [address] Jaymie Gilbert LDL CALC NORMAL SEE BELOW Normal [facility] Comment on above: Result Comment: <100 mg/dl OPTIMAL 100 - 129 mg/dl NEAR OR ABOVE OPTIMAL 130 - 159 mg/dl BORDERLINE HIGH 160 - 189 mg/dl HIGH >190 mg/dl VERY HIGH Performed By: #### L IPID, T7, URIC, TSH, CMP #### [facility] [address] [address] [address] Jaymie Gilbert Triglyceride [Mass/Vol] 63 mg/dL Normal <=150 [facility] Comment on above: Performed By: #### L IPID, T7, URIC, TSH, CMP #### [facility] [address] [place] [address] Dr. Jaymie Gilbert VLDL CALC 12.6 mg/dL Normal [facility] Comment on above: Performed By: #### L IPID, T7, URIC, TSH, CMP #### [facility] [address] [place] [address] Dr. Jaymie Gilbert PROF 14(COMP METB)on 023 Albumin [Mass/Vol] 3.7 g/dL Normal 3.4-5.0 [facility] Comment on above: Performed By: #### L IPID, T7, URIC, TSH, CMP #### [facility] [address] [place] [address] Dr. Jaymie Gilbert Albumin/Globulin [Mass ratio] 0.7 {ratio} Normal [facility] Comment on above: Performed By: #### L IPID, T7, URIC, TSH, CMP #### [facility] [address] [place] [address] Dr. Jaymie Gilbert ALP [Catalytic activity/Vol] 42 U/L Critically low 46-116 [facility] Comment on above: Performed By: #### L IPID, T7, URIC, TSH, CMP #### [facility] [address] [place] [address] Dr. Jaymie iGlbert ALT [Catalytic activity/Vol] 28 U/L Normal 16-63 [facility] Comment on above: Performed By: #### L IPID, T7, URIC, TSH, CMP #### [facility] [address] [place] [address] Dr. Jaymie Gilbert Anion gap [Moles/Vol] 12.0 mmol/L Normal [facility] Comment on above: Performed By: #### L IPID, T7, URIC, TSH, CMP #### [facility] [address] [place] [address] Dr. Jaymie Gilbert AST [Catalytic activity/Vol] 16 U/L Normal 15-37 [facility] Comment on above: Performed By: #### L IPID, T7, URIC, TSH, CMP #### [facility] [address] [place] [address] Dr. Jaymie Gilbert Bilirubin [Mass/Vol] 0.6 mg/dL Normal 0.2-1.0 [facility] Comment on above: Performed By: #### L IPID, T7, URIC, TSH, CMP #### [facility] [address] [place] [address] Dr. Jaymie Gilbert Calcium [Mass/Vol] 9.1 mg/dL Normal 8.5-10.1 [facility] Comment on above: Performed By: #### L IPID, T7, URIC, TSH, CMP #### [facility] [address] [place] [address] Dr. Jaymie Gilbert Chloride [Moles/Vol] 104 mmol/L Normal 98-107 [facility] Comment on above: Performed By: #### L IPID, T7, URIC, TSH, CMP #### [facility] [address] [address] [address] Jaymie Gilbert CO2 [Moles/Vol] 27.3 mmol/L Normal 21.0-32.0 [facility] Comment on above: Performed By: #### L IPID, T7, URIC, TSH, CMP #### [facility] [address] [address] [address] Jaymie Gilbert Creatinine [Mass/Vol] 1.17 mg/dL Normal 0.70-1.30 [facility] Comment on above: Performed By: #### L IPID, T7, URIC, TSH, CMP #### [facility] [address] [place] [address] Dr. Jaymie Gilbert EGFR-AF JORDANIAN >60 Normal >=60 [facility] Comment on above: Performed By: #### L IPID, T7, URIC, TSH, CMP #### [facility] [address] [place] [address] Dr. Jaymie Gilbert EGFR-NON AF JORDANIAN >60 Normal >=60 [facility] Comment on above: Performed By: #### L IPID, T7, URIC, TSH, CMP #### [facility] [address] [place] [address] Dr. Jaymie Gilbert Globulin (S) [Mass/Vol] 5.3 g/dL Normal [facility] Comment on above: Performed By: #### L IPID, T7, URIC, TSH, CMP #### [facility] [address] [place] [address] Dr. Jaymie Gilbert Glucose [Mass/Vol] 101 mg/dL Normal 74-106 [facility] Comment on above: Performed By: #### L IPID, T7, URIC, TSH, CMP #### [facility] [address] [address] [address] Jaymie Gilbert Potassium [Moles/Vol] 4.3 mmol/L Normal 3.5-5.1 [facility] Comment on above: Performed By: #### L IPID, T7, URIC, TSH, CMP #### [facility] [address] [place] [address] Dr. Jaymie Gilbert Protein [Mass/Vol] 9.0 g/dL Critically high 6.4-8.2 [facility] Comment on above: Performed By: #### L IPID, T7, URIC, TSH, CMP #### [facility] [address] [place] [address] Dr. Jaymie Gilbert Sodium [Moles/Vol] 139 mmol/L Normal 136-145 [facility] Comment on above: Performed By: #### L IPID, T7, URIC, TSH, CMP #### [facility] [address] [place] [address] Dr. Jaymie Gilbert Urea nitrogen [Mass/Vol] 18.0 mg/dL Normal 7.0-18.0 [facility] Comment on above: Performed By: #### L IPID, T7, URIC, TSH, CMP #### [facility] [address] [place] [address] Dr. Jaymie Gilbert Urea nitrogen/Creatinin e [Mass ratio] 15.4 mg/mg Normal [facility] Comment on above: Performed By: #### L IPID, T7, URIC, TSH, CMP #### [facility] [address] [place] [address] Dr. Jaymie Gilbert TSHon 07-16-2022 TSH 2.332 uIU/mL Normal 0.358-3.740 [facility] Comment on above: Performed By: #### L IPID, T7, URIC, TSH, CMP #### [facility] [address] [place] [address] Dr. Jaymie Gilbert URIC ACID SERUMon 07-16-2022 Urate [Mass/Vol] 4.6 mg/dL Normal 3.5-7.2 [facility] Comment on above: Performed By: #### L IPID, T7, URIC, TSH, CMP #### [facility] [address] [place] [address] Dr. Jaymie Gilbert BETA-2 MICROGLOBINon 023 Beta-2 Microglobulin, Serum 2.4 mg/L Normal 0.6-2.4 [facility] Comment on above: Result Comment: [facility] Notable Limitedte 2000 Immunochemiluminometric assay (ICMA) . Values obtained with different assay methods or kits cannot be used interchangeably. Results cannot be interpreted as absolute evidence of the presence or absence of malignant disease. Performed By: #### L IPID, T7, URIC, TSH, CMP #### [facility] [address] [place] [address] Dr. Jaymie Gilbert IMMUNOFIXATION(JOLLY),[facility]IN ELEC[facility]PE[facility] Albumin [Mass/Vol] 3.5 g/dL Normal 2.9-4.4 [facility] Comment on above: Performed By: #### L IPID, T7, URIC, TSH, CMP #### [facility] [address] [place] [address] Dr. Jaymie Gilbert Albumin/Globulin [Mass ratio] 0.9 {ratio} Normal 0.7-1.7 [facility] Comment on above: Performed By: #### L IPID, T7, URIC, TSH, CMP #### [facility] [address] [place] [address] Dr. Jaymie Gilbert Fgeni-7-Nlxaasvu 0.2 g/dL Normal 0.0-0.4 [facility] Comment on above: Performed By: #### L IPID, T7, URIC, TSH, CMP #### [facility] [address] [place] [address] Dr. Jaymie Gilbert Aywru-6-Vbeslbwr 0.7 g/dL Normal 0.4-1.0 [facility] Comment on above: Performed By: #### L IPID, T7, URIC, TSH, CMP #### [facility] [address] [place] [address] Dr. Jaymie Gilbert Beta Globulin 0.9 g/dL Normal 0.7-1.3 [facility] Comment on above: Performed By: #### L IPID, T7, URIC, TSH, CMP #### [facility] [address] [place] [address] Dr. Jaymie Gilbert Free [place] Lt Chains,S 8.9 mg/L Normal 3.3-19.4 [facility] Comment on above: Performed By: #### L IPID, T7, URIC, TSH, CMP #### [facility] [address] [address] [address] Jaymie Gilbert Free [place] Lt Chains,S 18.7 mg/L Normal 5.7-26.3 [facility] Comment on above: Performed By: #### L IPID, T7, URIC, TSH, CMP #### [facility] [address] [place] [address] Dr. Jaymie Gilbert Gamma Globulin 2.5 g/dL Critically high 0.4-1.8 [facility] Comment on above: Performed By: #### L IPID, T7, URIC, TSH, CMP #### [facility] [address] [place] [address] Dr. Jaymie Gilbert Globulin (S) [Mass/Vol] 4.2 g/dL Critically high 2.2-3.9 [facility] Comment on above: Performed By: #### L IPID, T7, URIC, TSH, CMP #### [facility] [address] [place] [address] Dr. Jaymie Gilbert Immunofixation Result, Serum Comment Abnormal [facility] Comment on above: Result Comment: Immu nofixation shows IgG monoclonal protein with lambda light chain specificity. Performed By: #### L IPID, T7, URIC, TSH, CMP #### [facility] [address] [place] [address] Dr. Jaymie Gilbert Immunoglobulin A, Qn, Serum 20 mg/dL Critically low 61-437 [facility] Comment on above: Result Comment: Resu lt confirmed on concentration. Performed By: #### L IPID, T7, URIC, TSH, CMP #### [facility] [address] [place] [address] Dr. Jaymie Gilbert Immunoglobulin G, Qn, Serum 3145 mg/dL Critically high 603-1613 [facility] Comment on above: Performed By: #### L IPID, T7, URIC, TSH, CMP #### [facility] [address] [place] [address] Dr. Jaymie Gilbert Immunoglobulin M, Qn, Serum 40 mg/dL Normal 20-172 [facility] Comment on above: Performed By: #### L IPID, T7, URIC, TSH, CMP #### [facility] [address] [address] [address] Jaymie Gilbert [place]/Lambda Ratio, S 0.48 Normal 0.26-1.65 [facility] Comment on above: Performed By: #### L IPID, T7, URIC, TSH, CMP #### [facility] [address] [address] [address] Jaymie Gilbert M-Markus 2.3 g/dL Critically high Not Observed [facility] Comment on above: Performed By: #### L IPID, T7, URIC, TSH, CMP #### [facility] [address] [address] [address] Jaymie Gilbert PDF . Normal [facility] Comment on above: Performed By: #### L IPID, T7, URIC, TSH, CMP #### [facility] [address] [address] [address] Jaymie Gilbert Please note: Comment Normal [facility] Comment on above: Result Comment: Prot ein electrophoresis scan will follow via computer, mail, or patient flow coordinator delivery. Performed By: #### L IPID, T7, URIC, TSH, CMP #### [facility] [address] [address] [address] Jaymie Gilbert Protein [Mass/Vol] 7.7 g/dL Normal 6.0-8.5 [facility] Comment on above: Performed By: #### L IPID, T7, URIC, TSH, CMP #### [facility] [address] [address] [address] Jaymie Gilbert XR BONE SURVEYon 04-10-2022 XR BONE SURVEY [...] BRANDIN MORALES Date: 2022-04-10 07:33 Normal [facility] CBC AUTO DIFFon 04-09-2022 BASO # 0.1 103/ul Normal 0.0-0.1 [facility] Comment on above: Performed By: #### L IPID, T7, URIC, TSH, CMP #### [facility] [address] [place] [address] Dr. Jaymie Gilbert Basophils/100 WBC (Bld) 1.1 % Normal 0.2-2.0 [facility] Comment on above: Performed By: #### L IPID, T7, URIC, TSH, CMP #### [facility] [address] [address] [address] Jaymie Gilbert EO # 0.1 103/ul Normal 0.0-0.7 [facility] Comment on above: Performed By: #### L IPID, T7, URIC, TSH, CMP #### [facility] [address] [address] [address] Jaymie Gilbert Eosinophils/100 WBC (Bld) 2.2 % Normal 0.9-7.0 [facility] Comment on above: Performed By: #### L IPID, T7, URIC, TSH, CMP #### [facility] [address] [place] [address] Dr. Jaymie Gilbert Erythrocyte distribution width (RBC) [Ratio] 13.0 % Normal 11.0-15.0 [facility] Comment on above: Performed By: #### L IPID, T7, URIC, TSH, CMP #### [facility] [address] [place] [address] Dr. Jaymie Gilbert Hematocrit (Bld) [Volume fraction] 43.2 % Normal 42.0-54.0 [facility] Comment on above: Performed By: #### L IPID, T7, URIC, TSH, CMP #### [facility] [address] [place] [address] Dr. Jaymie Gilbert Hemoglobin (Bld) [Mass/Vol] 14.8 g/dL Normal 14.0-18.0 [facility] Comment on above: Performed By: #### L IPID, T7, URIC, TSH, CMP #### [facility] [address] [place] [address] Dr. Jaymie Gilbert IG # 0.01 10e3/ul Normal 0.00-0.03 [facility] Comment on above: Performed By: #### L IPID, T7, URIC, TSH, CMP #### [facility] [address] [place] [address] Dr. Jaymie Gilbert IG % 0.2 % Normal 0.0-0.5 [facility] Comment on above: Performed By: #### L IPID, T7, URIC, TSH, CMP #### [facility] [address] [place] [address] Dr. Jaymie Gilbert LYMPH # 1.5 103/ul Normal 1.2-3.8 [facility] Comment on above: Performed By: #### L IPID, T7, URIC, TSH, CMP #### [facility] [address] [place] [address] Dr. Jaymie Gilbert Lymphocytes/100 WBC (Bld) 33.6 % Normal 20.5-60.0 [facility] Comment on above: Performed By: #### L IPID, T7, URIC, TSH, CMP #### [facility] [address] [place] [address] Dr. Jaymie Gilbert MANUAL DIFF REQ NO Normal [facility] Comment on above: Performed By: #### L IPID, T7, URIC, TSH, CMP #### [facility] [address] [place] [address] Dr. Jaymie Gilbert MCH (RBC) [Entitic mass] 30.7 pg Normal 25.9-34.0 [facility] Comment on above: Performed By: #### L IPID, T7, URIC, TSH, CMP #### [facility] [address] [place] [address] Dr. Jaymie Gilbert MCHC (RBC) [Mass/Vol] 34.3 g/dL Normal 29.9-35.2 [facility] Comment on above: Performed By: #### L IPID, T7, URIC, TSH, CMP #### [facility] [address] [place] [address] Dr. Jaymie Gilbert MCV (RBC) [Entitic vol] 89.6 fL Normal 80.0-94.0 [facility] Comment on above: Performed By: #### L IPID, T7, URIC, TSH, CMP #### [facility] [address] [place] [address] Dr. Jaymie Gilbert MONO # 0.5 103/ul Normal 0.3-0.8 [facility] Comment on above: Performed By: #### L IPID, T7, URIC, TSH, CMP #### [facility] [address] [place] [address] Dr. Jaymie Gilbert Monocytes/100 WBC (Bld) 11.9 % Normal 1.7-12.0 [facility] Comment on above: Performed By: #### L IPID, T7, URIC, TSH, CMP #### [facility] [address] [place] [address] Dr. Jaymie Gilbert NEUT # 2.3 103/ul Normal 1.4-6.5 [facility] Comment on above: Performed By: #### L IPID, T7, URIC, TSH, CMP #### [facility] [address] [place] [address] Dr. Jaymie Gilbert Neutrophils/100 WBC (Bld) 51.0 % Normal 43.0-75.0 [facility] Comment on above: Performed By: #### L IPID, T7, URIC, TSH, CMP #### [facility] [address] [place] [address] Dr. Jaymie Gilbert Platelet mean volume (Bld) [Entitic vol] 9.4 fL Critically low 9.5-13.5 [facility] Comment on above: Performed By: #### L IPID, T7, URIC, TSH, CMP #### [facility] [address] [place] [address] Dr. Jaymie Gilbert PLT 287 103/ul Normal 150-450 [facility] Comment on above: Performed By: #### L IPID, T7, URIC, TSH, CMP #### [facility] [address] [place] [address] Dr. Jaymie Gilbert RBC 4.82 106/ul Normal 4.70-6.10 [facility] Comment on above: Performed By: #### L IPID, T7, URIC, TSH, CMP #### [facility] [address] [place] [address] Dr. Jaymie Gilbert WBC 4.5 103/ul Normal 4.0-11.0 [facility] Comment on above: Performed By: #### L IPID, T7, URIC, TSH, CMP #### [facility] [address] [place] [address] Dr. Jaymie Gilbert PROF 14(COMP METB)on 023 Albumin [Mass/Vol] 3.3 g/dL Critically low 3.4-5.0 [facility] Comment on above: Performed By: #### L IPID, T7, URIC, TSH, CMP #### [facility] [address] [place] [address] Dr. Jaymie Gilbert Albumin/Globulin [Mass ratio] 0.7 {ratio} Normal [facility] Comment on above: Performed By: #### L IPID, T7, URIC, TSH, CMP #### [facility] [address] [place] [address] Dr. Jaymie Gilbert ALP [Catalytic activity/Vol] 50 U/L Normal 46-116 [facility] Comment on above: Performed By: #### L IPID, T7, URIC, TSH, CMP #### [facility] [address] [place] [address] Dr. Jaymie Gilbert ALT [Catalytic activity/Vol] 20 U/L Normal 16-63 [facility] Comment on above: Performed By: #### L IPID, T7, URIC, TSH, CMP #### [facility] [address] [place] [address] Dr. Jaymie Gilbert Anion gap [Moles/Vol] 11.2 mmol/L Normal [facility] Comment on above: Performed By: #### L IPID, T7, URIC, TSH, CMP #### [facility] [address] [place] [address] Dr. Jaymie Gilbert AST [Catalytic activity/Vol] 14 U/L Critically low 15-37 [facility] Comment on above: Performed By: #### L IPID, T7, URIC, TSH, CMP #### [facility] [address] [place] [address] Dr. Jaymie Gilbert Bilirubin [Mass/Vol] 0.5 mg/dL Normal 0.2-1.0 [facility] Comment on above: Performed By: #### L IPID, T7, URIC, TSH, CMP #### [facility] [address] [place] [address] Dr. Jaymie Gilbert Calcium [Mass/Vol] 9.3 mg/dL Normal 8.5-10.1 [facility] Comment on above: Performed By: #### L IPID, T7, URIC, TSH, CMP #### [facility] [address] [place] [address] Dr. Jaymie Gilbert Chloride [Moles/Vol] 103 mmol/L Normal 98-107 [facility] Comment on above: Performed By: #### L IPID, T7, URIC, TSH, CMP #### [facility] [address] [place] [address] Dr. Jaymie Gilbert CO2 [Moles/Vol] 27.1 mmol/L Normal 21.0-32.0 [facility] Comment on above: Performed By: #### L IPID, T7, URIC, TSH, CMP #### [facility] [address] [place] [address] Dr. Jaymie Gilbert Creatinine [Mass/Vol] 0.97 mg/dL Normal 0.70-1.30 [facility] Comment on above: Performed By: #### L IPID, T7, URIC, TSH, CMP #### [facility] [address] [place] [address] Dr. Jaymie Gilbert EGFR-AF JORDANIAN >60 Normal >=60 [facility] Comment on above: Performed By: #### L IPID, T7, URIC, TSH, CMP #### [facility] [address] [place] [address] Dr. Jaymie Gilbert EGFR-NON AF JORDANIAN >60 Normal >=60 [facility] Comment on above: Performed By: #### L IPID, T7, URIC, TSH, CMP #### [facility] [address] [place] [address] Dr. Jaymie Gilbert Globulin (S) [Mass/Vol] 5.0 g/dL Normal [facility] Comment on above: Performed By: #### L IPID, T7, URIC, TSH, CMP #### [facility] [address] [place] [address] Dr. Jaymie Gilbert Glucose [Mass/Vol] 106 mg/dL Normal 74-106 [facility] Comment on above: Performed By: #### L IPID, T7, URIC, TSH, CMP #### [facility] [address] [place] [address] Dr. Jaymie Gilbert Potassium [Moles/Vol] 4.3 mmol/L Normal 3.5-5.1 [facility] Comment on above: Performed By: #### L IPID, T7, URIC, TSH, CMP #### [facility] [address] [place] [address] Dr. Jaymie Gilbert Protein [Mass/Vol] 8.3 g/dL Critically high 6.4-8.2 [facility] Comment on above: Performed By: #### L IPID, T7, URIC, TSH, CMP #### [facility] [address] [address] [address] Jaymie Gilbert Sodium [Moles/Vol] 137 mmol/L Normal 136-145 [facility] Comment on above: Performed By: #### L IPID, T7, URIC, TSH, CMP #### [facility] [address] [address] [address] Jaymie Gilbert Urea nitrogen [Mass/Vol] 18.0 mg/dL Normal 7.0-18.0 [facility] Comment on above: Performed By: #### L IPID, T7, URIC, TSH, CMP #### [facility] [address] [address] [address] Jaymie Gilbert Urea nitrogen/Creatinin e [Mass ratio] 18.6 mg/mg Normal [facility] Comment on above: Performed By: #### L IPID, T7, URIC, TSH, CMP #### [facility] [address] [address] [address] Jaymie Gilbert REVERSE T3on 02-27-2022 Reverse T3, Serum 14.0 ng/dL Normal 9.2-24.1 [facility] Comment on above: Result Comment: This test was developed and its performance characteristics determined by [facility]. It has not been cleared or approved by the Food and Drug Administration. Performed By: #### R EVRT3 #### [facility] [address] [address] [address] Jaymie Gilbert T3, TOTAL (TRIIODOTHYRONINE) on 02-24-2022 T3, TOTAL 164 ng/dL Normal 71-180 [facility] Comment on above: Performed By: #### L IPID, T7, URIC, TSH, CMP #### [facility] [address] [address] [address] Jaymie Gilbert FREE T3on 02-23-2022 FREE T3 3.66 pg/mlL Normal 2.18-3.98 [facility] Comment on above: Performed By: #### L IPID, T7, URIC, TSH, CMP #### [facility] [address] [place] [address] Dr. Jaymie Gilbert FREE T4on 02-23-2022 Free T4 [Mass/Vol] 1.00 ng/dL Normal 0.76-1.46 [facility] Comment on above: Performed By: #### L IPID, T7, URIC, TSH, CMP #### [facility] [address] [place] [address] Dr. Jaymie Gilbert TSHon 02-23-2022 TSH 0.017 uIU/mL Critically low 0.358-3.740 [facility] Comment on above: Performed By: #### L IPID, T7, URIC, TSH, CMP #### [facility] [address] [place] [address] Dr. Jaymie Gilbert REVERSE T3on 12-01-2021 Reverse T3, Serum 17.2 ng/dL Normal 9.2-24.1 [facility] Comment on above: Result Comment: This test was developed and its performance characteristics determined by [facility]. It has not been cleared or approved by the Food and Drug Administration. Performed By: #### R EVRT3 #### [facility] [address] [place] [address] Dr. Jaymie Gilbert T3, TOTAL (TRIIODOTHYRONINE) on 11-29-2021 T3, TOTAL 170 ng/dL Normal 71-180 [facility] Comment on above: Performed By: #### T 3TOTAL #### [facility] [address] [place] [address] Dr. Jaymie Gilbert FREE T3on 11-28-2021 FREE T3 4.30 pg/mlL Critically high 2.18-3.98 [facility] Comment on above: Performed By: #### L IPID, T7, URIC, TSH, CMP #### [facility] [address] [place] [address] Dr. Jaymie Gilbert FREE T4on 11-28-2021 Free T4 [Mass/Vol] 1.20 ng/dL Normal 0.76-1.46 [facility] Comment on above: Performed By: #### L IPID, T7, URIC, TSH, CMP #### [facility] [address] [address] [address] Jaymie Gilbert TSHon 11-28-2021 TSH Qn m[IU]/L Critically low 0.358-3.740 [facility] Comment on above: Performed By: #### L IPID, T7, URIC, TSH, CMP #### [facility] [address] [address] [address] Jaymie Gilbert CREATININEon 11-03-2021 Creatinine [Mass/Vol] 1.02 mg/dL Normal 0.70-1.30 [facility] Comment on above: Performed By: #### L IPID, T7, URIC, TSH, CMP #### [facility] [address] [address] [address] Jaymie Gilbert EGFR-AF JORDANIAN >60 Normal >=60 [facility] Comment on above: Performed By: #### L IPID, T7, URIC, TSH, CMP #### [facility] [address] [address] [address] Jaymie Gilbert EGFR-NON AF JORDANIAN >60 Normal >=60 [facility] Comment on above: Performed By: #### L IPID, T7, URIC, TSH, CMP #### [facility] [address] [place] [address] Dr. Jaymie Gilbert CTA CHEST WO W [...] by: BRANDIN MORALES Date: 2021-11-03 13:08 Normal [facility] XR CHEST 2 Von 11-02-2021 SARS-CoV-2 (COVID-19) [...] by: MARLENE SANDHU Date: 2021-11-02 10:55 Normal [facility] CORONAVIRUS 2019 BY PCRon SARS-CoV-2 (COVID-19) RNA RAMO+probe Ql (Unsp spec) Detected Abnormal Not Detected [facility] Comment on above: Result Comment: . This [...] this test method. Fact sheet for providers: https://www.fda.gov/media/243100/download Fact sheet for patients: https://www.fda.gov/media/384237/download This test has received FDA Emergency Use Authorization [EUA] and has been verified by [facility] ([facility]). This test is only authorized for the duration of time that circumstances exist to justify the authorization of the emergency use of in vitro diagnostic tests for the detection of SARS-CoV-2 virus and/or diagnosis of COVID-19 infection under section 564(b)(1) of the Act, 21 U.S.C. 360bbb-3(b)(1), unless the authorization is terminated or revoked sooner. [facility] is certified under CLIA-88 as qualified to perform high complexity testing. Testing is performed in the [facility] laboratories located at [id number] [place] [address]. Performed By: #### C OV19 #### [facility] [id number] [place] [address]. [place] [address] Covid 19 Resultson 2 SARS-CoV-2 (COVID-19) RNA [...] You may also be contacted by the [facility] to see if any of your close [...] or Naproxen (Aleve) can also be used. Mupp-fzj-opqkkwi cough and cold medicines can be used according to the instructions on the package. Some wuan-qsr-kvvqyjt medicines also contain acetaminophen. Make sure you [...] water are not available, use alcohol-based hand retail custodial associate. Avoid touching your eyes, nose, and mouth [...] carolyn (more content not included)... Normal [facility] CORONAVIRUS 2019 BY PCRon Lab Specimen Source Nasal, Nasopharyngeal Normal [facility] Comment on above: Performed By: #### C OV19 #### [facility] [id number] [place] [address] Office Visit (Urgent Care)on 10-26-2021 Follow-up visit Diagnoses/Problems Assessed Suspected COVID-19 virus infection (V01.79) (Z20.822) Orders Suspected COVID-19 virus infection Coronavirus 2019 RNA by PCR, Symptomatic; Status:In Progress - Specimen/Data Collected; Done: [id number] Perform:Lab Services - Lab To Draw (Non-Blood [...] presents for COVID-19 testing. He works for [employer]. He presents with a 4-day history of [...] 10/26/2021 2:51:31 PM Vitals Vital Signs Recorded: [id number] 02:51PM Eujhsaigwid32.2 F, Temporal Heart Rate97 [id number] Respiration QualityNormal Ivvkctkd552, Sitting Jblbhsdze27, Sitting Blood Pressure Cuff SizeAdult Height5 ft 10 in Uuigxb681 lb BMI Miarfbpvxw73.11 kg/m2 BSA Calculated1.97 Tobacco Useb) No PHQ-2 #1. Over the last 2 weeks have you felt down, depressed or hopeless? (If yes, answer PHQ-9 below)No PHQ-2 #2. Over the last 2 weeks have you felt little interest or pleasure in doing things? (If yes, answer PHQ-9 below)No Falls Screening (Age 18+)a) No falls within the last year O2 Ysiruuufyb04, RA Pain Scale0 PHQ-9 #1. Little interest [...] Serum 9.1 ng/dL Critically low 9.2-24.1 [facility] Comment on above: Result Comment: This test was developed and its performance characteristics determined by [facility]. It has not been cleared or approved by the Food and Drug Administration. Performed By: #### L IPID, T7, URIC, TSH, CMP #### [facility] [address] [address] [address] Jaymie Gilbert T3, TOTAL (TRIIODOTHYRONINE) on 09-12-2021 T3, TOTAL 120 ng/dL Normal 71-180 [facility] Comment on above: Performed By: #### L IPID, T7, URIC, TSH, CMP #### [facility] [address] [address] [address] Jaymie Gilbert FREE T3on 09-11-2021 FREE T3 2.90 pg/mlL Normal 2.18-3.98 [facility] Comment on above: Performed By: #### F T3 #### [facility] [address] [address] [address] Jaymie Gilbert T4 LABCORPon 08-18-2021 T4 [Mass/Vol] 5.3 ug/dL Normal 4.5-12.0 [facility] Comment on above: Performed By: #### T 4LC #### [facility] [address] [place] [address] Dr. Jaymie Gilbert INSULINon 08-17-2021 Insulin 6.9 uIU/mL Normal 2.6-24.9 [facility] Comment on above: Performed By: #### L IPID, T7, URIC, TSH, CMP #### [facility] [address] [place] [address] Dr. Jaymie Gilbert CBC AUTO DIFFon 08-16-2021 BASO # 0.0 103/ul Normal 0.0-0.1 [facility] Comment on above: Performed By: #### L IPID, T7, URIC, TSH, CMP #### [facility] [address] [place] [address] Dr. Jaymie Gilbert Basophils/100 WBC (Bld) 1.1 % Normal 0.2-2.0 [facility] Comment on above: Performed By: #### L IPID, T7, URIC, TSH, CMP #### [facility] [address] [place] [address] Dr. Jaymie Gilbert EO # 0.1 103/ul Normal 0.0-0.7 [facility] Comment on above: Performed By: #### L IPID, T7, URIC, TSH, CMP #### [facility] [address] [place] [address] Dr. Jaymie Gilbert Eosinophils/100 WBC (Bld) 2.4 % Normal 0.9-7.0 [facility] Comment on above: Performed By: #### L IPID, T7, URIC, TSH, CMP #### [facility] [address] [place] [address] Dr. Jaymie Gilbert Erythrocyte distribution width (RBC) [Ratio] 12.4 % Normal 11.0-15.0 [facility] Comment on above: Performed By: #### L IPID, T7, URIC, TSH, CMP #### [facility] [address] [place] [address] Dr. Jaymie Gilbert Hematocrit (Bld) [Volume fraction] 43.0 % Normal 42.0-54.0 [facility] Comment on above: Performed By: #### L IPID, T7, URIC, TSH, CMP #### [facility] [address] [place] [address] Dr. Jaymie Gilbert Hemoglobin (Bld) [Mass/Vol] 14.2 g/dL Normal 14.0-18.0 [facility] Comment on above: Performed By: #### L IPID, T7, URIC, TSH, CMP #### [facility] [address] [place] [address] Dr. Jaymie Gilbert IG # 0.01 10e3/ul Normal 0.00-0.03 [facility] Comment on above: Performed By: #### L IPID, T7, URIC, TSH, CMP #### [facility] [address] [place] [address] Dr. Jaymie Gilbert IG % 0.3 % Normal 0.0-0.5 [facility] Comment on above: Performed By: #### L IPID, T7, URIC, TSH, CMP #### [facility] [address] [place] [address] Dr. Jaymie Gilbert LYMPH # 1.2 103/ul Normal 1.2-3.8 [facility] Comment on above: Performed By: #### L IPID, T7, URIC, TSH, CMP #### [facility] [address] [place] [address] Dr. Jaymie Gilbert Lymphocytes/100 WBC (Bld) 32.1 % Normal 20.5-60.0 [facility] Comment on above: Performed By: #### L IPID, T7, URIC, TSH, CMP #### [facility] [address] [place] [address] Dr. Jaymie Gilbert MANUAL DIFF REQ NO Normal [facility] Comment on above: Performed By: #### L IPID, T7, URIC, TSH, CMP #### [facility] [address] [place] [address] Dr. Jaymie Gilbert MCH (RBC) [Entitic mass] 30.8 pg Normal 25.9-34.0 [facility] Comment on above: Performed By: #### L IPID, T7, URIC, TSH, CMP #### [facility] [address] [place] [address] Dr. Jaymie Gilbert MCHC (RBC) [Mass/Vol] 33.0 g/dL Normal 29.9-35.2 [facility] Comment on above: Performed By: #### L IPID, T7, URIC, TSH, CMP #### [facility] [address] [place] [address] Dr. Jaymie Gilbert MCV (RBC) [Entitic vol] 93.3 fL Normal 80.0-94.0 [facility] Comment on above: Performed By: #### L IPID, T7, URIC, TSH, CMP #### [facility] [address] [place] [address] Dr. Jaymie Gilbert MONO # 0.5 103/ul Normal 0.3-0.8 [facility] Comment on above: Performed By: #### L IPID, T7, URIC, TSH, CMP #### [facility] [address] [place] [address] Dr. Jaymie Gilbert Monocytes/100 WBC (Bld) 12.8 % Critically high 1.7-12.0 [facility] Comment on above: Performed By: #### L IPID, T7, URIC, TSH, CMP #### [facility] [address] [place] [address] Dr. Jaymie Gilbert NEUT # 1.9 103/ul Normal 1.4-6.5 [facility] Comment on above: Performed By: #### L IPID, T7, URIC, TSH, CMP #### [facility] [address] [place] [address] Dr. Jaymie Gilbert Neutrophils/100 WBC (Bld) 51.3 % Normal 43.0-75.0 [facility] Comment on above: Performed By: #### L IPID, T7, URIC, TSH, CMP #### [facility] [address] [place] [address] Dr. Jaymie Gilbert Platelet mean volume (Bld) [Entitic vol] 10.2 fL Normal 9.5-13.5 [facility] Comment on above: Performed By: #### L IPID, T7, URIC, TSH, CMP #### [facility] [address] [place] [address] Dr. Jaymie Gilbert PLT 236 103/ul Normal 150-450 [facility] Comment on above: Performed By: #### L IPID, T7, URIC, TSH, CMP #### [facility] [address] [place] [address] Dr. Jaymie Gilbert RBC 4.61 106/ul Critically low 4.70-6.10 [facility] Comment on above: Performed By: #### L IPID, T7, URIC, TSH, CMP #### [facility] [address] [place] [address] Dr. Jaymie Gilbert WBC 3.7 103/ul Critically low 4.0-11.0 [facility] Comment on above: Performed By: #### L IPID, T7, URIC, TSH, CMP #### [facility] [address] [place] [address] Dr. Jaymie Gilbert FREE T3on 08-16-2021 FREE T3 4.74 pg/mlL Critically high 2.18-3.98 [facility] Comment on above: Performed By: #### L IPID, T7, URIC, TSH, CMP #### [facility] [address] [place] [address] Dr. Jaymie Gilbert FREE T4on 08-16-2021 Free T4 [Mass/Vol] 0.78 ng/dL Normal 0.76-1.46 [facility] Comment on above: Performed By: #### L IPID, T7, URIC, TSH, CMP #### [facility] [address] [place] [address] Dr. Jaymie Gilbert FREE THYROXINE INDEX T7on FTI 1.80 Normal 1.30-4.50 [facility] Comment on above: Performed By: #### L IPID, T7, URIC, TSH, CMP #### [facility] [address] [place] [address] Dr. Jaymie Gilbert T3U 34.0 % Normal 33.0-40.0 [facility] Comment on above: Performed By: #### L IPID, T7, URIC, TSH, CMP #### [facility] [address] [place] [address] Dr. Jaymie Gilbert T4 [Mass/Vol] 5.30 ug/dL Normal 4.50-12.10 [facility] Comment on above: Performed By: #### L IPID, T7, URIC, TSH, CMP #### [facility] [address] [address] [address] Jaymie Gilbert GLYCOHEMOGLOBIN A1Con 2021 ADA RECOMMENDATION SEE BELOW Normal [facility] Comment on above: Result Comment: ADA RECOMMENDED LIMIT 4.0 - 6.0 ADA THERAPEUTIC TARGET < 7.0 ACTION SUGGESTED > 7.0 Performed By: #### L IPID, T7, URIC, TSH, CMP #### [facility] [address] [place] [address] Dr. Jaymie Gilbert Glucose [Mass/Vol] 111 mg/dL Normal [facility] Comment on above: Performed By: #### L IPID, T7, URIC, TSH, CMP #### [facility] [address] [place] [address] Dr. Jaymie Gilbert HbA1c (Bld) [Mass fraction] 5.5 % Normal 4.5-6.2 [facility] Comment on above: Performed By: #### L IPID, T7, URIC, TSH, CMP #### [facility] [address] [place] [address] Dr. Jaymie Gilbert LIPID PROFILEon 08-16-2021 CHOL-HDL RATIO NORM SEE BELOW Normal [facility] Comment on above: Result Comment: 3.3 - 4.4 LOW RISK 4.4 - 7.1 AVERAGE RISK 7.1 - 11.0 MODERATE RISK >11.0 HIGH RISK Performed By: #### L IPID, T7, URIC, TSH, CMP #### [facility] [address] [place] [address] Dr. Jaymie Gilbert Cholesterol [Mass/Vol] 151 mg/dL Normal <=200 [facility] Comment on above: Performed By: #### L IPID, T7, URIC, TSH, CMP #### [facility] [address] [address] [address] Jaymie Gilbert Cholesterol in HDL [Mass/Vol] 57 mg/dL Normal 40-60 [facility] Comment on above: Performed By: #### L IPID, T7, URIC, TSH, CMP #### [facility] [address] [address] [address] Jaymie Gilbert Cholesterol in LDL [Mass/Vol] 81.6 mg/dL Normal [facility] Comment on above: Performed By: #### L IPID, T7, URIC, TSH, CMP #### [facility] [address] [address] [address] Jaymie Gilbert Cholesterol.total/ Cholesterol in HDL [Mass ratio] 2.6 {ratio} Normal [facility] Comment on above: Performed By: #### L IPID, T7, URIC, TSH, CMP #### [facility] [address] [address] [address] Jaymie Gilbert HDL NORMAL > or = 60 mg/dl - LO W CARDIOVASCULAR RISK <40 mg/dl - HIGH CARDIOVASCULAR RISK Normal [facility] Comment on above: Performed By: #### L IPID, T7, URIC, TSH, CMP #### [facility] [address] [address] [address] Jaymie Gilbert LDL CALC NORMAL SEE BELOW Normal [facility] Comment on above: Result Comment: <100 mg/dl OPTIMAL 100 - 129 mg/dl NEAR OR ABOVE OPTIMAL 130 - 159 mg/dl BORDERLINE HIGH 160 - 189 mg/dl HIGH >190 mg/dl VERY HIGH Performed By: #### L IPID, T7, URIC, TSH, CMP #### [facility] [address] [address] [address] Jaymie Gilbert Triglyceride [Mass/Vol] 62 mg/dL Normal <=150 [facility] Comment on above: Performed By: #### L IPID, T7, URIC, TSH, CMP #### [facility] [address] [address] [address] Jaymie Gilbert VLDL CALC 12.4 mg/dL Normal [facility] Comment on above: Performed By: #### L IPID, T7, URIC, TSH, CMP #### [facility] [address] [address] [address] Jaymie Gilbert PROF 14(COMP METB)on 022 Albumin [Mass/Vol] 3.4 g/dL Normal 3.4-5.0 [facility] Comment on above: Performed By: #### L IPID, T7, URIC, TSH, CMP #### [facility] [address] [place] [address] Dr. Jaymie Gilbert Albumin/Globulin [Mass ratio] 0.7 {ratio} Normal [facility] Comment on above: Performed By: #### L IPID, T7, URIC, TSH, CMP #### [facility] [address] [place] [address] Dr. Jaymie Gilbert ALP [Catalytic activity/Vol] 40 U/L Critically low 46-116 [facility] Comment on above: Performed By: #### L IPID, T7, URIC, TSH, CMP #### [facility] [address] [place] [address] Dr. Jaymie Gilbert ALT [Catalytic activity/Vol] 29 U/L Normal 16-63 [facility] Comment on above: Performed By: #### L IPID, T7, URIC, TSH, CMP #### [facility] [address] [place] [address] Dr. Jaymie Gilbert Anion gap [Moles/Vol] 11.0 mmol/L Normal [facility] Comment on above: Performed By: #### L IPID, T7, URIC, TSH, CMP #### [facility] [address] [place] [address] Dr. Jaymie Gilbert AST [Catalytic activity/Vol] 17 U/L Normal 15-37 [facility] Comment on above: Performed By: #### L IPID, T7, URIC, TSH, CMP #### [facility] [address] [place] [address] Dr. Jaymie Gilbert Bilirubin [Mass/Vol] 0.9 mg/dL Normal 0.2-1.0 [facility] Comment on above: Performed By: #### L IPID, T7, URIC, TSH, CMP #### [facility] [address] [place] [address] Dr. Jaymie Gilbert Calcium [Mass/Vol] 8.7 mg/dL Normal 8.5-10.1 [facility] Comment on above: Performed By: #### L IPID, T7, URIC, TSH, CMP #### [facility] [address] [place] [address] Dr. Jaymie Gilbert Chloride [Moles/Vol] 104 mmol/L Normal 98-107 [facility] Comment on above: Performed By: #### L IPID, T7, URIC, TSH, CMP #### [facility] [address] [place] [address] Dr. Jaymie Gilbert CO2 [Moles/Vol] 26.4 mmol/L Normal 21.0-32.0 [facility] Comment on above: Performed By: #### L IPID, T7, URIC, TSH, CMP #### [facility] [address] [place] [address] Dr. Jaymie Gilbert Creatinine [Mass/Vol] 0.99 mg/dL Normal 0.70-1.30 [facility] Comment on above: Performed By: #### L IPID, T7, URIC, TSH, CMP #### [facility] [address] [place] [address] Dr. Jaymie Gilbert EGFR-AF JORDANIAN >60 Normal >=60 [facility] Comment on above: Performed By: #### L IPID, T7, URIC, TSH, CMP #### [facility] [address] [place] [address] Dr. Jaymie Gilbert EGFR-NON AF JORDANIAN >60 Normal >=60 [facility] Comment on above: Performed By: #### L IPID, T7, URIC, TSH, CMP #### [facility] [address] [place] [address] Dr. Jaymie Gilbert Globulin (S) [Mass/Vol] 4.9 g/dL Normal [facility] Comment on above: Performed By: #### L IPID, T7, URIC, TSH, CMP #### [facility] [address] [place] [address] Dr. Jaymie Gilbert Glucose [Mass/Vol] 98 mg/dL Normal 74-106 [facility] Comment on above: Performed By: #### L IPID, T7, URIC, TSH, CMP #### [facility] [address] [place] [address] Dr. Jaymie Gilbert Potassium [Moles/Vol] 4.4 mmol/L Normal 3.5-5.1 [facility] Comment on above: Performed By: #### L IPID, T7, URIC, TSH, CMP #### [facility] [address] [place] [address] Dr. Jaymie Gilbert Protein [Mass/Vol] 8.3 g/dL Critically high 6.4-8.2 [facility] Comment on above: Performed By: #### L IPID, T7, URIC, TSH, CMP #### [facility] [address] [place] [address] Dr. Jaymie Gilbert Sodium [Moles/Vol] 137 mmol/L Normal 136-145 [facility] Comment on above: Performed By: #### L IPID, T7, URIC, TSH, CMP #### [facility] [address] [place] [address] Dr. Jaymie Gilbert Urea nitrogen [Mass/Vol] 19.0 mg/dL Critically high 7.0-18.0 [facility] Comment on above: Performed By: #### L IPID, T7, URIC, TSH, CMP #### [facility] [address] [place] [address] Dr. aJymie Gilbert Urea nitrogen/Creatinin e [Mass ratio] 19.2 mg/mg Normal [facility] Comment on above: Performed By: #### L IPID, T7, URIC, TSH, CMP #### [facility] [address] [place] [address] Dr. Jaymie Gilbert TSHon 08-16-2021 TSH 0.157 uIU/mL Critically low 0.358-3.740 [facility] Comment on above: Performed By: #### L IPID, T7, URIC, TSH, CMP #### [facility] [address] [place] [address] Dr. Jaymie Gilbert TSH RANGE SEE BELOW Normal [facility] Comment on above: Result Comment: <0.3 4 UIU/ml HYPERTHYROID 0.34-5.60 UIU/ml EUTHYROID >5.60 UIU/ml HYPOTHYROID Performed By: #### L IPID, T7, URIC, TSH, CMP #### [facility] [address] [place] [address] Dr. Jaymie Gilbert URIC ACID SERUMon 08-16-2021 Urate [Mass/Vol] 5.2 mg/dL Normal 3.5-7.2 [facility] Comment on above: Performed By: #### L IPID, T7, URIC, TSH, CMP #### [facility] [address] [place] [address] Dr. Jaymie Gilbert VITAMIN D 25 OHon 08-16-2021 VIT D 25-OH 26.3 ng/mL Normal [facility] Comment on above: Performed By: #### L IPID, T7, URIC, TSH, CMP #### [facility] [address] [place] [address] Dr. Jaymie Gilbert VIT D RANGES SEE BELOW Normal [facility] Comment on above: Result Comment: <20 ng/mL Vit D deficient 20 - <30 ng/mL Vit D insufficient 30 - 100 ng/mL Vit D sufficient >100 ng/mL Potential Toxicity Performed By: #### L IPID, T7, URIC, TSH, CMP #### [facility] [address] [place] [address] Dr. Jaymie MCDUFFIEPon 06-03-2019 OVSP Visit (SP) Office (H EMA) -- BRANDIN FARR ([id number]) 1960 M Date Time Provider Department 06/03/19 [...] Brandin Farr's care: Vickie Eason MD, Dr. Rock Aviles CC: MGUS follow up for surveillance [...] CALCIUM IONIZED B Kevin Mckeon MD, CPE [place], [place] CC: Vickie Eason MD [address] [facility] [address] Kevin Mckeon MD 06/03/2019 3:28 PM Addendum Reading list 1. Grain Brain 2. Keto Fast 3. The Plant Paradox* Referring Provider: DAYANA APARICIO [[id number]] Allergies As of Date: 06/03/2019 Noted Allergy Reaction CIPROFLOXACIN 03/30/2014 5 - Intolerance Date Reviewed: 06/03/2019 Reviewed by: Kevin Mckeon - Fully Assessed Reason for Visit: Monoclonal gammopathy [Other] Cmt: follow up Primary Visit Diagnosis:Monoclonal gammopathy [D47.2] Order(s):B2 MICROGLOBULIN B [SQB2M] Order #: [id number] FUTURE CBC + DIFF [SQCBCDIF] Order #: [id number] FUTURE COMP METABOLIC PANEL [SQCMP] Order #: [id number] FUTURE LD LACTATE DEHYDRO [SQLD6] Order #: [id number] FUTURE PHOSPHORUS INORGANIC [SQPHOS] Order #: [id number] FUTURE PROTEIN ELECTROPHORESIS W/INTERP [SQSEPG] Order #: [id number] FUTURE MONOCLONAL PROTEIN, SERUM (BLOOD) [SQSERMPA] Order #: [id number] FUTURE URIC ACID BLOOD [SQURIC] Order #: [id number] FUTURE CALCIUM IONIZED B [SQICA] Order #: [id number] FUTURE Disposition: Return in about 24 weeks (around 11/18/2019). Follow-up and Disposition History Recorded Prescriptions as of 06/03/2019 Sig: PRASTERONE (DHEA) 25 MG TABLET Take 25 mg by mouth once estevan* LEVOCETIRIZINE 5 MG TABLET Take 5 mg by mouth. LEVOTHYROXINE 75 MCG TABLET TAKE 1 AND 1/2 TABLET ON SAT.* Patient taking differently: once daily. Take 1 [...] by KEVIN MCKEON MD on 06/13/19 Normal [facility] PROGRESSon 06-03-2019 PROGRESS HNO ID: [id number] Author: Kevin Mckeon Service: ? Author Type: Physician Type: Progress Notes Filed: 06/13/2019 9:47 AM Note Text: Some elements in this clinic note that are critical to medical decision making have been carefully reviewed and included from a prior clinic note dated: May 14, 2018. Additional Clinicians involved in Brandin Farr's care: Vickie Eason MD, Dr. Rock Aviles CC: MGUS follow up for surveillance [...] CALCIUM IONIZED B Kevin Mckeon MD, CPE [place], [place] CC: Vickie Eason MD [address] [facility] [id number] [place] [address] [facility] (HEMASA) -- BRANDIN FARR ([id number]) 1960 M Date Time Provider Department 06/01/19 [...] by MELVINA SENA RN on 06/01/19 Normal [facility] B2 Microglobulinon 0 Globulin (S) [Mass/Vol] 2.1 mg/L Normal 0.8-2.4 [facility] Comment on above: Performed By: #### B 2M, CMP, URIC, KLFRS, SERIMM, SEPG, IFESC #### [facility] [employer] [address], [place] [address] CBC and Differentialon 05-27 Abs Baso 0.04 k/uL Normal <0.11 [facility] Comment on above: Performed By: #### C BCDIF #### [facility] [employer] [address], [place] [address] Abs Yolo 0.50 k/uL Normal <0.87 [facility] Comment on above: Performed By: #### C BCDIF #### [facility] [employer] [address] [place], [place] [address] Abs Neut 1.85 k/uL Normal 1.45-7.50 [facility] Comment on above: Performed By: #### C BCDIF #### [id number] [place] [phone] Absolute nRBC <0.01 Normal <0.01 [facility] Comment on above: Performed By: #### C BCDIF #### [place] [phone] Basophils/100 WBC (Bld) 1.1 % Normal [facility] Comment on above: Performed By: #### C BCDIF #### [place] [phone] DTYPE Auto Diff Normal [facility] Comment on above: Performed By: #### C BCDIF #### [place] [phone] Eosinophils (Bld) [#/Vol] 0.04 10*3/uL Normal <0.46 [facility] Comment on above: Performed By: #### C BCDIF #### [place] [phone] Eosinophils/100 WBC (Bld) 1.1 % Normal [facility] Comment on above: Performed By: #### C BCDIF #### [place] [phone] Erythrocyte distribution width (RBC) [Ratio] 13.3 % Normal 11.5-15.0 [facility] Comment on above: Performed By: #### C BCDIF #### [place] [phone] Hematocrit (Bld) [Volume fraction] 46.4 % Normal 39.0-51.0 [facility] Comment on above: Performed By: #### C BCDIF #### [address] [place] [address] Hemoglobin (Bld) [Mass/Vol] 14.4 g/dL Normal 13.0-17.0 [facility] Comment on above: Performed By: #### C BCDIF #### [facility] [address] [place], [place] [address] Lymphocytes (Bld) [#/Vol] 1.21 10*3/uL Normal 1.00-4.00 [facility] Comment on above: Performed By: #### C BCDIF #### [place] [address] [place], [place] [address] Lymphocytes/100 WBC (Bld) 33.2 % Normal [facility] Comment on above: Performed By: #### C BCDIF #### [address] [address] MCH (RBC) [Entitic mass] 30.6 pG Normal 26.0-34.0 [facility] Comment on above: Performed By: #### C BCDIF #### [address] [address] MCHC (RBC) [Mass/Vol] 31.0 g/dL Normal 30.5-36.0 [facility] Comment on above: Performed By: #### C BCDIF #### [place] [id number] [place], [place] [address] MCV (RBC) [Entitic vol] 98.7 fL Normal 80.0-100.0 [facility] Comment on above: Performed By: #### C BCDIF #### [place] [address] [place], [place] [address] Monocytes/100 WBC (Bld) 13.7 % Normal [facility] Comment on above: Performed By: #### C BCDIF #### [place] [address] [place], [place] [address] Neutrophils/100 WBC (Bld) 50.9 % Normal [facility] Comment on above: Performed By: #### C BCDIF #### [facility] [address] [place], [place] [address] NRBCs 0.0 /100 WBC Normal 0 [facility] Comment on above: Performed By: #### C BCDIF #### [place] [address] [place], [place] [address] Platelet mean volume (Bld) [Entitic vol] 10.7 fL Normal 9.0-12.7 [facility] Comment on above: Performed By: #### C BCDIF #### [place] [address] [place], [place] [address] Platelets (Bld) [#/Vol] 263 10*3/uL Normal 150-400 [facility] Comment on above: Performed By: #### C BCDIF #### [address] [address] RBC (Bld) [#/Vol] 4.70 10*6/uL Normal 4.20-6.00 [facility] Comment on above: Performed By: #### C BCDIF #### [place] [address] [place], [place] [address] WBC (Bld) [#/Vol] 3.65 10*3/uL Low 3.70-11.00 [facility] Comment on above: Performed By: #### C BCDIF #### [place] [address] [place], [place] [address] Comp Metabolic Panelon 05-27 Albumin [Mass/Vol] 4.0 g/dL Normal 3.9-4.9 [facility] Comment on above: Performed By: #### B 2M, CMP, URIC, KLFRS, SERIMM, SEPG, IFESC #### [facility] [address] [place], [place] [address] ALP [Catalytic activity/Vol] 33 U/L Low 38-113 [facility] Comment on above: Performed By: #### B 2M, CMP, URIC, KLFRS, SERIMM, SEPG, IFESC #### [facility] [address] [place], [place] [address] ALT [Catalytic activity/Vol] 18 U/L Normal 10-54 [facility] Comment on above: Performed By: #### B 2M, CMP, URIC, KLFRS, SERIMM, SEPG, IFESC #### [facility] [address] [place], [place] [address] Anion gap [Moles/Vol] 10 mmol/L Normal 9-18 [facility] Comment on above: Performed By: #### B 2M, CMP, URIC, KLFRS, SERIMM, SEPG, IFESC #### [address] [address] AST [Catalytic activity/Vol] 21 U/L Normal 14-40 [facility] Comment on above: Performed By: #### B 2M, CMP, URIC, KLFRS, SERIMM, SEPG, IFESC #### [facility] [address] [place], [place] [address] Bilirubin [Mass/Vol] 0.7 mg/dL Normal 0.2-1.3 [facility] Comment on above: Performed By: #### B 2M, CMP, URIC, KLFRS, SERIMM, SEPG, IFESC #### [facility] [address] [place], [place] [address] Calcium [Mass/Vol] 9.4 mg/dL Normal 8.5-10.2 [facility] Comment on above: Performed By: #### B 2M, CMP, URIC, KLFRS, SERIMM, SEPG, IFESC #### [facility] [address] [place], [place] [address] Chloride [Moles/Vol] 103 mmol/L Normal 97-105 [facility] Comment on above: Performed By: #### B 2M, CMP, URIC, KLFRS, SERIMM, SEPG, IFESC #### [facility] [address] [place] [phone] CO2 [Moles/Vol] 24 mmol/L Normal 22-30 [facility] Comment on above: Performed By: #### B 2M, CMP, URIC, KLFRS, SERIMM, SEPG, IFESC #### [facility] [address] [phone] Creatinine [Mass/Vol] 0.85 mg/dL Normal 0.73-1.22 [facility] Comment on above: Performed By: #### B 2M, CMP, URIC, KLFRS, SERIMM, SEPG, IFESC #### [facility] [address] [phone] eGFR- Amer. >60 Normal [facility] Comment on above: Performed By: #### B 2M, CMP, URIC, KLFRS, SERIMM, SEPG, IFESC #### [facility] [address] [place] [phone] GFR/1.73 sq M predicted among non-blacks MDRD (S/P/Bld) [Vol rate/Area] mL/min/{1.73_m2} Normal [facility] Comment on above: Result Comment: eGFR [...] CMP, URIC, KLFRS, SERIMM, SEPG, IFESC #### [facility] [address] [place] [address] Glucose [Mass/Vol] 104 mg/dL High 74-99 [facility] Comment on above: Result Comment: The [place] Diabetes Association (ADA) provides guidance for cutoff [...] Standards of Medical Care in Diabetes 2016, [place] [employer]. Diabetes Care. 2016.39(Suppl 1). Performed By: #### B 2M, CMP, URIC, KLFRS, SERIMM, SEPG, IFESC #### [place] [address] [place] [address] Potassium [Moles/Vol] 4.4 mmol/L Normal 3.7-5.1 [facility] Comment on above: Performed By: #### B 2M, CMP, URIC, KLFRS, SERIMM, SEPG, IFESC #### [place] [address] [place] [address] Protein [Mass/Vol] 8.0 g/dL Normal 6.3-8.0 [facility] Comment on above: Performed By: #### B 2M, CMP, URIC, KLFRS, SERIMM, SEPG, IFESC #### [facility] [address] [place] [address] Sodium [Moles/Vol] 137 mmol/L Normal 136-144 [facility] Comment on above: Performed By: #### B 2M, CMP, URIC, KLFRS, SERIMM, SEPG, IFESC #### [place] [address] [place] [address] Urea nitrogen [Mass/Vol] 16 mg/dL Normal 9-24 [facility] Comment on above: Performed By: #### B 2M, CMP, URIC, KLFRS, SERIMM, SEPG, IFESC #### [place] [address] [place] [phone] JOLLY Screen, Serumon 05-28-19 20 MPA Interpretation SEE COMMENT Normal [facility] Comment on above: Result Comment: Atyp ical restricted bands are present in the IgG and lambda regions. Consistent with IgG lambda monoclonal gammopathy. Performed By: #### B 2M, CMP, URIC, KLFRS, SERIMM, SEPG, IFESC #### [place] [address] [place] [address] Protein [Mass/Vol] M protein is present. Critica lly abnormal No M protein is identified. [facility] Comment on above: Performed By: #### B 2M, CMP, URIC, KLFRS, SERIMM, SEPG, IFESC #### [place] [address] Staff Review Reviewed by Adria Salomon M.D., PhD ([id number]) Normal [facility] Comment on above: Performed By: #### B 2M, CMP, URIC, KLFRS, SERIMM, SEPG, IFESC #### [place] [address] [place] [address] Immunoglobulins GAMon 2019 IgA [Mass/Vol] 18 mg/dL Low 78-391 [facility] Comment on above: Performed By: #### B 2M, CMP, URIC, KLFRS, SERIMM, SEPG, IFESC #### [place] [address] [place] [phone] IgG [Mass/Vol] 2980 mg/dL High 717-1411 [facility] Comment on above: Performed By: #### B 2M, CMP, URIC, KLFRS, SERIMM, SEPG, IFESC #### [facility] [address] [place], [place] [phone] IgM [Mass/Vol] 26 mg/dL Low 53-334 [facility] Comment on above: Performed By: #### B 2M, CMP, URIC, KLFRS, SERIMM, SEPG, IFESC #### [facility] [address] [place] [address] [place],Free,Seron 2019 K/L Ratio, Serum 0.29 Normal 0.26-1.65 [facility] Comment on above: Performed By: #### B 2M, CMP, URIC, KLFRS, SERIMM, SEPG, IFESC #### [place] [address] [place] [address] [place], Free, Serum 7.4 mg/L Normal 3.30-19.40 [facility] Comment on above: Result Comment: Test performed by an immunoturbidimetric assay on Optilite instrument from [facility]. Immunoglobulin free light chain assay results should be interpreted in conjunction with other tests and in correlation with clinical picture. Performed By: #### B 2M, CMP, URIC, KLFRS, SERIMM, SEPG, IFESC #### [place] [address] [place], [place] [address] Lambda, Free, Serum 25.1 mg/L Normal 5.7-26.3 [facility] Comment on above: Result Comment: Test performed by an immunoturbidimetric assay on Optilite instrument from [facility]. Immunoglobulin free light chain assay results should be interpreted in conjunction with other tests and in correlation with clinical picture. Performed By: #### B 2M, CMP, URIC, KLFRS, SERIMM, SEPG, IFESC #### [place] [address] [place], [place] [address] Protein Electrophor.on 05-27 Albumin [Mass/Vol] 3.80 g/dL Normal 3.37-4.23 [facility] Comment on above: Performed By: #### B 2M, CMP, URIC, KLFRS, SERIMM, SEPG, IFESC #### [facility] [address] [place] [phone] Alpha 1 Globulin 0.17 gm/dL Low 0.18-0.31 [facility] Comment on above: Performed By: #### B 2M, CMP, URIC, KLFRS, SERIMM, SEPG, IFESC #### [facility] [address] [place] [address] Alpha 2 Globulin 0.51 gm/dL Low 0.52-0.97 [facility] Comment on above: Performed By: #### B 2M, CMP, URIC, KLFRS, SERIMM, SEPG, IFESC #### [place] [address] [place] [address] Beta Globulin 0.81 gm/dL Low 0.84-1.36 [facility] Comment on above: Performed By: #### B 2M, CMP, URIC, KLFRS, SERIMM, SEPG, IFESC #### [place] [address] [place] [address] Gamma Globulin 2.61 gm/dL High 0.70-1.44 [facility] Comment on above: Performed By: #### B 2M, CMP, URIC, KLFRS, SERIMM, SEPG, IFESC #### [place] [address] [place] [address] Interpretation SEE COMMENT Normal [facility] Comment on above: Result Comment: An M protein is identified on protein electrophoresis. See separate immunofixation report for characterization of the M protein. Performed By: #### B 2M, CMP, URIC, KLFRS, SERIMM, SEPG, IFESC #### [facility] [address] [place] [phone] M Markus Concentratn 2.04 gm/dL High 0.00 [facility] Comment on above: Performed By: #### B 2M, CMP, URIC, KLFRS, SERIMM, SEPG, IFESC #### [facility] [address] [place], [place] [address] Protein [Mass/Vol] Gamma fraction Normal Cl [facility] Comment on above: Performed By: #### B 2M, CMP, URIC, KLFRS, SERIMM, SEPG, IFESC #### [facility] [address] [place] [address] Protein [Mass/Vol] 7.9 g/dL Normal 6.0-8.4 [facility] Comment on above: Performed By: #### B 2M, CMP, URIC, KLFRS, SERIMM, SEPG, IFESC #### [place] [address] [place] [address] SPE Staff Review Reviewed by Adria Salomon M.D., PhD ([id number]) Normal [facility] Comment on above: Performed By: #### B 2M, CMP, URIC, KLFRS, SERIMM, SEPG, IFESC #### [place] [address] [place] [address] Remote CBCDIF (for [facility] use o nly)on 05-28-2019 Abs Baso Test reordered by [facility]. Normal <0.11 [facility] Comment on above: Result Comment: MAYANK [id number] Account Credited Performed By: #### R CBCDF #### [place] [address] [place] [address] Abs Yolo Test reordered by [facility]. Normal <0.87 [facility] Comment on above: Result Comment: MAYANK 0 [id number] Account Credited Performed By: #### R CBCDF #### [place] [address] [place] [address] Abs Neut Test reordered by [facility]. Normal 1.45-7.50 [facility] Comment on above: Result Comment: MAYANK 0 [id number] Account Credited Performed By: #### R CBCDF #### [facility] [address] [place], [place] [address] Basophils/100 WBC (Bld) Test reordered by [facility]. Normal [facility] Comment on above: Result Comment: MAYANK [id number] Account Credited Performed By: #### R CBCDF #### [facility] [address] [place], [place] [address] Comment Test reordered by [facility]. Normal [facility] Comment on above: Result Comment: MAYANK [id number] Account Credited Performed By: #### R CBCDF #### [facility] [address] [place] [address] Eosinophils (Bld) [#/Vol] Test reordered by [facility]. Normal <0.46 [facility] Comment on above: Result Comment: MAYANK 0 [id number] Account Credited Performed By: #### R CBCDF #### [facility] [address] [place] [address] Eosinophils/100 WBC (Bld) Test reordered by [facility]. Normal [facility] Comment on above: Result Comment: MAYANK 0 [id number] Account Credited Performed By: #### R CBCDF #### [facility] [address] [place] [address] Erythrocyte distribution width (RBC) [Ratio] Test reordered by [facility]. Normal 11.5-15.0 [facility] Comment on above: Result Comment: MAYANK [id number] Account Credited Performed By: #### R CBCDF #### [facility] [address] [place] [address] Hematocrit (Bld) [Volume fraction] Test reordered by [facility]. Normal 39.0-51.0 [facility] Comment on above: Result Comment: MAYANK 0 [id number] Account Credited Performed By: #### R CBCDF #### [facility] [address] [place], [place] [address] Hemoglobin (Bld) [Mass/Vol] Test reordered by [facility]. Normal 13.0-17.0 [facility] Comment on above: Result Comment: MAYANK 0 [id number] Account Credited Performed By: #### R CBCDF #### [facility] [address] [place], [place] [address] Lymphocytes (Bld) [#/Vol] Test reordered by [facility]. Normal 1.00-4.00 [facility] Comment on above: Result Comment: MAYANK 0 [id number] Account Credited Performed By: #### R CBCDF #### [facility] [address] [place], [place] [address] Lymphocytes/100 WBC (Bld) Test reordered by [facility]. Normal [facility] Comment on above: Result Comment: MAYANK [id number] Account Credited Performed By: #### R CBCDF #### [facility] [address] [place], [place] [address] MCH (RBC) [Entitic mass] Test reordered by [facility]. Normal 26.0-34.0 [facility] Comment on above: Result Comment: MAYANK 0 [id number] Account Credited Performed By: #### R CBCDF #### [facility] [address] [place], [place] [address] MCHC (RBC) [Mass/Vol] Test reordered by [facility]. Normal 30.5-36.0 [facility] Comment on above: Result Comment: MAYANK 0 [id number] Account Credited Performed By: #### R CBCDF #### [facility] [address] [place], [place] [address] MCV (RBC) [Entitic vol] Test reordered by [facility]. Normal 80.0-100.0 [facility] Comment on above: Result Comment: MAYANK [id number] Account Credited Performed By: #### R CBCDF #### [facility] [address] [place], [place] [address] Monocytes/100 WBC (Bld) Test reordered by [facility]. Normal [facility] Comment on above: Result Comment: MAYANK [id number] Account Credited Performed By: #### R CBCDF #### [facility] [address] [place], [place] [address] Neutrophils/100 WBC (Bld) Test reordered by [facility]. Normal [facility] Comment on above: Result Comment: MAYANK [id number] Account Credited Performed By: #### R CBCDF #### [facility] [address] [place], [place] [address] Platelet mean volume (Bld) [Entitic vol] Test reordered by [facility]. Normal 9.0-12.7 [facility] Comment on above: Result Comment: MAYANK 0 [id number] Account Credited Performed By: #### R CBCDF #### [facility] [address] [place], [place] [address] Platelets (Bld) [#/Vol] Test reordered by [facility]. Normal 150-400 [facility] Comment on above: Result Comment: MAYANK [id number] Account Credited Performed By: #### R CBCDF #### [facility] [address] [place], [place] [address] RBC (Bld) [#/Vol] Test reordered by [facility]. Normal 4.20-6.00 [facility] Comment on above: Result Comment: MAYANK [id number] Account Credited Performed By: #### R CBCDF #### [facility] [address] [place], [place] [address] Recheck Test reordered by [facility]. Normal [facility] Comment on above: Result Comment: MAYANK 0 [id number] Account Credited Performed By: #### R CBCDF #### [facility] [address] [place], [place] [address] Review Test reordered by [facility]. Normal [facility] Comment on above: Result Comment: MAYANK 0 [id number] Account Credited Performed By: #### R CBCDF #### [facility] [employer] [address], [place] [address] WBC (Bld) [#/Vol] Test reordered by [facility]. Normal 3.70-11.00 [facility] Comment on above: Result Comment: MAYANK [phone] [id number] Account Credited Performed By: #### R CBCDF #### [facility] [address], [place] [address] Uric Acidon 05-28-2019 Urate [Mass/Vol] 4.0 mg/dL Normal 4.0-8.1 [facility] Comment on above: Performed By: #### B 2M, CMP, URIC, KLFRS, SERIMM, SEPG, IFESC #### [facility] [address] [place], [place] [address] Vital Signs Date Time Vital Sign Value Performing Clinician Ceferino guzman 10-23-2023 13:11-0400 Body temperature 97.88 [degF] [facility] 10-23-2023 13:11-0400 Diastolic blood pressure 75 mm[Hg] [facility] 10-23-2023 13:11-0400 Heart rate 78 /min [facility] 10-23-2023 13:11-0400 Mean blood pressure 100 mm[Hg] [facility] 10-23-2023 13:11-0400 SaO2% (BldA) [Mass fraction] 100 % [facility] 10-23-2023 13:11-0400 Systolic blood pressure 150 mm[Hg] [facility] 04-25-2022 09:08-0500 Heart rate 70 /min [facility] 04-25-2022 09:08-0500 SaO2% (BldA) [Mass fraction] 97 % [facility] 04-25-2022 09:08-0500 Respiratory rate 16 /min Tigre Rae [facility] 04-25-2022 09:07-0500 Diastolic blood pressure 85 mm[Hg] Tigremichael Rae [facility] 04-25-2022 09:07-0500 Mean blood pressure 108 mm[Hg] Tigre Rae [facility] 04-25-2022 09:07-0500 Systolic blood pressure 154 mm[Hg] Tigremichael Rae [facility] 04-25-2022 09:00-0500 Body temperature 97.52 [degF] Tigremichael Rae [facility] Encounters Encounter Date Encounter Type Care Provider Facility Start: 10-23-2023 End: 10-23-2023 ambulatory Tigre Rae Facility:[facility] Start: 10-23-2023 End: 10-23-2023 [facility] Start: 09-11-2023 ambulatory Tigremichael Rae Dom ity:[facility] Start: 03-04-2023 End: 03-04-2023 ambulatory CECILIA BENSON Not Available Start: 07-16-2022 End: 07-17-[address] VICKIE EASON . Facility:[facility] Start: 04-25-2022 End: 04-25-2022 Patient encounter procedure Tigremichael Rae [facility] Start: 04-09-2022 End: 04-10-[address] [...] abnormal findings DR VICKIE EASON . [facility] Start: 08-17-2021 End: 08-18-[address] VICKIE EASON . Facility:[facility] Start: 08-16-2021 End: 08-17-[address] VICKIE EASON . Facility:[facility] Start: 08-16-2021 End: 08-17-2021 Encounter for general adult medical examination without abnormal findings DR VICKIE EASON . Facility:[facility] Start: 10-10-2016 End: 10-11-2016 Ambulatory DEFAULT PHYSICIAN Facility:[facility] Procedures Date Procedure Procedure Detail Performing Clinician Start: 07-16-[address] GENNA EASON . Comment on above: Performed By: #### L IPID, T7, URIC, TSH, CMP #### [facility] [address] [place], [place] [address] Dr. Jaymie Gilbert Start: 08-16-[address] GENNA EASON . Comment on above: Performed By: #### L IPID, T7, URIC, TSH, CMP #### [facility] [address] [place], [place] [address] Dr. Jaymie Gilbert Arthroscopy of knee with meniscus repair Tigre Rae Pneumatic retinopexy Tigre Rae Tonsillectomy and adenoidectomy Tigre Rae Vasectomy Tigre Matias cz Payers Date Payer Category Payer Unknown [id number] 2.16.8 [id number] 1960 Unknown [id number] 2.16.84 [id number] 1960 Unknown [id number] 2.16.84 [id number] 1960 Unknown [id number] 2.16.84 0.1.375068.3.579.2.593 1960 Unknown [id number] 2.16.84 0.1.372409.3.579.2.593 1960 Unknown [id number] 2.16.84 0.1.326276.3.579.2.593 1960 Unknown [id number] 2.16.84 0.1.147342.3.579.2.593 1960 Unknown [id number] 2.16.84 [id number] 1960 Unknown [id number] 2.16.84 0.1.453260.3.579.2.593 1960 Unknown [id number] 2.16.84 0.1.905892.3.579.2.593 1960 Unknown [id number] 2.16.84 0.1.029512.3.579.2.593 1960 Unknown [id number] 2.16.840 .1.856346.3.579.2.1259 1960 Unknown [id number] 2.16.8 40.1.107098.3.579.2.727 1960 Unknown [id number] 2.16.8 40.1.481127.3.579.2.727 1959 Unknown [id number] Unknown Social History Date Type Detail Facility Start: 04-26-2020 End: 10-23-2023 Tobacco smoking status Never smoked tobacco (finding) [facility] Tobacco smoking status Never Pending Sale To [facility] Sex Assigned At Male [facility] Clinical Note 10-23-2023 Note Date & Type Note Facility 10-23-2023 Note Oncology Progress No te Chief Complaint Follow up on Elevated Serum Protein and lab work, no questions or concerns today. Oncological History/ROS/PE/Assessment and Plan 63-year-old male whom I previously followed at [facility] for monoclonal gammopathy of undetermined significance. He has a persistent M spike in the 2-3 range with quantitative igg in the 4429-7079 range.. Previously he had followed with Dr. Aparicio and had a bone marrow biopsy in 2014. At the time he had less than [...] disease or hypercalcemia. 04/26/2020 he maintains on levothyroxine levothyroxine and testosterone from Dr. Parra. His PCP is Justino Eason. He feels well, no hospitalizations or major med changes. no sweats. weight stable. 04/26/21 no hospitalizations or med changes. Follows with Dr. Eason. No back pain, weight is stable. labs pending, drawn at [place]. he had skeletal survey with no concerning findings last week at [place]. 04/25/22 no new complaints. recent cbc was normal wbc, hb plts outside labs. IgG 3145, Mspike 2.3. unchanged essentially. 10/23/23 doing well, no issues this year. He had labs at [place] but did not check free light chains. PHYSICAL EXAMINATION ECOG PS:0 General: Alert and oriented, no acute distress. Eye: Extraocular movements are intact, normal conjunctiva. HENT: Normocephalic, normal hearing. Neck: Supple, non-tender, no jugular venous distention. Cardiovascular: Normal rate, regular rhythm, no murmur, no edema. Gastrointestinal: Soft, non-tender, non-distended, normal bowel sounds, no organomegaly. Respiratory: Clear to auscultation bilaterally, no wheezes, rhonchi or rales. Integumentary: Warm, dry, pink, no pallor, no rash. Psychiatric: Cooperative, appropriate mood & affect. Impression and Plan MGUS IgG lambda, very high M spike [...] had no clinical signs of disease over all of the years since his initial bone marrow biopsy in 2013. His M spike's have been stable. We will continue to monitor him yearly or less at this point. Today we reiterated that any significant back pain and I would have a very low threshold for MRIs to evaluate more closely for lytic disease. M spike mid 2023 was 2.9, this is slight higher than previously. Continue testosterone and thyroid replacement through his primary care provider as well as Dr. Benson. 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 cbc, cmp, spep sflc simmunfoixation, quant igg first. Medications aspirin, 81 mg, Daily Celebrate Multivitamin, Daily DHEA 25 mg oral capsule, 37.5 mg= 1.5 cap(s), Oral, Daily levothyroxine 50 mcg (0.05 mg) Tab, 50 mcg= 1 tab(s), Oral, BID liothyronine 5 mcg Tab, 10 mcg= 2 tab(s), Oral, BID Lipitor 20 mg Tab, 20 mg= 1 tab(s), Oral, Daily Vital Signs and Measurements Vital Signs and Measurements This Visit - Last 24 Hours T: 36.6 ?C (Oral) HR: 78 (Peripheral) BP: 150/75 SpO2: 100% HT: 173.0 cm HT: 173 cm WT: 80.3 kg (Dosing) WT: 80.3 kg BMI: 26.83 BSA: 1.96 Staging Information No information available Labs No Qualifying Data Available [facility] Hospital Discharge instructions 04-26-2021 Note Date & Type Note Facility 04-26-2021 Hospital Discharg e instructions Follow Up Care 04/26/2021 09:33:13 With:Tigre Rae Address: [facility] [address] [place] [phone] Fax Business (1) When: Unknown Comments:f/u in 18 months. prior to f/u at [place] check cbc, cmp, spep [facility] simmunofixation. no imaging. [facility] Evaluation + Plan note LaboratoryRadiology Note [...] 04/27/21Protein Electrophoresis 04/27/21XR Bone Survey Complete 04/17/22 [facility] Evaluation + Plan note Laboratory Note Date & Type Note Facility Evaluation + Plan note Future Appointments Appointment Date:10/21/2024 11:00:00 AM Scheduled Provider:Tigre Rae DO Location:[facility]ONCOLOGY Appointment Type:ONC Office Visit 20 ([facility]) Future Scheduled TestsIFE and PE, Serum 10/22/24IgG, Quant. 10/22/24Immunofixation Serum 10/22/24Free K+L Lt Chains,Qn,S 10/22/24CBC w/ Auto Diff 10/22/24Comprehensive Metabolic Panel 10/22/24 [facility] Hospital course Narrative Note Date & Type Note Facility Hospital course Narrative No data available for this section [facility] Hospital Discharge instructions Note Date & Type Note Facility Hospital Discharge instructions No data available for this section [facility] Progress note Note Date & Type Note Facility Progress note No data available for this section [facility] Summary Purpose Family History No Family History Records FoundNo Family History Records FoundNo Family History Records FoundNo Family History Records FoundNo Family History Records FoundNo Family History Records FoundNo Family History Records Found No data available for this section No Family History Records Found Advance Directives No [...] section and content) DATE CREATED AUTHOR 09/18/2017 [facility] DATE CREATED AUTHOR AUTHOR'S ORGANIZ ATION 06/13/2019 [facility] DATE CREATED AUTHOR AUTHOR'S ORGANIZ ATION 10/27/2021 [facility] DATE CREATED AUTHOR AUTHOR'S ORGANIZ ATION 10/28/2021 [facility] DATE CREATED AUTHOR AUTHOR'S ORGANIZ ATION 05/25/2022 [facility] DATE CREATED AUTHOR AUTHOR'S ORGANIZ ATION 07/18/2022 [facility] DATE CREATED AUTHOR AUTHOR'S ORGANIZ ATION 03/05/2023 [facility] EPIC DATE CREATED AUTHOR AUTHOR'S ORGANIZ ATION 10/25/2023 [facility] Patient Care team informatio n (unrecognized section and content) Personnel Name: Vickie Eason MD Address: Address: [address] [place] [address] Personnel Name: Vickie Eason MD Address: Address: [address] [place] [address] FOR RECORDS PERTAINING TO PATIENTS WHO ARE [...] BE BASED ON THE PRIMARY CLINICAL RECORDS. [employer] provides no warranty or guarantee of the accuracy or completeness of information in this document.
[2023-11-04 11:19] LABS: Free T3 4.38 pg/mL (2.18-3.98); Thyroid Stimulating Hormone 0.017 uIU/mL (0.358-3.740)
[2023-11-04 11:25] LABS: Free T4 0.82 ng/dL (0.76-1.46)
[2023-11-05 04:07] LABS: Triiodothyronine (T3) 163 ng/dL (71-180)
[2023-11-08 00:07] LABS: Reverse T3, Serum 12.1 ng/dL (9.2-24.1)
== END 2023-11-04 08:56 | disposition home or self-care (01) ==
PROVIDERS: PCP Family Medicine; Visit Provider Family Medicine
DX: E07.81 Sick-euthyroid syndrome (principal); R53.82 Chronic fatigue, unspecified; E03.9 Hypothyroidism, unspecified
CPT/HCPCS: 36415; 84439; 84443; 84480; 84481; 84482

== ENCOUNTER 2024-05-04 09:20 | Outpatient (OUT) | payer BC, SELFPAY ==
--- OUTSIDE RECORDS SUMMARY | 2024-05-04 09:27 | XMS_ITS | CCD ---
Author Organization [facility] Providers Care Manual Qa Tester Name Role Phone PHYSICIAN, DEFAULT Unavailable Unavailable PHYSICIAN, DEFAULT Unavailable Unavailable Vickie Eason Primary Care Physician Andreas, Dr. Kathy Zimmerman Attending Unavailabl e Yumi, Dr. Vickie Easton [...] Unavailable HOY ., DR JOHNSTON Admitting Unavailable WEST, DR BRANDIN Ames Consulting Unavailable [...] ., DR BROOKS Admitting Unavailable Tigre Rae Referring Unavailable Tigre Rae Attending Unavailable HU BENSON Attending Unavailable HU BENSON Attending Unavailable HU BENSON Attending Unavailable Vickie Eason MD Primary Care Provider [phone] Allergies Allergy Classification Reported Allergen(s) Allergy Type Date of Onset Reaction(s) Facility (5 sources) Ciprofloxacin; Translations: [ciprofloxacin] Drug Allergy 5 Intolerance, function (observable entity) [facility] (2 sources) Ciprofloxacin Drug Allergy 7 [facility] Rep[facility] Medications Current Medications Medication Drug Class(es) Dates Sig (Normalized) Sig (Original) Aspirin (4 sources) Platelet Aggregation Inhibitor, Nonsteroidal Anti-inflammatory Drug Start: 04-26-2021 aspirin 81 mg, Daily, Refills(s) 0 Start Date: 04/26/21 Status: Ordered take 1 tablet by mouth once estevan y aspirin (ASPIR) 81 MG EC tablet Take 81 mg by mouth 1 (one) time each day at the same time. Active atorvastatin 20 mg oral tablet (2 sources) [...] (2 sources) Start: 04-26-2020 DHEA 25 mg ora l capsule 37.5 mg = 1.5 cap(s), Oral, Daily, # 30 cap(s), Refills(s) 0 Start Date: 04/26/20 Status: Ordered levothyroxine sodium 0.1 mg oral tablet (5 sources) l-Thyroxine Start: 02-24-2024 take 0.5 tablet by mouth twice daily levothyroxine (Synthroid, Levoxyl) 100 MCG tablet Indications: Hypothyroidism (acquired) (CMS/HCC) Take 0.5 tablet on an empty stomach orally two times daily 90 tablet 02/24/2024 Active Start: 11-18-2023 take 0.5 tablet by m outh twice daily levothyroxine (Synthroid, Levoxyl) 100 MCG tablet Indications: Hypothyroidism (acquired) (CMS/HCC) Take 0.5 tablet on an empty stomach orally two times daily 90 tablet 1 11/18/2023 Active Start: 05-21-2023 End: 11-18-2023 take 0.5 tablet by mouth twice daily levothyroxine (Synthroid, Levoxyl) 112 MCG tablet Indications: Hypothyroidism (acquired) (CMS/HCC) Take 0.5 tablet on an empty stomach orally two times daily 90 tablet 1 05/21/2023 11/18/2023 Discontinued (Reorder) Start: 04-26-2020 take 1 tablet by dee twice daily levothyroxine 50 mcg (0.05 mg) Tab 50 mcg = 1 tab(s), Oral, BID, # 30 tab(s), Refills(s) 0 Start Date: 04/26/20 Status: Ordered liothyronine sodium 0.025 mg oral tablet (5 sources) l-Triiodothyronine Start: 02-24-2024 liothyronin e (Cytomel) 25 MCG tablet Indications: ESS (euthyroid sick syndrome) Take 1/2 tablet in AM and 1/2 tablets in PM on an empty stomach. MARTHA; Sigma or Greenstone brands only 90 tablet 02/24/2024 Active Start: 11-18-2023 liothyronine ( Cytomel) 25 MCG tablet Indications: ESS (euthyroid sick syndrome) Take 1/2 tablet in AM and 1/2 tablets in PM on an empty stomach. MARTHA; Sigma or Greenstone brands only 90 tablet 1 11/18/2023 Active Start: 05-21-2023 End: 11-18-2023 liothyronine (Cytomel) 5 MCG tablet Indications: ESS (euthyroid sick syndrome) Take 3 tablet in AM and 3 tablets in PM on an empty stomach. MARTHA; Sigma or Greenstone brands only 540 tablet 1 05/21/2023 11/18/2023 Discontinued (Reorder) Start: 04-26-2020 take 2 tablets by mo [facility] twice daily liothyronine 5 mcg Tab 10 mcg = 2 tab(s), Oral, BID, # 30 tab(s), Refills(s) 0 Start Date: 04/26/20 Status: Ordered Multiple Vitamins-Minerals (CENTRUM SILVER ULTRA MENS PO) (2 sources) take 1 tablet by mouth once daily Multiple Vitamins-Minerals (CENTRUM SILVER ULTRA MENS PO) Take 1 tablet by mouth 1 (one) time each day. Active prasterone 25 mg oral tablet (2 sources) take 0.5 tablet by mouth twice daily in the morning dehydroepiandrosterone (DHEA) 25 MG tablet Take 25 mg by mouth See administration instructions. 1 tablet in evening and 1/2 tablet in AM orally two times daily Active sildenafil 20 mg oral tablet (1 source) Phosphodiesterase 5 Inhibitor Star t: 12-23 23 take 1-5 tablets by mouth once daily as needed sildenafil (Revatio) 20 MG tablet Indications: Combined arterial insufficiency and corporo-venous occlusive erectile dysfunction Take 1-5 tablets (20-100 mg) by mouth Daily as needed (erectile dysfunction). 90 tablet 2 01/02/2023 Active tamsulosin hydrochloride 0.4 mg oral capsule (2 sources) alpha-Adrenergic Cayetano Star t: 08-23 24 take 1 capsule by mouth once daily tamsulosin (Flomax) 0.4 MG 24 hr capsule Take 1 capsule by mouth 1 (one) time each day at the same time 09/03/2023 Active Problems Active Problems Problem Classification Problem Date Documented Date Episodic/Chronic Disorders of lipid metabolism (4 sources) Hyperlipidemia; Translations: [Dyslipidemia] Onset: 09-03-2022 04-26-2020 Chronic Malaise and fatigue (8 sources) Chronic fatigue, unspecified; Translations: [Fatigue] Onset: 09-11-2021 Chronic Neoplasms of unspecified nature or uncertain behavior (6 sources) Monoclonal gammopathy; Translations: [Immunosecretory disorder] Onset: 04-09-2022 Chronic Other endocrine disorders (2 sources) Hyperestrogenism; Translations: [Estrogen excess] Onset: 09-03-2022 09-03-2022 Chronic Other male genital disorders (2 sources) 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; Translations: [Combined arterial insufficiency and corporo-venous occlusive erectile dysfunction] Onset: 09-03-2022 09-03-2022 Chronic Thyroid disorders (7 sources) Hypothyroidism; Translations: [Hypothyroidism, unspecified] Onset: 03-01-2022 [...] OF BONE UNSPECIFIED] Onset: 04-14-2022 Episodic Other endocrine disorders (2 sources) Hypotestosteronis m; Translations: [Endocrine disorder, unspecified] Onset: 09-03-2022 09-03-2022 Episodic Other lower respiratory disease (4 sources) Shortness of breath; Translations: [SHORTNESS OF BREATH] Onset: 11-03-2021 Episodic Other nutritional; endocrine; and metabolic disorders (3 sources) Overweight; Translations: [Overweight] Onset: 09-03-2022 11-11-2023 Episodic Other screening for suspected conditions (not mental disorders or infectious disease) (1 source) Encounter for screening for malignant neoplasm of prostate; Translations: [ENC SCREEN MALIG NEOPLASM PROSTATE] Onset: 08-18-2021 Episodic Thyroid disorders (8 sources) Sick-euthyroid syndrome; Translations: [Sick-euthyroid syndrome] Onset: 09-13-2021 Episodic Results Test Name Value Interpretation Reference Range Facility Laboratory Outside Office Co pyon 09-12-2023 Laboratory Outside Office Copy [id number] Normal [facility] Laboratory Outside Office Copy [id number]#[id number] Normal [facility] Physician Orderon 10-26-2022 Physician Order [id number]#[id number]:127 Normal [facility] INSULINon 07-17-2022 Insulin 9.6 uIU/mL Normal 2.6-24.9 [facility] Comment on above: Performed By: #### L IPID, T7, URIC, TSH, CMP #### [facility] Laboratory [address] [place] [address] Dr. Jaymie Gilbert CBC AUTO DIFFon 07-16-2022 BASO # 0.0 103/ul Normal 0.0-0.1 [facility] Comment on above: Performed By: #### L IPID, T7, URIC, TSH, CMP #### [facility] Laboratory [address] [place] [address] Dr. Jaymie Gilbert Basophils/100 WBC (Bld) 1.0 % Normal 0.2-2.0 [facility] Comment on above: Performed By: #### L IPID, T7, URIC, TSH, CMP #### [facility] Laboratory [address] [place] [address] Dr. Jaymie Gilbert EO # 0.0 103/ul Normal 0.0-0.7 [facility] Comment on above: Performed By: #### L IPID, T7, URIC, TSH, CMP #### [facility] Laboratory [address] [place] [address] Dr. Jaymie Gilbert Eosinophils/100 WBC (Bld) 1.0 % Normal 0.9-7.0 [facility] Comment on above: Performed By: #### L IPID, T7, URIC, TSH, CMP #### [facility] Laboratory [address] [place] [address] Dr. Jaymie Gilbert Erythrocyte distribution width (RBC) [Ratio] 13.3 % Normal 11.0-15.0 [facility] Comment on above: Performed By: #### L IPID, T7, URIC, TSH, CMP #### [facility] Laboratory [address] [place] [address] Dr. Jaymie Gilbert Hematocrit (Bld) [Volume fraction] 44.6 % Normal 42.0-54.0 [facility] Comment on above: Performed By: #### L IPID, T7, URIC, TSH, CMP #### [facility] Laboratory [address] [place] [address] Dr. Jaymie Gilebrt Hemoglobin (Bld) [Mass/Vol] 15.2 g/dL Normal 14.0-18.0 [facility] Comment on above: Performed By: #### L IPID, T7, URIC, TSH, CMP #### [facility] Laboratory [address] [place] [address] Dr. Jaymie Gilbert IG # 0.01 10e3/ul Normal 0.00-0.03 [facility] Comment on above: Performed By: #### L IPID, T7, URIC, TSH, CMP #### [facility] [address] [place] [address] Dr. Jaymie Gilbert IG % 0.3 % Normal 0.0-0.5 [facility] Comment on above: Performed By: #### L IPID, T7, URIC, TSH, CMP #### [facility] [address] [place] [address] Dr. Jaymie Gilbert LYMPH # 1.5 103/ul Normal 1.2-3.8 [facility] Comment on above: Performed By: #### L IPID, T7, URIC, TSH, CMP #### [facility] [address] [place] [address] Dr. Jaymie Gilbert Lymphocytes/100 WBC (Bld) 38.0 % Normal 20.5-60.0 [facility] Comment on above: Performed By: #### L IPID, T7, URIC, TSH, CMP #### [facility] [address] [place] [address] Dr. Jaymie Gilbert MANUAL DIFF REQ NO Normal [facility] Comment on above: Performed By: #### L IPID, T7, URIC, TSH, CMP #### [facility] [address] [place] [address] Dr. Jaymie Gilbert MCH (RBC) [Entitic mass] 31.5 pg Normal 25.9-34.0 [facility] Comment on above: Performed By: #### L IPID, T7, URIC, TSH, CMP #### [facility] [address] [place] [address] Dr. Jaymie Gilbert MCHC (RBC) [Mass/Vol] 34.1 g/dL Normal 29.9-35.2 [facility] Comment on above: Performed By: #### L IPID, T7, URIC, TSH, CMP #### [facility] [address] [place] [address] Dr. Jaymie Gilbert MCV (RBC) [Entitic vol] 92.5 fL Normal 80.0-94.0 [facility] Comment on above: Performed By: #### L IPID, T7, URIC, TSH, CMP #### [facility] [address] [place] [address] Dr. Jaymie Gilbert MONO # 0.4 103/ul Normal 0.3-0.8 [facility] Comment on above: Performed By: #### L IPID, T7, URIC, TSH, CMP #### [facility] [address] [place] [address] Dr. Jaymie Gilbert Monocytes/100 WBC (Bld) 11.0 % Normal 1.7-12.0 [facility] Comment on above: Performed By: #### L IPID, T7, URIC, TSH, CMP #### [facility] [address] [place] [address] Dr. Jaymie Gilbert NEUT # 2.0 103/ul Normal 1.4-6.5 [facility] Comment on above: Performed By: #### L IPID, T7, URIC, TSH, CMP #### [facility] [address] [place] [address] Dr. Jaymie Gilbert Neutrophils/100 WBC (Bld) 48.7 % Normal 43.0-75.0 [facility] Comment on above: Performed By: #### L IPID, T7, URIC, TSH, CMP #### [facility] [address] [place] [address] Dr. Jaymie Gilbert Platelet mean volume (Bld) [Entitic vol] 9.8 fL Normal 9.5-13.5 [facility] Comment on above: Performed By: #### L IPID, T7, URIC, TSH, CMP #### [facility] [address] [address] [address] Jaymie Gilbert PLT 261 103/ul Normal 150-450 [facility] Comment on above: Performed By: #### L IPID, T7, URIC, TSH, CMP #### [facility] [address] [place] [address] Dr. Jaymie Gilbert RBC 4.82 106/ul Normal 4.70-6.10 [facility] Comment on above: Performed By: #### L IPID, T7, URIC, TSH, CMP #### [facility] [address] [place] [address] Dr. Jaymie Gilbert WBC 4.0 103/ul Normal 4.0-11.0 [facility] Comment on above: Performed By: #### L IPID, T7, URIC, TSH, CMP #### [facility] [address] [place] [address] Dr. Jaymie Gilbert FREE THYROXINE INDEX T7on FTI 1.57 Normal 1.30-4.50 [facility] Comment on above: Performed By: #### L IPID, T7, URIC, TSH, CMP #### [facility] [address] [place] [address] Dr. Jaymie Gilbert T3U 32.0 % Critically low 33.0-40.0 [facility] Comment on above: Performed By: #### L IPID, T7, URIC, TSH, CMP #### [facility] [address] [place] [address] Dr. Jaymie Gilbert T4 [Mass/Vol] 4.90 ug/dL Normal 4.50-12.10 [facility] Comment on above: Performed By: #### L IPID, T7, URIC, TSH, CMP #### [facility] [address] [place] [address] Dr. Jaymie Gilbert GLYCOHEMOGLOBIN A1Con 2022 ADA RECOMMENDATION SEE BELOW Normal [facility] Comment on above: Result Comment: ADA RECOMMENDED LIMIT 4.0 - 6.0 ADA THERAPEUTIC TARGET < 7.0 ACTION SUGGESTED > 7.0 Performed By: #### L IPID, T7, URIC, TSH, CMP #### [facility] [address] [address] [address] Jaymie Gilbert Glucose [Mass/Vol] 114 mg/dL Normal [facility] Comment on above: Performed By: #### L IPID, T7, URIC, TSH, CMP #### [facility] [address] [address] [address] Jaymie Gilbert HbA1c (Bld) [Mass fraction] 5.6 % Normal 4.5-6.2 [facility] Comment on above: Performed By: #### L IPID, T7, URIC, TSH, CMP #### [facility] [address] [address] [address] Jaymie Gilbert LIPID PROFILEon 07-16-2022 CHOL-HDL RATIO NORM SEE BELOW Normal [facility] Comment on above: Result Comment: 3.3 - 4.4 LOW RISK 4.4 - 7.1 AVERAGE RISK 7.1 - 11.0 MODERATE RISK >11.0 HIGH RISK Performed By: #### L IPID, T7, URIC, TSH, CMP #### [facility] [address] [address] [address] Jaymie Gilbert Cholesterol [Mass/Vol] 212 mg/dL Critically high <=200 [facility] Comment on above: Performed By: #### L IPID, T7, URIC, TSH, CMP #### [facility] [address] [address] [address] Jaymie Gilbert Cholesterol in HDL [Mass/Vol] 67 mg/dL Critically high 40-60 [facility] Comment on above: Performed By: #### L IPID, T7, URIC, TSH, CMP #### [facility] [address] [address] [address] Jaymie Gilbert Cholesterol in LDL [Mass/Vol] 132.4 mg/dL Normal [facility] Comment on above: Performed By: #### L IPID, T7, URIC, TSH, CMP #### [facility] [address] [address] [address] Jaymie Gilbert Cholesterol.total/ Cholesterol in HDL [Mass ratio] 3.2 {ratio} Normal [facility] Comment on above: Performed By: #### L IPID, T7, URIC, TSH, CMP #### [facility] [address] [address] [address] Jaymie Gilbert HDL NORMAL > or = 60 mg/dl - LO W CARDIOVASCULAR RISK <40 mg/dl - HIGH CARDIOVASCULAR RISK Normal [facility] Comment on above: Performed By: #### L IPID, T7, URIC, TSH, CMP #### [facility] [address] [address] [address] Jaymie Gilbert LDL CALC NORMAL SEE BELOW Normal [facility] Comment on above: Result Comment: <100 mg/dl OPTIMAL 100 - 129 mg/dl NEAR OR ABOVE OPTIMAL 130 - 159 mg/dl BORDERLINE HIGH 160 - 189 mg/dl HIGH >190 mg/dl VERY HIGH Performed By: #### L IPID, T7, URIC, TSH, CMP #### [facility] [address] [place] [address] Dr. Jaymie Gilbert Triglyceride [Mass/Vol] 63 mg/dL Normal <=150 [facility] Comment on above: Performed By: #### L IPID, T7, URIC, TSH, CMP #### [facility] [address] [place] [address] Dr. Jaymie Gilbert VLDL CALC 12.6 mg/dL Normal [facility] Comment on above: Performed By: #### L IPID, T7, URIC, TSH, CMP #### [facility] [address] [place] [address] Dr. Jaymie Gilbert PROF 14(COMP METB)on 023 Albumin [Mass/Vol] 3.7 g/dL Normal 3.4-5.0 [facility] Comment on above: Performed By: #### L IPID, T7, URIC, TSH, CMP #### [facility] [address] [place] [address] Dr. Jaymie Gilbert Albumin/Globulin [Mass ratio] 0.7 {ratio} Normal [facility] Comment on above: Performed By: #### L IPID, T7, URIC, TSH, CMP #### [facility] [address] [place] [address] Dr. Jaymie Gilbert ALP [Catalytic activity/Vol] 42 U/L Critically low 46-116 [facility] Comment on above: Performed By: #### L IPID, T7, URIC, TSH, CMP #### [facility] [address] [place] [address] Dr. Jaymie Gilbert ALT [Catalytic activity/Vol] 28 U/L Normal 16-63 [facility] Comment on above: Performed By: #### L IPID, T7, URIC, TSH, CMP #### [facility] [address] [place] [address] Dr. Jaymie Gilbert Anion gap [Moles/Vol] 12.0 mmol/L Normal [facility] Comment on above: Performed By: #### L IPID, T7, URIC, TSH, CMP #### [facility] [address] [place] [address] Dr. Jaymie Gilbert AST [Catalytic activity/Vol] 16 U/L Normal 15-37 [facility] Comment on above: Performed By: #### L IPID, T7, URIC, TSH, CMP #### [facility] [address] [place] [address] Dr. Jaymie Gilbert Bilirubin [Mass/Vol] 0.6 mg/dL Normal 0.2-1.0 [facility] Comment on above: Performed By: #### L IPID, T7, URIC, TSH, CMP #### [facility] [address] [place] [address] Dr. Jaymie Gilbert Calcium [Mass/Vol] 9.1 mg/dL Normal 8.5-10.1 [facility] Comment on above: Performed By: #### L IPID, T7, URIC, TSH, CMP #### [facility] [address] [place] [address] Dr. Jaymie Gilbert Chloride [Moles/Vol] 104 mmol/L Normal 98-107 [facility] Comment on above: Performed By: #### L IPID, T7, URIC, TSH, CMP #### [facility] [address] [place] [address] Dr. Jaymie Gilbert CO2 [Moles/Vol] 27.3 mmol/L Normal 21.0-32.0 [facility] Comment on above: Performed By: #### L IPID, T7, URIC, TSH, CMP #### [facility] [address] [place] [address] Dr. Jaymie Gilbert Creatinine [Mass/Vol] 1.17 mg/dL Normal 0.70-1.30 [facility] Comment on above: Performed By: #### L IPID, T7, URIC, TSH, CMP #### [facility] [address] [place] [address] Dr. Jaymie Gilbert EGFR-AF COMORAN >60 Normal >=60 [facility] Comment on above: Performed By: #### L IPID, T7, URIC, TSH, CMP #### [facility] [address] [place] [address] Dr. Jaymie Gilbert EGFR-NON AF COMORAN >60 Normal >=60 [facility] Comment on above: Performed By: #### L IPID, T7, URIC, TSH, CMP #### [facility] [address] [place] [address] Dr. Jaymie Gilbert Globulin (S) [Mass/Vol] 5.3 g/dL Normal [facility] Comment on above: Performed By: #### L IPID, T7, URIC, TSH, CMP #### [facility] [address] [place] [address] Dr. Jaymie Gilbert Glucose [Mass/Vol] 101 mg/dL Normal 74-106 [facility] Comment on above: Performed By: #### L IPID, T7, URIC, TSH, CMP #### [facility] [address] [place] [address] Dr. Jaymie Gilbert Potassium [Moles/Vol] 4.3 mmol/L Normal 3.5-5.1 [facility] Comment on above: Performed By: #### L IPID, T7, URIC, TSH, CMP #### [facility] [address] [place] [address] Dr. Jaymie Gilbert Protein [Mass/Vol] 9.0 g/dL Critically high 6.4-8.2 T [facility] Comment on above: Performed By: #### L IPID, T7, URIC, TSH, CMP #### [facility] [address] [address] [address] Jaymie Gilbert Sodium [Moles/Vol] 139 mmol/L Normal 136-145 [facility] Comment on above: Performed By: #### L IPID, T7, URIC, TSH, CMP #### [facility] [address] [place] [address] Dr. Jaymie Gilbert Urea nitrogen [Mass/Vol] 18.0 mg/dL Normal 7.0-18.0 [facility] Comment on above: Performed By: #### L IPID, T7, URIC, TSH, CMP #### [facility] [address] [place] [address] Dr. Jaymie Gilbert Urea nitrogen/Creatinin e [Mass ratio] 15.4 mg/mg Normal [facility] Comment on above: Performed By: #### L IPID, T7, URIC, TSH, CMP #### [facility] [address] [place] [address] Dr. Jaymie Gilbert TSHon 07-16-2022 TSH 2.332 uIU/mL Normal 0.358-3.740 [facility] Comment on above: Performed By: #### L IPID, T7, URIC, TSH, CMP #### [facility] [address] [place] [address] Dr. Jaymie Gilbert URIC ACID SERUMon 07-16-2022 Urate [Mass/Vol] 4.6 mg/dL Normal 3.5-7.2 [facility] Comment on above: Performed By: #### L IPID, T7, URIC, TSH, CMP #### [facility] [address] [place] [address] Dr. Jaymie Gilbert BETA-2 MICROGLOBINon 023 Beta-2 Microglobulin, Serum 2.4 mg/L Normal 0.6-2.4 [facility] Comment on above: Result Comment: [facility] Game Blistersulite 2000 Immunochemiluminometric assay (ICMA) . Values obtained with different assay methods or kits cannot be used interchangeably. Results cannot be interpreted as absolute evidence of the presence or absence of malignant disease. Performed By: #### L IPID, T7, URIC, TSH, CMP #### [facility] [address] [place] [address] Dr. Jaymie Gilbert IMMUNOFIXATION(JOLLY),PROTEIN ELEC(PE),[facility] 04-11-2022 Albumin [Mass/Vol] 3.5 g/dL Normal 2.9-4.4 [facility] Comment on above: Performed By: #### L IPID, T7, URIC, TSH, CMP #### [facility] [address] [place] [address] Dr. Jaymie Gilbert Albumin/Globulin [Mass ratio] 0.9 {ratio} Normal 0.7-1.7 [facility] Comment on above: Performed By: #### L IPID, T7, URIC, TSH, CMP #### [facility] [address] [place] [address] Dr. Jaymie Gilbert Vycqc-2-Mbrrgyia 0.2 g/dL Normal 0.0-0.4 [facility] Comment on above: Performed By: #### L IPID, T7, URIC, TSH, CMP #### [facility] [address] [place] [address] Dr. Jaymie Gilbert Awspq-8-Njmvddml 0.7 g/dL Normal 0.4-1.0 [facility] Comment on above: Performed By: #### L IPID, T7, URIC, TSH, CMP #### [facility] [address] [place] [address] Dr. Jaymie Gilbert Beta Globulin 0.9 g/dL Normal 0.7-1.3 [facility] Comment on above: Performed By: #### L IPID, T7, URIC, TSH, CMP #### [facility] [address] [place] [address] Dr. Jaymie Gilbert Free [place] Lt Chains,S 8.9 mg/L Normal 3.3-19.4 [facility] Comment on above: Performed By: #### L IPID, T7, URIC, TSH, CMP #### [facility] [address] [place] [address] Dr. Jaymie Gilbert Free Lambda Lt Chains,S 18.7 mg/L Normal 5.7-26.3 [facility] Comment on above: Performed By: #### L IPID, T7, URIC, TSH, CMP #### [facility] [address] [place] [address] Dr. Jaymie Gilbert Gamma Globulin 2.5 g/dL Critically high 0.4-1.8 [facility] Comment on above: Performed By: #### L IPID, T7, URIC, TSH, CMP #### [facility] [address] [address] [address] Jaymie Gilbert Globulin (S) [Mass/Vol] 4.2 g/dL Critically high 2.2-3.9 [facility] Comment on above: Performed By: #### L IPID, T7, URIC, TSH, CMP #### [facility] [address] [place] [address] Dr. Jaymie Gilbert Immunofixation Result, Serum Comment Abnormal [facility] Comment on above: Result Comment: Immu nofixation shows IgG monoclonal protein with lambda light chain specificity. Performed By: #### L IPID, T7, URIC, TSH, CMP #### [facility] [address] [place] [address] Dr. Jaymie Gilbert Immunoglobulin A, Qn, Serum 20 mg/dL Critically low 61-437 [facility] Comment on above: Result Comment: Resu lt confirmed on concentration. Performed By: #### L IPID, T7, URIC, TSH, CMP #### [facility] [address] [address] [address] Jaymie Gilbert Immunoglobulin G, Qn, Serum 3145 mg/dL Critically high 603-1613 [facility] Comment on above: Performed By: #### L IPID, T7, URIC, TSH, CMP #### [facility] [address] [place] [address] Dr. Jaymie Gilbert Immunoglobulin M, Qn, Serum 40 mg/dL Normal 20-172 [facility] Comment on above: Performed By: #### L IPID, T7, URIC, TSH, CMP #### [facility] [address] [place] [address] Dr. Jaymie Gilbert [place]/Lambda Ratio, S 0.48 Normal 0.26-1.65 [facility] Comment on above: Performed By: #### L IPID, T7, URIC, TSH, CMP #### [facility] [address] [address] [address] Jaymie Gilbert M-Markus 2.3 g/dL Critically high Not Observed [facility] Comment on above: Performed By: #### L IPID, T7, URIC, TSH, CMP #### [facility] [address] [address] [address] Jaymie Gilbert PDF . Normal [facility] Comment on above: Performed By: #### L IPID, T7, URIC, TSH, CMP #### [facility] [address] [address] [address] Jaymie Gilbert Please note: Comment Normal [facility] Comment on above: Result Comment: Prot ein electrophoresis scan will follow via computer, mail, or shear helper delivery. Performed By: #### L IPID, T7, URIC, TSH, CMP #### [facility] [address] [address] [address] Jaymie Gilbert Protein [Mass/Vol] 7.7 g/dL Normal 6.0-8.5 [facility] Comment on above: Performed By: #### L IPID, T7, URIC, TSH, CMP #### [facility] [address] [address] [address] Jaymie Gilbert XR BONE SURVEYon 04-10-2022 [...] Date: 2022-04-10 07:33 Normal [facility] CBC AUTO DIFFon 04-09-2022 BASO # 0.1 103/ul Normal 0.0-0.1 [facility] Comment on above: Performed By: #### L IPID, T7, URIC, TSH, CMP #### [facility] [address] [place] [address] Dr. Jaymie Gilbert Basophils/100 WBC (Bld) 1.1 % Normal 0.2-2.0 [facility] Comment on above: Performed By: #### L IPID, T7, URIC, TSH, CMP #### [facility] [address] [place] [address] Dr. Jaymie Gilbert EO # 0.1 103/ul Normal 0.0-0.7 [facility] Comment on above: Performed By: #### L IPID, T7, URIC, TSH, CMP #### [facility] [address] [place] [address] Dr. Jaymie Gilbert Eosinophils/100 WBC (Bld) 2.2 % Normal 0.9-7.0 [facility] Comment on above: Performed By: #### L IPID, T7, URIC, TSH, CMP #### [facility] [address] [place] [address] Dr. Jaymie Gilbert Erythrocyte distribution width (RBC) [Ratio] 13.0 % Normal 11.0-15.0 [facility] Comment on above: Performed By: #### L IPID, T7, URIC, TSH, CMP #### [facility] [address] [place] [address] Dr. Jaymie Gilbert Hematocrit (Bld) [Volume fraction] 43.2 % Normal 42.0-54.0 [facility] Comment on above: Performed By: #### L IPID, T7, URIC, TSH, CMP #### [facility] [address] [place] [address] Dr. Jaymie Gilbert Hemoglobin (Bld) [Mass/Vol] 14.8 g/dL Normal 14.0-18.0 [facility] Comment on above: Performed By: #### L IPID, T7, URIC, TSH, CMP #### [facility] [address] [place] [address] Dr. Jaymie Gilbert IG # 0.01 10e3/ul Normal 0.00-0.03 [facility] Comment on above: Performed By: #### L IPID, T7, URIC, TSH, CMP #### [facility] [address] [place] [address] Dr. Jaymie Gilbert IG % 0.2 % Normal 0.0-0.5 [facility] Comment on above: Performed By: #### L IPID, T7, URIC, TSH, CMP #### [facility] [address] [place] [address] Dr. Jaymie Gilbert LYMPH # 1.5 103/ul Normal 1.2-3.8 [facility] Comment on above: Performed By: #### L IPID, T7, URIC, TSH, CMP #### [facility] [address] [place] [address] Dr. Jaymie Gilbert Lymphocytes/100 WBC (Bld) 33.6 % Normal 20.5-60.0 [facility] Comment on above: Performed By: #### L IPID, T7, URIC, TSH, CMP #### [facility] [address] [place] [address] Dr. Jaymie Gilbert MANUAL DIFF REQ NO Normal [facility] Comment on above: Performed By: #### L IPID, T7, URIC, TSH, CMP #### [facility] [address] [place] [address] Dr. Jaymie Gilbert MCH (RBC) [Entitic mass] 30.7 pg Normal 25.9-34.0 [facility] Comment on above: Performed By: #### L IPID, T7, URIC, TSH, CMP #### [facility] [address] [place] [address] Dr. Jaymie Gilbert MCHC (RBC) [Mass/Vol] 34.3 g/dL Normal 29.9-35.2 [facility] Comment on above: Performed By: #### L IPID, T7, URIC, TSH, CMP #### [facility] [address] [place] [address] Dr. Jaymie Gilbert MCV (RBC) [Entitic vol] 89.6 fL Normal 80.0-94.0 [facility] Comment on above: Performed By: #### L IPID, T7, URIC, TSH, CMP #### [facility] [address] [place] [address] Dr. Jaymie Gilbert MONO # 0.5 103/ul Normal 0.3-0.8 [facility] Comment on above: Performed By: #### L IPID, T7, URIC, TSH, CMP #### [facility] [address] [place] [address] Dr. Jaymie Gilbert Monocytes/100 WBC (Bld) 11.9 % Normal 1.7-12.0 [facility] Comment on above: Performed By: #### L IPID, T7, URIC, TSH, CMP #### [facility] [address] [place] [address] Dr. Jaymie Gilbert NEUT # 2.3 103/ul Normal 1.4-6.5 [facility] Comment on above: Performed By: #### L IPID, T7, URIC, TSH, CMP #### [facility] [address] [place] [address] Dr. Jaymie Gilbert Neutrophils/100 WBC (Bld) 51.0 % Normal 43.0-75.0 [facility] Comment on above: Performed By: #### L IPID, T7, URIC, TSH, CMP #### [facility] [address] [place] [address] Dr. Jaymie Gilbert Platelet mean volume (Bld) [Entitic vol] 9.4 fL Critically low 9.5-13.5 [facility] Comment on above: Performed By: #### L IPID, T7, URIC, TSH, CMP #### [facility] [address] [place] [address] Dr. Jaymie Gilbert PLT 287 103/ul Normal 150-450 [facility] Comment on above: Performed By: #### L IPID, T7, URIC, TSH, CMP #### [facility] [address] [place] [address] Dr. Jaymie Gilbert RBC 4.82 106/ul Normal 4.70-6.10 [facility] Comment on above: Performed By: #### L IPID, T7, URIC, TSH, CMP #### [facility] [address] [place] [address] Dr. Jaymie Gilbert WBC 4.5 103/ul Normal 4.0-11.0 [facility] Comment on above: Performed By: #### L IPID, T7, URIC, TSH, CMP #### [facility] [address] [place] [address] Dr. Jaymie Gilbert PROF 14(COMP METB)on 023 Albumin [Mass/Vol] 3.3 g/dL Critically low 3.4-5.0 [facility] Comment on above: Performed By: #### L IPID, T7, URIC, TSH, CMP #### [facility] [address] [place] [address] Dr. Jaymie Gilbert Albumin/Globulin [Mass ratio] 0.7 {ratio} Normal [facility] Comment on above: Performed By: #### L IPID, T7, URIC, TSH, CMP #### [facility] [address] [address] [address] Jaymie Gilbert ALP [Catalytic activity/Vol] 50 U/L Normal 46-116 [facility] Comment on above: Performed By: #### L IPID, T7, URIC, TSH, CMP #### [facility] [address] [place] [address] Dr. Jaymie Gilbert ALT [Catalytic activity/Vol] 20 U/L Normal 16-63 [facility] Comment on above: Performed By: #### L IPID, T7, URIC, TSH, CMP #### [facility] [address] [place] [address] Dr. Jaymie Gilbert Anion gap [Moles/Vol] 11.2 mmol/L Normal [facility] Comment on above: Performed By: #### L IPID, T7, URIC, TSH, CMP #### [facility] [address] [place] [address] Dr. Jaymie Gilbert AST [Catalytic activity/Vol] 14 U/L Critically low 15-37 [facility] Comment on above: Performed By: #### L IPID, T7, URIC, TSH, CMP #### [facility] [address] [place] [address] Dr. Jaymie Gilbert Bilirubin [Mass/Vol] 0.5 mg/dL Normal 0.2-1.0 [facility] Comment on above: Performed By: #### L IPID, T7, URIC, TSH, CMP #### [facility] [address] [place] [address] Dr. Jaymie Gilbert Calcium [Mass/Vol] 9.3 mg/dL Normal 8.5-10.1 [facility] Comment on above: Performed By: #### L IPID, T7, URIC, TSH, CMP #### [facility] [address] [place] [address] Dr. Jaymie Gilbert Chloride [Moles/Vol] 103 mmol/L Normal 98-107 [facility] Comment on above: Performed By: #### L IPID, T7, URIC, TSH, CMP #### [facility] [address] [place] [address] Dr. Jaymie Gilbert CO2 [Moles/Vol] 27.1 mmol/L Normal 21.0-32.0 [facility] Comment on above: Performed By: #### L IPID, T7, URIC, TSH, CMP #### [facility] [address] [place] [address] Dr. Jaymie Gilbert Creatinine [Mass/Vol] 0.97 mg/dL Normal 0.70-1.30 [facility] Comment on above: Performed By: #### L IPID, T7, URIC, TSH, CMP #### [facility] [address] [place] [address] Dr. Jaymie Gilbert EGFR-AF COMORAN >60 Normal >=60 [facility] Comment on above: Performed By: #### L IPID, T7, URIC, TSH, CMP #### [facility] [address] [place] [address] Dr. Jaymie Gilbert EGFR-NON AF COMORAN >60 Normal >=60 [facility] Comment on above: Performed By: #### L IPID, T7, URIC, TSH, CMP #### [facility] [address] [place] [address] Dr. Jaymie Gilbert Globulin (S) [Mass/Vol] 5.0 g/dL Normal [facility] Comment on above: Performed By: #### L IPID, T7, URIC, TSH, CMP #### [facility] [address] [place] [address] Dr. Jaymie Gilbert Glucose [Mass/Vol] 106 mg/dL Normal 74-106 [facility] Comment on above: Performed By: #### L IPID, T7, URIC, TSH, CMP #### [facility] [address] [place] [address] Dr. Jaymie Gilbert Potassium [Moles/Vol] 4.3 mmol/L Normal 3.5-5.1 [facility] Comment on above: Performed By: #### L IPID, T7, URIC, TSH, CMP #### [facility] [address] [place] [address] Dr. Jaymie Gilbert Protein [Mass/Vol] 8.3 g/dL Critically high 6.4-8.[address] [facility] Comment on above: Performed By: #### L IPID, T7, URIC, TSH, CMP #### [facility] [address] [place] [address] Dr. Jaymie Gilbert Sodium [Moles/Vol] 137 mmol/L Normal 136-145 [facility] Comment on above: Performed By: #### L IPID, T7, URIC, TSH, CMP #### [facility] [address] [place] [address] Dr. Jaymie Gilbert Urea nitrogen [Mass/Vol] 18.0 mg/dL Normal 7.0-18.0 [facility] Comment on above: Performed By: #### L IPID, T7, URIC, TSH, CMP #### [facility] [address] [place] [address] Dr. Jaymie Gilbert Urea nitrogen/Creatinin e [Mass ratio] 18.6 mg/mg Normal [facility] Comment on above: Performed By: #### L IPID, T7, URIC, TSH, CMP #### [facility] [address] [place] [address] Dr. Jaymie Gilbert REVERSE T3on 02-27-2022 Reverse T3, Serum 14.0 ng/dL Normal 9.2-24.1 [facility] Comment on above: Result Comment: This test was developed and its performance characteristics determined by [facility]. It has not been cleared or approved by the Food and Drug Administration. Performed By: #### R EVRT3 #### [facility] [address] [place] [address] Dr. Jaymie iGlbert T3, TOTAL (TRIIODOTHYRONINE) on 02-24-2022 T3, TOTAL 164 ng/dL Normal 71-180 [facility] Comment on above: Performed By: #### L IPID, T7, URIC, TSH, CMP #### [facility] [address] [place] [address] Dr. Jaymie Gilbert FREE T3on 02-23-2022 FREE T3 3.66 pg/mlL Normal 2.18-3.98 [facility] Comment on above: Performed By: #### L IPID, T7, URIC, TSH, CMP #### [facility] [address] [place] [address] Dr. Jaymie Gilbert FREE T4on 02-23-2022 Free T4 [Mass/Vol] 1.00 ng/dL Normal 0.76-1.46 [facility] Comment on above: Performed By: #### L IPID, T7, URIC, TSH, CMP #### [facility] [address] [place] [address] Dr. Jaymie Gilbert TSHon 02-23-2022 TSH 0.017 uIU/mL Critically low 0.358-3.740 [facility] Comment on above: Performed By: #### L IPID, T7, URIC, TSH, CMP #### [facility] [address] [place] [address] Dr. Jaymie Gilbert REVERSE T3on 12-01-2021 Reverse T3, Serum 17.2 ng/dL Normal 9.2-24.1 [facility] Comment on above: Result Comment: This test was developed and its performance characteristics determined by [facility]. It has not been cleared or approved by the Food and Drug Administration. Performed By: #### R EVRT3 #### [facility] [address] [place] [address] Dr. Jaymie Gilbert T3, TOTAL (TRIIODOTHYRONINE) on 11-29-2021 T3, TOTAL 170 ng/dL Normal 71-180 [facility] Comment on above: Performed By: #### T 3TOTAL #### [facility] [address] [place] [address] Dr. Jaymie Gilbert FREE T3on 11-28-2021 FREE T3 4.30 pg/mlL Critically high 2.18-3.98 [facility] Comment on above: Performed By: #### L IPID, T7, URIC, TSH, CMP #### [facility] [address] [place] [address] Dr. Jaymie Gilbert FREE T4on 11-28-2021 Free T4 [Mass/Vol] 1.20 ng/dL Normal 0.76-1.46 [facility] Comment on above: Performed By: #### L IPID, T7, URIC, TSH, CMP #### [facility] [address] [address] [address] Jaymie Gilbert TSHon 11-28-2021 TSH Qn m[IU]/L Critically low 0.358-3.740 [facility] Comment on above: Performed By: #### L IPID, T7, URIC, TSH, CMP #### [facility] [address] [address] [address] Jaymie Gilbert CREATININEon 11-03-2021 Creatinine [Mass/Vol] 1.02 mg/dL Normal 0.70-1.30 [facility] Comment on above: Performed By: #### L IPID, T7, URIC, TSH, CMP #### [facility] [address] [address] [address] Jaymie Gilbert EGFR-AF COMORAN >60 Normal >=60 [facility] Comment on above: Performed By: #### L IPID, T7, URIC, TSH, CMP #### [facility] [address] [place] [address] Dr. Jaymie Gilbert EGFR-NON AF COMORAN >60 Normal >=60 [facility] Comment on above: Performed By: #### L IPID, T7, URIC, TSH, CMP #### [facility] [address] [place] [address] Dr. Jaymie Gilbert CTA CHEST WO W [...] Date: 2021-11-03 13:08 Normal [facility] XR CHEST 2 Von 11-02-2021 SARS-CoV-2 (COVID-19) [...] Date: 2021-11-02 10:55 Normal [facility] CORONAVIRUS 2019 BY PCRon SARS-CoV-2 (COVID-19) RNA RAMO+probe Ql (Unsp spec) Detected Abnormal Not Detected [facility] Comment on above: Result Comment: . This [...] this test method. Fact sheet for providers: https://www.fda.gov/media/854600/download Fact sheet for patients: https://www.fda.gov/media/642593/download This test has received FDA Emergency Use Authorization [EUA] and has been verified by [facility] ([facility]). This test is only authorized for the duration of time that circumstances exist to justify the authorization of the emergency use of in vitro diagnostic tests for the detection of SARS-CoV-2 virus and/or diagnosis of COVID-19 infection under section 564(b)(1) of the Act, 21 U.S.C. 360bbb-3(b)(1), unless the authorization is terminated or revoked sooner. [facility] is certified under CLIA-88 as qualified to perform high complexity testing. Testing is performed in the [facility] laboratories located at [address] [place] [address]. Performed By: #### C OV19 #### [facility] [address] [place] [address] Covid 19 Resultson 2 SARS-CoV-2 (COVID-19) RNA [...] You may also be contacted by the [facility] to see if any of [...] or Naproxen (Aleve) can also be used. Ziyq-uxt-enobqcg cough and cold medicines can be used according to the instructions on the package. Some xbel-dsv-kqffvzm medicines also contain acetaminophen. Make sure you [...] water are not available, use alcohol-based hand apprentice/lineman. Avoid touching your eyes, nose, and mouth [...] 24 carolyn (more content not included)... Normal [facility] CORONAVIRUS 2019 BY PCRon Lab Specimen Source Nasal, Nasopharyngeal Normal [facility] Comment on above: Performed By: #### C OV19 #### [facility] [address] [place] [address] Office Visit (Urgent Care)on 10-26-2021 Follow-up visit Diagnoses/Problems Assessed Suspected COVID-19 virus infection (V01.79) (Z20.822) Orders Suspected COVID-19 virus infection Coronavirus 2019 RNA by PCR, Symptomatic; Status:In Progress - Specimen/Data Collected; Done: [id number] Perform:Lab Services - Lab To Draw (Non-Blood [...] presents for COVID-19 testing. He works for [employer]. He presents with a 4-day history of [...] 10/26/2021 2:51:31 PM Vitals Vital Signs Recorded: [id number] 02:51PM Bjoiatyxkfe70.2 F, Temporal Heart Rate97 Jqjccngechj51 Respiration QualityNormal Mktbvssh420, Sitting Schgxtfqp01, Sitting Blood Pressure Cuff SizeAdult Height5 ft 10 in Qbwgiu873 lb BMI Ttimgitzng70.11 kg/m2 BSA Calculated1.97 Tobacco Useb) No PHQ-2 #1. Over the last 2 weeks have you felt down, depressed or hopeless? (If yes, answer PHQ-9 below)No PHQ-2 #2. Over the last 2 weeks have you felt little interest or pleasure in doing things? (If yes, answer PHQ-9 below)No Falls Screening (Age 18+)a) No falls within the last year O2 Hnnnyytgpu34, RA Pain Scale0 PHQ-9 #1. Little interest [...] ng/dL Critically low 9.2-24.1 [facility] Comment on above: Result Comment: This test was developed and its performance characteristics determined by [facility]. It has not been cleared or approved by the Food and Drug Administration. Performed By: #### L IPID, T7, URIC, TSH, CMP #### [facility] [address] [address] [address] Jaymie Gilbert T3, TOTAL (TRIIODOTHYRONINE) on 09-12-2021 T3, TOTAL 120 ng/dL Normal 71-180 [facility] Comment on above: Performed By: #### L IPID, T7, URIC, TSH, CMP #### [facility] [address] [address] [address] Jaymie Gilbert FREE T3on 09-11-2021 FREE T3 2.90 pg/mlL Normal 2.18-3.98 [facility] Comment on above: Performed By: #### F T3 #### [facility] [address] [place] [address] Dr. Jaymie Gilbert T4 LABCORPon 08-18-2021 T4 [Mass/Vol] 5.3 ug/dL Normal 4.5-12.0 [facility] Comment on above: Performed By: #### T 4LC #### [facility] [address] [place] [address] Dr. Jaymie Gilbert INSULINon 08-17-2021 Insulin 6.9 uIU/mL Normal 2.6-24.9 [facility] Comment on above: Performed By: #### L IPID, T7, URIC, TSH, CMP #### [facility] [address] [place] [address] Dr. Jaymie Gilbert CBC AUTO DIFFon 08-16-2021 BASO # 0.0 103/ul Normal 0.0-0.1 [facility] Comment on above: Performed By: #### L IPID, T7, URIC, TSH, CMP #### [facility] [address] [place] [address] Dr. Jaymie Gilbert Basophils/100 WBC (Bld) 1.1 % Normal 0.2-2.0 [facility] Comment on above: Performed By: #### L IPID, T7, URIC, TSH, CMP #### [facility] [address] [place] [address] Dr. Jaymie Gilbert EO # 0.1 103/ul Normal 0.0-0.7 [facility] Comment on above: Performed By: #### L IPID, T7, URIC, TSH, CMP #### [facility] [address] [place] [address] Dr. Jaymie Gilbert Eosinophils/100 WBC (Bld) 2.4 % Normal 0.9-7.0 [facility] Comment on above: Performed By: #### L IPID, T7, URIC, TSH, CMP #### [facility] [address] [place] [address] Dr. Jaymie Gilbert Erythrocyte distribution width (RBC) [Ratio] 12.4 % Normal 11.0-15.0 [facility] Comment on above: Performed By: #### L IPID, T7, URIC, TSH, CMP #### [facility] [address] [place] [address] Dr. Jaymie Gilbert Hematocrit (Bld) [Volume fraction] 43.0 % Normal 42.0-54.0 [facility] Comment on above: Performed By: #### L IPID, T7, URIC, TSH, CMP #### [facility] [address] [place] [address] Dr. Jaymie Gilbert Hemoglobin (Bld) [Mass/Vol] 14.2 g/dL Normal 14.0-18.0 [facility] Comment on above: Performed By: #### L IPID, T7, URIC, TSH, CMP #### [facility] [address] [place] [address] Dr. Jaymie Gilbert IG # 0.01 10e3/ul Normal 0.00-0.03 [facility] Comment on above: Performed By: #### L IPID, T7, URIC, TSH, CMP #### [facility] [address] [place] [address] Dr. Jaymie Gilbert IG % 0.3 % Normal 0.0-0.5 [facility] Comment on above: Performed By: #### L IPID, T7, URIC, TSH, CMP #### [facility] [address] [place] [address] Dr. Jaymie Gilbert LYMPH # 1.2 103/ul Normal 1.2-3.8 [facility] Comment on above: Performed By: #### L IPID, T7, URIC, TSH, CMP #### [facility] [address] [place] [address] Dr. Jaymie Gilbert Lymphocytes/100 WBC (Bld) 32.1 % Normal 20.5-60.0 [facility] Comment on above: Performed By: #### L IPID, T7, URIC, TSH, CMP #### [facility] [address] [place] [address] Dr. Jaymie Gilbert MANUAL DIFF REQ NO Normal [facility] Comment on above: Performed By: #### L IPID, T7, URIC, TSH, CMP #### [facility] [address] [place] [address] Dr. Jaymie Gilbert MCH (RBC) [Entitic mass] 30.8 pg Normal 25.9-34.0 [facility] Comment on above: Performed By: #### L IPID, T7, URIC, TSH, CMP #### [facility] [address] [place] [address] Dr. Jaymie Gilbert MCHC (RBC) [Mass/Vol] 33.0 g/dL Normal 29.9-35.2 [facility] Comment on above: Performed By: #### L IPID, T7, URIC, TSH, CMP #### [facility] [address] [place] [address] Dr. Jaymie Gilbert MCV (RBC) [Entitic vol] 93.3 fL Normal 80.0-94.0 [facility] Comment on above: Performed By: #### L IPID, T7, URIC, TSH, CMP #### [facility] [address] [place] [address] Dr. Jaymie Gilbert MONO # 0.5 103/ul Normal 0.3-0.8 [facility] Comment on above: Performed By: #### L IPID, T7, URIC, TSH, CMP #### [facility] [address] [place] [address] Dr. Jaymie Gilbert Monocytes/100 WBC (Bld) 12.8 % Critically high 1.7-12.0 [facility] Comment on above: Performed By: #### L IPID, T7, URIC, TSH, CMP #### [facility] [address] [place] [address] Dr. Jaymie Gilbert NEUT # 1.9 103/ul Normal 1.4-6.5 [facility] Comment on above: Performed By: #### L IPID, T7, URIC, TSH, CMP #### [facility] [address] [place] [address] Dr. Jaymie Gilbert Neutrophils/100 WBC (Bld) 51.3 % Normal 43.0-75.0 [facility] Comment on above: Performed By: #### L IPID, T7, URIC, TSH, CMP #### [facility] [address] [place] [address] Dr. Jaymie Gilbert Platelet mean volume (Bld) [Entitic vol] 10.2 fL Normal 9.5-13.5 [facility] Comment on above: Performed By: #### L IPID, T7, URIC, TSH, CMP #### [facility] [address] [address] [address] Jaymie Gilbert PLT 236 103/ul Normal 150-450 [facility] Comment on above: Performed By: #### L IPID, T7, URIC, TSH, CMP #### [facility] [address] [address] [address] Jaymie Gilbert RBC 4.61 106/ul Critically low 4.70-6.10 [facility] Comment on above: Performed By: #### L IPID, T7, URIC, TSH, CMP #### [facility] [address] [address] [address] Jaymie Gilbert WBC 3.7 103/ul Critically low 4.0-11.0 [facility] Comment on above: Performed By: #### L IPID, T7, URIC, TSH, CMP #### [facility] [address] [place] [address] Dr. Jaymie Gilbert FREE T3on 08-16-2021 FREE T3 4.74 pg/mlL Critically high 2.18-3.98 [facility] Comment on above: Performed By: #### L IPID, T7, URIC, TSH, CMP #### [facility] [address] [address] [address] Jaymie Gilbert FREE T4on 08-16-2021 Free T4 [Mass/Vol] 0.78 ng/dL Normal 0.76-1.46 [facility] Comment on above: Performed By: #### L IPID, T7, URIC, TSH, CMP #### [facility] [address] [address] [address] Jaymie Gilbert FREE THYROXINE INDEX T7on FTI 1.80 Normal 1.30-4.50 [facility] Comment on above: Performed By: #### L IPID, T7, URIC, TSH, CMP #### [facility] [address] [place] [address] Dr. Jaymie Gilbert T3U 34.0 % Normal 33.0-40.0 [facility] Comment on above: Performed By: #### L IPID, T7, URIC, TSH, CMP #### [facility] [address] [address] [address] Jaymie Gilbert T4 [Mass/Vol] 5.30 ug/dL Normal 4.50-12.10 [facility] Comment on above: Performed By: #### L IPID, T7, URIC, TSH, CMP #### [facility] [address] [address] [address] Jaymie Gilbert GLYCOHEMOGLOBIN A1Con 2021 ADA RECOMMENDATION SEE BELOW Normal The [facility] Comment on above: Result Comment: ADA RECOMMENDED LIMIT 4.0 - 6.0 ADA THERAPEUTIC TARGET < 7.0 ACTION SUGGESTED > 7.0 Performed By: #### L IPID, T7, URIC, TSH, CMP #### [facility] [address] [place] [address] Dr. Jaymie Gilbert Glucose [Mass/Vol] 111 mg/dL Normal [facility] Comment on above: Performed By: #### L IPID, T7, URIC, TSH, CMP #### [facility] [address] [place] [address] Dr. Jaymie Gilbert HbA1c (Bld) [Mass fraction] 5.5 % Normal 4.5-6.2 [facility] Comment on above: Performed By: #### L IPID, T7, URIC, TSH, CMP #### [facility] [address] [place] [address] Dr. Jaymie Gilbert LIPID PROFILEon 08-16-2021 CHOL-HDL RATIO NORM SEE BELOW Normal [facility] Comment on above: Result Comment: 3.3 - 4.4 LOW RISK 4.4 - 7.1 AVERAGE RISK 7.1 - 11.0 MODERATE RISK >11.0 HIGH RISK Performed By: #### L IPID, T7, URIC, TSH, CMP #### [facility] [address] [place] [address] Dr. Jaymie Gilbert Cholesterol [Mass/Vol] 151 mg/dL Normal <=200 [facility] Comment on above: Performed By: #### L IPID, T7, URIC, TSH, CMP #### [facility] [address] [place] [address] Dr. Jaymie Gilbert Cholesterol in HDL [Mass/Vol] 57 mg/dL Normal 40-60 [facility] Comment on above: Performed By: #### L IPID, T7, URIC, TSH, CMP #### [facility] [address] [address] [address] Jaymie Gilbert Cholesterol in LDL [Mass/Vol] 81.6 mg/dL Normal [facility] Comment on above: Performed By: #### L IPID, T7, URIC, TSH, CMP #### [facility] [address] [address] [address] Jaymie Gilbert Cholesterol.total/ Cholesterol in HDL [Mass ratio] 2.6 {ratio} Normal [facility] Comment on above: Performed By: #### L IPID, T7, URIC, TSH, CMP #### [facility] [address] [address] [address] Jaymie Gilbert HDL NORMAL > or = 60 mg/dl - LO W CARDIOVASCULAR RISK <40 mg/dl - HIGH CARDIOVASCULAR RISK Normal [facility] Comment on above: Performed By: #### L IPID, T7, URIC, TSH, CMP #### [facility] [address] [address] [address] Jaymie Gilbert LDL CALC NORMAL SEE BELOW Normal [facility] Comment on above: Result Comment: <100 mg/dl OPTIMAL 100 - 129 mg/dl NEAR OR ABOVE OPTIMAL 130 - 159 mg/dl BORDERLINE HIGH 160 - 189 mg/dl HIGH >190 mg/dl VERY HIGH Performed By: #### L IPID, T7, URIC, TSH, CMP #### [facility] [address] [address] [address] Jaymie Gilbert Triglyceride [Mass/Vol] 62 mg/dL Normal <=150 [facility] Comment on above: Performed By: #### L IPID, T7, URIC, TSH, CMP #### [facility] [address] [address] [address] Jaymie Gilbert VLDL CALC 12.4 mg/dL Normal [facility] Comment on above: Performed By: #### L IPID, T7, URIC, TSH, CMP #### [facility] [address] [address] [address] Jaymie Gilbert PROF 14(COMP METB)on 022 Albumin [Mass/Vol] 3.4 g/dL Normal 3.4-5.0 [facility] Comment on above: Performed By: #### L IPID, T7, URIC, TSH, CMP #### [facility] [address] [place] [address] Dr. Jaymie Gilbert Albumin/Globulin [Mass ratio] 0.7 {ratio} Normal [facility] Comment on above: Performed By: #### L IPID, T7, URIC, TSH, CMP #### [facility] [address] [place] [address] Dr. Jaymie Gilbert ALP [Catalytic activity/Vol] 40 U/L Critically low 46-116 [facility] Comment on above: Performed By: #### L IPID, T7, URIC, TSH, CMP #### [facility] [address] [place] [address] Dr. Jaymie Gilbert ALT [Catalytic activity/Vol] 29 U/L Normal 16-63 [facility] Comment on above: Performed By: #### L IPID, T7, URIC, TSH, CMP #### [facility] [address] [place] [address] Dr. Jaymie Gilbert Anion gap [Moles/Vol] 11.0 mmol/L Normal [facility] Comment on above: Performed By: #### L IPID, T7, URIC, TSH, CMP #### [facility] [address] [place] [address] Dr. Jaymie Gilbert AST [Catalytic activity/Vol] 17 U/L Normal 15-37 [facility] Comment on above: Performed By: #### L IPID, T7, URIC, TSH, CMP #### [facility] [address] [place] [address] Dr. Jaymie Gilbert Bilirubin [Mass/Vol] 0.9 mg/dL Normal 0.2-1.0 [facility] Comment on above: Performed By: #### L IPID, T7, URIC, TSH, CMP #### [facility] [address] [place] [address] Dr. Jaymie Gilbert Calcium [Mass/Vol] 8.7 mg/dL Normal 8.5-10.1 [facility] Comment on above: Performed By: #### L IPID, T7, URIC, TSH, CMP #### [facility] [address] [address] [address] Jaymie Gilbert Chloride [Moles/Vol] 104 mmol/L Normal 98-107 [facility] Comment on above: Performed By: #### L IPID, T7, URIC, TSH, CMP #### [facility] [address] [address] [address] Jaymie Gilbert CO2 [Moles/Vol] 26.4 mmol/L Normal 21.0-32.0 [facility] Comment on above: Performed By: #### L IPID, T7, URIC, TSH, CMP #### [facility] [address] [place] [address] Dr. Jaymie Gilbert Creatinine [Mass/Vol] 0.99 mg/dL Normal 0.70-1.30 [facility] Comment on above: Performed By: #### L IPID, T7, URIC, TSH, CMP #### [facility] [address] [address] [address] Jaymie Gilbert EGFR-AF COMORAN >60 Normal >=60 [facility] Comment on above: Performed By: #### L IPID, T7, URIC, TSH, CMP #### [facility] [address] [place] [address] Dr. Jaymie Gilbert EGFR-NON AF COMORAN >60 Normal >=60 [facility] Comment on above: Performed By: #### L IPID, T7, URIC, TSH, CMP #### [facility] [address] [address] [address] Jaymie Gilbert Globulin (S) [Mass/Vol] 4.9 g/dL Normal [facility] Comment on above: Performed By: #### L IPID, T7, URIC, TSH, CMP #### [facility] [address] [address] [address] Jaymie Gilbert Glucose [Mass/Vol] 98 mg/dL Normal 74-106 [facility] Comment on above: Performed By: #### L IPID, T7, URIC, TSH, CMP #### [facility] [address] [address] [address] Jaymie Gilbert Potassium [Moles/Vol] 4.4 mmol/L Normal 3.5-5.1 [facility] Comment on above: Performed By: #### L IPID, T7, URIC, TSH, CMP #### [facility] [address] [place] [address] Dr. Jaymie Gilbert Protein [Mass/Vol] 8.3 g/dL Critically high 6.4-8.[address] [facility] Comment on above: Performed By: #### L IPID, T7, URIC, TSH, CMP #### [facility] [address] [place] [address] Dr. Jaymie Gilbert Sodium [Moles/Vol] 137 mmol/L Normal 136-145 [facility] Comment on above: Performed By: #### L IPID, T7, URIC, TSH, CMP #### [facility] [address] [place] [address] Dr. Jaymie Gilbert Urea nitrogen [Mass/Vol] 19.0 mg/dL Critically high 7.0-18.0 [facility] Comment on above: Performed By: #### L IPID, T7, URIC, TSH, CMP #### [facility] [address] [place] [address] Dr. Jaymie Gilbert Urea nitrogen/Creatinin e [Mass ratio] 19.2 mg/mg Normal [facility] Comment on above: Performed By: #### L IPID, T7, URIC, TSH, CMP #### [facility] [address] [place] [address] Dr. Jaymie Gilbert TSHon 08-16-2021 TSH 0.157 uIU/mL Critically low 0.358-3.740 [facility] Comment on above: Performed By: #### L IPID, T7, URIC, TSH, CMP #### [facility] [address] [place] [address] Dr. Jaymie Gilbert TSH RANGE SEE BELOW Normal [facility] Comment on above: Result Comment: <0.3 4 UIU/ml HYPERTHYROID 0.34-5.60 UIU/ml EUTHYROID >5.60 UIU/ml HYPOTHYROID Performed By: #### L IPID, T7, URIC, TSH, CMP #### [facility] [address] [place] [address] Dr. Jaymie Gilbert URIC ACID SERUMon 08-16-2021 Urate [Mass/Vol] 5.2 mg/dL Normal 3.5-7.2 [facility] Comment on above: Performed By: #### L IPID, T7, URIC, TSH, CMP #### [facility] [address] [address] [address] Jaymie Gilbert VITAMIN D 25 OHon 08-16-2021 VIT D 25-OH 26.3 ng/mL Normal [facility] Comment on above: Performed By: #### L IPID, T7, URIC, TSH, CMP #### [facility] [address] [place] [address] Dr. Jaymie Gilbert VIT D RANGES SEE BELOW Normal [facility] Comment on above: Result Comment: <20 ng/mL Vit D deficient 20 - <30 ng/mL Vit D insufficient 30 - 100 ng/mL Vit D sufficient >100 ng/mL Potential Toxicity Performed By: #### L IPID, T7, URIC, TSH, CMP #### [facility] [address] [place] [address] Dr. Jaymie Gilbert CNOVSPon 06-03-2019 CNOVSP Visit (SP) Office ([facility]) -- BRANDIN FARR ([id number]) 1960 M Date Time Provider Department 06/03/19 [...] 1 AND 1/2 TABLET ON MON., AND WED, THEN 1 TAB ON OTHER 5 DAYS [...] CALCIUM IONIZED B Kevin Mckeon MD, CPE [place], [place] CC: Vickie Eason MD [address] [facility] [address] Kevin Mckeon MD 06/03/2019 3:28 PM Addendum Reading list 1. Grain Brain 2. Keto Fast 3. The Plant Paradox* Referring Provider: DAYANA APARICIO [[id number]] Allergies As of Date: 06/03/2019 Noted Allergy Reaction CIPROFLOXACIN 03/30/2014 5 - Intolerance Date Reviewed: 06/03/2019 Reviewed by: Kevin Mckeon - Fully Assessed Reason for Visit: Monoclonal gammopathy [Other] Cmt: follow up Primary Visit Diagnosis:Monoclonal gammopathy [D47.2] Order(s):B2 MICROGLOBULIN B [SQB2M] Order #: [id number] FUTURE CBC + DIFF [SQCBCDIF] Order #: [id number] FUTURE COMP METABOLIC PANEL [SQCMP] Order #: [id number] FUTURE LD LACTATE DEHYDRO [SQLD6] Order #: [id number] FUTURE PHOSPHORUS INORGANIC [SQPHOS] Order #: [id number] FUTURE PROTEIN ELECTROPHORESIS W/INTERP [SQSEPG] Order #: [id number] FUTURE MONOCLONAL PROTEIN, SERUM (BLOOD) [SQSERMPA] Order #: [id number] FUTURE URIC ACID BLOOD [SQURIC] Order #: [id number] FUTURE CALCIUM IONIZED B [SQICA] Order #: [id number] FUTURE Disposition: Return in about 24 weeks [...] by KEVIN MCKEON MD on 06/13/19 Normal [facility] PROGRESSon 06-03-2019 PROGRESS HNO ID: [id number] Author: Kevin Mckeon Service: ? Author Type: Physician Type: Progress Notes Filed: 06/13/2019 9:47 AM Note Text: Some elements in this clinic note that are critical to medical decision making have been carefully reviewed and included from a prior clinic note dated: May 14, 2018. Additional Clinicians involved in Brandin Farr's care: Vickie Eaosn MD, Dr. Rock Aviles CC: MGUS follow [...] CALCIUM IONIZED B Kevin Mckeon MD, CPE [place], [place] CC: Vickie Eason MD [address] [facility] [id number] [place] [address] 06-01-2019 CNPN Telephone ([facility]) -- BRANIDN FARR ([id number]) 1960 Date Time Provider Department 06/01/19 KEVIN MCKEON During your visit today, we recorded the following information about you: Melvina Sena RN, RN 06/01/2019 9:29 AM Signed ----- Message from Kevin Mckeon sent at 05/31/2019 6:37 PM EDT ----- Labs are stable including M-spike. Melvina Sena RN, RN 06/01/2019 9:30 AM Signed Informed pt's of Dr Garibay's message. Cidny verbalized understanding and denies further needs at [...] by MELVINA SENA RN on 06/01/19 Normal [facility] B2 Microglobulinon 0 Globulin (S) [Mass/Vol] 2.1 mg/L Normal 0.8-2.4 [facility] Comment on above: Performed By: #### B 2M, CMP, URIC, KLFRS, SERIMM, SEPG, IFESC #### [facility] [address] [place], [place] [address] CBC and Differentialon 05-27 Abs Baso 0.04 k/uL Normal <0.11 [facility] Comment on above: Performed By: #### C BCDIF #### [facility] [address] [place], [place] [address] Abs [place] 0.50 k/uL Normal <0.87 [facility] Comment on above: Performed By: #### C BCDIF #### [facility] [address] [place], [place] [address] Abs Neut 1.85 k/uL Normal 1.45-7.50 [facility] Comment on above: Performed By: #### C BCDIF #### [facility] [address] [place], [place] [address] Absolute nRBC <0.01 Normal <0.01 [facility] Comment on above: Performed By: #### C BCDIF #### [facility] [address] [place], [place] [address] Basophils/100 WBC (Bld) 1.1 % Normal [facility] Comment on above: Performed By: #### C BCDIF #### [facility] [address] [place], [place] [address] DTYPE Auto Diff Normal [facility] Comment on above: Performed By: #### C BCDIF #### [facility] [address] [place], [place] [address] Eosinophils (Bld) [#/Vol] 0.04 10*3/uL Normal <0.46 [facility] Comment on above: Performed By: #### C BCDIF #### [facility] [address] [place], [place] [address] Eosinophils/100 WBC (Bld) 1.1 % Normal [facility] Comment on above: Performed By: #### C BCDIF #### [facility] [address], [place] [address] Erythrocyte distribution width (RBC) [Ratio] 13.3 % Normal 11.5-15.0 [facility] Comment on above: Performed By: #### C BCDIF #### [facility] [address], [place] [address] Hematocrit (Bld) [Volume fraction] 46.4 % Normal 39.0-51.0 [facility] Comment on above: Performed By: #### C BCDIF #### [facility] [address] [place], [place] [address] Hemoglobin (Bld) [Mass/Vol] 14.4 g/dL Normal 13.0-17.0 [facility] Comment on above: Performed By: #### C BCDIF #### [address] [place], [place] [address] Lymphocytes (Bld) [#/Vol] 1.21 10*3/uL Normal 1.00-4.00 [facility] Comment on above: Performed By: #### C BCDIF #### [address] [address] Lymphocytes/100 WBC (Bld) 33.2 % Normal [facility] Comment on above: Performed By: #### C BCDIF #### [address] [address] MCH (RBC) [Entitic mass] 30.6 pG Normal 26.0-34.0 [facility] Comment on above: Performed By: #### C BCDIF #### [address] [address] MCHC (RBC) [Mass/Vol] 31.0 g/dL Normal 30.5-36.0 [facility] Comment on above: Performed By: #### C BCDIF #### [address] [address] MCV (RBC) [Entitic vol] 98.7 fL Normal 80.0-100.0 [facility] Comment on above: Performed By: #### C BCDIF #### [address] [place], [place] [address] Monocytes/100 WBC (Bld) 13.7 % Normal [facility] Comment on above: Performed By: #### C BCDIF #### [address] [address] Neutrophils/100 WBC (Bld) 50.9 % Normal [facility] Comment on above: Performed By: #### C BCDIF #### [address] [place] [address] NRBCs 0.0 /100 WBC Normal 0 [facility] Comment on above: Performed By: #### C BCDIF #### [address] [place], [place] [address] Platelet mean volume (Bld) [Entitic vol] 10.7 fL Normal 9.0-12.7 [facility] Comment on above: Performed By: #### C BCDIF #### [address] [address] Platelets (Bld) [#/Vol] 263 10*3/uL Normal 150-400 [facility] Comment on above: Performed By: #### C BCDIF #### [address] [address] RBC (Bld) [#/Vol] 4.70 10*6/uL Normal 4.20-6.[address] [facility] Comment on above: Performed By: #### C BCDIF #### [address] [address] WBC (Bld) [#/Vol] 3.65 10*3/uL Low 3.70-11.[address] [facility] Comment on above: Performed By: #### C BCDIF #### [address] [address] Comp Metabolic Panelon 05-27 Albumin [Mass/Vol] 4.0 g/dL Normal 3.9-4.9 [facility] Comment on above: Performed By: #### B 2M, CMP, URIC, KLFRS, SERIMM, SEPG, IFESC #### [address] [place], [place] [address] ALP [Catalytic activity/Vol] 33 U/L Low 38-113 [facility] Comment on above: Performed By: #### B 2M, CMP, URIC, KLFRS, SERIMM, SEPG, IFESC #### [facility] [address] [address] ALT [Catalytic activity/Vol] 18 U/L Normal 10-54 [facility] Comment on above: Performed By: #### B 2M, CMP, URIC, KLFRS, SERIMM, SEPG, IFESC #### [facility] [address] [address] Anion gap [Moles/Vol] 10 mmol/L Normal 9-18 [facility] Comment on above: Performed By: #### B 2M, CMP, URIC, KLFRS, SERIMM, SEPG, IFESC #### [address] [place] [address] AST [Catalytic activity/Vol] 21 U/L Normal 14-40 [facility] Comment on above: Performed By: #### B 2M, CMP, URIC, KLFRS, SERIMM, SEPG, IFESC #### [place] [id number] [place] [address] Bilirubin [Mass/Vol] 0.7 mg/dL Normal 0.2-1.3 [facility] Comment on above: Performed By: #### B 2M, CMP, URIC, KLFRS, SERIMM, SEPG, IFESC #### [place] [id number] [place] [address] Calcium [Mass/Vol] 9.4 mg/dL Normal 8.5-10.2 [facility] Comment on above: Performed By: #### B 2M, CMP, URIC, KLFRS, SERIMM, SEPG, IFESC #### [place] [address] [place] [address] Chloride [Moles/Vol] 103 mmol/L Normal 97-105 [facility] Comment on above: Performed By: #### B 2M, CMP, URIC, KLFRS, SERIMM, SEPG, IFESC #### [place] [address] [place] [address] CO2 [Moles/Vol] 24 mmol/L Normal 22-30 [facility] Comment on above: Performed By: #### B 2M, CMP, URIC, KLFRS, SERIMM, SEPG, IFESC #### [facility] [address] [place] [address] Creatinine [Mass/Vol] 0.85 mg/dL Normal 0.73-1.22 [facility] Comment on above: Performed By: #### B 2M, CMP, URIC, KLFRS, SERIMM, SEPG, IFESC #### [place] [address] [place] [address] eGFR- Amer. >60 Normal [facility] Comment on above: Performed By: #### B 2M, CMP, URIC, KLFRS, SERIMM, SEPG, IFESC #### [place] [address] [place] [address] GFR/1.73 sq M predicted among non-blacks MDRD (S/P/Bld) [Vol rate/Area] mL/min/{1.73_m2} Normal [facility] Comment on above: Result Comment: eGFR [...] CMP, URIC, KLFRS, SERIMM, SEPG, IFESC #### [facility] [address] [place] [id number] Glucose [Mass/Vol] 104 mg/dL High 74-99 [facility] Comment on above: Result Comment: The [place] [employer] (ADA) provides guidance for cutoff [...] Standards of Medical Care in Diabetes 2016, [place] [employer]. Diabetes Care. 2016.39(Suppl 1). Performed By: #### B 2M, CMP, URIC, KLFRS, SERIMM, SEPG, IFESC #### [place] [address] [place] [address] Potassium [Moles/Vol] 4.4 mmol/L Normal 3.7-5.1 [facility] Comment on above: Performed By: #### B 2M, CMP, URIC, KLFRS, SERIMM, SEPG, IFESC #### [place] [address] [place] [address] Protein [Mass/Vol] 8.0 g/dL Normal 6.3-8.0 [facility] Comment on above: Performed By: #### B 2M, CMP, URIC, KLFRS, SERIMM, SEPG, IFESC #### [facility] [address] [place] [address] Sodium [Moles/Vol] 137 mmol/L Normal 136-144 [facility] Comment on above: Performed By: #### B 2M, CMP, URIC, KLFRS, SERIMM, SEPG, IFESC #### [facility] [address] [place], [place] [address] Urea nitrogen [Mass/Vol] 16 mg/dL Normal 9-24 [facility] Comment on above: Performed By: #### B 2M, CMP, URIC, KLFRS, SERIMM, SEPG, IFESC #### [facility] [address], [place] [id number] JOLLY Screen, Serumon 05-28-19 20 MPA Interpretation SEE COMMENT Normal [facility] Comment on above: Result Comment: Atyp ical restricted bands are present in the IgG and lambda regions. Consistent with IgG lambda monoclonal gammopathy. Performed By: #### B 2M, CMP, URIC, KLFRS, SERIMM, SEPG, IFESC #### [facility] [address], [place] [address] Protein [Mass/Vol] M protein is present. Critica lly abnormal No M protein is identified. [facility] Comment on above: Performed By: #### B 2M, CMP, URIC, KLFRS, SERIMM, SEPG, IFESC #### [place] [address] [place], [place] [address] Staff Review Reviewed by Adria Salomon M.D., PhD ([id number]) Normal [facility] Comment on above: Performed By: #### B 2M, CMP, URIC, KLFRS, SERIMM, SEPG, IFESC #### [place] [address] [place], [place] [address] Immunoglobulins GAMon 2019 IgA [Mass/Vol] 18 mg/dL Low 78-391 [facility] Comment on above: Performed By: #### B 2M, CMP, URIC, KLFRS, SERIMM, SEPG, IFESC #### [facility] [address], [place] [address] IgG [Mass/Vol] 2980 mg/dL High 717-1411 [facility] Comment on above: Performed By: #### B 2M, CMP, URIC, KLFRS, SERIMM, SEPG, IFESC #### [facility] [address], [place] [address] IgM [Mass/Vol] 26 mg/dL Low 53-334 [facility] Comment on above: Performed By: #### B 2M, CMP, URIC, KLFRS, SERIMM, SEPG, IFESC #### [facility] [address], [place] [address] [place]s,Free,Seron 2019 K/L Ratio, Serum 0.29 Normal 0.26-1.65 [facility] Comment on above: Performed By: #### B 2M, CMP, URIC, KLFRS, SERIMM, SEPG, IFESC #### [facility] [address], [place] [address] [place], Free, Serum 7.4 mg/L Normal 3.30-19.40 [facility] Comment on above: Result Comment: Test performed by an immunoturbidimetric assay on Optilite instrument from [facility]. Immunoglobulin free light chain assay results should be interpreted in conjunction with other tests and in correlation with clinical picture. Performed By: #### B 2M, CMP, URIC, KLFRS, SERIMM, SEPG, IFESC #### [facility] [address], [place] [address] Lambda, Free, Serum 25.1 mg/L Normal 5.7-26.3 [facility] Comment on above: Result Comment: Test performed by an immunoturbidimetric assay on Optilite instrument from [facility]. Immunoglobulin free light chain assay results should be interpreted in conjunction with other tests and in correlation with clinical picture. Performed By: #### B 2M, CMP, URIC, KLFRS, SERIMM, SEPG, IFESC #### [facility] [address], [place] [address] Protein Electrophor.on 05-27 Albumin [Mass/Vol] 3.80 g/dL Normal 3.37-4.23 [facility] Comment on above: Performed By: #### B 2M, CMP, URIC, KLFRS, SERIMM, SEPG, IFESC #### [facility] [address] [place] [phone] Alpha 1 Globulin 0.17 gm/dL Low 0.18-0.31 [facility] Comment on above: Performed By: #### B 2M, CMP, URIC, KLFRS, SERIMM, SEPG, IFESC #### [facility] [address] [place] [address] Alpha 2 Globulin 0.51 gm/dL Low 0.52-0.97 [facility] Comment on above: Performed By: #### B 2M, CMP, URIC, KLFRS, SERIMM, SEPG, IFESC #### [place] [phone] Beta Globulin 0.81 gm/dL Low 0.84-1.36 [facility] Comment on above: Performed By: #### B 2M, CMP, URIC, KLFRS, SERIMM, SEPG, IFESC #### [place] [address] [place] [phone] Gamma Globulin 2.61 gm/dL High 0.70-1.44 [facility] Comment on above: Performed By: #### B 2M, CMP, URIC, KLFRS, SERIMM, SEPG, IFESC #### [place] [phone] Interpretation SEE COMMENT Normal [facility] Comment on above: Result Comment: An M protein is identified on protein electrophoresis. See separate immunofixation report for characterization of the M protein. Performed By: #### B 2M, CMP, URIC, KLFRS, SERIMM, SEPG, IFESC #### [place] [address] [place] [phone] M Markus Concentratn 2.04 gm/dL High 0.00 [facility] Comment on above: Performed By: #### B 2M, CMP, URIC, KLFRS, SERIMM, SEPG, IFESC #### [place] [id number] Protein [Mass/Vol] Gamma fraction Normal [facility] Comment on above: Performed By: #### B 2M, CMP, URIC, KLFRS, SERIMM, SEPG, IFESC #### [facility] [address], [place] [address] Protein [Mass/Vol] 7.9 g/dL Normal 6.0-8.4 [facility] Comment on above: Performed By: #### B 2M, CMP, URIC, KLFRS, SERIMM, SEPG, IFESC #### [facility] [address], [place] [address] SPE Staff Review Reviewed by Adria Salomon M.D., PhD ([id number]) Normal [facility] Comment on above: Performed By: #### B 2M, CMP, URIC, KLFRS, SERIMM, SEPG, IFESC #### [facility] [address] [place] [address] Remote CBCDIF (for [facility] use o nly)on 05-28-2019 Abs Baso Test reordered by [facility]. Normal <0.11 [facility] Comment on above: Result Comment: MAYANK 0 [id number] Account Credited Performed By: #### R CBCDF #### [place] [address] [place], [place] [address] Abs [place] Test reordered by [facility]. Normal <0.87 [facility] Comment on above: Result Comment: MAYANK 0 [id number] Account Credited Performed By: #### R CBCDF #### [place] [address] [place], [place] [address] Abs Neut Test reordered by [facility]. Normal 1.45-7.50 [facility] Comment on above: Result Comment: MAYANK 0 [id number] Account Credited Performed By: #### R CBCDF #### [place] [address] [place] [phone] Basophils/100 WBC (Bld) Test reordered by [facility]. Normal [facility] Comment on above: Result Comment: MAYANK 0 [id number] Account Credited Performed By: #### R CBCDF #### [facility] [address], [place] [address] Comment Test reordered by [facility]. Normal [facility] Comment on above: Result Comment: MAYANK 0 [id number] Account Credited Performed By: #### R CBCDF #### [facility] [address], [place] [address] Eosinophils (Bld) [#/Vol] Test reordered by [facility]. Normal <0.46 [facility] Comment on above: Result Comment: MAYANK 0 [id number] Account Credited Performed By: #### R CBCDF #### [facility] [address], [place] [address] Eosinophils/100 WBC (Bld) Test reordered by [facility]. Normal [facility] Comment on above: Result Comment: MAYANK 0 [id number] Account Credited Performed By: #### R CBCDF #### [facility] [address], [place] [address] Erythrocyte distribution width (RBC) [Ratio] Test reordered by [facility]. Normal 11.5-15.0 [facility] Comment on above: Result Comment: MAYANK 0 [id number] Account Credited Performed By: #### R CBCDF #### [facility] [address], [place] [address] Hematocrit (Bld) [Volume fraction] Test reordered by [facility]. Normal 39.0-51.0 [facility] Comment on above: Result Comment: MAYANK 0 [id number] Account Credited Performed By: #### R CBCDF #### [facility] [address], [place] [address] Hemoglobin (Bld) [Mass/Vol] Test reordered by [facility]. Normal 13.0-17.0 [facility] Comment on above: Result Comment: MAYANK 0 [id number] Account Credited Performed By: #### R CBCDF #### [facility] [address], [place] [address] Lymphocytes (Bld) [#/Vol] Test reordered by [facility]. Normal 1.00-4.00 [facility] Comment on above: Result Comment: MAYANK 0 [id number] Account Credited Performed By: #### R CBCDF #### [facility] [address], [place] [address] Lymphocytes/100 WBC (Bld) Test reordered by [facility]. Normal [facility] Comment on above: Result Comment: MAYANK 0 [id number] Account Credited Performed By: #### R CBCDF #### [facility] [address], [place] [address] MCH (RBC) [Entitic mass] Test reordered by [facility]. Normal 26.0-34.0 [facility] Comment on above: Result Comment: MAYANK 0 [id number] Account Credited Performed By: #### R CBCDF #### [facility] [address] [place], [place] [address] MCHC (RBC) [Mass/Vol] Test reordered by [facility]. Normal 30.5-36.0 [facility] Comment on above: Result Comment: MAYANK 0 [id number] Account Credited Performed By: #### R CBCDF #### [facility] [address], [place] [address] MCV (RBC) [Entitic vol] Test reordered by [facility]. Normal 80.0-100.0 [facility] Comment on above: Result Comment: MAYANK 0 [id number] Account Credited Performed By: #### R CBCDF #### [facility] [address], [place] [address] Monocytes/100 WBC (Bld) Test reordered by [facility]. Normal [facility] Comment on above: Result Comment: MAYANK 0 [id number] Account Credited Performed By: #### R CBCDF #### [facility] [address] [place], [place] [address] Neutrophils/100 WBC (Bld) Test reordered by [facility]. Normal [facility] Comment on above: Result Comment: MAYANK 0 [id number] Account Credited Performed By: #### R CBCDF #### [facility] [address] [place] [address] Platelet mean volume (Bld) [Entitic vol] Test reordered by [facility]. Normal 9.0-12.7 [facility] Comment on above: Result Comment: MAYANK 0 [id number] Account Credited Performed By: #### R CBCDF #### [facility] [address] [place] [address] Platelets (Bld) [#/Vol] Test reordered by [facility]. Normal 150-400 [facility] Comment on above: Result Comment: MAYANK 0 [id number] Account Credited Performed By: #### R CBCDF #### [facility] [address] [place] [address] RBC (Bld) [#/Vol] Test reordered by [facility]. Normal 4.20-6.00 [facility] Comment on above: Result Comment: MAYANK 0 [id number] Account Credited Performed By: #### R CBCDF #### [facility] [address] [place] [address] Recheck Test reordered by [facility]. Normal [facility] Comment on above: Result Comment: MAYANK 0 [id number] Account Credited Performed By: #### R CBCDF #### [facility] [address] [place] [address] Review Test reordered by [facility]. Normal [facility] Comment on above: Result Comment: MAYANK 0 [id number] Account Credited Performed By: #### R CBCDF #### [facility] [address] [place] [address] WBC (Bld) [#/Vol] Test reordered by [facility]. Normal 3.70-11.00 [facility] Comment on above: Result Comment: MAYANK 0 [id number] Account Credited Performed By: #### R CBCDF #### [facility] [address] [place], [place] [address] Uric Acidon 05-28-2019 Urate [Mass/Vol] 4.0 mg/dL Normal 4.0-8.1 [facility] Comment on above: Performed By: #### B 2M, CMP, URIC, KLFRS, SERIMM, SEPG, IFESC #### [facility] [address] [place], [place] [address] Vital Signs Date Time Vital Sign Value Performing Clinician Facility 11-18-2023 08:24-0400 Body height 177.8 cm Hu Benson MD Work Phone: [facility] 11-18-2023 08:24-0400 Body mass index (BMI) [Ratio] 25.25 kg/m2 Hu Benson MD Work Phone: [facility] 11-18-2023 08:24-0400 Body weight 79.83 kg Hu Benson MD Work Phone: [facility] 10-23-2023 13:11-0400 Body temperature 97.88 [degF] [facility] 10-23-2023 13:11-0400 Diastolic blood pressure 75 mm[Hg] [facility] 13:11-0400 Heart rate 78 /min [facility] 10-23-2023 13:11-0400 Mean blood pressure 100 mm[Hg] [facility]-23-2023 13:11-0400 SaO2% (BldA) [Mass fraction] 100 % [facility] 10-23-2023 13:11-0400 Systolic blood pressure 150 mm[Hg] [facility] 04-25-2022 09:08-0500 Heart rate 70 /min [facility] Butch [facility] 04-25-2022 09:08-0500 SaO2% (BldA) [Mass fraction] 97 % Tigremichael Rae [facility] 04-25-2022 09:08-0500 Respiratory rate 16 /min Tigremichael Rae [facility] 04-25-2022 09:07-0500 Diastolic blood pressure 85 mm[Hg] [facility] 04-25-2022 09:07-0500 Mean blood pressure 108 mm[Hg] [facility] 04-25-2022 09:07-0500 Systolic blood pressure 154 mm[Hg] [facility] 04-25-2022 09:00-0500 Body temperature 97.52 [degF] [facility] Encounters Encounter Date Encounter Type Care Provider Facility Start: 04-19-2024 End: 04-20-2024 Refill Hu Benson MD Work Phone: [facility] Comment on above: Hypothyroidism (acqu ired) (CMS/HCC) Start: 11-18-2023 End: 11-18-2023 Office outpatient visit 25 minutes Hu Benson MD Work Phone: [facility] Comment on above: ESS (euthyroid sick syndrome); Hypothyroidism (acquired) ([facility]/HCC); Chronic fatigue; Overweight Start: 11-18-2023 End: 11-18-2023 ambulatory HU BENSON Not Available Start: 10-23-2023 End: 10-23-2023 ambulatory Tigremichael Duffycesar Facility:[facility] Start: 10-23-2023 End: 10-23-2023 Patient encounter procedure Tigremichael aRe [facility] Start: 09-11-2023 ambulatory Tigremichael Duffycesar Fernandes ity:[facility] Start: 05-21-2023 End: 05-21-2023 ambulatory HU BENSON Not Available Start: 03-04-2023 End: 03-04-2023 ambulatory HU BENSON Not Available Start: 07-16-2022 End: 07-17-[address] VICKIE EASON . Facility:[facility] Start: 04-25-2022 End: 04-25-2022 Patient encounter procedure Tigre Rae [facility] Start: 04-09-2022 End: 04-10-[address] BRANDIN MORALES Facility:[facility] Start: 02-23-2022 End: 02-24-[address] HU BENSON . Facility:[facility] Start: 11-28-2021 End: 11-29-[address] HU BENSON . Facility:[facility] Start: 11-03-2021 End: 11-04-[address] VICKIE EASON . Facility:[facility] Start: 11-02-2021 End: 11-03-[address] VICKIE EASON . Facility:[facility] Start: 10-26-[address] Kathy Johns Fa cility:[id number] Start: 09-11-2021 End: 09-12-[address] HU BENSON . Facility:[facility] Start: 08-18-2021 Encounter for genera l adult medical examination without abnormal findings DR VICKIE EASON . [facility] Start: 08-17-2021 End: 08-18-[address] VICKIE EASON . Facility:[facility] Start: 08-16-2021 End: 08-17-[address] VICKIE EASON . Facility:[facility] Start: 08-16-2021 End: 08-17-2021 Encounter for general adult medical examination without abnormal findings DR VICKIE EASON . Facility:[facility] Start: 10-10-2016 End: 10-11-2016 Ambulatory DEFAULT PHYSICIAN Facility:[facility] Procedures Date Procedure Procedure Detail Performing Clinician Start: 07-16-[address] GENNA EASON . Comment on above: Performed By: #### L IPID, T7, URIC, TSH, CMP #### [facility] [address] [place] [address] [address] Jaymie Gilbert Start: 08-16-[address] GENNA EASON . Comment on above: Performed By: #### L IPID, T7, URIC, TSH, CMP #### [facility] [address] [place] [address] [address] Jaymie Gilbert Arthroscopy of knee with meniscus repair Tigre Rae Pneumatic retinopexy Tigre Rae Tonsillectomy and adenoidectomy Tigre Rae Vasectomy Tigre Matias cz Plan of Treatment Date Care Activity Detail Author Start: 04-19-2024 End: 11-17-2024 T3, reverse T3, reverse Lab Routine ESS (euthyroid sick syndrome) Chronic fatigue Expected: 04/19/2024, Expires: 11/17/[address] [facility] Comment on above: Expected: 04/19/2024 , Expires: 11/17/2024 Start: 04-19-2024 End: 11-17-2024 Thyrotropin [Units/volume] in Serum or Plasma TSH Lab Routine Hypothyroidism (acquired) ([facility]) Chronic fatigue Expected: 04/19/2024, Expires: 11/17/[address] [facility] Comment on above: Expected: 04/19/2024 , Expires: 11/17/2024 Start: 04-19-2024 End: 11-17-2024 Thyroxine (T4) free [Mass/volume] in Serum or Plasma T4, free Lab Routine Hypothyroidism (acquired) ([facility]) Chronic fatigue Expected: 04/19/2024, Expires: 11/17/[address] [facility] Comment on above: Expected: 04/19/2024 , Expires: 11/17/2024 Start: 04-19-2024 End: 11-17-2024 Triiodothyronine (T3) [Mass/volume] in Serum or Plasma T3 Lab Routine ESS (euthyroid sick syndrome) Chronic fatigue Expected: 04/19/2024, Expires: 11/17/[address] [facility] Work Phone: Comment on above: Expected: 04/19/2024 , Expires: 11/17/2024 Start: 04-19-2024 End: 11-17-2024 Triiodothyronine (T3) Free [Mass/volume] in Serum or Plasma T3, free Lab Routine ESS (euthyroid sick syndrome) Chronic fatigue Expected: 04/19/2024, Expires: 11/17/2024 [facility] Comment on above: Expected: 04/19/2024 , Expires: 11/17/2024 Start: 11-24-2023 Influenza vaccination Influenza Vacc ine (#1) [facility] Start: 1960 Screening for malign ant neoplasm of colon [facility] Healthcare Payers Date Payer Category Payer Private Health Insurance [employer] [id number] 2022 Unknown 1960 Unknown [id number] [id number]. 1068 1960 Unknown [id number] 2.16.840.1.212015.3.579.2. 593 1960 Unknown [id number] 2.16.840.1.967311.3.579.2. 593 1960 Unknown [id number] 2.16.840.1.083513.3.579.2. 593 1960 Unknown [id number] 2.16.840.1.104469.3.579.2. 593 1960 Unknown [id number] 2.16.840.1.542881.3.579.2. 593 1960 Unknown [id number] 2.16.840.1.508209.3.579.2. 593 1960 Unknown [id number] 2.16.840.1.088893.3.579.2. 593 1960 Unknown [id number] 2.16.840.1.223009.3.579.2. 593 1960 Unknown [id number] 2.16.840.1.545834.3.579.2. 593 1960 Unknown [id number] 2.16.840.1.903689.3.579.2. 593 1960 Unknown [id number] 2.16.840.1.113580.3.579.2. 727 1960 Unknown [id number] 2.16.840.1.465792.3.579.2. 727 1960 Unknown [id number] 2.16.840.1.527025.3.579.2. 1259 1960 Unknown [id number] 2.16.840.1.543187.3.579.2. 1259 1960 Unknown [id number] 2.16.840.1.665589.3.579.2. 1259 1959 Unknown [id number] Social History Date Type Detail Facility Start: 04-26-2020 End: 09-06-2022 Tobacco smoking status Never smoked tobacco (finding) [facility] Tobacco smoking status Never [facility] Start: 09-06-2022 End: 11-18-2023 Sex Assigned At Male [facility] Start: 09-06-2022 Tobacco use and exposure Smoke less tobacco non-user [facility] Start: 11-18-2023 Alcoholic beverage intake Current drinker of alcohol (finding) [facility] Start: 09-06-2022 End: 11-18-2023 Alcoholic beverage intake [facility] Within the last year , have you been afraid of your partner or ex-partner? No [facility] Do you belong to any clubs or organizations such as mu-ism groups, unions, fraternal or athletic groups, or school groups? Yes [facility] Are you now , , , , never or living with a partner? [facility] How often to you hav e a drink containing alcohol? 2-4 times a month [facility] How many standard dr inks containing alcohol do you have on a typical day? 1 or 2 [facility] How often do you hav e 6 or more drinks on 1 occasion? Never [facility] Do you feel stress - tense, restless, nervous, or anxious, or unable to sleep at night because your mind is troubled all the time - these days [OSQ] Not at all [facility] (I/We) worried wheth er (my/our) food would run out before (I/we) got money to buy more. Never true [facility] Start: 09-12-2022 Alcohol Comment Caffeine intak e: coffee [facility] Start: 1960 Sex assigned at Not on file [facility] NEGATED: Highlighted rowStart: NINF History of tobacco use Passive smoker [facility] Healthcare History of Present illness Narrative 11-18-2023 Hu Benson MD - 11/18/2023 8:30 AM EDT Note Date & Type Note Facility 11-18-2023 History of Presen t illness Narrative Images from the original note were not included. Patient ID: Brandin Farr is a 63 y.o. male who presents for: Pt here today to review his/hers thyroid labs and any medication changes needed. Fatigue: Present, Unchanged Weight Gain: Absent Inability to lose weight: Absent Hair Changes: Absent He/She is following the thyroid diet: Good He/She are taking medications as directed: Good He/She are exercising at least 3 days out of the week for 30 minutes or more: Good Review of Systems Constitutional: Positive for fatigue. Negative for appetite change. HENT: Negative for trouble swallowing and voice change. Cardiovascular: Negative for palpitations. Musculoskeletal: Negative for arthralgias and myalgias. Psychiatric/Behavioral: Negative for sleep disturbance. The patient is not nervous/anxious. Endocrine: Negative for cold intolerance and heat intolerance. Objective The patient is pleasant and in no acute distress The head is normocephalic and atraumatic The patient does not appear to have a gross neurologic deficit. The patient has good eye contact and clear speech Visit Vitals Ht 5' 10 Wt 176 lb BMI 25.25 kg/m Smoking Status Never BSA 1.99 m [facility] Result Encounter on 11/04/2023 Component Date Value Ref Range Status FREE T3 11/04/2023 4.38 (H) 2.18 - 3.98 pg/mL Final THYROID STIMULATING HORMONE 11/04/2023 0.017 (L) 0.358 - 3.740 uIU/mL Final FREE T4 11/04/2023 0.82 0.76 - 1.46 ng/dL Final [facility] TRIIODOTHYRONINE (T3) 11/04/2023 163 71 - 180 ng/dL Final Comment: Performed at: [address] [id number] Balloon Tester: Trenton Mayo PhD, Phone: [phone] REVERSE T3, SERUM 11/04/2023 12.1 9.2 - 24.1 ng/dL Final Comment: This test was developed and its performance characteristics determined by [facility]. It has not been cleared or approved by the Food and Drug Administration. Performed at: [address] [id number] Balloon Tester: Almita Chakraborty MD, Phone: [phone] Calculated thyroid ratio 13.5 Allergies Allergen Reactions Ciprofloxacin Other Reaction(s): Intolerance, Intolerance, Unknown Other reaction(s): Intolerance Current Outpatient Medications on File Prior to Visit Medication Sig Dispense Refill aspirin (ASPIR) 81 MG EC tablet Take 81 mg by mouth 1 (one) time each day at the same time. dehydroepiandrosterone (DHEA) 25 MG tablet Take 25 mg by mouth See administration instructions. 1 tablet in evening and 1/2 tablet in AM orally two times daily levothyroxine (Synthroid, Levoxyl) 112 MCG tablet Take 0.5 tablet on an empty stomach orally two times daily 90 tablet 1 liothyronine (Cytomel) 5 MCG tablet Take 3 tablet in AM and 3 tablets in PM on an empty stomach. MARTHA; Sigma or Greenstone brands only 540 tablet 1 Multiple Vitamins-Minerals (CENTRUM SILVER ULTRA MENS PO) Take 1 tablet by mouth 1 (one) time each day. sildenafil (Revatio) 20 MG tablet Take 1-5 tablets (20-100 mg) by mouth Daily as needed (erectile dysfunction). 90 tablet 2 tamsulosin (Flomax) 0.4 MG 24 hr capsule Take 1 capsule by mouth 1 (one) time each day at the same time No current facility-administered medications on file prior to visit. 1. ESS (euthyroid sick syndrome) His TSH is suppressed, he is free T3 is too high in the labs were done correctly on time. His thyroid ratio is elevated. In prescribing an adjustment to their current medication, consideration of the following encompasses moderate decision making; the current prescriptions and supplements, the current allergies and medication intolerances, the current medical conditions, and potential drug interactions. Risks, benefits, and reason for adjusting their current medication were discussed. The patient was given a chance to ask questions today and all questions were answered. The patient is to contact us if any other questions arise or if any problems occur with the adjustment in their medication. - liothyronine (Cytomel) 25 MCG tablet; Take 1/2 tablet in AM and 1/2 tablets in PM on an empty stomach. MARTHA; Sigma or Greenstone brands only Dispense: 90 tablet; Refill: 1 - T3; Future - T3, reverse; Future - T3, free; Future - T3 - T3, reverse - T3, free 2. Hypothyroidism (acquired) (CMS/HCC) This is a complex chronic problem, unstable, not to goal; managment requires moderate decision making I reviewed diet and exercise with the patient. I discussed the patient's current psychosocial and physical condition and the stress impact upon them. I reviewed the multiple unique laboratories and explained the results to the patient. The patient has been re-educated concerning the above diagnoses and that the treatment for some of these may not be considered the standard of care, including TSH suppression when utilized. The patient has been re-educated and instructed concerning medication timing, diet, exercise, and stress reduction as appropriate. I reviewed the patient's current prescriptions and discussed the possibilities of medication renewals, adjustments, new medication start, or stop medication as appropriate The patient has been instructed to follow up and bring a diet and exercise log, and the importance of follow up and compliance. The patient was given a chance to ask questions today and all questions were answered. The patient is to contact us if any other questions arise or if any problems occur. - levothyroxine (Synthroid, Levoxyl) 100 MCG tablet; Take 0.5 tablet on an empty stomach orally two times daily Dispense: 90 tablet; Refill: 1 - T4, free; Future - TSH; Future - T4, free - TSH 3. Chronic fatigue Chronic problem, stable, complex in nature with moderate decision making. I discussed with the patient and/or their health and safety representative, their fatigue issues. We discussed how this is improved significantly. We discussed that the patient will almost certainly need to continue to make lifestyle changes including diet, sleep, exercise, and stress management as appropriate. We discussed how this is almost always a multifactorial problem. We further discussed how we will continue to search for refinements in their current treatments or evaluation for further disease processes and then support or treat them as appropriate. We discussed how we can frequently improve the symptoms, but may not be able to completely cure or resolve the issue. The patient was given a chance to ask questions and all questions were answered. - T3; Future - T3, reverse; Future - T3, free; Future - T4, free; Future - TSH; Future - T3 - T3, reverse - T3, free - T4, free - TSH 4. Overweight documented in this encounter [facility] Clinical Note 10-23-2023 Note Date & Type Note Facility 10-23-2023 Note Oncology Progress No te Chief Complaint Follow up on Elevated Serum Protein and lab work, no questions or concerns today. Oncological History/ROS/PE/Assessment and Plan 63-year-old male whom I previously followed at [facility] for monoclonal gammopathy of undetermined significance. He has a persistent M spike in the 2-3 range with quantitative igg in the 4629-3676 range.. Previously he had followed with Dr. [...] weight is stable. labs pending, drawn at [place]. he had skeletal survey with no concerning findings last week at [place]. 04/25/22 no new complaints. recent cbc was normal wbc, hb plts outside labs. IgG 3145, Mspike 2.3. unchanged essentially. 10/23/23 doing well, no issues this year. He had labs at [place] but did not check free light chains. 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 cbc, cmp, spep sflc simmunfoixation, quant igg [...] information available Labs No Qualifying Data Available [facility] Hospital Discharge instructions 04-26-2021 Note Date & Type Note Facility 04-26-2021 Hospital Discharg e instructions Follow Up Care 04/26/2021 09:33:13 With:Tigre Rae Address: [facility] [address] [place] [phone] Fax Business (1) When: Unknown Comments:f/u in 18 months. prior to f/u at [place] check cbc, cmp, spep sflc simmunofixation. no imaging. [facility] Evaluation + Plan note LaboratoryRadiology [...] 04/27/21Protein Electrophoresis 04/27/21XR Bone Survey Complete 04/17/22 [facility] Evaluation + Plan note Laboratory Note Date & Type Note Facility Evaluation + Plan note Future Appointments Appointment Date:10/21/2024 11:00:00 AM Scheduled Provider:Adamowicz DO, Tigre Location:[facility].ONCOLOGY Appointment Type:ONC Office Visit 20 ([facility]) Future Scheduled TestsIFE and PE, Serum 10/22/24IgG, Quant. 10/22/24Immunofixation Serum 10/22/24Free K+L Lt Chains,Qn,S 10/22/24CBC w/ Auto Diff 10/22/24Comprehensive Metabolic Panel 10/22/24 [facility] Evaluation note Note Date & Type Note Facility Evaluation note Diagnosis ESS (euthyroid sick syndrome) Euthyroid sick syndrome Hypothyroidism (acquired) (CMS/HCC) Unspecified hypothyroidism Chronic fatigue Other malaise and fatigue Overweight documented in this encounter [facility] Evaluation note Note Date & Type Note Facility Evaluation note Diagnosis Hypothyroidism (acquired) (CMS/HCC) Unspecified hypothyroidism documented in this encounter [facility] Healthcare Hospital course Narrative Note Date & Type Note Facility Hospital course Narrative No data available for this section [facility] Hospital Discharge instructions Note Date & Type Note Facility Hospital Discharge instructions No data available for this section [facility] Progress note Note Date & Type Note Facility Progress note No data available for this section [facility] Summary Purpose Family History No Family History Records FoundNo Family History Records FoundNo Family History Records FoundNo Family History Records FoundNo Family History Records FoundNo Family History Records Found No data available for this section No Family History Records FoundNo Family History [...] section and content) DATE CREATED AUTHOR 09/18/2017 [facility] DATE CREATED AUTHOR AUTHOR'S ORGANIZ ATION 06/13/2019 [facility] DATE CREATED AUTHOR AUTHOR'S ORGANIZ ATION 10/27/2021 [facility] DATE CREATED AUTHOR AUTHOR'S ORGANIZ ATION 10/28/2021 [facility] DATE CREATED AUTHOR AUTHOR'S ORGANIZ ATION 05/25/2022 [facility] DATE CREATED AUTHOR AUTHOR'S ORGANIZ ATION 07/18/2022 [facility] DATE CREATED AUTHOR AUTHOR'S ORGANIZ ATION 10/25/2023 [facility] DATE CREATED AUTHOR AUTHOR'S ORGANIZ ATION 11/19/2023 [facility] EPIC Patient Care team informatio n (unrecognized section and content) Manual Qa Tester Relationship Specialty Start Date End Date Vickie Eason MD [address] [place] [address] PCP - General Family Medicine 08/28/22 Manual Qa Tester Relationship Specialty Start Date End Date Vickie Eason MD [address] [place] [address] PCP - General Family Medicine 08/28/22 Reason for Visit (unrecogniz ed section and content) Reason Comments Hypothyroidism Reason Comments Med Refill FOR RECORDS PERTAINING TO PATIENTS WHO ARE [...] BE BASED ON THE PRIMARY CLINICAL RECORDS. [facility]. provides no warranty or guarantee of the accuracy or completeness of information in this document.
[2024-05-04 11:09] LABS: Free T4 0.73 ng/dL (0.76-1.46)
[2024-05-04 11:17] LABS: Free T3 3.86 pg/mL (2.18-3.98); Thyroid Stimulating Hormone 0.101 uIU/mL (0.358-3.740)
[2024-05-05 08:15] LABS: Triiodothyronine (T3) 141 ng/dL (71-180)
== END 2024-05-04 09:21 | disposition home or self-care (01) ==
LOC: LAB 09:24
PROVIDERS: PCP Family Medicine; Visit Provider Family Medicine
DX: E07.81 Sick-euthyroid syndrome (principal); R53.82 Chronic fatigue, unspecified; E03.9 Hypothyroidism, unspecified
CPT/HCPCS: 36415; 84439; 84443; 84480; 84481; 84482

== ENCOUNTER 2024-10-06 16:42 | Outpatient (OUT) | payer BC, SELFPAY ==
--- OUTSIDE RECORDS SUMMARY | 2024-01-29 04:45 | XMS_ITS ---
Author Organization [facility] in [place] Address [address] [place] [address] Care Team Providers Care Loan Analyst Name Role Phone Justino Eason Primary Care Provider [phone] Allergies Allergen (clinical drug ingredient) Drug/Non Drug Allergy documented on EMR Reaction Allergy Type Onset Date Status ciprofloxacin Ciprofloxacin does not feel well Drug Allergy Active REASON FOR VISIT Dermatology Issue, chapping on the upper lip- used triamcinolone cream helped last spring when had this issue Medications Medication SIG (Take, Route, Frequency, Duration) Notes Start Date End Date Status Levothyroxine Sodium 50 MCG 1/2 tablet i n the morning on an empty stomach Orally bid Active Mupirocin 2 % 1 application Perfect Binder Setter ally Twice a day for 5 days 01/29/2024 Active Tamsulosin HCl 0.4 MG 1 capsule Orally O nce a day for 90 days 09/03/2023 Active Triamcinolone Acetonide 0.1 % 1 application Externally twice daily 01/29/2024 Active Sildenafil Citrate 20 MG 1 tablet Orally Once a day as needed- max q 3 days Active Levocetirizine Dihydrochloride 5 MG 1 tablet in the evening Orally Once a day Active Ferrous Sulfate 325 (65 Fe) MG 1 tablet Orally once daily for 30 days Active Fluticasone-Emollient 0.05 % as directed Externally tid 05/03/2023 Active Cytomel 5 MCG 1/2 tablet on an emp ty stomach Orally bid Active Diclofenac Sodium 75 MG 1 tablet as need ed Orally Twice a day for 30 01/22/2023 Active Aspir-Low 81 MG 1 tablet Orally Once a day Active Fluocinonide 0.05 % 1 application Perfect Binder Setter ally Twice a day 01/29/2024 Active Centrum Silver - 1 tablet Orally once daily Active Social History Tobacco Use: Social History Observation Description Date Details (start date - stop date) Never Smoker NA - NA Tobacco Use/Smoking Question Answer Notes Patient is a nonsmoker Vital Signs Weight 176.4 lbs 01/29/2024 Height 70 in 01/29/2024 Blood pressure systolic 126 mm Hg 01/29/20 24 Blood pressure diastolic 86 mm Hg 024 BMI 25.31 kg/m2 01/29/2024 Encounters Encounter Location Date Provider Diagnosis [facility] [address] [place] [address] 01/29/2024 Justino Eason Eczema L30.9 Assessments Encounter Date Diagnosis (ICD Code) Assessment Notes Treatment Notes Treatment Clinical Notes Section Notes 01/29/2024 Eczema (ICD-10 - L30.9) if nto better - see derm Plan Of Treatment Medication Medication Name Sig Start Date Stop Date Notes Mupirocin 2 % 1 application Perfect Binder Setter ally Twice a day for 5 days 01/29/2024 Fluocinonide 0.05 % 1 application Externally Twice a day 1 03/30/2023 Treatment Notes Assessment Notes Eczema if nto better - see derm Progress Notes * Darinel FARR LDOB:1960 (63 yo M)Acc No.[id number]:01/29/2024 Progress Note Patient: Darinel GLOVER Provider: Ousmane Eason ([facility])MD :1960 A ge:63 Y S ex:Male Date:01/29/2024 Address:[address] [place], [place] [id number] Check In:08:39 AM ESTCheck O ut:09:14 AM EST Subjective: * Chief Complaints: * 1 . Dermatology Issue. 2. Chapping on the upper lip- used triamcinolone cream helped last spring when had this issue. * HPI: G eneral: with the c older dryer air - has chapped lips to laura point of splitting oipen the upper lip. 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 Modified On:07/13/2022 Status:confirmed K21.9 GERD (gastroesophage al reflux disease) Modified On:07/13/2022 Status:confirmed E03.9 Hypothyroidism Modified On:07/13/2022 Status:confirmed I26.99 Pulmonary embolism Modified On:07/13/2022 Status:confirmed G56.00 Carpal tunnel syndro me Modified On:07/13/2022 Status:confirmed R06.00 Dyspnea Modified On:07/13/2022 Status:confirmed L30.9 Eczema Modified On:07/13/2022 Status:confirmed K57.90 Diverticulosis Modified On:07/13/2022 Status:confirmed L25.9 Contact dermatitis Modified On:07/13/2022 Status:confirmed R53.82 Chronic fatigue synd lonnie Modified On:07/13/2022 Status:confirmed R01.1 Cardiac murmur Modified On:07/13/2022 Status:confirmed D47.2 Monoclonal paraprote inemia Modified On:07/13/2022 Status:confirmed K40.90 Hernia, inguinal Modified On:07/13/2022 Status:confirmed L03.039 Infection of toenail Modified On:07/13/2022 Status:confirmed I83.10 Varicose veins of lo wer extremity with inflammation Modified On:07/13/2022 Status:confirmed E29.1 Low testosterone lev el in male Modified On:07/13/2022 Status:confirmed F41.1 Anxiety neurosis Modified On:07/13/2022 Status:confirmed E07.81 Euthyroid sick syndr ome Modified On:07/13/2022 Status:confirmed E78.00 Pure hypercholestero lemia, unspecified Modified On:07/13/2022 Status:confirmed I82.811 Embolism and thrombo sis of superficial veins of right lower extremity Modified On:07/13/2022 Status:confirmed U07.1 COVID-19 Modified On:07/13/2022/U Status:confirmed J01.90 Acute sinusitis Modified On:07/13/2022U Status:confirmed J30.9 Allergic rhinitis Modified On:07/13/2022U Status:confirmed Z00.00 Well adult Modified On:07/16/2022/U Status:confirmed H26.9 Cataract Modified On:07/13/2022U Status:confirmed M25.562 Knee pain, left Modified On:01/22/2023/U Status:confirmed R55 Near syncope Modified On:01/25/2023U Status:confirmed N40.0 BPH (benign prostati c hyperplasia) Modified On:09/03/2023U Status:confirmed * Medical History: C OVID-19, Carpal tunnel syndrome, Well adult, Combined arterial insufficiency and corporo-venous occlusive erectile dysfunction, Contact dermatitis, Postherpetic polyneuropathy, Diverticulosis, Infection of toenail, Acute sinusitis, Euthyroid sick syndrome, Pulmonary embolism, Dyspnea, Embolism and thrombosis of superficial veins of right lower extremity, Hernia, inguinal, Low testosterone level in male, Hypothyroidism, Varicose veins of lower extremity with inflammation, Monoclonal paraproteinemia, Chronic fatigue syndrome, Cataract, Eczema, Pure hypercholesterolemia, unspecified, Anxiety neurosis, GERD (gastroesophageal reflux disease), Cardiac murmur, Allergic rhinitis. * Surgical History: R etinal reattachment , Hernia repair , Meniscus repair , EGD/Colonoscopy- 06/11/2018. * Hospitalization/Major Diagno stic Procedure: D enies Past Hospitalization. * Family History: F ather: alive, diagnosed with Unspecified heart disease. M other: , bladder cancer. B rother(s): . S ister(s): alive. 1 brother(s) , 1 sister(s) - healthy. .? * Social History: T obacco Use: T obacco Use/Smoking P atient is a n onsmoker * Medications: T aking Aspir-Low 81 MG Tablet Delayed Release 1 tablet Orally Once a day , Taking Centrum Silver(Multiple Vitamins-Minerals) - Tablet 1 tablet Orally once daily , Taking Cytomel(Liothyronine Sodium) 5 MCG Tablet 1/2 tablet on an empty stomach Orally bid , Taking Diclofenac Sodium 75 MG Tablet Delayed Release 1 tablet as needed Orally Twice a day , Taking Ferrous Sulfate 325 (65 Fe) MG Tablet 1 tablet Orally once daily , Taking Fluticasone-Emollient 0.05 % Kit as directed Externally tid , Taking Levocetirizine Dihydrochloride 5 MG Tablet 1 tablet in the evening Orally Once a day , Taking Levothyroxine Sodium 50 MCG Tablet 1/2 tablet in the morning on an empty stomach Orally bid , Taking Sildenafil Citrate 20 MG Tablet 1 tablet Orally Once a day as needed- max q 3 days , Taking Tamsulosin HCl 0.4 MG Capsule 1 capsule Orally Once a day , Taking Triamcinolone Acetonide 0.1 % Cream 1 application Externally twice daily , Medication List reviewed and reconciled with the patient * Allergies: C iprofloxacin: does not feel well - Side Effects. Objective: * Vitals: W t:176.4lbs, Ht: 70 in, BP:126/86mm Hg, BMI:25.31Index, Ht-cm: 177.8 cm, Wt-k.01 kg. * Examination: A bdomen Exam:: s ponts onface and splitting upper lip consisten tiwh Eczema leg with similar area - if not better - needs derm. Assessment: * Assessment: 1. E czema - L30.9 (Primary) Plan: * Treatment: * Preventive Medicine: Screenings/Counseling: B [place] ACTION PLAN Above Normal BMI Follow-up D ietary management education, guidance, and counseling * * Sign off status: Completed Visit Status: C HK (Check Out) true * Provider: Ousmane Eason ([facility])MD Date: 03/30/2023 Generated for Mengi cristina/Fani/eTransmitting on: 0 10/06/2024 04:47 PM EDT History and Physical Notes * HPI (History of Present Illness) Category Sub-Category Detail Notes Category Not es General with the c olde r dryer air - has chapped lips to laura point of splitting oipen the upper lip Examination Category Sub-Category Detail Notes Category Not es Abdomen Exam: sponts onface and splitting upper lip consisten tiwh Eczema leg with similar area - if not better - needs derm
--- OUTSIDE RECORDS SUMMARY | 2024-03-16 13:15 | XMS_ITS ---
Author Organization [facility] in [place] Address [address] [place] [address] Care Team Providers Care Financial Analysis Consultant Name Role Phone Justino Eason Primary Care Provider Allergies Allergen (clinical drug ingredient) Drug/Non Drug Allergy documented on EMR Reaction Allergy Type Onset Date Status ciprofloxacin Ciprofloxacin does not feel well Drug Allergy Active REASON FOR VISIT patient is c/o sinus pressure, some drainage that is yellow, no fever, no body aches, YOON, no sore throat, lasting 3 days Medications Medication SIG (Take, Route, Frequency, Duration) Notes Start Date End Date Status Sildenafil Citrate 20 MG 1 tablet Orally Once a day as needed- max q 3 days Active Mupirocin 2 % 1 application Buffing Wheel Former Machine ally Twice a day for 5 days 01/29/2024 Active Levothyroxine Sodium 50 MCG 1/2 tablet i n the morning on an empty stomach Orally bid Active Triamcinolone Acetonide 0.1 % 1 application Externally twice daily 01/29/2024 Active Tamsulosin HCl 0.4 MG 1 capsule Orally O nce a day for 90 days 09/03/2023 Active Fluticasone-Emollient 0.05 % as directed Externally tid 05/03/2023 Active Fluocinonide 0.05 % 1 application Buffing Wheel Former Machine ally Twice a day 01/29/2024 Active Ferrous Sulfate 325 (65 Fe) MG 1 tablet Orally once daily for 30 days Active Levocetirizine Dihydrochloride 5 MG 1 tablet in the evening Orally Once a day Active Diclofenac Sodium 75 MG 1 tablet as need ed Orally Twice a day for 30 01/22/2023 Active Amoxicillin-Pot Clavulanate 875-125 MG 1 tablet Orally every 12 hrs for 10 days 03/16/2024 Active Cytomel 5 MCG 1/2 tablet on an emp ty stomach Orally bid Active Centrum Silver - 1 tablet Orally once daily Active Aspir-Low 81 MG 1 tablet Orally Once a day Active Social History Tobacco Use: Social History Observation Description Date Details (start date - stop date) Never Smoker NA - NA Tobacco Use/Smoking Question Answer Notes Patient is a nonsmoker AUDIT-C (Standard) Question Answer Notes Did you have a drink containing alcohol in the p ast year? No Points 0 Interpretation Negative Vital Signs Weight 175 lbs 03/16/2024 Height 70 in 03/16/2024 Blood pressure systolic 124 mm Hg 03/16/20 Blood pressure diastolic 80 mm Hg 024 Temperature 98.4 degrees Fahrenheit 03/16/20 BMI 25.11 kg/m2 03/16/2024 Encounters Encounter Location Date Provider Diagnosis [facility] [address] [place] [address] 03/16/2024 Justino Eason Acute non-recurrent sinusitis, unspecified location J01.90 and Nasal congestion R09.81 Assessments Encounter Date Diagnosis (ICD Code) Assessment Notes Treatment Notes Treatment Clinical Notes Section Notes 03/16/2024 Acute non-recurrent sinusitis, unspecified location (ICD-10 - J01.90) Rest and drink more liquids, especially water. You may use a humidifier or vaporizer to help keep the drainage moist. Wiih-dzf-ckaxutp Nasal Saline may help the stuffy and runny nose. Use Ibuprofen and or Tylenol as needed for fever, chills, body aches or pain. Children 5 years old should not be given clva-npn-fgrwkos cough and cold medications such as guaifenesin and dextromethorphan. If you're over age 5, you may try vdcx-xio-qxhpgzr cold medications such as guaifenesin and dextromethorphan, or multi-symptom cold reliever such as Dayquil to help reduce the symptoms. Antibiotics have been prescribed. You should take these until completed and follow the directions. Antibiotics can sometimes cause upset stomach, and in rare cases, serious allergic reactions or serious gastrointestinal problems. If you start having severe abdominal pain, severe vomiting, or bloody diarrhea, you should be reevaluated by your physician or urgent care immediately. Follow up with your Primary Care Provider or return to clinic if symptoms do not improve within 3-5 days 03/16/2024 Nasal congestion (ICD-10 - R09.81) Plan Of Treatment Medication Medication Name Sig Start Date Stop Date Notes Amoxicillin-Pot Clavulanate 875-125 MG 1 tablet Orally every 12 hrs for 10 days 03/16/2024 Treatment Notes Assessment Notes Acute non-recurrent sinusiti s, unspecified location Rest and drink more liquids, especially water. You may use a humidifier or vaporizer to help keep the drainage moist. Hfkp-mzu-nsjpugp Nasal Saline may help the stuffy and runny nose. Use Ibuprofen and or Tylenol as needed for fever, chills, body aches or pain. Children 5 years old should not be given ereu-rhz-prufabf cough and cold medications such as guaifenesin and dextromethorphan. If you're over age 5, you may try dahu-xgl-jjbtxxa cold medications such as guaifenesin and dextromethorphan, or multi-symptom cold reliever such as Dayquil to help reduce the symptoms. Antibiotics have been prescribed. You should take these until completed and follow the directions. Antibiotics can sometimes cause upset stomach, and in rare cases, serious allergic reactions or serious gastrointestinal problems. If you start having severe abdominal pain, severe vomiting, or bloody diarrhea, you should be reevaluated by your physician or urgent care immediately. Follow up with your Primary Care Provider or return to clinic if symptoms do not improve within 3-5 days Next Appt Details Follow Up: 3-5 days if not i mproving, Reason: Progress Notes * Darinel FARR LDOB:1960 (63 yo M)Acc No.[id number]:03/16/2024 Progress Note Patient: Darinel GLOVER Mandi Provider: Ousmane Eason ([facility])MD :1960 A ge:63 Y S ex:Male Date:03/16/2024 Address:[address] [place] [address] [id number] Check In:04:51 PM ESTCheck O ut:06:05 PM EST Subjective: * Chief Complaints: * p atient is c/o sinus pressure, some drainage that is yellow, no fever, no body aches, YOON, no sore throat, lasting 3 days * HPI: S inusitis: The patient complains of symptoms of sinus infection. The symptoms have been present for 1-2 days. The symptoms are moderate. Symptomatic treatment has included OTC medication. Associated symptoms include headache, facial pain, runny nose, nasal congestion. * ROS: S kin: Rash d enies. E NT: Comments S ee HPI for details. C ardiovascular: Edema d enies. P alpitations d enies. ? R espiratory: Chest pain d enies. C ough d enies. W heezing?denies. G astrointestinal: Abdominal pain d enies. N ausea d enies. V omiting d enies. 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 [...] extremity Modified On:07/13/2022 Status:confirmed U07.1 COVID-19 Modified On:07/13/2022 Status:confirmed J01.90 Acute sinusitis Modified On:07/13/2022 Status:confirmed J30.9 Allergic rhinitis Modified On:07/13/2022 Status:confirmed Z00.00 Well adult Modified On:07/16/2022 Status:confirmed H26.9 Cataract Modified On:07/13/2022 Status:confirmed M25.562 Knee pain, left Modified On:01/22/2023 Status:confirmed R55 Near syncope Modified On:01/25/2023 Status:confirmed N40.0 BPH (benign prostati c hyperplasia) Modified On:09/03/2023 Status:confirmed * Medical History: * Surgical History: R etinal reattachment Hernia repair Meniscus repair EGD/Colonoscopy- 06/11/2018 * Hospitalization/Major Diagno stic Procedure: N o Hospitalization History. * Family History: F ather: alive, bladder cancer, diagnosed with Other malignant neoplasm of unspecified site, Unspecified heart disease. M other: , bladder cancer. B rother(s): . S ister(s): alive. 1 brother(s) , 1 sister(s) - healthy. . * Social History: T obacco Use: T obacco Use/Smoking P atient is a n onsmoker D rug/Alcohol: A JANET-C (Standard) D id you have a drink containing alcohol in the past year? N o P oints 0 I nterpretation N egative * Medications: T akingAspir-Low 81 MG Tablet Delayed Release 1 tablet Orally Once a day Centrum Silver(Multiple Vitamins-Minerals) - Tablet 1 tablet Orally once daily Cytomel(Liothyronine Sodium) 5 MCG Tablet 1/2 tablet on an empty stomach Orally bid Diclofenac Sodium 75 MG Tablet Delayed Release 1 tablet as needed Orally Twice a day Ferrous Sulfate 325 (65 Fe) MG Tablet 1 tablet Orally once daily Fluocinonide 0.05 % Gel 1 application Externally Twice a day Fluticasone-Emollient 0.05 % Kit as directed Externally tid Levocetirizine Dihydrochloride 5 MG Tablet 1 tablet in the evening Orally Once a day Levothyroxine Sodium 50 MCG Tablet 1/2 tablet in the morning on an empty stomach Orally bid Mupirocin 2 % Ointment 1 application Externally Twice a day Sildenafil Citrate 20 MG Tablet 1 tablet Orally Once a day as needed- max q 3 days Tamsulosin HCl 0.4 MG Capsule 1 capsule Orally Once a day Triamcinolone Acetonide 0.1 % Cream 1 application Externally twice daily Medication List reviewed and reconciled with the patientTaking Aspir-Low 81 MG Tablet Delayed Release 1 tablet Orally Once a day Taking Centrum Silver(Multiple Vitamins-Minerals) - Tablet 1 tablet Orally once daily Taking Cytomel(Liothyronine Sodium) 5 MCG Tablet 1/2 tablet on an empty stomach Orally bid Taking Diclofenac Sodium 75 MG Tablet Delayed Release 1 tablet as needed Orally Twice a day Taking Ferrous Sulfate 325 (65 Fe) MG Tablet 1 tablet Orally once daily Taking Fluocinonide 0.05 % Gel 1 application Externally Twice a day Taking Fluticasone-Emollient 0.05 % Kit as directed Externally tid Taking Levocetirizine Dihydrochloride 5 MG Tablet 1 tablet in the evening Orally Once a day Taking Levothyroxine Sodium 50 MCG Tablet 1/2 tablet in the morning on an empty stomach Orally bid Taking Mupirocin 2 % Ointment 1 application Externally Twice a day Taking Sildenafil Citrate 20 MG Tablet 1 tablet Orally Once a day as needed- max q 3 days Taking Tamsulosin HCl 0.4 MG Capsule 1 capsule Orally Once a day Taking Triamcinolone Acetonide 0.1 % Cream 1 application Externally twice daily Medication List reviewed and reconciled with the patient * Allergies: C iprofloxacin: does not feel well - Side Effectsno[Allergies Verified] Objective: * Vitals: W t:175lbs, Ht: 70 in, BP:124/80mm Hg, Temp:98.4F, BMI:25.11Index, Ht-cm: 177.8 cm, Wt-k.38 kg. * Examination: G eneral Examination: GENERAL APPEARANCE: in no acute distress, well developed, well nourished. ENT: ear and nose external appearance normal, tympanic membranes clear bilaterally, facial tenderness to palpation over sinuses. EYES: pupils equal, round, reactive to light and accomodations. ORAL CAVITY: mucosa moist. NECK: n arti supple, full range of motion, no cervical lymphadenopathy. LUNGS: c lear to auscultation bilaterally. CARDIO: no murmurs, regular rate and rhythm, S1, S2 normal. ABDOMEN: soft, nontender , not distended, bowel sounds are active. SKIN: no suspicious lesions, warm and dry. EXTREMITIES: no clubbing, cyanosis, or edema. NEUROLOGIC: nonfocal, motor strength of upper/lower extremities intact , sensory exam intact. Assessment: * Assessment: 1. A cute non-recurrent sinusitis, unspecified location - J01.90 (Primary) 2 .?Nasal congestion - R09.81 Plan: * Treatment: * Procedure Codes: * Preventive Medicine: Screenings/Counseling: B ME ACTION PLAN Above Normal BMI Follow-up D ietary management education, guidance, and counseling * Follow Up: 3 -5 days if not improving * * Sign off status: Completed Visit Status: C HK (Check Out) true * Provider: Ousmane Eason ([facility])MD Date: 05/17/2023 Generated for Pankaj evans/Fani/Franciscaitting on: 0 10/06/2024 04:47 PM EDT History and Physical Notes * Examination Category Sub-Category Detail Notes Category Not es General Examination GENERAL APPEARANCE: in no ac kennedy distress, well developed, well nourished ENT: ear and nose externa l appearance normal, tympanic membranes clear bilaterally, facial tenderness to palpation over sinuses EYES: pupils equal, round, reactive to light and accomodations NECK: neck supple, full ra nge of motion, no cervical lymphadenopathy CARDIO: no murmurs, regular rate and rhythm, S1, S2 normal LUNGS: clear to auscultatio n bilaterally ABDOMEN: soft, nontender , no t distended, bowel sounds are active NEUROLOGIC: nonfocal, motor stre ngth of upper/lower extremities intact , sensory exam intact SKIN: no suspicious lesion s, warm and dry EXTREMITIES: no clubbing, cyanosi s, or edema ORAL CAVITY: mucosa moist
--- OUTSIDE RECORDS SUMMARY | 2024-09-28 13:30 | XMS_ITS ---
Author Organization [facility] [place] Address [address] [place] [address] Care Team Providers Care Scholarship Counselor Name Role Phone Justino Eason Primary Care Provider Allergies Allergen (clinical drug ingredient) Drug/Non Drug Allergy documented on EMR Reaction Allergy Type Onset Date Status ciprofloxacin Ciprofloxacin does not feel well Drug Allergy Active REASON FOR VISIT eye pain, was trimming trees yesterday, he feels get got dust/tree brush in his right eye Medications Medication SIG (Take, Route, Frequency, Duration) Notes Start Date End Date Status Fluticasone-Emollient 0.05 % as directed Externally tid 05/03/2023 Active Levocetirizine Dihydrochloride 5 MG 1 tablet in the evening Orally Once a day Active Diclofenac Sodium 75 MG 1 tablet as need ed Orally Twice a day for 30 01/22/2023 Active Ferrous Sulfate 325 (65 Fe) MG 1 tablet Orally once daily for 30 days Active Fluocinonide 0.05 % 1 application Guide Setter ally Twice a day 01/29/2024 Active Phnrpbxh-Kxdjkfoym-Banjxphc 3.5-37964-6.1 1 drop into affected eye Ophthalmic Four times a day for 7 days 09/28/2024 Active Aspir-Low 81 MG 1 tablet Orally Once a day Active Centrum Silver - 1 tablet Orally once daily Active Triamcinolone Acetonide 0.1 % 1 application Externally twice daily 01/29/2024 Active Cytomel 5 MCG 1/2 tablet on an emp ty stomach Orally bid Active Levothyroxine Sodium 50 MCG 1/2 tablet i n the morning on an empty stomach Orally bid Active Mupirocin 2 % 1 application Guide Setter ally Twice a day for 5 days 01/29/2024 Active Sildenafil Citrate 20 MG 1 tablet Orally Once a day as needed- max q 3 days Active Tamsulosin HCl 0.4 MG 1 capsule Orally O nce a day for 90 days 09/03/2023 Active Social History Tobacco Use: Social History Observation Description Date Details (start date - stop date) Never Smoker NA - NA Tobacco Use/Smoking Question Answer Notes Patient is a nonsmoker AUDIT-C (Standard) Question Answer Notes Did you have a drink containing alcohol in the p ast year? No Points 0 Interpretation Negative Problems Problem Type SNOMED Code ICD Code Onset Dates Problem Status W/U Status Risk Notes Problem Conjunctivitis (3380349) Conjunctivitis (H10.9) Active confirmed Vital Signs Weight 183.6 lbs 09/28/2024 Height 70 in 09/28/2024 Blood pressure systolic 112 mm Hg 09/29/19 25 Blood pressure diastolic 68 mm Hg 025 BMI 26.34 kg/m2 09/28/2024 Encounters Encounter Location Date Provider Diagnosis [facility] [address] [place] [address] 09/28/2024 Justino Hoy Conjunctivitis H10.9 Assessments Encounter Date Diagnosis (ICD Code) Assessment Notes Treatment Notes Treatment Clinical Notes Section Notes 09/28/2024 Conjunctivitis (ICD-10 - H10.9) Plan Of Treatment Medication Medication Name Sig Start Date Stop Date Notes Ymuusmkd-Fvbtvdsfc-Ceguwlwg 3.5-72080-4.1 1 drop into affected eye Ophthalmic Four times a day for 7 days 09/28/2024 Progress Notes * Darinel FARR LDOB:1960 (64 yo M)Acc No.[id number]:09/28/2024 Progress Note Patient: Darinel GLOVER Mandi Provider: Ousmane Eason ([facility])MD :1960 A ge:64 Y S ex:Male Date:09/28/2024 Address:[address] [place], [place] [id number] Check In:05:17 PM ESTCheck O ut:06:10 PM EST Subjective: * Chief Complaints: * E ye painWas trimming trees yesterday, he feels get got dust/tree brush in his right eye * HPI: G eneral: pruinign trees - windy yesterdaty 0 but not bad when went o be - getting 0wr. 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 * Family History: F ather: alive, bladder cancer, diagnosed with Unspecified heart disease, Other malignant neoplasm of unspecified site. M other: , bladder cancer. B rother(s): [...] Side Effectsno[Allergies Verified] Objective: * Vitals: W t:183.6lbs, Ht: 70 in, BP:112/68mm Hg, BMI:26.34Index, Ht-cm: 177.8 cm, Wt-k.28 kg. * Examination: A bdomen Exam:: R conjunctivitis. Assessment: * Assessment: 1. C onjunctivitis - H10.9 (Primary) Plan: * Treatment: * Procedure Codes: * Preventive Medicine: Screenings/Counseling: B AR ACTION PLAN Above Normal BMI Follow-up D ietary management education, guidance, and counseling * * Sign off status: Completed Visit Status: C HK (Check Out) true * Provider: Ousmane Eason ([facility])MD Date: 0 09/28/2024 Generated for Printi ng/Faberthag/eTransmitting on: 0 10/06/2024 04:47 PM EDT History and Physical Notes * HPI (History of Present Illness) Category Sub-Category Detail Notes Category Not es General pruinign trees - windy yesterdaty 0 but not bad when went o be - getting 0wr Examination Category Sub-Category Detail Notes Category Not es Abdomen Exam: R conjunctivit is
--- OUTSIDE RECORDS SUMMARY | 2024-10-06 16:46 | XMS_ITS | Encounter Summary ---
Author Organization [facility] Address [address] [place] [address] Care Team Providers Care Director Non Profit Name Role Phone Justus Eason MD Primary Care Provider [phone] Encounter Details Date Type Department Care Team (Late st Contact Info) Description 06/03/2013 PAT Telephone STV Pre-Admit Testing [address] [place] [address] Niles Mitchell, DAVE Social History Tobacco Use Types Packs/Day Years Used Date Smoking Tobacco: Never Alcohol Use Standard Drinks/Week Comments Yes 1 (1 standard drink = 0.6 oz pur e alcohol) 1 time per month Sex and Gender Information Value Date Recorded Sex Assigned at Not on file Legal Sex Male 1:28 PM EST Gender Identity Not on file Sexual Orientation Not on file documented as of this encounter Last Filed Vital Signs Vital Sign Reading Time Taken Comments Blood Pressure - - Pulse - - Temperature - - Respiratory Rate - - Oxygen Saturation - - Inhaled Oxygen Concentration - - Weight 81.6 kg (180 lb) 06/03/2013 10:28 AM EDT Height 180.3 cm (5' 11 ) 06/03/2013 10:28 AM EDT Body Mass Index 25.1 06/03/2013 10:28 AM EDT documented in this encounter Plan of Treatment Not on file documented as of this encounter Visit Diagnoses Not on filedocumented in this encounter Care Teams Director Non Profit Relationship Specialty Start Date End Date Justus Eason MD [address] [phone] PCP - General 03/16/13 documented as of this encounter
--- OUTSIDE RECORDS SUMMARY | 2024-10-06 16:48 | XMS_ITS | Patient Health Record ---
Author Organization [facility] [place] Address [address] [place] [address] Care Team Providers Care Hvac Service Manager Name Role Phone Justino Eason Primary Care Provider Allergies Allergen (clinical drug ingredient) Drug/Non Drug Allergy documented on EMR Reaction Allergy Type Onset Date Status ciprofloxacin Ciprofloxacin does not feel well Drug Allergy Active Results Component Value Reference Range Notes FREE T3 Reviewed date:11/04/2023 08:25:13 PM Interpretation: Performing Lab: Notes/Report: [facility] , Free T3 4.38 2.18-3.98 pg/mL Performing Lab: see note ML - [facility] LB FREE T4 Reviewed date:11/04/2023 08:25:13 PM Interpretation: Performing Lab: Notes/Report: [facility] , Free T4 0.82 0.76-1.46 ng/dL Performing Lab: see note ML - [facility] LB TSH Reviewed date:11/04/2023 08:25:13 PM Interpretation: Performing Lab: Notes/Report: [facility] , Thyroid Stimulating Hormone 0.017 0.358-3.740 u IU/mL Performing Lab: see note ML - [facility] LB FREE T4 Reviewed date:05/04/2024 07:15:31 PM Interpretation: Performing Lab: Notes/Report: [facility] , Free T4 0.73 0.76-1.46 ng/dL Performing Lab: see note ML - [facility] LB Triiodothyronine (T3) Reviewed date:05/10/2024 11:27:05 AM Interpretation: Performing Lab: Notes/Report: [facility] , Triiodothyronine (T3) 141 71-180 ng/dL Performed at: [address] [id number] [employer] To Door Fundraising Collector: Trenton Mayo PhD, Phone: [phone] Performing Lab: see note [facility] Reverse T3, Serum Reviewed date:05/10/2024 11:27:05 AM Interpretation: Performing Lab: Notes/Report: [facility] , Reverse T3, Serum 11.5 9.2-24.1 ng/dL This test was developed and its performance characteristics determined by [facility]. It has not been cleared or approved by the Food and Drug Administration. Performed at: [address] [id number] [employer] Fundraising Collector: Almita Chakraborty MD, Phone: [phone] Performing Lab: see note [facility] LB Reverse T3, Serum Reviewed date:11/10/2023 05:27:09 PM Interpretation: Performing Lab: Notes/Report: [facility] , Reverse T3, Serum 12.1 9.2-24.1 ng/dL This test was developed and its performance characteristics determined by [facility]. It has not been cleared or approved by the Food and Drug Administration. Performed at: [address] [id number] [employer] Fundraising Collector: Almita Chakraborty MD, Phone: [phone] Performing Lab: see note [facility] LB Triiodothyronine (T3) Reviewed date:11/10/2023 05:27:09 PM Interpretation: Performing Lab: Notes/Report: [facility] , Triiodothyronine (T3) 163 71-180 ng/dL Performed at: [address] [id number] [employer] Fundraising Collector: Trenton Mayo PhD, Phone: [phone] Performing Lab: see note [facility] LB TSH Reviewed date:05/04/2024 07:15:31 PM Interpretation: Performing Lab: Notes/Report: [facility] , Thyroid Stimulating Hormone 0.101 0.358-3.740 u IU/mL Performing Lab: see note [facility] LB FREE T3 Reviewed date:05/04/2024 07:15:31 PM Interpretation: Performing Lab: Notes/Report: [facility] , Free T3 3.86 2.18-3.98 pg/mL Performing Lab: see note ML - [facility] LB Reason For Referral No Information Medications Medication SIG (Take, Route, Frequency, Duration) Notes Start Date End Date Status Fluticasone-Emollient 0.05 % as directed Externally tid 05/03/2023 Active Levocetirizine Dihydrochloride 5 MG 1 tablet in the evening Orally Once a day Active Dzezmclm-Nfoxqdhwt-Bkiowhma 3.5-82373-1.1 1 drop into affected eye Ophthalmic Four times a day for 7 days 09/28/2024 Active Mupirocin 2 % 1 application Bakery Decorator ally Twice a day for 5 days 01/29/2024 Active Sildenafil Citrate 20 MG 1 tablet Orally Once a day as needed- max q 3 days Active Aspir-Low 81 MG 1 tablet Orally Once a day Active Tamsulosin HCl 0.4 MG 1 capsule Orally O nce a day for 90 days 09/03/2023 Active Centrum Silver - 1 tablet Orally [...] days Active Fluocinonide 0.05 % 1 application Bakery Decorator ally Twice a day 01/29/2024 Active Levothyroxine Sodium 50 MCG 1/2 tablet i n the morning on an empty stomach Orally bid Active Immunizations Vaccine Route Administration Date Status Comme nts Pneumococcal (Pneumovax 23) Unknown 12/15/2013 Administ ered SARS-COV-2 (COVID 19 Pfizer 30mcg/0.3mL) Unknown 09/30/2020 Administered SARS-COV-2 (COVID 19 Pfizer 30mcg/0.3mL) Unknown 10/23/2020 Administered SARS-COV-2 (COVID 19 Pfizer 30mcg/0.3mL) Unknown 04/01/2021 Administered Social History Tobacco Use: Social History Observation Description Date Details (start date - stop date) Never Smoker NA - NA Tobacco Use/Smoking Question Answer Notes Patient is a nonsmoker Alcohol Screen (Audit-C) Question Answer Notes Did you have a drink containing alcohol in the p ast year? No Points 0 Interpretation Negative AUDIT-C (Standard) Question Answer Notes Did you have a drink containing alcohol in the p ast year? 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) Active confirmed Problem Gastroesophageal reflux disease (085049773) GERD (gastroesophageal reflux disease) (K21.9) Active confirmed Problem Hypothyroidism (43266446) Hypothyroidism (E03.9) Active confirmed Problem Pulmonary embolism (25525830) Pulmonary embolism (I26.99) Active confirmed Problem Carpal tunnel syndro me (22282249) Carpal tunnel syndrome (G56.00) Active confirmed Problem Dyspnea (743102924) Dyspnea (R06.00) Active con firmed Problem Eczema (28386013) Eczema (L30.9) Active confirm ed Problem Diverticular disease of colon (499431421) Diverticulosis (K57.90) Active confirmed Problem Benign prostatic hyperplasia (844929420) BPH (benign prostatic hyperplasia) (N40.0) Active confirmed Problem Acute sinusitis (99397973) Acute sinusitis (J01.90) Active confirmed Problem Allergic rhinitis (52482461) Allergic rhinitis (J30.9) Active confirmed Problem Well adult (506688628) Well adul t (Z00.00) Active confirmed Problem Pain of left knee region (finding) (978976328735773) Knee pain, left (M25.562) Active confirmed Problem Conjunctivitis (2882926) Conjunctivitis (H10.9) Active confirmed Problem Cataract (449077320) Cataract (H26.9) Active co nfirmed Problem Near syncope (825707992) Near syncope (R55) Active confirmed Problem Contact dermatitis (89595218) Contact dermatitis (L25.9) Active confirmed Problem Chronic fatigue syndrome (12149609) Chronic fatigue syndrome (R53.82) Active confirmed Problem Heart murmur (29391719) Cardiac murmur (R01.1) Active confirmed Problem Monoclonal paraproteinemia (571201724) 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) Active confirmed Problem Inguinal hernia (disorder) (993396826) Hernia, inguinal (K40.90) Active confirmed Problem Infection of toenail (18063626070988355) Infection of toenail (L03.039) Active confirmed Problem 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 (I83.10) Active confirmed Problem Decreased testostero ne level (446429820) Low testosterone level in male (E29.1) Active confirmed Problem Generalized anxiety disorder (03361560) Anxiety neurosis (F41.1) Active confirmed Problem Sick euthyroid syndrome (400545620) Euthyroid sick syndrome (E07.81) Active confirmed Problem Pure hypercholesterolemia (172543479) Pure hypercholesterole pamela, unspecified (E78.00) Active confirmed Problem Thrombosis of superficial vein of lower limb (438999405) Embolism and thrombosis of superficial veins of right lower extremity (I82.811) Active confirmed Problem COVID-19 (870554315) COVID-19 (U07.1) Active co nfirmed Vital Signs Temperature 98.4 degrees Fahrenheit 03/16/2024 Blood pressure diastolic 68 mm Hg 09/28/2024 Height 70 in 09/28/2024 Blood pressure systolic 112 mm Hg 09/28/2024 Weight 183.6 lbs 09/28/2024 BMI 26.34 kg/m2 09/28/2024 Encounters Encounter Location Date Provider Diagnosis [id number] [place] [address] 03/16/2024 Justino Hoy Acute non-recurrent sinusitis, unspecified location J01.90 and Nasal congestion R09.[address] [address] 01/29/2024 Justino Hoy Eczema L30.[address] [address] 09/28/2024 Justino Hoy Conjunctivitis H10.[address] [address] 11/04/2023 Justino Hoy Well adult Z00.00 Assessments Encounter Date Diagnosis (ICD Code) Assessment Notes Treatment Notes Treatment Clinical Notes Section Notes 03/16/2024 Acute non-recurrent sinusitis, unspecified location (ICD-10 - J01.90) Rest and drink more liquids, especially water. You may use a humidifier or vaporizer to help keep the drainage moist. Jivf-uzk-cyrwkct Nasal Saline may help the stuffy and runny nose. Use Ibuprofen and or Tylenol as needed for fever, chills, body aches or pain. Children 5 years old should not be given aaui-zwh-xsglodn cough and cold medications such as guaifenesin and dextromethorphan. If you're over age 5, you may try yzaf-fzd-bocgjpa cold medications such as guaifenesin and dextromethorphan, [...] symptoms do not improve within 3-5 days 09/28/2024 Conjunctivitis (ICD-10 - H10.9) 01/29/2024 Eczema (ICD-10 - L30.9) if nto better - see derm 11/04/2023 Well adult (ICD-10 - Z00.00) 03/16/2024 Nasal congestion (ICD-10 - R09.81) Plan Of Treatment Pending Test Test Name Order Date Holter Test 01/25/2023 CMP (COMPLETE METABOLIC PANEL) 3 CMP (COMPLETE METABOLIC PANEL) 3 CMP (COMPLETE METABOLIC PANEL) 4 HEMOGLOBIN A1C (GLYCO) 09/03/2023 HEMOGLOBIN A1C (GLYCO) 07/16/2022 INSULIN, TOTAL 07/16/2022 LIPID PANEL (CHOL/TRIG/HDL/LDL) 07/17/19 LIPID PANEL (CHOL/TRIG/HDL/LDL) 09/03/19 24 CBC WITH DIFF 09/03/2023 CBC WITH DIFF 01/25/2023 CBC WITH DIFF 07/16/2022 PSA, PROSTATE-SPECIFIC ANTIGEN 3 URIC ACID 07/16/2022 URIC ACID 09/03/2023 SERUM PROTEIN ELECTROPHORESIS 09/03/2023 PSA, TOTAL 09/03/2023 STOOL OCCULT BLOOD 07/16/2022 STOOL OCCULT BLOOD 09/03/2023 THYROID PANEL (T4/TSH/FREE T3) 4 THYROID PANEL (T4/TSH/FREE T3) 3 THYROID PANEL (T4/TSH/FREE T3) 3 Insurance Providers Payer Name Payer Address Payer Phone Subscriber Number Group Number Insured Name Patient Relationship to Insured Coverage Start Date Coverage End Date [facility] [address] [place] [phone] [id number] Darinel Farr Self - patient is the insured Medical (General) History Medical History History ICD Code COVID-19 U07.1 Carpal tunnel syndrome G56.00 Well adult Z00.00 Combined arterial insufficie ncy and corporo-venous occlusive erectile dysfunction N52.03 Contact dermatitis L25.9 Postherpetic polyneuropathy B02.23 Diverticulosis K57.90 Infection of toenail L03.039 Acute sinusitis J01.90 Euthyroid sick syndrome E07.81 Pulmonary embolism I26.99 Dyspnea R06.00 Embolism and thrombosis of superficial v eins of right lower extremity I82.811 Hernia, inguinal K40.90 Low testosterone level in male E29.1 Hypothyroidism E03.9 Varicose veins of lower extremity with i nflammation I83.10 Monoclonal paraproteinemia D47.2 Chronic fatigue syndrome R53.82 Cataract H26.9 Eczema L30.9 Pure hypercholesterolemia, unspecified E 78.00 Anxiety neurosis F41.1 GERD (gastroesophageal reflux disease) K 21.9 Cardiac murmur R01.1 Allergic rhinitis J30.9 Surgical History Surgery Date(Month/Year) Meniscus repair Hernia repair Retinal reattachment EGD/Colonoscopy- 06/11/2018
--- OUTSIDE RECORDS SUMMARY | 2024-10-06 16:48 | XMS_ITS | Clinical Summary ---
Author Organization [facility] Address [address] [place] [address] Phone Care Team Providers Care Pipe Manufacture Supervisor Name Role Phone Justus Eason MD Primary Care Provider [phone] Social History Tobacco Use Types Packs/Day Years Used Date Smoking Tobacco: Never Assessed PHQ-2 Answer Date Recorded Patient Health Questionnaire-2 Score 0 10/26/2021 Sex and Gender Information Value Date Recorded Sex Assigned at Not on file Legal Sex Male 12:57 PM EST Gender Identity Not on file Sexual Orientation Not on file Last Filed Vital Signs Vital Sign Reading Time Taken Comments Blood Pressure 136/82 10/26/2021 2:51 PM EDT Pulse 97 10/26/2021 2:51 PM EDT Temperature 36.8 C (98.2 F) 10/26/2021 2:51 PM EDT Respiratory Rate 20 10/26/2021 2:51 PM EDT Oxygen Saturation 96% 10/26/2021 2:51 PM EDT Inhaled Oxygen Concentration - - Weight 79.4 kg (175 lb) 10/26/2021 2:51 PM EDT Height 177.8 cm (5' 10 ) 10/26/2021 2:51 PM EDT Body Mass Index 25.11 10/26/2021 2:51 PM EDT Plan of Treatment Health Maintenance Due Date Last Done Comments CT Colonography 1960 Colonoscopy 1960 Colorectal Cancer Screening 1960 FIT-DNA (Cologuard) 1960 FIT 1960 HIV Screening 1960 Lipid Panel 1960 Sigmoidoscopy 1960 Yearly Adult Physical 1960 MMR Vaccines (1 of 1 - Stand ruth series) 1961 Diabetes Screening 1978 Hepatitis C Screening 1978 DTaP/Tdap/Td Vaccines (1 - Tdap) 1982 Pneumococcal Vaccine (1 of 1 - PCV) 2010 Zoster Vaccines (1 of 2) 2010 COVID-19 Vaccine (1 - 2023-2 5 season) 2023 Influenza Vaccine (#1) 2024 RSV High Risk: (Elderly (60+ ) or Population) (1 - 1-dose 75+ series) 07/28/2035 HIB Vaccines Aged Out No longer eligi ble based on patient's age to complete this topic HPV Vaccines (No Doses Required) Completed Hepatitis A Vaccines Aged Out No long er eligible based on patient's age to complete this topic Hepatitis B Vaccines Aged Out No long er eligible based on patient's age to complete this topic IPV Vaccines Aged Out No longer eligi ble based on patient's age to complete this topic Meningococcal Vaccine Aged Out No atiya janeen eligible based on patient's age to complete this topic Rotavirus Vaccines Aged Out No longer eligible based on patient's age to complete this topic Care Teams Pipe Manufacture Supervisor Relationship Specialty Start Date End Date Justus Eason MD [address] [place] [address] PCP - General 10/26/21
--- OUTSIDE RECORDS SUMMARY | 2024-10-06 16:48 | XMS_ITS | Clinical Summary ---
Author Organization [facility] Address [address] [place] [address] Care Team Providers Care Hydrochloric Manufacturing Supervisor Name Role Phone Justus Eason MD Primary Care Provider [phone] Allergies No known active allergies Medications atorvastatin (LIPITOR) 80 MG tablet Take 40 mg by mouth daily. Active aspirin 81 MG tablet Take 81 mg by mouth daily. Active vitamin E 400 UNIT capsule Take 400 Units by mouth daily. Active [place]-3 Fatty Acids (FISH OIL) 1200 MG CAPS Take 2,400 mg by mouth daily. Active Multiple Vitamins-Mineral s (THERAPEUTIC MULTIVITAMIN-MIN ERALS) tablet Take 1 tablet by mouth daily. Active Fexofenadine HCl (CHRISTO PO) Take 1 tablet by mouth daily. Active trimethoprim-alisha ymyxin b (POLYTRIM) ophthalmic solution Place 1 drop into the right eye 4 times daily. X 7 days Active prednisoLONE acetate (PRED FORTE) 1 % ophthalmic suspension Place 1 drop into the right eye 4 times daily. X 14 days Active bromfenac (PROLENSA) 0.07 % SOLN Place 1 drop into the right eye daily. 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 03/19/2013 Family History Medical History Relation Name Comments Alzheimer's Disease Other Cancer Other Heart Disease Other Relation Name Status Comments Other Social History Tobacco Use Types Packs/Day Years [...] Sign Reading Time Taken Comments Blood Pressure 117/74 06/04/2013 12:00 PM EDT Pulse 70 06/04/2013 12:00 PM EDT Temperature 36.8 C (98.2 F) 06/04/2013 11:30 AM EDT Respiratory Rate 16 06/04/2013 12:0 0 PM EDT Oxygen Saturation 98% 06/04/2013 12: 00 PM EDT Inhaled Oxygen Concentration - - Weight 81.5 kg (179 lb 10.8 oz) 06/04/2013 7:49 AM EDT Height 180 cm (5' 10.87 ) 06/04/2013 7:49 AM EDT Body Mass Index 25.15 06/04/2013 7:49 AM EDT Plan of Treatment Not on file Care Teams Hydrochloric Manufacturing Supervisor Relationship Specialty Start Date End Date Justus Eason MD [address] [place] [address] PCP - General 03/16/13
--- OUTSIDE RECORDS SUMMARY | 2024-10-06 16:49 | XMS_ITS | Clinical Summary ---
Author Organization [facility] Address [address] [place] [address] Care Team Providers Care Cdl Team Truck Driver Name Role Phone Justus Eason MD Primary Care Provider [phone] Allergies Active Allergy Reactions Criticality Noted Date Comments Ciprofloxacin Intolerance 03/30/2014 Medications atorvastatin (LIPITOR) 40 mg tablet Take 40 mg by mouth once daily. Active aspirin, enteric coated (ASPIRIN, ENTERIC COATED) 81 mg EC tablet Take 81 mg by mouth once daily. Active FOLIC ACID/MULTIVITS- MIN/LUT (CENTRUM SILVER ORAL) Take by mouth once daily. Active liothyronine (CYTOMEL) 5 mcg tablet Take 5 mcg by mouth once daily. Active rivaroxaban (XARELTO) 20 mg tablet Take 20 mg by mouth daily with dinner. Active levothyroxine (SYNTHROID) 75 mcg tablet TAKE 1 AND 1/2 TABLET ON MON., AND WED, THEN 1 TAB ON OTHER 5 DAYS 112 tablet 2 7 Active Additional Information Patient taking differently: DAILY, Take 1 and 1/2 tab daily, Reason: Changing Therapy/Dosage Form, Reported on 06/03/2019 Levocetirizine 5 mg tablet Take 5 mg by mouth. 7 Active Prasterone, DHEA, (DHEA) 25 mg tab Take 25 mg by mouth once daily. 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 Hypothyroidism 01/07/2015 Colon cancer screening 07/06/2014 Fatigue 06/09/2014 Vitamin D deficiency 02/04/2014 Family history of Crohn's disease 02/01/2014 Abnormal laboratory test 02/01/2014 Unspecified hypothyroidism 12/30/2013 Low testosterone 12/30/2013 Monoclonal gammopathy 12/22/2013 Family History Medical History Relation Comments None Brother 2 immune deficient None Daughter Thyroid Father bladder Ca Mother age 78 Thyroid Paternal Grandmother Thyroid Sister 2 hypoglycemia None Son Relation Status Comments Brother 1 Alive Brother 2 Daughter Father Alive Mother Paternal Grandmother Sister 1 Alive Sister 2 Son Social History Tobacco Use Types Packs/Day Years Used Date Smoking Tobacco: Never Smokeless Tobacco: Never Alcohol Use Standard Drinks/Week Comments No 0 (1 standard drink = 0.6 oz pur e alcohol) Rare PHQ-2 Answer Date Recorded PHQ-2 score 0 05/14/2018 Area Deprivation Index Answer Date Lucien rded National Score (1-100), lower number is lower ri sk Not on file 03/02/2020 State Score (1-10), lower number is lower risk N ot on file 03/02/2020 Data from: https://www.neighborhoodatlas.medicine.[facility].edu/. 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 Not on file Not on file Last Filed Vital Signs Vital Sign Reading Time Taken Comments Blood Pressure 115/65 06/03/2019 3:03 PM EDT Pulse 76 06/03/2019 3:03 PM EDT Temperature 36.5 C (97.7 F) 06/03/2019 3:03 PM EDT Respiratory Rate 16 06/03/2019 3:03 PM EDT Oxygen Saturation 99% 06/03/2019 3:03 PM EDT Inhaled Oxygen Concentration - - Weight 83.5 kg (184 lb) 06/03/2019 3:03 PM EDT Height 170.6 cm (5' 7.17 ) 06/03/2019 3:03 PM ED T Body Mass Index 28.68 06/03/2019 3:03 PM EDT Plan of Treatment Health Maintenance Due Date Last Done Comments Anxiety Screening 1978 Depression Screening 1978 HIV Screening 1978 Hepatitis C Screening 1978 DTaP,Tdap,Td Vaccine (1 - Tdap) 07/28/1979 Lipid Screening 07/28/1995 CT Colonography 2005 Cologuard (FIT-DNA) 2005 Colonoscopy 2005 Colorectal Cancer Screening 2005 Fecal Occult Blood 2005 Prostate Cancer Screening Discussion 2005 Sigmoidoscopy 2005 Pneumococcal Vaccine: 50+ (1 of 1 - PCV) 2010 Shingrix Vaccine (1 of 2) 2010 Diabetes Screening 05/27/2022 05/28/2019, 0 04/30/2017, 11/06/2016, Additional history exists Covid-19 Vaccine ( - 2023-2 5 season) 2023 Influenza Vaccine (#1) 2024 RSV Vaccine (1 - 1-dose 75+ series) 07/28/2035 Procedures Procedure Name Priority Date/Time Associated Diagnosis Comments COMPREHENSIVE METABOLIC PANEL Routine 05/28/2019 9:49 AM EST Monoclonal gammopathy from Last 3 Months or Most Recently Relevant to Health Maintenance Results * (ABNORMAL) COMP METABOLIC PANEL (05/28/2019 9:49 AM EST) Pathologist [facility] Protein, Total 8.0 6.3 - 8.0 g/dL 05/29/2019 12:15 AM EST [facility] Albumin 4.0 3.9 - 4.9 g/dL 05/29/2019 12:15 AM EST [facility] Calcium 9.4 8.5 - 10.2 mg/dL 05/29/2019 12:15 AM EST [facility] Bilirubin, Total 0.7 0.2 - 1.3 mg/dL 05/29/2019 12:15 AM EST [facility] Alkaline Phosphatase 33(L) 38 - 113 U/L 05/29/2019 12:15 AM EST [facility] AST 21 14 - 40 U/L 05/29/2019 12:15 AM EST [facility] Glucose 104(H) 74 - 99 mg/dL 05/29/2019 12:15 AM EST [facility] Comment: The [place] Diabetes Association (ADA) provides guidance for cutoff [...] Standards of Medical Care in Diabetes 2016, [place] [employer]. Diabetes Care. 2016.39(Suppl 1). BUN 16 9 - 24 mg/dL 05/29/2019 12:15 AM [facility] Creatinine 0.85 0.73 - 1.22 mg/dL 05/29/2019 12:15 AM [facility] Sodium 137 136 - 144 mmol/L 05/29/2019 12:15 AM [facility] Potassium 4.4 3.7 - 5.1 mmol/L 05/29/2019 12:15 AM [facility] Chloride 103 97 - 105 mmol/L 05/29/2019 12:15 AM [facility] CO2 24 22 - 30 mmol/L 05/29/2019 12:15 AM [facility] Anion Gap 10 9 - 18 mmol/L 05/29/2019 12:15 AM [facility] ALT 18 10 - 54 U/L 05/29/2019 12:15 AM [facility] eGFR- >60 05/29/2019 12:15 AM [facility] eGFR-All Other Races >60 . 05/29/2019 12:15 AM [facility] Comment: eGFR (Estimated GFR) Units of measure: [...] eGFR may not accurately reflect actual GFR. Blood specimen (specimen) BLOOD SPECIMEN / Unknown 05/28/2019 9:49 AM EST 05/28/2019 9:51 AM EST Kevin Martin MD LABORATORY Final Result [facility] [address] [place] [address] [facility] [address] [place] [address] from Last 3 Months or Most Recently Relevant to Health Maintenance [place] [address] [place] [address] Member Subscriber Plan / Payer (Ef fective 2019-Present) Name:Darinel Farr Relation to Subscriber:Self Name:Darinel Farr Payer ID:Not on file Type:HMO Address: [address] [place] [id number] Care Teams Cdl Team Truck Driver Relationship Specialty Start Date End Date Justus Eason MD PCP - General Family Medicine 12/04/13
[2024-10-06 17:36] LABS: Hematocrit 38.8 % (42.0-54.0); Hemoglobin 13.0 g/dL (14.0-18.0); Immature Granulocytes Abs Auto 0.01 10^3/uL (0.00-0.03); Immature Granulocytes Pct Auto 0.2 % (0.0-0.5); Lymphocytes Absolute Auto 1.5 10^3/uL (1.2-3.8); Mean Corpuscular HGB Conc 33.5 g/dL (29.9-35.2); Mean Corpuscular Hemoglobin 32.4 pg (25.9-34.0); Mean Corpuscular Volume 96.8 fL (80.0-94.0); Platelet Count 222 10^3/uL (150-450); Red Blood Count 4.01 10^6/uL (4.70-6.10); White Blood Count 4.7 10^3/uL (4.0-11.0)
[2024-10-06 17:48] LABS: Alanine Aminotransferase 25 U/L (16-63); Albumin Globulin Ratio 0.4; Albumin Level 2.8 g/dL (3.4-5.0); Alkaline Phosphatase 37 U/L (46-116); Anion Gap 8.7; Aspartate Amino Transferase 14 U/L (15-37); Blood Urea Nitrogen 20.0 mg/dL (7.0-18.0); Calcium 8.7 mg/dL (8.5-10.1); Carbon Dioxide 26.4 mmol/L (21.0-32.0); Chloride 105 mmol/L (98-107); Estimated GFR (African America >60 (>=60 mL/min/1.73m^2); Estimated GFR (Non-African Ame >60 (>=60 mL/min/1.73m^2); Globulin 6.7 g/dL; Glucose 87 mg/dL (74-106); Potassium 4.1 mmol/L (3.5-5.1); Sodium 136 mmol/L (136-145); Total Protein 9.5 g/dL (6.4-8.2)
[2024-10-09 16:14] LABS: Albumin 3.5 g/dL (2.9-4.4); Alpha-1-Globulin 0.2 g/dL (0.0-0.4); Alpha-2-Globulin 0.7 g/dL (0.4-1.0); Free Kappa Lt Chains,S 5.4 mg/L (3.3-19.4); Free Lambda Lt Chains,S 127.3 mg/L (5.7-26.3); Gamma Globulin 3.6 g/dL (0.4-1.8); Immunoglobulin A, Qn, Serum 14 mg/dL (61-437); Kappa/Lambda Ratio,S 0.04 (0.26-1.65)
== END 2024-10-06 16:43 | disposition home or self-care (01) ==
PROVIDERS: PCP Family Medicine; Visit Provider Internal Medicine
DX: D47.2 Monoclonal gammopathy (principal)
CPT/HCPCS: 36415; 80053; 82784; 83521; 84155; 84165; 85025; 86334

== ENCOUNTER 2025-02-01 10:54 | Outpatient (OUT) | payer BC, SELFPAY ==
--- OUTSIDE RECORDS SUMMARY | 2025-02-01 03:24 | XMS_ITS ---
Author Organization [facility] in [place] Address [address] [place] [address] Care Team Providers Care Hollow Handle Bench Worker Name Role Phone Justino Eason Primary Care Provider REASON FOR VISIT Wellness Labs Encounters Encounter Location Date Provider Diagnosis [facility] [address] [facility] [place] [address] 02/01/2025 Justino Eason Wellness examination Z00.00 Assessments Encounter Date Diagnosis (ICD Code) Assessment Notes Treatment Notes Treatment Clinical Notes Section Notes 02/01/2025 Wellness examination (ICD-10 - Z 00.00) Plan Of Treatment Pending Test Test Name Order Date CBC 02/01/2025 CMP - Comprehensive Metabolic Panel 01/23 GLYCOHEMOGLOBIN A1C 02/01/2025 LIPID PROFILE 02/01/2025 THYROID PANEL (T4/TSH/FREE T3) PSA, SCREENING 02/01/2025 Next Appt Details Provider Name:Justino Eason, 03:30:00 PM, [address] [place], [address], Progress Notes * Darinel FARR LDOB:1960 (64 yo M)Acc No.[id number]:02/01/2025 Patient:?Darinel FARR :1960???Age:64 Y???Sex:MalePhone:[phone] Address:[address] [place] [address] Subjective: * Chief Complaints: * W ellness Labs * Medical History: * Surgical History: * Hospitalization/Major Diagno stic Procedure: * Medications: Objective: * Vitals: * Physical Examination: ??? Assessment: * Assessment: 1.?Wellness examination - Z00.00 (Primary)??? Plan: * Treatment: ?LAB: CBC ?LAB: CMP - Comprehensive Metabolic Panel ?LAB: GLYCOHEMOGLOBIN A1C ?LAB: LIPID PROFILE ?LAB: THYROID PANEL (T4/TSH/FREE T3) ?LAB: PSA, SCREENING * Procedure Codes: * true * Date:?Generated for Printing/Faxing/eTransmitting on:?02/01/2025 10:58 AM EST
--- OUTSIDE RECORDS SUMMARY | 2025-02-01 10:58 | XMS_ITS | Clinical Summary ---
Author Organization [facility] Address [address] [place] [address] Care Team Providers Care Chart Changer Name Role Phone Justus Eason MD Primary Care Provider [phone] Allergies Active AllergyReactionsCriticalityNoted DateCommentsCiprofloxacinIntolerance 03/30/2014 Medications MedicationSigDispense QuantityRefillsLast FilledStart DateEnd DateStatus atorvastatin (LIPITOR) 40 mg tablet Take 40 mg by mouth once daily.Active aspirin, enteric coated (ASPIRIN, ENTERIC COATED) 81 mg EC tablet Take 81 mg by mouth once daily.Active FOLIC ACID/MULTIVITS-MIN/LUT (CENTRUM SILVER ORAL) Take by mouth once daily.Active liothyronine (CYTOMEL) 5 mcg tablet Take 5 mcg by mouth once daily.Active rivaroxaban (XARELTO) 20 mg tablet Take 20 mg by mouth daily with dinner.Active levothyroxine (SYNTHROID) 75 mcg tablet TAKE 1 AND 1/2 TABLET ON MON., AND WED, THEN 1 TAB ON OTHER 5 DAYS 112 tablet Active Additional Information Patient taking differently: DAILY, Take 1 and 1/2 tab daily, Reason: Changing Therapy/Dosage Form, Reported on 06/03/2019 Levocetirizine 5 mg tablet Take 5 mg by mouth. 03/05/2017Active Prasterone, DHEA, (DHEA) 25 mg tab Take 25 mg by mouth once daily.Active Active Problems ProblemNoted DateDiagnosed DateHypothyroidism due to Noemy's thyroiditis 06/30/20152919Nngxmhhegqumzn21/16/2015Colon cancer vitspgaso62/14/2015Fatigue 06/09/2014Vitamin D qwkgxuopcu41/13/2014Family history of Crohn's disease 02/01/2014bnormal laboratory test02/01/2014Unspecified yeoehteywkvnng39/08/2014 Low gyixwytewlqe57/08/2014Monoclonal bwwrdqiivp48/30/2014 Family History Medical HistoryRelationCommentsNoneBrother 2immune deficientNoneDaughterThyroid Fatherbladder CaMotherdied age 78ThyroidPaternal GrandmotherThyroidSister 2 hypoglycemiaNoneSonRelationStatusCommentsBrother 1AliveBrother 2DaughterFather AliveMotherDeceasedPaternal GrandmotherSister 1AliveSister 2Son Social History Tobacco UseTypesPacks/DayYears UsedDateSmoking Tobacco: NeverSmokeless Tobacco: NeverAlcohol UseStandard Drinks/WeekCommentsNo0 (1 standard drink = 0.6 oz pure alcohol)RarePHQ-2AnswerDate RecordedPHQ-2 zjlrz488Area Deprivation Index AnswerDate RecordedNational Score (1-100), lower number is lower riskNot on file 03/02/2020State Score (1-10), lower number is lower riskNot on file03/02/2020 Data from: https://www.neighborhoodatlas.[facility].edu/. Last address used for calculationNot on file03/02/2020Sex and Gender InformationValueDate Recorded Sex Assigned at BirthNot on fileLegal MzpZrci0612/04/2013 8:50 AM EDTGender IdentityNot on fileSexual OrientationNot on fileOccupationIndustryJob Start Date Job End DateELECTRICIANNot on fileNot on fileNot on file Last Filed Vital Signs Vital SignReadingTime TakenCommentsBlood Gyvjyfkc509/6503 3:03 PM EDT Mdlqi6732 3:03 PM ZZSUbwolupdlvw13.5 ??C (97.7 ??F)06/03/2019 3:03 PM EDTRespiratory Dmyf217306/03/2019 3:03 PM EDTOxygen Gmkyqdhtbg58%06/03/2019 3:03 PM EDTInhaled Oxygen Concentration--Lnbwfr62.5 kg (184 lb)06/03/2019 3:03 PM EDT Tlcqwx132.6 cm (5' 7.17 )06/03/2019 3:03 PM EDTBody Mass Index28.68006/03/2019 3:03 PM EDT Plan of Treatment Health MaintenanceDue DateLast DoneCommentsAnxiety Yubvoqyqd76/05/1979Depression Gkfqzuzhx82/05/1979HIV Qmovriazp75/05/1979Hepatitis C Eynpptzhk96/05/1979 DTaP,Tdap,Td Vaccine (1 - Tdap)07/28/1979Lipid Druouotjc12/05/1996CT Dmunpvedijih10/05/2006Cologuard (FIT-DNA)07/27/20058587Msoxpldnoro09/05/2006 Colorectal Cancer Ifknppldv26/05/2006Fecal Occult Blood2005Prostate Cancer Screening Cgmvadhqws53/05/7122Stlfamiyslfrc25/05/2006Pneumococcal Vaccine: 50+ (1 of 1 - PCV)2010Shingrix Vaccine (1 of 2)2010Diabetes Screening , 04/30/2017, 11/06/2016, Additional history existsCovid-19 Vaccine (1 - 2024- season)2024Influenza Vaccine (#1)2024RSV Vaccine (1 - 1-dose 75+ series)07/28/2035 Procedures Procedure NamePriorityDate/TimeAssociated DiagnosisCommentsCOMPREHENSIVE METABOLIC WXZIMUtomhgd62/05/2020 9:49 AM EST Monoclonal gammopathy from Last 3 Months or Most Recently Relevant to Health Maintenance Results * (ABNORMAL) COMP METABOLIC PANEL (05/28/2019 9:49 AM EST)ComponentValueRef RangeTest MethodAnalysis TimePerformed AtPathologist SignatureProtein, Total 8.06.3 - 8.0 g/dL05/29/2019 12:15 AM ESTCleveland Clinic LaboratoriesAlbumin 4.03.9 - 4.9 g/dL05/29/2019 12:15 AM ESTCleveland Clinic LaboratoriesCalcium 9.48.5 - 10.2 mg/dL05/29/2019 12:15 AM ESTC[facility] Clinic Laboratories Bilirubin, Total0.70.2 - 1.3 mg/dL05/29/2019 12:15 AM ESTCleveland Clinic LaboratoriesAlkaline Zjklygskwum27(L)38 - 113 U/L05/29/2019 12:15 AM EST [facility] HsyvgcidoznoWFK9066 - 40 U/L05/29/2019 12:15 AM [facility] UrogskrttktgMgioblq062(H)74 - 99 mg/dL05/29/2019 12:15 AM [facility] LaboratoriesComment: The [place] Diabetes Association (ADA) provides guidance for [...] Standards of Medical Care in Diabetes 2016, [place] [employer] Association. Diabetes Care. 2016.39(Suppl 1). MDX438 - 24 mg/dL05/29/2019 12:15 AM [facility] LaboratoriesCreatinine 0.850.73 - 1.22 mg/dL05/29/2019 12:15 AM [facility] LaboratoriesSodium 877252 - 144 mmol/L05/29/2019 12:15 AM [facility] LaboratoriesPotassium 4.43.7 - 5.1 mmol/L05/29/2019 12:15 AM [facility] LaboratoriesChloride 35448 - 105 mmol/L05/29/2019 12:15 AM [facility] FjegpywqrbdiSN67891 - 30 mmol/L05/29/2019 12:15 AM [facility] LaboratoriesAnion Utp521 - 18 mmol/L05/29/2019 12:15 AM [facility] GfdefmfbkhrqOYN0498 - 54 U/L 05/29/2019 12:15 AM [facility] LaboratorieseGFR->60 05/29/2019 12:15 AM [facility] LaboratorieseGFR-All Other Races>60. 05/29/2019 12:15 AM [facility] LaboratoriesComment: eGFR (Estimated GFR) Units of measure: mL/min/1.73 [...] eGFR may not accurately reflect actual GFR. Specimen (Source)Anatomical Location / LateralityCollection Method / Volume Collection TimeReceived TimeBlood specimen (specimen)BLOOD SPECIMEN / Unknown 05/28/2019 9:49 AM EST05/28/2019 9:51 AM EST Narrative Authorizing ProviderResult TypeResult StatusVivek Mario WOODALLLABORATORYFinal ResultPerforming OrganizationAddressCity/State/ZIP CodePhone Number [facility] [address] [place] [address] [facility] [address] [place] [address] from Last 3 Months or Most Recently Relevant to Health Maintenance Insurance Care Teams Team MemberRelationshipSpecialtyStart DateEnd Justus Eason MD PCP - GeneralFamily Medicine12/04/13
--- OUTSIDE RECORDS SUMMARY | 2025-02-01 10:58 | XMS_ITS | Clinical Summary ---
Author Organization [employer] Address [id number] [address] [place] [address] Care Team Providers Care Molded Goods Embossing Press Operator Name Role Phone Justus Eason MD Primary Care Provider [phone] Allergies Active AllergyReactionsCriticalityNoted BtgfTvgcgwqsGtwlbkvczlzhs70/18/2017 Other reaction(s): Intolerance Medications MedicationSigDispense QuantityRefillsLast FilledStart DateEnd DateStatus VITAMIN E, DL,TOCOPHERYL ACET, (VITAMIN E, DL, ACETATE,) 400 unit capsule Take 400 Units by mouth daily.Active liothyronine (CYTOMEL) 5 MCG tablet Take 5 mcg by mouth daily.Active levothyroxine sodium (TIROSINT) 75 mcg capsule Take 75 mcg by mouth daily.Active nfaszjms-ctf-QG-lycopen-lutein (CENTRUM SILVER) 0.4-300-250 mg-mcg-mcg tablet Take 1 tablet by mouth daily.Active atorvastatin (LIPITOR) 40 mg tablet Take 40 mg by mouth daily.Active aspirin 81 mg Take 81 mg by mouth daily.Active prasterone, dhea, 25 mg tablet Take 25 mg by mouth daily.Active Active Problems No known active problems Family History Medical HistoryRelationNameCommentsHeart diseaseFatherHyperlipidemiaFather Alcohol abuseNeg HxAnesthesia problemsNeg HxArthritisNeg HxAsthmaNeg HxBirth defectsNeg HxCOPDNeg HxCancerNeg HxColon cancerNeg HxDepressionNeg HxDiabetesNeg HxDrug abuseNeg HxEarly deathNeg HxHearing lossNeg HxHypertensionNeg HxKidney diseaseNeg HxLearning disabilitiesNeg HxLiver cancerNeg HxLiver diseaseNeg Hx Mental illnessNeg HxMental retardationNeg HxMiscarriages / StillbirthsNeg Hx Stomach cancerNeg HxStrokeNeg HxVision lossNeg HxRelationNameStatusComments Father Social History Tobacco UseTypesPacks/DayYears UsedDateSmoking Tobacco: NeverSmokeless Tobacco: NeverAlcohol UseStandard Drinks/WeekCommentsYes0 (1 standard drink = 0.6 oz pure alcohol)SOCIALChildcareAnswerDate ZfuarjuoZmdgmlhduWzoqysv49/12/2019Employment AnswerDate DoyfojmsKibfbavuciMgnmeiv17/12/2019Purpose - LifeAnswerDate Recorded Purpose and direction in rkkpFptthqq72/11/2021ex and Gender InformationValue Date RecordedSex Assigned at BirthNot on fileLegal DppDnmo9110/28/2014 11:30 AM EDTGender IdentityNot on fileSexual OrientationNot on file Last Filed Vital Signs Vital SignReadingTime TakenCommentsBlood Gkuedgvw320/78006/18/2018 8:28 AM EDT Pulse--Temperature--Respiratory Rate--Oxygen Saturation--Inhaled Oxygen Concentration--Ugcheu33.1 kg (185 lb 8 oz)06/18/2018 8:28 AM MVAIyqeji849.8 cm (5' 10 )06/18/2018 8:28 AM EDTBody Mass Index26.62006/18/2018 8:28 AM EDT Plan of Treatment Health MaintenanceDue DateLast DoneCommentsDepression Bnmkyykgk91/05/1973Tobacco Hfyziajms55/05/1973Adult BMI Pzskzqzpq31/05/1979DTaP,Tdap and Td Vaccines (1 - Tdap)07/28/1979Zoster (Shingles) Vaccine (1 of 2)2010Influenza Vaccine 7358Vvqqneozelf09RSV ( or age 60+ yrs) (1 - 1- dose 75+ series)07/28/2035 Medical Devices Not on file Insurance Care Teams Team MemberRelationshipSpecialtyStart Date Justus Eason MD [facility] - [facility]07/14/16
--- OUTSIDE RECORDS SUMMARY | 2025-02-01 10:59 | XMS_ITS | Clinical Summary ---
Author Organization [facility] Address [address] [place] [address] Phone Care Team Providers Care Under Trimmer Name Role Phone Justus Eason MD Primary Care Provider [phone] Social History Tobacco UseTypesPacks/DayYears UsedDateSmoking Tobacco: Never AssessedPHQ-2 AnswerDate RecordedPatient Health Questionnaire-2 Vzhwd932ex and Gender InformationValueDate RecordedSex Assigned at BirthNot on fileLegal SexMale 02/16/2022 12:57 PM ESTGender IdentityNot on fileSexual OrientationNot on file Last Filed Vital Signs Vital SignReadingTime TakenCommentsBlood Uxyejkwd576/8208 2:51 PM EDT Skbjy9453 2:51 PM FBSYyoehxebqfb09.8 ??C (98.2 ??F)10/26/2021 2:51 PM EDTRespiratory Xvgy183110/26/2021 2:51 PM EDTOxygen Qsvwfstjih20%10/26/2021 2:51 PM EDTInhaled Oxygen Concentration--Rkeosz00.4 kg (175 lb)10/26/2021 2:51 PM EDT Xpyfbc096.8 cm (5' 10 )10/26/2021 2:51 PM EDTBody Mass Index25.1108 2:51 PM EDT Plan of Treatment Not on file Care Teams Team MemberRelationshipSpecialtyStart DateEnd Justus Eason MD [address] [facility] [place] [address] PCP - [facility]10/26/21
--- OUTSIDE RECORDS SUMMARY | 2025-02-01 10:59 | XMS_ITS | Patient Health Record ---
Author Organization The [facility] in [place] Address [address] [place] [address] Care Team Providers Care Insurance Territory Manager Name Role Phone Justino Eason Primary Care Provider [phone] Allergies Allergen (clinical drug ingredient) Drug/Non Drug Allergy documented on EMR Reaction Allergy Type Onset Date Status ciprofloxacin Ciprofloxacin does not feel well Drug Allerg y Active Results Component Value Reference Range Notes FREE T3 Reviewed date:05/04/2024 07:15:31 PM Interpretation: Performing Lab: Notes/Report: [facility] , Free T3 3.86 2.18-3.98 pg/mL Performing Lab:see noteML - [facility] LBFREE T4 Reviewed date:05/04/2024 07:15:31 PM Interpretation: Performing Lab: Notes/Report: [facility] ,Free T40.730.76-1.46 ng/dLPerforming Lab:see noteML - [facility] LB TSH Reviewed date:05/04/2024 07:15:31 PM Interpretation: Performing Lab: Notes/Report: [facility] ,Thyroid Stimulating Hormone0.1010.358-3.740 uIU/mLPerforming Lab:see noteML - [facility] LBTriiodothyronine (T3) Reviewed date:05/10/2024 11:27:05 AM Interpretation: Performing Lab: Notes/Report: [facility] ,Triiodothyronine (T3)05509-149 ng/dL Performed at: - [facility] [address] [id number] Cleaning Team Member: Trenton Mayo PhD, Phone: [phone] Performing Lab:see note - [facility] LBReverse T3, Serum Reviewed date:05/10/2024 11:27:05 AM Interpretation: Performing Lab: Notes/Report: [facility] ,Reverse T3, Serum11.59.2-24.1 ng/dL This test was developed and its performance characteristics determined by [facility]. It has not been cleared or approved by the Food and Drug Administration. Performed at: [address] [id number] Cleaning Team Member: Almita Chakraborty MD, Phone: [phone] Performing Lab:[facility] LBPROF 14(COMP METB) Reviewed date:10/06/2024 08:53:11 PM Interpretation: Performing Lab: Notes/Report: [facility] ,Xiicpr166337-567 mmol/LPotassium4.13.5-5.1 mmol/RTvrdbytj30404-822 mmol/LCarbon Qzcojhe07.421.0-32.0 mmol/LAnion Gap8.3Lyvsijm8822-156 mg/dLBlood Urea Nitrogen 20.07.0-18.0 mg/dLCreatinine1.140.70-1.30 mg/dLEstimated GFR ( Tala>60 >=60 mL/min/1.73m 2Estimated GFR (Non- Mary>60>=60 mL/min/1.73m 2BUN Creatinine Ratio17.3Dpiiyot9.78.5-10.1 mg/dLBilirubin Total0.60.2-1.0 mg/dL Aspartate Amino Nbvijchsrbb8506-37 U/LAlanine Dnngiycconsxorhu7598-11 U/L Alkaline Zsnfasfladk8064-313 U/LTotal Protein9.56.4-8.2 g/dLAlbumin Level2.83.4- 5.0 g/dLGlobulin6.7Albumin Globulin Ratio0.4Performing Lab:see note - [facility] LBIFE, PE and FLC, Serum Reviewed date:10/10/2024 03:26:03 PM Interpretation: Performing Lab: Notes/Report: [facility] ,Immunoglobulin G, Qn, Jmhjk5888143-4152 mg/dL Results confirmed on dilution. Immunoglobulin A, Qn, Acvoe6346-640 mg/dLResult confirmed on concentration. Immunoglobulin M, Qn, Skhjl8677-991 mg/dLResult confirmed on concentration. Protein, Total8.96.0-8.5 g/dLAlbumin3.52.9-4.4 g/hNXsuks-6-Vjgrcpqf3.20.0-0.4 g/eOIoffp-2-Gttsndvb7.70.4-1.0 g/dLBeta Globulin0.90.7-1.3 g/dLGamma Globulin3.6 0.4-1.8 g/dLM-Spike3.5Not Observed g/dLGlobulin, Total5.42.2-3.9 g/dLA/G Ratio 0.70.7-1.7Immunofixation Result, SerumComment. 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 Please note:Comment. Protein electrophoresis scan will follow via computer, mail, or pharmacy ancillary delivery. Free [place] Lt Chains,S5.43.3-19.4 mg/LFree Lambda Lt Chains,S127.35.7-26.3 mg/L [place]/Lambda Ratio,S0.040.26-1.65 Performed at: [facility] [id number] Cleaning Team Member: Trenton Mayo PhD, Phone: [phone] Performing Lab:see [facility]STATE [facility] LBCBC AUTO DIFF Reviewed date:10/06/2024 08:53:11 PM Interpretation: Performing Lab: Notes/Report: [facility] ,White Blood Count4.74.0-11.0 10 3/uLRed Blood Count4.014.70-6.10 10 6/uL Zcgpzlegzp77.014.0-18.0 g/iZFlqupwezvb10.842.0-54.0 %Mean Corpuscular Czxxbs49.8 80.0-94.0 fLMean Corpuscular Jyarnpnsrf84.425.9-34.0 pgMean Corpuscular HGB Conc 33.529.9-35.2 g/dLRed Cell Distribution Width13.311.0-15.0 %Platelet Wkxbp705 150-450 10 3/uLMean Platelet Puaazn13.19.5-13.5 fLNeutrophils Percent Auto53.6 43.0-75.0 %Lymphocytes Percent Auto32.420.5-60.0 %Monocytes Percent Auto9.61.7- 12.0 %Eosinophils Percent Auto3.60.9-7.0 %Basophils Percent Auto0.60.2-2.0 % Immature Granulocytes Pct Auto0.20.0-0.5 %Neutrophils Absolute Auto2.51.4-6.5 10 3/uLLymphocytes Absolute Auto1.51.2-3.8 10 3/uLMonocytes Absolute Auto0.50.3-0.8 10 3/uLEosinophils Absolute Auto0.20.0-0.7 10 3/uLBasophils Absolute Auto0.00.0- 0.1 10 3/uLImmature Granulocytes Abs Auto0.010.00-0.03 10 3/uLPerforming Lab:see noteML - [facility] Reason For Referral No Information Medications Medication SIG (Take, Route, Frequency, Duration) Notes Start Date End Date Status Fluticasone-Emollient 0.05 % as directed Externa lly tid 4ActiveLevocetirizine Dihydrochloride 5 MG1 tablet in the evening Orally Once a xjaRbkaodJeemakfz-Xsbjaejyx-Ybbadnid 3.5-50224-2.11 drop into affected eye Ophthalmic Four times a day; Duration: 7 days5Active Mupirocin 2 %1 application Externally Twice a day; Duration: 5 days01/29/2024 ActiveSildenafil Citrate 20 MG1 tablet Orally Once a day as needed- max q 3 days ActiveAspir-Low 81 MG1 tablet Orally Once a dayActiveTamsulosin HCl 0.4 MG1 capsule Orally Once a day; Duration: 90 days4ActiveCentrum Silver -1 tablet Orally once dailyActiveTriamcinolone Acetonide 0.1 %1 application Externally twice daily4ActiveCytomel 5 MCG1/2 tablet on an empty stomach Orally bidActiveFerrous Sulfate 325 (65 Fe) MG1 tablet Orally once daily; Duration: 30 daysActiveDiclofenac Sodium 75 mgTAKE ONE TABLET BY MOUTH TWICE A DAY NEEDED; Duration: 30ActiveFluocinonide 0.05 %1 application Externally Twice a day4ActiveLevothyroxine Sodium 50 MCG1/2 tablet in the morning on an empty stomach Orally bidActive Immunizations Vaccine Route Administration Date Status Comme nts Pneumococcal (Pneumovax 23) Unknown 12/15/2013 Administ ereyahir SARS-COV-2 (COVID 19 Pfizer 30mcg/0.3mL)Zlsvqnv07/09/7005PtvzitsiydpmMVQJ-FHI-3 (COVID 19 Pfizer 30mcg/0.3mL)Lggshpv09/01/4961ZdjxealpovpyQBKS-MOL-9 (COVID 19 Pfizer 30mcg/0.3mL)Mcfjjuu45/08/2022Administered Social History Tobacco Use: Social History Observation Description Date Details (start date - stop date) Never Smoker NA - NA Tobacco Use/Smoking Question Answer Notes Patient is a nonsmoker Alcohol Screen (Audit-C) Question Answer Notes Did you have a drink containing alcohol in the p ast year? No Jyqebs0KnlmdrqknlhcowKnzfmhgnRCXUX-M (Standard) Question Answer Notes Did you have a drink containing alcohol in the p ast year? 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) ActiveconfirmedProblemCombined arterial insufficiency and corporo-venous occlusive erectile dysfunction (N52.03)ActiveconfirmedProblemGastroesophageal reflux disease (805625363)GERD (gastroesophageal reflux disease) (K21.9)Active confirmedProblemHypothyroidism (32462797)Hypothyroidism (E03.9)Activeconfirmed ProblemPulmonary embolism (10698261)Pulmonary embolism (I26.99)Activeconfirmed ProblemCarpal tunnel syndrome (26301316)Carpal tunnel syndrome (G56.00)Active confirmedProblemDyspnea (812881101)Dyspnea (R06.00)ActiveconfirmedProblemEczema (35140649)Eczema (L30.9)ActiveconfirmedProblemDiverticular disease of colon (088668665)Diverticulosis (K57.90)ActiveconfirmedProblemBenign prostatic hyperplasia (023814068)BPH (benign prostatic hyperplasia) (N40.0)Activeconfirmed ProblemAcute sinusitis (30137915)Acute sinusitis (J01.90)ActiveconfirmedProblem Allergic rhinitis (29269210)Allergic rhinitis (J30.9)ActiveconfirmedProblemWell adult (938178748)Well adult (Z00.00)ActiveconfirmedProblemPain of left knee region (finding) (028861306767985)Knee pain, left (M25.562)Activeconfirmed ProblemConjunctivitis (3701000)Conjunctivitis (H10.9)ActiveconfirmedProblem Cataract (604150143)Cataract (H26.9)ActiveconfirmedProblemNear syncope (336360357)Near syncope (R55)ActiveconfirmedProblemContact dermatitis (48086856) Contact dermatitis (L25.9)ActiveconfirmedProblemChronic fatigue syndrome (79273065)Chronic fatigue syndrome (R53.82)ActiveconfirmedProblemHeart murmur (09567706)Cardiac murmur (R01.1)ActiveconfirmedProblemMonoclonal paraproteinemia (394849396)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)ActiveconfirmedProblemInguinal hernia (disorder) (356838441)Hernia, inguinal (K40.90)ActiveconfirmedProblem Infection of toenail (86567802894882170)Infection of toenail (L03.039)Active 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) ActiveconfirmedProblemDecreased testosterone level (100628223)Low testosterone level in male (E29.1)ActiveconfirmedProblemGeneralized anxiety disorder (52121925)Anxiety neurosis (F41.1)ActiveconfirmedProblemSick euthyroid syndrome (462223057)Euthyroid sick syndrome (E07.81)ActiveconfirmedProblemPure hypercholesterolemia (767543353)Pure hypercholesterolemia, unspecified (E78.00) ActiveconfirmedProblemThrombosis of superficial vein of lower limb (591397671) Embolism and thrombosis of superficial veins of right lower extremity (I82.811) ActiveconfirmedProblemCOVID-19 (212579012)COVID-19 (U07.1)Activeconfirmed Vital Signs Temperature 98.4 degrees Fahrenheit 03/16/2024 Blood pressure bchpbcupt90 mm Hg09/28/20248672Yugctl00 in09/28/2024lood pressure fhdrifro680 mm Hg09/28/20242331Dzsuex476.6 lbs09/28/2024BMI26.34 kg/m209/28/2024 Encounters Encounter Location Date Provider Diagnosis [address] [address] 03/16/2024 Justino Hoy Acute non-recurrent sinusitis, unspecified location J01.90 and Nasal congestion R09.[address] [address] 09/28/2024 Justino Hoy Conjunctivitis H10.[address] [address] 02/01/2025 Justino Hoy Wellness examination Z00.00 Assessments Encounter Date Diagnosis (ICD Code) Assessment Notes Treatment Notes Treatment Clinical Notes Section Notes 03/16/2024 Acute non-recurrent sinusitis, unspecified location (ICD-10 - J01.90) Rest and drink more liquids, especially water. You may use a humidifier or vaporizer to help keep the drainage moist. Zfis-quc-kwgwpwv Nasal Saline may help the stuffy and runny nose. Use Ibuprofen and or Tylenol as needed for fever, chills, body aches or pain. Children 5 years old should not be given dmpo-oti-xjiaxgf cough and cold medications such as guaifenesin and dextromethorphan. If you're over age 5, you may try aojq-rgg-zzenlna cold medications such as guaifenesin and dextromethorphan, or multi-symptom cold reliever such as Dayquil to help reduce the symptoms. Antibiotics have been pre scribed. You should take these until completed and follow the directions. Antibiotics can sometimescause upset stomach, and in rare cases, serious allergic reactions or serious gastrointestinal problems. If you start having severe abdominal pain, severe vomiting, or bloody diarrhea, you should be r eevaluated by your physician or urgent care immediately. Follow up with your Primary Care Provider or return to clinic if symptoms do not improve within 3-5 days09/28/2024onjunctivitis (ICD-10 - H10.9)02/01/2025Wellness examination (ICD-10 - Z00.00)03/16/2024Nasal congestion (ICD-10 - R09.81) Plan Of Treatment [...] URIC ACID 09/03/2023 SERUM PROTEIN ELECTROPHORESIS 09/03/2023 CBC 02/01/2025 CMP - Comprehensive Metabolic Panel 01/23 PSA, TOTAL 09/03/2023 STOOL OCCULT BLOOD 07/16/2022 STOOL OCCULT BLOOD 09/03/2023 GLYCOHEMOGLOBIN A1C 02/01/2025 LIPID PROFILE 02/01/2025 THYROID PANEL (T4/TSH/FREE T3) 4 THYROID PANEL (T4/TSH/FREE T3) 5 THYROID PANEL (T4/TSH/FREE T3) 3 THYROID PANEL (T4/TSH/FREE T3) 3 PSA, SCREENING 02/01/2025 Next Appt Details Provider Name:Justino Cavanaugh Nerileigha, 03:30:00 PM, [address] [place], [address], Insurance Providers Payer Name Payer Address Payer Phone Subscriber Number Group Number Insured Name Patient Relationship to Insured Coverage Start Date Coverage End Date [facility] [address] [place] [address] [id number] Orlin Farr - patient is the insured Medical (General) [...] Allergic rhinitis J30.9 Surgical History Surgery Date(Month/Year) Retinal reattachment Hernia repairMeniscus repairEGD/Colonoscopy- 06/11/2018
--- OUTSIDE RECORDS SUMMARY | 2025-02-01 10:59 | XMS_ITS | Clinical Summary ---
Author Organization [facility] Healthcare Address [address] [place] [address] Care Team Providers Care Pony Roll Finisher Name Role Phone Justus Eason MD Primary Care Provider [phone] Allergies Active AllergyReactionsCriticalityNoted GbseUrtkblndUyxyhmvmnrkap78/06/2015 Other Reaction(s): Intolerance, Intolerance, Unknown Other reaction(s): Intolerance Medications MedicationSigDispense QuantityRefillsLast FilledStart DateEnd DateStatus aspirin (ASPIR) 81 MG EC tablet Take 81 mg by mouth 1 (one) time each day at the same time.Active Multiple Vitamins-Minerals (CENTRUM SILVER ULTRA MENS PO) Take 1 tablet by mouth 1 (one) time each day.Active sildenafil (Revatio) 20 MG tablet Indications:Combined arterial insufficiency and corporo-venous occlusive erectile dysfunctionTake 1-5 tablets (20-100 mg) by mouth Daily as needed (erectile dysfunction) 90 tablet 5Active levothyroxine (Synthroid, Levoxyl) 100 MCG tablet Indications:Hypothyroidism (acquired)Take 0.5 tablet on an empty stomach orally two times daily 90 tablet 5Active dehydroepiandrosterone (DHEA) 25 MG tablet Indications:Testosterone deficiency,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Take 1 tablet (25 mg) by mouth See administration instructions 1 tablet in evening and 1/2 tablet in AM orally two times daily5Active liothyronine (Cytomel) 5 MCG tablet Indications:Euthyroid sick syndromeTake 2 tablets in AM and 2 tablets in PM on an empty stomach. MARTHA; Sigma or Cytomel brands only 360 tablet 5Active clomiPHENE (Clomid) 50 MG tablet Indications:Testosterone deficiencyTake 1 tablet (50 mg) by mouth 2 (two) times a week Patient Paying hanson with a discount card. 24 tablet 512/5Active Active Problems ProblemNoted DateDiagnosed DateGeneralized anxiety rmtbwdqa63/07/2025Post- herpetic uzdrkaomrrbflk04/07/2025hronic cgjgfam9809/03/2022ombined arterial insufficiency and corporo-venous occlusive erectile kzijaaekyud92/12/2023 Euthyroid sick djnbbbuk91/12/2023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09/03/2022Hypothyroidism (acquired)09/03/2022Mixed hkqcxirvytlj18/12/2023Monoclonal paraproteinemia 09/03/20220049Zyvsjfrpnn60/12/2023Testosterone ykpfagzsfk87/12/2023 Encounters DateTypeDepartmentCare YnwkXjprnicamcq32/10/2025Telephone [facility] [address] [address] [place] [address] Hu Greenwood MD Care Aaabvjdtiuwn59/02/2025Orders Only [facility] [address] [address] [place] [address] Hu Greenwood MD Testosterone deficiency (Primary Dx)11/19/2024Telephone [facility] [address] [address] [place] [address] Hu Greenwood MD 11/09/2024 8:30 AM EDTOffice Visit [address] [address] [place] [address] Hu Greenwood MD Hypothyroidism (acquired) ; Euthyroid sick syndrome; Chronic fatigue; Testosterone deficiency; 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11/09/2024amboo flowsheet [facility] [address] [address] [place] [address] Hu Greenwood MD 11/09/2024Travelfrom Last 3 Months Immunizations ImmunizationAdministration DatesNext DuePneumococcal Polysaccharide PPSV23 12/15/2013 Family History Medical HistoryRelationNameCommentsNo Known ProblemsBrotherHypothyroidismFather Lung cancerMotherbladder cancerMotherHeart diseaseOtherHypothyroidismSister RelationNameStatusCommentsBrother1 brotherDaughterAlive1 daughterFatherAlive MotherDeceasedOtherSister1 sisterSonAlive1 son Social History Tobacco UseTypesPacks/DayYears UsedDateSmoking Tobacco: NeverPassive Smoke Exposure: NeverSmokeless Tobacco: Never Tobacco Cessation:Counseling Given: Yes Alcohol UseStandard Drinks/WeekCommentsYes2 (1 standard drink = 0.6 oz pure alcohol)Caffeine intake: coffeeHumiliation, Afraid, Rape, and Kick questionnaire AnswerDate RecordedWithin the last year, have you been afraid of your partner or ex-partner?No09/06/2022Within the last year, have you been humiliated or emotionally abused in other ways by your partner or ex-partner?No09/06/2022 Within the last year, have you been kicked, hit, slapped, or otherwise physically hurt by your partner or ex-partner?No09/06/2022Within the last year, have you been raped or forced to have any kind of sexual activity by your part ner or ex-partner?No09/06/2022Social Connection and Isolation PanelAnswerDate RecordedIn a typical week, how many times do you talk on the phone with family, friends, or neighbors?More than three times a week09/06/2022How often do you get together with friends or relatives?More than three times a week09/06/2022How often do you attend buddhism or uatsdin services?More than 4 times per year 09/06/2022o you belong to any clubs or organizations such as buddhism groups, unions, fraternal or athletic groups, or school groups?Yes09/06/2022How often do you attend meetings of the clubs or organizations you belong to?1 to 4 times per year09/06/2022re you , , , , never , or living with a partner?Tvelccy8509/06/2022UDIT-CAnswerDate RecordedQ1: How often do you have a drink containing alcohol?2-4 times a month09/06/2022Q2: How many drinks containing alcohol do you have on a typical day when you are drinking?1 or Q3: How often do you have six or more drinks on one occasion?Never 09/06/2022Overall Financial Resource Strain (CARDIA)AnswerDate RecordedHow hard is it for you to pay for the very basics like food, housing, medical care, and heating?Not hard at all09/06/2022HQ-2AnswerDate RecordedPatient Health Questionnaire-2 Whgrw319FinSt. [facility]'s [facility] - Occupational Stress QuestionnaireAnswerDate RecordedDo you feel stress - tense, restless, nervous, or anxious, or unable to sleep at night because yourmind is troubled all the time - these days?Not at all09/06/2022Exercise Vital SignAnswer Date RecordedOn average, how many days per week do you engage in moderate to strenuous exercise (like a brisk walk)?7 days09/06/2022On average, how many minutes do you engage in exercise at this level?60 min09/06/2022Hunger Vital SignAnswerDate RecordedWithin the past 12 months, you worried that your food would run out before you got the money to buymore.Never true09/06/2022Within the past 12 months, the food you bought just didn't last and you didn't have money to get more.Never true09/06/2022RAPARE - TransportationAnswerDate RecordedIn the past 12 months, has lack of transportation kept you from medical appointments or from getting medications?No09/06/2022In the past 12 months, has lack of transportation kept you from meetings, work, or from getting things needed for daily living?No09/06/2022Housing Stability Vital SignAnswerDate RecordedIn the last 12 months, was there a time when you were not able to pay the mortgage or rent on time?No09/06/2022In the last 12 months, how many places have you lived?In the last 12 months, was there a time when you did not have a steady place to sleep or slept in appletonelter (including now)?No 09/06/2022Sex and Gender InformationValueDate RecordedSex Assigned at BirthNot on fileLegal IukMehj9906/06/2022 7:09 PM EDTGender IdentityNot on fileSexual OrientationNot on file Last Filed Vital Signs Vital SignReadingTime TakenCommentsBlood Caarrgko444/7205 12:00 PM EDT Pulse--Temperature--Respiratory Rate--Oxygen Saturation--Inhaled Oxygen Concentration--Vlarem00.2 kg (168 lb)11/09/2024 8:25 AM QYJAnxewu273.8 cm (5' 10 )11/09/2024 8:25 AM EDTBody Mass Index24.11011/09/2024 8:25 AM EDT Plan of Treatment DateTypeDepartmentCare Team (Latest Contact Info)Bqrcnbcljqy14/13/2025 8:00 AM ESTOffice Visit [address] [address] Hu Greenwood MD [address] [address] 04/29/2025 8:00 AM ESTOffice Visit [address] [address] Hu Greenwood MD [address] [address] Health MaintenanceDue DateLast DoneCommentsCT Ptslyitvcnmo74/05/1961olonoscopy 1960olorectal Cancer Cpmbrokqz38/05/1961FIT-DNA1960FIT1960 FOBT1960 2900Yeqepyodqaakf52/05/1961Influenza Vaccine (#1)2025Postponed from 11/23/2024 (Patient Refused)Pneumococcal Vaccine: Pediatrics (0 to 5 Years) and At-Risk Patients (6 to 64 Years)Aged Out12/15/2013No longer eligible based on patient's age to complete this topicCOVID-19 QtyioehJxpyuayacblu59/08/2022, 10/23/2020, 09/30/2020 Procedures Procedure NamePriorityDate/TimeAssociated DiagnosisCommentsDHEA SULFATERoutine 01/20/2025 9:05 AM EDT Chronic fatigue Testosterone deficiency 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 TESTOSTERONE, TOTAL, MALES (ADULT), UURvetkbo73/29/2025 9:05 AM EDT Chronic fatigue Testosterone deficiency 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 It has not been cleared or approved by the FDA. This assay has been validated pursuant to the CLIA regulations and is used for clinical purposes. Specimen (Source)Anatomical Location / LateralityCollection Method / Volume Collection TimeReceived Time01/20/2025 9:05 AM EDT1 9:06 AM EDT Narrative [facility] - 01/26/2025 4:24 AM EST MULTIPLE TESTING PRIORITIES; ROUTINE TESTING TO FOLLOW. Resulting Agency Comment Performing Organization Information ?Site ID: [id number] ?Name: [facility], ?Address: [address] [id number] ?Director: Quita Hi MD,PhD,TA Authorizing ProviderResult TypeResult StatusHu Greenwood MDLAB BLOOD ORDERABLESFinal ResultPerforming OrganizationAddressCity/State/ZIP CodePhone Number [facility] * (ABNORMAL) DHEA-sulfate (01/20/2025 9:05 AM EDT)ComponentValueRef RangeTest MethodAnalysis TimePerformed AtPathologist SignatureDHEA ECORWMI423(H)20 - 217 mcg/dLQUESTSpecimen (Source)Anatomical Location / LateralityCollection Method / VolumeCollection TimeReceived TimeBloodVenous blood specimen / Unknown 01/20/2025 9:05 AM EDT1 9:06 AM EDT Narrative [facility] - 01/26/2025 4:24 AM EST MULTIPLE TESTING PRIORITIES; ROUTINE TESTING TO FOLLOW. Resulting Agency Comment Performing Organization Information ?Site ID: [id number] ?Name: [facility] ?Address: [address] [place] [address], [address] [place] [address] ?Director: Cas Peraza MD Authorizing ProviderResult TypeResult StatusEdmeek NICK BLOOD ORDERABLESFinal ResultPerforming OrganizationAddressCity/State/ZIP CodePhone Number [facility] * Testosterone (01/20/2025 9:05 AM EDT)ComponentValueRef RangeTest Method Analysis TimePerformed AtPathologist SignatureTESTOSTERONE, TOTAL, MALES (ADULT), [id number] - 827 ng/dLQUESTSpecimen (Source)Anatomical Location / LateralityCollection Method / VolumeCollection TimeReceived TimeBloodVenous blood specimen / Tkoetzk1801/20/2025 9:05 AM EDT1 9:06 AM EDT Narrative [facility] - 01/26/2025 4:24 AM EST MULTIPLE TESTING PRIORITIES; ROUTINE TESTING TO FOLLOW. Resulting Agency Comment Performing Organization Information ?Site ID: [id number] ?Name: [facility] ?Address: [address] [place] [address], [address] [place] [address] ?Director: Cas Peraza MD Authorizing ProviderResult TypeResult StatusHu NICK BLOOD ORDERABLESFinal ResultPerforming OrganizationAddressCity/State/ZIP CodePhone Number [facility] from Last 3 Months Insurance Care Teams Team MemberRelationshipSpecialtyStart DateEnd Justus Eason MD [address] [place] [address] [facility] - [facility]
[2025-02-01 11:24] LABS: Hematocrit 40.5 % (42.0-54.0); Hemoglobin 13.6 g/dL (14.0-18.0); Immature Granulocytes Abs Auto 0.01 10^3/uL (0.00-0.03); Immature Granulocytes Pct Auto 0.2 % (0.0-0.5); Lymphocytes Absolute Auto 1.7 10^3/uL (1.2-3.8); Mean Corpuscular HGB Conc 33.6 g/dL (29.9-35.2); Mean Corpuscular Hemoglobin 32.2 pg (25.9-34.0); Mean Corpuscular Volume 96.0 fL (80.0-94.0); Platelet Count 240 10^3/uL (150-450); Red Blood Count 4.22 10^6/uL (4.70-6.10); White Blood Count 5.1 10^3/uL (4.0-11.0)
[2025-02-01 12:42] LABS: Alanine Aminotransferase 28 U/L (16-63); Albumin Globulin Ratio 0.4; Albumin Level 2.7 g/dL (3.4-5.0); Alkaline Phosphatase 30 U/L (46-116); Anion Gap 8.5; Aspartate Amino Transferase 15 U/L (15-37); Blood Urea Nitrogen 16.0 mg/dL (7.0-18.0); Calcium 8.6 mg/dL (8.5-10.1); Carbon Dioxide 26.8 mmol/L (21.0-32.0); Chloride 105 mmol/L (98-107); Cholesterol 197 mg/dL (<=200); Estimated GFR (African America >60 (>=60 mL/min/1.73m^2); Estimated GFR (Non-African Ame >60 (>=60 mL/min/1.73m^2); Free T3 2.60 pg/mL (2.18-3.98); Globulin 7.1 g/dL; Glucose 98 mg/dL (74-106); HDL Cholesterol 40 mg/dL (40-60); Potassium 4.3 mmol/L (3.5-5.1); Sodium 136 mmol/L (136-145); Thyroid Stimulating Hormone 0.224 uIU/mL (0.358-3.740); Total Protein 9.8 g/dL (6.4-8.2); Triglycerides 75 mg/dL (<=150); VLDL CHOLESTEROL 15.0 mg/dL
== END 2025-02-01 10:55 | disposition home or self-care (01) ==
LOC: LAB 10:55
PROVIDERS: PCP Family Medicine; Visit Provider Family Medicine
DX: Z00.00 Encounter for general adult medical examination without abnormal findings (principal); Z12.5 Encounter for screening for malignant neoplasm of prostate
CPT/HCPCS: 36415; 80053; 80061; 83036; 84436; 84443; 84481; 85025; G0103

== ENCOUNTER 2025-02-25 14:18 | Outpatient (OUT) | payer BC, SELFPAY | END 2025-02-25 14:19 | disposition home or self-care (01) | LOC: US 14:19 | PROVIDERS: PCP Family Medicine; Visit Provider Family Medicine | DX: I82.811 Embolism and thrombosis of superficial veins of right lower extremity (principal); I82.401 Acute embolism and thrombosis of unspecified deep veins of right lower extremity | CPT/HCPCS: 93971 ==